=== PATIENT | female | born 1985 | race Caucasian/White ===

== ENCOUNTER 2023-08-02 04:34 | Emergency (ER) | payer BC, MEDICAID, SELFPAY ==
[2023-08-02] VITALS (15 sets, daily range): BP systolic 112–133; BP diastolic 63–81; PULSE 94–104; RESP 14–26; TEMP 36.6; O2SAT 93–98; BMI 41.6
--- NOTE | 2023-08-02 05:17 | CT_ITS ---
The [address] [address] Patient Name: SONIA CURTIS MRN: [id number] date: 1985 Sex: F Assigned Patient Location: ER Current Patient Location: ED.MAIN Accession/Order Number: [id number] Exam Date: 08/02/2023 05:44 Report Date: 08/02/2023 06:56 At the request of: KATY GARVIN Procedure: CT abdomen pelvis w con EXAM: CT abdomen pelvis w con HISTORY: Right flank pain; technologist notes state sharp and lower right back pain that radiates into the foramen of the abdomen and pain with urination yesterday. COMPARISON: None. TECHNIQUE: Routine CT abdomen/pelvis with intravenous contrast. FINDINGS: Lower chest: Unremarkable. Liver: The liver is enlarged and fatty infiltrated measuring 21 cm in longitudinal dimension. Gallbladder/biliary tree: Cholecystectomy. There is no biliary dilatation. Pancreas: Unremarkable. Spleen: Unremarkable. Adrenal glands: Unremarkable. Left kidney: Retained lobulation along the contour of the left kidney. The left kidney and left ureter are otherwise unremarkable. Right kidney/urinary bladder: Slight delayed right renal enhancement compared to the left. There is thickening of the wall of the right renal pelvis and right ureter with induration of the fat along the course of the right ureter. Findings are suspicious for a urinary tract infection. There is no renal or ureteral calculus. The urinary bladder is underdistended with mild circumferential wall thickening. There is no bladder calculus. There is mild induration of the perivesicular fat. Correlation should be made with a urinalysis. Bowel: Nonobstructive bowel gas pattern with a small amount of liquid stool within the colon. The appendix is unremarkable. The distal esophagus and stomach are unremarkable. Fluid within nondistended jejunal and ileal small bowel loops. Correlate with clinical findings of diarrhea. Inflammation: There is no free air or free fluid. Vasculature: The abdominal aorta and IVC are unremarkable. Lymphadenopathy: There are no pathologically enlarged lymph nodes within the abdomen/pelvis. Pelvis: As previously described. Hysterectomy. There is a calcification and a 1.8 cm involuting cyst within the left ovary. Osseous: Unremarkable. CT/CT abdomen pelvis w con IMPRESSION: Slight delayed right renal enhancement compared to the left. There is thickening of the wall of the right renal pelvis and right ureter with induration of the fat along the course of the right ureter. Findings are suspicious for a urinary tract infection. There is no renal or ureteral calculus. The urinary bladder is underdistended with mild circumferential wall thickening. There is no bladder calculus. There is mild induration of the perivesicular fat. Correlation should be made with a urinalysis. The liver is enlarged and fatty infiltrated measuring 21 cm in longitudinal dimension. Nonobstructive bowel gas pattern. There is a small amount of liquid stool within the colon and fluid within nondilated jejunal and ileal small bowel loops. Correlate with clinical findings of diarrhea. There is a calcification and a 1.8 cm involuting cyst within the left ovary. Electronically authenticated by: NAT DIEGO Date: 08/02/2023 06:56
[2023-08-02 05:25] LABS: Basophils Absolute Auto 0.1 10^3/uL (0.0-0.1); Basophils Percent Auto 0.4 % (0.2-2.0); Eosinophils Absolute Auto 0.1 10^3/uL (0.0-0.7); Eosinophils Percent Auto 0.3 % (0.9-7.0); Hematocrit 41.3 % (36.0-48.0); Hemoglobin 13.5 g/dL (12.0-16.0); Immature Granulocytes Abs Auto 0.14 10^3/uL (0.00-0.03); Immature Granulocytes Pct Auto 0.7 % (0.0-0.5); Lymphocytes Absolute Auto 2.9 10^3/uL (1.2-3.8); Lymphocytes Percent Auto 13.9 % (20.5-60.0); Mean Corpuscular HGB Conc 32.7 g/dL (29.9-35.2); Mean Corpuscular Hemoglobin 28.8 pg (26.7-34.0); Mean Corpuscular Volume 88.2 fL (81.0-99.0); Mean Platelet Volume 9.2 fL (9.5-13.5); Monocytes Absolute Auto 0.9 10^3/uL (0.3-0.8); Monocytes Percent Auto 4.5 % (1.7-12.0); Neutrophils Absolute Auto 16.6 10^3/uL (1.4-6.5); Neutrophils Percent Auto 80.2 % (43.0-75.0); Platelet Count 506 10^3/uL (150-450); Red Blood Count 4.68 10^6/uL (4.20-5.40); Red Cell Distribution Width 14.1 % (11.0-15.0); White Blood Count 20.7 10^3/uL (4.0-11.0)
[2023-08-02 05:26] LABS: Bilirubin Urine NEGATIVE (NEGATIVE); Blood Urine SMALL (NEGATIVE); Clarity Urine CLEAR (CLEAR); Color Urine LT. YELLOW (YELLOW); Glucose Urine UA NEGATIVE (NEGATIVE); Ketones Urine NEGATIVE (NEGATIVE); Leukocyte Esterase Urine SMALL (NEGATIVE); Nitrite Urine NEGATIVE (NEGATIVE); Protein Urine 30 mg/dL (NEG/TRACE); Specific Gravity Urine 1.025 (1.005-1.025); Urobilinogen Urine 0.2 EU/dL (0.2-1.0)
[2023-08-02 05:29] LABS: Urine Microscopic Indicated YES
[2023-08-02 05:37] LABS: Anion Gap 13.1; BUN Creatinine Ratio 4.2; Carbon Dioxide 28.8 mmol/L (21.0-32.0); Chloride 98 mmol/L (98-107); Estimated GFR (African America >60 (>=60); Estimated GFR (Non-African Ame >60 (>=60); Glucose 122 mg/dL (74-106); Sodium 137 mmol/L (136-145)
[2023-08-02 05:39] LABS: Potassium 2.9 mmol/L (3.5-5.1)
[2023-08-02 05:43] LABS: Bacteria Urine SMALL #/HPF (NONE SEEN); Cast Seen? NONE SEEN #/LPF (NONE SEEN); Crystals Seen? None Seen #/HPF (None Seen); Mucus Urine NONE SEEN (NONE SEEN); RBC Urine 0-2 #/HPF (0-2); Squamous Epithelial Cell Urine RARE #/LPF (NONE/RARE); Urine Culture Indicated YES
[2023-08-02] MEDS: KETOROLAC TROMETHAMINE 30 MG/ML VIAL 15 MG IVP (06:02)
[2023-08-02] MEDS: ONDANSETRON PF 4 MG/2 ML VIAL IV (06:02)
[2023-08-02] MEDS: POTASSIUM CHLORIDE IN WATER 10 MEQ/100 ML PIGGYBACK 100 MEQ IV ×2 (06:03→07:03)
--- NOTE | 2023-08-02 06:33 | ED_ITS ---
HPI - General Adult General Chief complaint: Back Pain/Injury Stated complaint: LOWER BACK PAIN Time Seen by Provider: 08/02/23 04:35 Source: patient Mode of arrival: walk-in Limitations: no limitations History of Present Illness HPI narrative: 37-year-old female to the emergency department with right-sided flank pain. Symptoms began yesterday. She reports some mild chills, nausea without vomiting.She's had a similar episode in the past worked up until there is nothing wrong. Patient reports that she had malaise throughout the day. She denies any hematuria, dysuria, urgency, frequency. She reports right flank pain has been worsening. She has a history of hysterectomy. She has a history of fibromyalgia. Related Data Home Medications Medication Instructions Recorded Confirmed albuterol sulfate 90 mcg/actuation inhalation 08/02/23 aerosol inhaler cetirizine 10 mg tablet mg 08/02/23 duloxetine 60 mg capsule,delayed mg PO 08/02/23 release leucovorin calcium 15 mg tablet mg 08/02/23 lurasidone 80 mg tablet mg 08/02/23 no.118-ferrous fumarate tab 08/02/23 29 mg-folic acid 1 mg chewable tablet (Se- 19 Chewable) upadacitinib 15 mg tablet,extended mg PO 08/02/23 release 24 hr (Rinvoq) Previous Rx's Medication Instructions Recorded cephalexin 500 mg capsule 500 mg PO Q6H 7 days #28 caps 08/02/23 ondansetron 4 mg disintegrating 4 mg PO Q8H PRN nausea and 08/02/23 tablet vomiting 4 days #16 tabs Allergies Allergy/AdvReac Type Severity Reaction Status Date / Time oxycodone Allergy Verified 08/02/23 04:42 Review of Systems ROS Status of ROS 10 or more systems reviewed and unremark able except as noted in history and below PFSH PFSH Social History Smoking status: Never smoker Exam Narrative Exam Narrative: VITALS: I have reviewed the triage vital signs. GENERAL: Well developed, well appearing adult in no acute distress. NEURO: Alert and oriented. Moves all extremities. Face is symmetric and expressive. EYES: PERRL. No scleral icterus or conjunctival injection. No discharge. HENT: Normocephalic, atraumatic. Hearing is grossly intact. Nares grossly patent and without discharge. Mucous membranes moist. NECK: No JVD. Patient moves neck without restriction. CARDIO: Rhythm regular. Normal rate. No murmur, rub, or gallop. Pulses equal bilaterally in the upper and lower extremity. No lower extremity edema. PULM: Lungs clear to auscultation in all penn. No wheezes, rales, or rhonchi. No conversational dyspnea. No splinting, stridor, or accessory muscle use. GI/: Abdomen is soft and non-tender. Normoactive bowel sounds. Right flank tenderness. EXTREMITIES: Symmetric muscle bulk. No joint swelling. No clubbing, cyanosis, or deformity. SKIN: Warm and dry. Normal turgor. No rash or lesions appreciated. PSYCH: Mood, affect, and interaction is appropriate to the setting. Constitutional Vital Signs, click to edit/add: Last Vital Signs Temp 97.9 F 08/02/23 04:38 Pulse 102 H 08/02/23 04:38 Resp 20 08/02/23 04:38 BP 133/81 08/02/23 04:38 Pulse Ox 98 08/02/23 04:38 O2 Del Method Room Air 08/02/23 04:38 Course Vital Signs Vital signs: Vital Signs Temperature 97.9 F 08/02/23 04:38 Pulse Rate 102 H 08/02/23 04:38 Respiratory Rate 20 08/02/23 04:38 Blood Pressure 133/81 08/02/23 04:38 Pulse Oximetry 98 08/02/23 04:38 Oxygen Delivery Method Room Air 08/02/23 04:38 Temperature 97.9 F 08/02/23 04:38 Pulse Rate 102 H 08/02/23 04:38 Respiratory Rate 20 08/02/23 04:38 Blood Pressure 133/81 08/02/23 04:38 Pulse Oximetry 98 08/02/23 04:38 Oxygen Delivery Method Room Air 08/02/23 04:38 Medical Decision Making [facility] Narrative Medical decision making narrative: 37-year-old female to the emergency department with chief complaint right-sided flank pain. Vital stable, the patient is afebrile. Abdominal examination is benign. Will order a CT scan to rule out kidney stone. Urinalysis, basic labs ordered as well. IV Toradol and Zofran for symptom control. Fluids are ordered. Patient agrees with this plan. Patient does have a leukocytosis. Her renal function is normal. She has a moderate hypokalemia, we'll begin repletion with 20 mEq of IV potassium. Oral potassium will be given there is no acute surgical pathology on her CT scan as well. Care was signed out to Dr. Aguilera awaiting CT results and disposition. Suspect UTI/ early pyelo and if symptoms controlled discharge home on Keflex and Zofran. Medical Records Medical records reviewed: Yes I reviewed the patient's medical records Lab Data Lab results reviewed: Yes I reviewed the patient's lab results Labs: Lab Results 08/02/23 08/02/23 Range/Units 04:50 05:10 WBC 20.7 H (4.0-11.0) 10^3/uL RBC 4.68 (4.20-5.40) 10^6/uL Hgb 13.5 (12.0-16.0) g/dL Hct 41.3 (36.0-48.0) % MCV 88.2 (81.0-99.0) fL MCH 28.8 (26.7-34.0) pg MCHC 32.7 (29.9-35.2) g/dL RDW 14.1 (11.0-15.0) % Plt Count 506 H (150-450) 10^3/uL MPV 9.2 L (9.5-13.5) fL Neut % (Auto) 80.2 H (43.0-75.0) % Lymph % (Auto) 13.9 L (20.5-60.0) % [place] % (Auto) 4.5 (1.7-12.0) % Eos % (Auto) 0.3 L (0.9-7.0) % Baso % (Auto) 0.4 (0.2-2.0) % Neut # (Auto) 16.6 H (1.4-6.5) 10^3/uL Lymph # (Auto) 2.9 (1.2-3.8) 10^3/uL Anderson # (Auto) 0.9 H (0.3-0.8) 10^3/uL Eos # (Auto) 0.1 (0.0-0.7) 10^3/uL Baso # (Auto) 0.1 (0.0-0.1) 10^3/uL Abs Immat Gran (auto) 0.14 H (0.00-0.03) 10^3/uL Imm/Tot Granulo (auto) 0.7 H (0.0-0.5) % Sodium 137 (136-145) mmol/L Potassium 2.9 L* (3.5-5.1) mmol/L Chloride 98 (98-107) mmol/L Carbon Dioxide 28.8 (21.0-32.0) mmol/L Anion Gap 13.1 BUN 4.0 L (7.0-18.0) mg/dL Creatinine 0.95 (0.55-1.02) mg/dL Est GFR ( Amer) >60 (>=60) Est GFR (Non-Af Amer) >60 (>=60) BUN/Creatinine Ratio 4.2 Glucose 122 H (74-106) mg/dL Calcium 9.0 (8.5-10.1) mg/dL Urine Color Lt. yellow (YELLOW) Urine Clarity Clear (CLEAR) Urine pH 6.0 (5.0-9.0) Ur Specific [place] 1.025 (1.005-1.025) Urine Protein 30 A (NEG/TRACE) mg/dL Urine Glucose (UA) Negative (NEGATIVE) mg/dL Urine Ketones Negative (NEGATIVE) mg/dL Urine Occult Blood Small A (NEGATIVE) Urine Nitrite Negative (NEGATIVE) Urine Bilirubin Negative (NEGATIVE) Urine Urobilinogen 0.2 (0.2-1.0) EU/dL Ur Leukocyte Esterase Small A (NEGATIVE) Urine RBC 0-2 (0-2) #/HPF Urine WBC 10-20 A (NONE SEEN) #/HPF Ur Squamous Epith Cells Rare (NONE/RARE) #/LPF Urine Crystals None seen (None Seen) #/HPF Urine Bacteria Small A (NONE SEEN) #/HPF Urine Casts None seen (NONE SEEN) #/LPF Urine Mucus None seen (NONE SEEN) Ur Culture Indicated? Yes Imaging Data CT scan - abdomen: Attestation: I have reviewed the pertinent imaging results. Discharge Plan Discharge Chief Complaint: Back Pain/Injury Clinical Impression: UTI (urinary tract infection), Flank pain Patient Disposition: Home, Self-Care Condition: Good Mode of Transportation: Private Vehicle Prescriptions / Home Meds: New cephalexin 500 mg capsule 500 mg PO Q6H 7 Days Qty: 28 0RF ondansetron 4 mg tablet,disintegrating 4 mg PO Q8H PRN (Reason: nausea and vomiting) 4 Days Qty: 16 0RF No Action cetirizine 10 mg tablet leucovorin calcium 15 mg tablet albuterol sulfate 90 mcg/actuation HFA aerosol inhaler INHALATION duloxetine 60 mg capsule,delayed release(DR/EC) PO lurasidone 80 mg tablet Se-Moustapha 19 Chewable 29 mg iron- 1 mg tablet,chewable Rinvoq 15 mg tablet extended release 24 hr PO Print Language: Argentine Instructions: Urinary Tract Infection in Women (ED) Stand Alone Forms: Portal Instructions Referrals: Hamzah Sterling MD [Physician] - 1 week (Return to the Emergency Room with Worsening pain, inability to tolerate oral intake, or other new or concerning symptoms. Follow up with her primary care physician above or ureters in the next week repeat evaluation and to make sure that Your condition has resolved. Take medications as prescribed.) Physician,Non-Staff, [Primary Care Provider] - 1 week
[2023-08-02] MEDS: 0.9 % SODIUM CHLORIDE 1,000 ML 100 ML IV (07:00)
[2023-08-02] MEDS: CEFTRIAXONE 1,000 MG in 0.9 % SODIUM CHLORIDE 50 ML 100 MG IV (08:07)
== END 2023-08-02 08:51 | disposition home or self-care (01) ==
PROVIDERS: Student in an Organized Health Care Education/Training Program; Emergency Provider Emergency Medicine
DX: N39.0 Urinary tract infection, site not specified (principal); R10.9 Unspecified abdominal pain; M79.7 Fibromyalgia; Z90.710 Acquired absence of both cervix and uterus; Z79.899 Other long term (current) drug therapy
CPT/HCPCS: 36415; 74177; 80048; 81001; 85025; 87086; 87150; 87186; 96365; 96366; 96367; 96375; 99285; J0696; J1885; J2405; J3480; Q9967

== ENCOUNTER 2023-11-04 19:54 | Emergency (ER) | payer BC, MEDICAID, SELFPAY ==
[2023-11-04 19:59] VITALS: BP 139/87; PULSE 91; TEMP 36.6; O2SAT 97; BMI 37.4
--- OUTSIDE RECORDS SUMMARY | 2023-11-04 20:10 | XMS_ITS | CCD ---
Author Organization [facility] Care Team Providers Care Gas Fitter Name Role Phone SELF, REFERRED Primary Care Unavailable BALWINDER OCAMPO Referring Unavailable LUIS ALFREDONITESH HERNANDZE Attending Unavailable LUIS ALFREDONITESH HERNANDEZ Admitting Unavailable FARHAD, CADE Primary Care Unavailable DIAB ., CATIE Attending Unavailable DIAB ., CATIE Admitting Unavailable GRECHNY ., BALDEMAR GOLDBERG Consulting Unavailabl e LAZOJOSÉ MANUEL Consulting Unavailable FARHAD, CADE Primary Care Unavailable KARASIK ., DR VIDAL Attending Unavailabl e KARASIK ., DR VIDAL Consulting Unavailabl e KARASIK ., DR VIDAL Admitting Unavailabl e ADRIAN CASSIDY Attending Unavailable PHAN, KARSTEN Primary Care Unavailable GAURI NEAL Attending Unavailable PARK, GAURI A Attending Unavailable PARK GAURI A Referring Unavailable PHAN, KARSTEN Primary Care Unavailable NOMI SPICER Referring Unavailable NOMI SPICER Attending Unavailable NOMI SPICER Attending Unavailable NOMI SPICER Attending Unavailable NOMI SPICER M Attending Unavailable SHAHNAZ HANNAH Attending Unavailable Allergies Allergy Classification Reported Allergen(s) Allergy Type Date of Onset Reaction(s) Facility (3 sources) Latex; 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: [LATEX] Propensity to adverse reactions (disorder) 8 [facility] Repository (1 source) adalimumab Drug Allergy [facility] Repository (1 source) natural latex rubber Drug allergy (disorder) [facility] Repository (2 sources) adalimumab; 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: [ADALIMUMAB] Drug Allergy 3 [facility] Repository (2 sources) oxyCODONE; 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: [OXYCODONE] Drug Allergy 3 [facility] Repository Problems Active Problems Problem Classification Problem Date Documented Date Episodic/Chronic Abdominal pain (1 source) Flank pain Onset: 07-19-2023 Episodic Anxiety disorders (1 source) Anxiety disorder, unspecified; 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: [ANXIETY DISORDER UNSPECIFIED] Onset: 08-24-2022 Chronic Cardiac dysrhythmias (1 source) Palpitations; 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: [PALPITATIONS] Onset: 08-24-2022 Episodic Disorders of lipid metabolism (2 sources) Hyperlipidemia, unspecified; 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: [Hyperlipidemia, unspecified] Onset: 05-23-2023 Chronic Fluid and electrolyte disorders (1 source) Hypokalemia; 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: [HYPOKALEMIA] Onset: 08-24-2022 Episodic Headache; including migraine (1 source) Headache Onset: 07-19-2023 Episodic Immunizations and screening for infectious disease (1 source) Encounter for screening for human papillomavirus (HPV); 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: [ENC SCREENING HUMAN PAPILLOMAVIRUS] Onset: 10-15-2022 Episodic Nonspecific chest pain (4 sources) Chest pain, unspecified; 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: [CHEST PAIN UNSPECIFIED] Onset: 08-22-2022 Episodic Other inflammatory condition of skin (2 sources) Arthropathic psoriasis, unspecified; 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: [Arthropathic psoriasis, unspecified] Onset: 05-23-2023 Chronic Other lower respiratory disease (1 source) Shortness of breath; 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: [SHORTNESS OF BREATH] Onset: 08-24-2022 Episodic Other nervous system disorders (2 sources) Polyneuropathy, unspecified; 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: [Polyneuropathy, unspecified] Onset: 02-26-2023 Chronic Other non-traumatic joint disorders (2 sources) Other specified arthritis, unspecified site; 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: [Other specified arthritis, unspecified site] Onset: 11-15-2022 Chronic Other screening for suspected conditions (not mental disorders or infectious disease) (4 sources) Encounter for screening for malignant neoplasm of cervix; 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: [ENC SCREENING MALIG NEOPLASM CERV] Onset: 10-10-2022 Episodic Rheumatoid arthritis and related disease (3 sources) Rheumatoid arthritis, unspecified; 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: [RHEUMATOID ARTHRITIS UNSPECIFIED] Onset: 08-24-2022 Chronic Screening and history of mental health and substance abuse codes (1 source) Personal history of nicotine dependence; 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: [PERSONAL HISTORY OF NICOTINE DEPEND] Onset: 08-24-2022 Episodic Unclassified (1 source) Low back pain, unspecified; 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: [Low back pain, unspecified] Onset: 07-19-2023 Unclassified (1 source) nausea, flank pain, headche Onset: 07-19-2023 Unclassified (1 source) FDC (current) use of antimetabolite agent; 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: [watermaster (current) use of antimetabolite agent] Onset: 02-26-2023 Past or Other Problems Problem Classification Problem Date Documented Date Episodic/Chronic E Codes: Adverse effects of medical drugs (2 sources) Adverse effect of antineoplastic and immunosuppressive drugs, initial encounter; 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: [Adverse effect of antineoplastic and immunosuppressive drugs, initial encounter] Onset: 11-15-2022 Episodic Other aftercare (2 sources) Other rat 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 (current) drug therapy; 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: [Other rat 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 (current) drug therapy] Onset: 03-22-2023 Episodic Other aftercare (2 sources) watermaster (current) use of systemic steroids; 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: [FDC (current) use of systemic steroids] Onset: 03-22-2023 Episodic Other connective tissue disease (2 sources) Fibromyalgia; 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: [Fibromyalgia] Onset: 02-26-2023 Episodic Other connective tissue disease (2 sources) Plantar fascial fibromatosis; 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: [Plantar fascial fibromatosis] Onset: 02-26-2023 Episodic Residual codes; unclassified (2 sources) Edema, unspecified; 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: [Edema, unspecified] Onset: 05-23-2023 Episodic Unclassified (1 source) FDC (current) use of antimetabolite agent; 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: [watermaster (current) use of antimetabolite agent] Onset: 02-26-2023 Results Test Name Value Interpretation Reference Range Facility 2911-01-2023 29 Addended by: NOMI SPICER on: 11/01/2023 04:53 PM Modules accepted: Orders Normal [facility] 36on 11-01-2023 36 TC from PT following up from a message she sent earlier: I am in a flare and was wondering if I could get something for it and if I could get a doctor's note for school And routed to Dr. Spicer to address. PT expresses she is in extreme pain with flare all over her body and is asking for something for pain/relief. PT is also asking for a note for her not being in school for 11/01/23. RN offered reassurance and support suggesting that if she does not hear back from [facility] today, and still has existing pain/discomfort to go to ER for evaluation of pain and treatment. PT verbalized understanding. PT is scheduled for follow up 11/07/23 Please advise. Shabana Jara RN [facility] Telephoneon 11-01-2023 Telephone [phone] Phyllis Waite Ilya 1985 F Date Provider Department Center 11/01/2023 [id number] JARA [facility] Chris Heal Family History Problem Relation Age of Onset Lupus Mother Cirrhosis Mother Family Status - Relation Status Age at Mother Reason for Visit and Comments: Generalized Body Aches [022694] - pain Normal [facility] Documentationon 10-25-2023 Documentation [id number] Elizabet Waiteinderjit Caraballo 1985 F Date Provider Department Center 10/25/[id number], KARA [facility] Chris Heal Family History Problem Relation Age of Onset Lupus Mother Cirrhosis Mother Family Status - Relation Status Age at Mother Reason for Visit and Comments: Specialty Pharmacy Note-Rinvoq Prescription [Other] [facility] 36on 10-07-2023 36 Last visit: 05/23/83 Next visit: cancelled by patient for 08/29/23 CBC/CMP: 07/19/23 [facility] 36 PT calling asking fo r provider to order different medication than Rinvoq because she cannot afford the $1000.00 copay. RN encouraged PT to contact her filling pharmacy inquiring of the PAP to assist with copay if financially eligible. RN also provided PT with [facility] Access pharmacy number to call for same information if applicable. PT verbalized appreciation and assistance. suresh Normal [facility] CBC AND AUTO DIFFon 07-19-19 ABSOLUTE BASOPHIL 0.1 X10E9/L Normal 0.0-0.2 [facility] Comment on above: Performed By: #### C MP, CBCA #### [facility] ([id number]) [address] [place] [address], [place] [address] ABSOLUTE NEUTROPHIL 4.6 X10E9/L Normal 1.5-6.6 [facility] Comment on above: Performed By: #### C MP, CBCA #### [facility] ([id number]) [address] [place] [address] 28215 Basophils/100 WBC (Bld) 0.9 % Normal [facility] Comment on above: Performed By: #### C MP, CBCA #### [facility] ([id number]) [address] [place] [address] 81287 Eosinophils (Bld) [#/Vol] 0.2 10*3/uL Normal 0.0-0.4 [facility] Comment on above: Performed By: #### C MP, CBCA #### [facility] ([id number]) [address] [place] [address] 11537 Eosinophils/100 WBC (Bld) 1.6 % Normal [facility] Comment on above: Performed By: #### C MP, CBCA #### [facility] ([id number]) [address] [place] [address] 21083 Erythrocyte distribution width (RBC) [Ratio] 13.9 % Normal 11.5-15.0 [facility] Comment on above: Performed By: #### C MP, CBCA #### [facility] ([id number]) [address] [place] [address] 19179 Hematocrit (Bld) [Volume fraction] 38.0 % Normal 35-47 [facility] Comment on above: Performed By: #### C MP, CBCA #### [facility] ([id number]) [address] [place] [address] 56947 Hemoglobin (Bld) [Mass/Vol] 13.0 g/dL Normal 11.7-15.5 [facility] Comment on above: Performed By: #### C MP, CBCA #### [facility] ([id number]) [address] [place] [address], [place] [address] Lymphocytes (Bld) [#/Vol] 5.0 10*3/uL High 1.0-3.5 [facility] Comment on above: Performed By: #### C MP, CBCA #### [facility] ([id number]) [address] [place] [address] 19277 Lymphocytes/100 WBC (Bld) 48.0 % Normal [facility] Comment on above: Performed By: #### C MP, CBCA #### [facility] ([id number]) [address] [place] [address] 28112 MCH (RBC) [Entitic mass] 29.4 pg Normal 27-34 [facility] Comment on above: Performed By: #### C MP, CBCA #### [facility] ([id number]) [address] [place] [address] 01304 MCHC (RBC) [Mass/Vol] 34.3 g/dL Normal 32-36 [facility] Comment on above: Performed By: #### C MP, CBCA #### [facility] ([id number]) [address] [place] [address] 25668 MCV (RBC) [Entitic vol] 86 fL Normal 80-100 [facility] Comment on above: Performed By: #### C MP, CBCA #### [facility] ([id number]) [address] [place] [address] 87191 Monocytes (Bld) [#/Vol] 0.6 10*3/uL Normal 0-0.9 [facility] Comment on above: Performed By: #### C MP, CBCA #### [facility] ([id number]) [address] [place] [address] 30809 Monocytes/100 WBC (Bld) 5.5 % Normal [facility] Comment on above: Performed By: #### C MP, CBCA #### [facility] ([id number]) [address] [place] [address] 44799 Neutrophils/100 WBC (Bld) 44.0 % Normal [facility] Comment on above: Performed By: #### C MP, CBCA #### [facility] ([id number]) [address] [place] [address] 85745 Platelet mean volume (Bld) [Entitic vol] 7.0 fL Normal 7-12 [facility] Comment on above: Performed By: #### C MP, CBCA #### [facility] ([id number]) [address] [place] [address] 16301 Platelets (Bld) [#/Vol] 559 10*3/uL High 150-450 [facility] Comment on above: Performed By: #### C MP, CBCA #### [facility] ([id number]) [address] [place] [address] 83723 RBC COUNT 4.43 X10E12/L Normal 3.80-5.20 [facility] Comment on above: Performed By: #### C MP, CBCA #### [facility] ([id number]) [address] [place] [address] 40713 WBC (Bld) [#/Vol] 10.4 10*3/uL Normal 4.0-11.0 [facility] Comment on above: Performed By: #### C MP, CBCA #### [facility] ([id number]) [address] [place] [address]506 COMPREHENSIVE METABOLIC PANE Varghese 07-19-2023 Albumin [Mass/Vol] 4.2 g/dL Normal 3.2-5.3 [facility] Comment on above: Performed By: #### C MP, CBCA #### [facility] ([id number]) [address] [place] [address] 40133 ALP [Catalytic activity/Vol] 92 U/L Normal 39-130 [facility] Comment on above: Performed By: #### C MP, CBCA #### [facility] ([id number]) [address] [place] [address] 31379 ALT [Catalytic activity/Vol] 57 U/L High 0-31 [facility] Comment on above: Performed By: #### C MP, CBCA #### [facility] ([id number]) [address] [place] [address] 35503 Anion gap [Moles/Vol] 9 mmol/L Normal 5-15 [facility] Comment on above: Performed By: #### C DEMI, CBCA #### [facility] ([id number]) [address] [place] [address] 30223 AST [Catalytic activity/Vol] 58 U/L High 0-41 [facility] Comment on above: Performed By: #### C DEMI, CBCA #### [facility] ([id number]) [address] [place] [address] 36625 Bilirubin [Mass/Vol] 0.1 mg/dL Low 0.3-1.2 [facility] Comment on above: Performed By: #### C DEMI, CBCA #### [facility] ([id number]) [address] [place] [address] 14509 Calcium [Mass/Vol] 9.4 mg/dL Normal 8.5-10.5 [facility] Comment on above: Performed By: #### C MP, CBCA #### [facility] ([id number]) [address] [place] [address] 40234 Chloride [Moles/Vol] 102 mmol/L Normal 98-109 [facility] Comment on above: Performed By: #### C MP, CBCA #### [facility] ([id number]) [address] [place] [address] 63869 CO2 [Moles/Vol] 27 mmol/L Normal 22-32 [facility] Comment on above: Performed By: #### C CHANDRAKANT SIMMS #### [facility] ([id number]) [address] [place] [address] 76967 Creatinine [Mass/Vol] 0.85 mg/dL Normal 0.40-1.00 [facility] Comment on above: Result Comment: METH OD TRACEABLE TO IDMS STANDARD Performed By: #### C CHANDRAKANT SIMMS #### [facility] ([id number]) [address] [place] [address] 09697 eGFR (CKD-EPI) NON-RACE DEPENDENT >90 Normal >59 [facility] Comment on above: Result Comment: Reported eGFR is based on the CKD-EPI 2020 equation that does not use a race coefficient. Performed By: #### C CHANDRAKANT SIMMS #### [facility] ([id number]) [address] [place] [address] 97151 Glucose [Mass/Vol] 92 mg/dL Normal 65-99 [facility] Comment on above: Performed By: #### C CHANDRAKANT SIMMS #### [facility] ([id number]) [address] [place] [address] 32274 Potassium [Moles/Vol] 3.3 mmol/L Low 3.5-5.0 [facility] Comment on above: Performed By: #### C CHANDRAKANT SIMMS #### [facility] ([id number]) [address] [place] [address] 70801 Protein [Mass/Vol] 8.0 g/dL Normal 6.0-8.0 [facility] Comment on above: Performed By: #### C LIYA SIMMSA #### [facility] ([id number]) [address] [place] [address] 87618 Sodium [Moles/Vol] 138 mmol/L Normal 134-146 [facility] Comment on above: Performed By: #### C MP, CBCA #### [facility] ([id number]) [address] [place] [address] 71308 Urea nitrogen [Mass/Vol] 5 mg/dL Normal 5-23 [facility] Comment on above: Performed By: #### C MP, CBCA #### [facility] ([id number]) [address] [place] [address] ABDOMEN AND PELVIS WO CON Ton 07-19-2023 CT ABDOMEN AND PELVIS WO CONT CT ABDOMEN AND PELVIS WO CONT CLINICAL INFORMATION: Abdominal/flank pain, stone suspected pain TECHNIQUE: CT Abdomen and Pelvis without intravenous contrast. All CT scans at this facility use dose modulation, iterative reconstruction, and/or weight based dosing when appropriate to reduce radiation dose to as low as reasonably achievable. COMPARISON: No relevant prior studies available. FINDINGS: There are no renal stones noted. No hydronephrosis. No urinary bladder stones. No hydroureter. Hepatic steatosis is appreciated. Prior cholecystectomy. The spleen, adrenal glands and pancreas are grossly unremarkable in the constraints of a noncontrast study. Normal appearance of the abdominal aorta. The appendix is normal. No evidence of bowel obstruction. Prior hysterectomy. No free fluid. No free air. No concerning adenopathy IMPRESSION: * No acute intraperitoneal process is seen Finalized by Mirtha Wiledr MD on 07/19/2023 5:05 PM Normal [facility] URN MACROSCOPIC NURon 2023 BILIRUBIN ZENOBIA Negative Normal NEG [facility] Comment on above: Performed By: #### N UM #### [facility] ([id number]) [address] [place] [address] 02453 BLOOD/HGB ZENOBIA Negative Normal NEG [facility] Comment on above: Performed By: #### N UM #### [facility] ([id number]) [address] [place] [address] 45878 GLUCOSE ZENOBIA Negative Normal NEG [facility] Comment on above: Performed By: #### N UM #### [facility] ([id number]) [address] [place] [address] [place] [address] KETONES ZENOBIA Negative Normal NEG [facility] Comment on above: Performed By: #### N UM #### [facility] ([id number]) [address] [place] [address] [place] [address] LEUKOCYTE ESTERASE ZENOBIA Negative Normal NEG [facility] Comment on above: Performed By: #### N UM #### [facility] ([id number]) [address] [place] [address] [place] [address] NITRITE ZENOBIA Negative Normal NEG [facility] Comment on above: Performed By: #### N UM #### [facility] ([id number]) [address] [place] [address] 44154 PH ZENOBIA 6.0 Normal 5.0-8.5 [facility] Comment on above: Performed By: #### N UM #### [facility] ([id number]) [address] [place] [address] [place] [address] PROTEIN ZENOBIA Negative Normal NEG [facility] Comment on above: Performed By: #### N UM #### [facility] ([id number]) [address] [place] [address] [place] [address] SPECIFIC GRAVITY ZENOBIA 1.010 Normal 1.003-1.035 [facility] Comment on above: Performed By: #### N UM #### [facility] ([id number]) [address] [place] [address] [place] [address] UROBILINOGEN ZENOBIA 0.2 eu/dL Normal <1.1 [facility] Comment on above: Performed By: #### N UM #### [facility] ([id number]) [address] [place] [address] [place] [address] CBC WITH AUTO DIFFERENTIALon 05-23-2023 Basophils (Bld) [#/Vol] 0.09 10*3/uL Normal 0.00-0.20 [facility] Comment on above: Performed By: #### L [id number] ####[facility] (BEAKER)[address] [place] [address] Basophils/100 WBC (Bld) 0.6 % Normal 0.0-1.0 [facility] Comment on above: Performed By: #### L [id number] ####[facility] (BEAKER)[address] [place] [address] Eosinophils (Bld) [#/Vol] 0.21 10*3/uL Normal 0.00-0.50 [facility] Comment on above: Performed By: #### L [id number] ####[facility] (BEAKER)[address] [place] [address] Eosinophils/100 WBC (Bld) 1.4 % Normal 0.0-6.0 [facility] Comment on above: Performed By: #### L [id number] ####[facility] [place] [address] Erythrocyte distribution width (RBC) [Ratio] 13.6 % Normal 11.5-15.0 [facility] Comment on above: Performed By: #### L [id number] ####[facility] (BEAKER)[address] [place] [address] ERYTHROCYTE MEAN CORPUSCULAR HEMOGLOBIN CONCENTRATION (G/DL) BY AUTOMATED 33.5 g/dL Normal 32.0-35.0 [facility] Comment on above: Performed By: #### L [id number] ####[facility] (BEAKER)[address] [place] [address] Hematocrit (Bld) [Volume fraction] 39.4 % Normal 36.0-48.0 [facility] Comment on above: Performed By: #### L [id number] ####[facility] (BEAKER)[address] [place] [address] Hemoglobin (Bld) [Mass/Vol] 13.2 g/dL Normal 12.0-15.0 [facility] Comment on above: Performed By: #### L [id number] ####[facility] ([facility]AKER)[address] [place] [address] Immature granulocytes (Bld) [#/Vol] 0.08 10*3/uL Normal 0.00-0.20 [facility] Comment on above: Performed By: #### L [id number] ####[facility] ([facility]ER)[address] [place] [address] Immature granulocytes/100 WBC (Bld) 0.5 % Normal 0.0-1.0 [facility] Comment on above: Performed By: #### L [id number] ####[facility] (BE[facility]ER)[address] [place] [address] Lymphocytes (Bld) [#/Vol] 3.60 10*3/uL Normal 1.20-4.00 [facility] Comment on above: Performed By: #### L [id number] ####[facility] (BEAKER)[address] [place] [address] Lymphocytes/100 WBC (Bld) 23.2 % Normal 20.0-45.0 [facility] Comment on above: Performed By: #### L [id number] ####[facility] [place] [address] MCH (RBC) [Entitic mass] 29.7 pg Normal 27.0-33.0 [facility] Comment on above: Performed By: #### L [id number] ####[facility] (BEAKER)[address] [place] [address] MCV (RBC) [Entitic vol] 88.5 fL Normal 82.0-98.0 [facility] Comment on above: Performed By: #### L [id number] ####[facility] (BEAKER)[address] [place] [address] Monocytes (Bld) [#/Vol] 0.98 10*3/uL Normal 0.10-1.00 [facility] Comment on above: Performed By: #### L [id number] ####[facility] (BEAKER)[address] [place] [address] Monocytes/100 WBC (Bld) 6.3 % Normal 5.0-12.0 [facility] Comment on above: Performed By: #### L [id number] ####[facility] (BEAKER)[address] [place] [address] Neutrophils (Bld) [#/Vol] 10.58 10*3/uL High 1.60-7.60 [facility] Comment on above: Performed By: #### L [id number] ####[facility] [place] [address] Neutrophils/100 WBC (Bld) 68.0 % Normal 40.0-72.0 [facility] Comment on above: Performed By: #### L [id number] ####[facility] [place] [address] NRBC (PER 100 WBCS) BY AUTOMATED COUNT 0.0 % Normal 0 [facility] Comment on above: Performed By: #### L [id number] ####[facility] [place] [address] PLATELETS (10*3/UL) IN BLOOD AUTOMATED COUNT 562 10*3/uL High 150-400 [facility] Comment on above: Performed By: #### L [id number] ####[facility] [place] [address] RBC (Bld) [#/Vol] 4.45 10*6/uL Normal 3.80-5.00 [facility] Comment on above: Performed By: #### L [id number] ####[facility] (BEAKER)[address] [place] [address] WBC (Bld) [#/Vol] 15.54 10*3/uL High 4.00-10.60 [facility] Comment on above: Performed By: #### L [id number] ####[facility] (BEAKER)[address] [place] [address] COMPREHENSIVE METABOLIC PANE Varghese 05-23-2023 Albumin [Mass/Vol] 4.7 g/dL Normal 3.5-5.7 [facility] Comment on above: Performed By: #### L [id number] #### [facility] (BEAKER) [address] [place] [address] ALP [Catalytic activity/Vol] 98 U/L Normal 34-104 [facility] Comment on above: Performed By: #### L [id number] #### [facility] [facility] [address] [place] [address] ALT [Catalytic activity/Vol] 42 U/L Normal 7-52 [facility] Comment on above: Performed By: #### L [id number] #### [facility] ([facility]) [address] [place] [address] Anion gap [Moles/Vol] 11 mmol/L Normal 7-20 [facility] Comment on above: Performed By: #### L [id number] #### [facility] ([facility]) [address] [place] [address] AST [Catalytic activity/Vol] 29 U/L Normal 13-39 [facility] Comment on above: Performed By: #### L [id number] #### [facility] ([facility]) [address] [place] [address] Bilirubin [Mass/Vol] 0.3 mg/dL Normal 0.3-1.0 [facility] Comment on above: Performed By: #### L [id number] #### [facility] [address] [place] [address] Calcium [Mass/Vol] 10.3 mg/dL Normal 8.6-10.3 [facility] Comment on above: Performed By: #### L [id number] #### [facility] ([facility]) [address] [place] [address] Chloride [Moles/Vol] 100 mmol/L Normal 98-107 [facility] Comment on above: Performed By: #### L [id number] #### [facility] [address] [place] [address] CO2 [Moles/Vol] 28 mmol/L Normal 21-31 [facility] Comment on above: Performed By: #### L [id number] #### [facility] ([facility]) [address] [place] [address] Creatinine [Mass/Vol] 0.73 mg/dL Normal 0.60-1.20 [facility] Comment on above: Performed By: #### L [id number] #### [facility] ([facility]) [address] [place] [address] GLOMERULAR FILTRATION RATE ML/MIN/1.73 SQ M.PREDICTED 109.2 mL/min/1.73m*2 Normal >60.0 [facility] Comment on above: Result Comment: The [facility]???s estimated glomerular filtration rate (eGFR) will no longer include consideration of race in its calculation. The National Kidney Foundation???s eGFR Task Force developed new recommendations for the estimation of the glomerular filtration rate in the [place] They recommend immediate implementation of the new equation refit without the race variable in all laboratories because the calculation does not include race. In addition to not including race in the calculation and reporting, it included diversity in its development, and has acceptable performance characteristics and potential consequences that do not disproportionately affect any one group of individuals. Performed By: #### L [id number] #### [facility] ([facility]) [address] [place] [address] Glucose [Mass/Vol] 83 mg/dL Normal 70-100 [facility] Comment on above: Performed By: #### L [id number] #### [facility] ([facility]) [address] [place] [address] Potassium [Moles/Vol] 3.4 mmol/L Low 3.5-5.1 [facility] Comment on above: Performed By: #### L [id number] #### [facility] ([facility]) [address] [place] [address] Protein [Mass/Vol] 7.9 g/dL Normal 6.0-8.3 [facility] Comment on above: Performed By: #### L [id number] #### [facility] ([facility]) [address] [place] [address] Sodium [Moles/Vol] 136 mmol/L Normal 136-145 [facility] Comment on above: Performed By: #### L [id number] #### [facility] ([facility]) [address] [place] [address] Urea nitrogen [Mass/Vol] 7 mg/dL Normal 7-25 [facility] Comment on above: Performed By: #### L [id number] #### [facility] ([facility]) [address] [place] [address] UREA NITROGEN/CREATININE (MASS RATIO) IN SER/PLAS 9.6 Normal [facility] Comment on above: Performed By: #### L [id number] #### [facility] ([facility]) [address] [place] [address] Follow-Upon 05-23-2023 Follow-Up [id number] Phyllis Waite 1985 F Date Provider Department Center 05/23/2023 NOMI LOUIE [facility]UM Chris Heal Family History Problem Relation Age of Onset Lupus Mother Cirrhosis Mother Family Status - Relation Status Age at Mother Level of Service:15630 [place] OFFICE/OUTPATIENT ESTABLISHED MOD MDM 30-39 MIN Reason for Visit and Comments: Follow-up [095131] Normal [facility] Orders Onlyon 05-23-2023 Orders Only [id number] Phyllis Waite 1985 F Date Provider Department Center 05/23/2023 RADHA ALONSO [facility] Chris Heal Family History Problem Relation Age of Onset Lupus Mother Cirrhosis Mother Family Status - Relation Status Age at Mother Normal [facility] URINALYSISon 05-23-2023 BILIRUBIN, TOTAL PRESENCE IN URINE Negative Normal Negative [facility] Comment on above: Order Comment: Micro scopics not performed on urines with negative chemical reactions unless requested on original order. Performed By: #### L [id number] ####[facility] ([facility])[address] [place] [address] Clarity (U) Clear Normal Clear [facility] Comment on above: Order Comment: Micro scopics not performed on urines with negative chemical reactions unless requested on original order. Performed By: #### L [id number] ####[facility] ([facility])[address] [place] [address] Color (U) Yellow Normal Yellow [facility] Comment on above: Order Comment: Micro scopics not performed on urines with negative chemical reactions unless requested on original order. Performed By: #### L [id number] ####[facility] ([facility])[address] [place] [address] Glucose (U) [Mass/Vol] Negative Normal Negative [facility] Comment on above: Order Comment: Micro scopics not performed on urines with negative chemical reactions unless requested on original order. Performed By: #### L [id number] ####[facility] ([facility])[address] [place] [address] HEMOGLOBIN PRESENCE IN URINE Negative Normal Negative [facility] Comment on above: Order Comment: Micro scopics not performed on urines with negative chemical reactions unless requested on original order. Performed By: #### L [id number] ####[facility] ([facility])[address] [place] [address] Ketones Ql (U) Negative Normal Negative [facility] Comment on above: Order Comment: Micro scopics not performed on urines with negative chemical reactions unless requested on original order. Performed By: #### L [id number] ####[facility] ([facility])[address] [place] [address] LEUKOCYTE ESTERASE PRESENCE IN URINE BY TEST STRIP Negative Normal Negative [facility] Comment on above: Order Comment: Micro scopics not performed on urines with negative chemical reactions unless requested on original order. Performed By: #### L [id number] ####[facility] ([facility] [place] [address] NITRITE PRESENCE IN URINE Negative Normal Negative [facility] Comment on above: Order Comment: Micro scopics not performed on urines with negative chemical reactions unless requested on original order. Performed By: #### L [id number] ####[facility] ([facility])[address] [place] [address] pH (U) 7.0 [pH] Normal 5.0-8.0 [facility] Comment on above: Order Comment: Micro scopics not performed on urines with negative chemical reactions unless requested on original order. Performed By: #### L [id number] ####[facility] ([facility])[address] [place] [address] Protein (U) [Mass/Vol] Negative Normal Negative [facility] Comment on above: Order Comment: Micro scopics not performed on urines with negative chemical reactions unless requested on original order. Performed By: #### L [id number] ####[facility] ([facility])[address] [place] [address] Specific gravity (U) [Rel density] 1.004 Low 1.015-1.020 [facility] Comment on above: Order Comment: Micro scopics not performed on urines with negative chemical reactions unless requested on original order. Performed By: #### L [id number] ####[facility] ([facility])[address] [place] [address] 36on 04-09-2023 36 Last visit 02/26/23 Upcoming visit 05/23/23 Last cbc/cmp 02/12/23 Normal [facility] 36on 03-18-2023 36 Last visit 02/26/23 Upcoming visit 05/23/23 Last cbc/cmp 02/12/23 [facility] Follow-Upon 02-26-2023 Follow-Up [id number] Phyllis Waite 1985 F Date Provider Department Center 02/26/2023 NOMI LOUIE [facility] Chris Heal Family History Problem Relation Age of Onset Lupus Mother Cirrhosis Mother Family Status - Relation Status Age at Mother Level of Service:82710 [place] OFFICE/OUTPATIENT ESTABLISHED MOD MDM 30-39 MIN () Reason for Visit and Comments: Follow-up [[id number]] Normal [facility] 36on 02-25-2023 36 Pt scheduled Normal [place] [facility] 36 Pt called to give update She states she is almost complete w/ medrol dose elian that was rx'd last week, and her pain is still the same no change Pain 7/10 per pt She would like to know what next steps will be. Please advise and I can call pt w/response [facility] 36on 02-22-2023 36 Pt notified [facility] 36 Pt is having flare-u p. She is currently unable to walk and describes pain as stabbing and pins and needles [facility] Telephoneon 02-22-2023 Telephone [phone] Phyllis Waite 1985 F Date Provider Department Center 02/22/2023 CLAIRE ISLAS [facility] Chris Heal Family History Problem Relation Age of Onset Lupus Mother Cirrhosis Mother Family Status - Relation Status Age at Mother Normal [facility] CBC WITH AUTO DIFFERENTIALon 02-12-2023 Basophils (Bld) [#/Vol] 0.06 10*3/uL Normal 0.00-0.20 [facility] Comment on above: Performed By: #### L [id number] #### [facility] ([facility]) [address] [place] [address] Basophils/100 WBC (Bld) 0.5 % Normal 0.0-1.0 [facility] Comment on above: Performed By: #### L [id number] #### [facility] ([facility]) [address] [place] [address] Eosinophils (Bld) [#/Vol] 0.10 10*3/uL Normal 0.00-0.50 [facility] Comment on above: Performed By: #### L [id number] #### [facility] ([facility]) [address] [place] [address] Eosinophils/100 WBC (Bld) 0.8 % Normal 0.0-6.0 [facility] Comment on above: Performed By: #### L [id number] #### [facility] [address] [place] [address] Erythrocyte distribution width (RBC) [Ratio] 15.6 % High 11.5-15.0 [facility] Comment on above: Performed By: #### L [id number] #### [facility] ([facility]) [address] [place] [address] ERYTHROCYTE MEAN CORPUSCULAR HEMOGLOBIN CONCENTRATION (G/DL) BY AUTOMATED 32.5 g/dL Normal 32.0-35.0 [facility] Comment on above: Performed By: #### L [id number] #### [facility] ([facility]) [address] [place] [address] Hematocrit (Bld) [Volume fraction] 38.2 % Normal 36.0-48.0 [facility] Comment on above: Performed By: #### L [id number] #### [facility] ([facility]) [address] [place] [address] Hemoglobin (Bld) [Mass/Vol] 12.4 g/dL Normal 12.0-15.0 [facility] Comment on above: Performed By: #### L [id number] #### [facility] ([facility]) [address] [place] [address] Immature granulocytes (Bld) [#/Vol] 0.07 10*3/uL Normal 0.00-0.20 [facility] Comment on above: Performed By: #### L [id number] #### [facility] ([facility]) [address] [place] [address] Immature granulocytes/100 WBC (Bld) 0.6 % Normal 0.0-1.0 [facility] Comment on above: Performed By: #### L [id number] #### [facility] ([facility]) [address] [place] [address] Lymphocytes (Bld) [#/Vol] 2.96 10*3/uL Normal 1.20-4.00 [facility] Comment on above: Performed By: #### L [id number] #### [facility] ([facility]) [address] [place] [address] Lymphocytes/100 WBC (Bld) 23.7 % Normal 20.0-45.0 [facility] Comment on above: Performed By: #### L [id number] #### [facility] [address] [place] [address] MCH (RBC) [Entitic mass] 29.5 pg Normal 27.0-33.0 [facility] Comment on above: Performed By: #### L [id number] #### [facility] [address] [place] [address] MCV (RBC) [Entitic vol] 91.0 fL Normal 82.0-98.0 [facility] Comment on above: Performed By: #### L [id number] #### [facility] ([facility]) [address] [place] [address] Monocytes (Bld) [#/Vol] 0.72 10*3/uL Normal 0.10-1.00 [facility] Comment on above: Performed By: #### L [id number] #### [facility] ([facility]) [address] [place] [address] Monocytes/100 WBC (Bld) 5.8 % Normal 5.0-12.0 [facility] Comment on above: Performed By: #### L [id number] #### [facility] [address] [place] [address] Neutrophils (Bld) [#/Vol] 8.60 10*3/uL High 1.60-7.60 [facility] Comment on above: Performed By: #### L [id number] #### [facility] ([facility]) [address] [place] [address] Neutrophils/100 WBC (Bld) 68.6 % Normal 40.0-72.0 [facility] Comment on above: Performed By: #### L [id number] #### [facility] [address] [place] [address] NRBC (PER 100 WBCS) BY AUTOMATED COUNT 0.0 % Normal 0 [facility] Comment on above: Performed By: #### L [id number] #### [facility]) [address] [place] [address] PLATELETS (10*3/UL) IN BLOOD AUTOMATED COUNT 515 10*3/uL High 150-400 [facility] Comment on above: Performed By: #### L [id number] #### [facility] ([facility]) [address] [place] [address] RBC (Bld) [#/Vol] 4.20 10*6/uL Normal 3.80-5.00 [facility] Comment on above: Performed By: #### L [id number] #### [facility] ([facility]) [address] [place] [address] WBC (Bld) [#/Vol] 12.51 10*3/uL High 4.00-10.60 [facility] Comment on above: Performed By: #### L [id number] #### [facility] ([facility]) [address] [place] [address] COMPREHENSIVE METABOLIC PANE Varghese 02-12-2023 Albumin [Mass/Vol] 4.3 g/dL Normal 3.5-5.7 [facility] Comment on above: Performed By: #### L [id number] #### [facility] [address] [place] [address] ALP [Catalytic activity/Vol] 69 U/L Normal 34-104 [facility] Comment on above: Performed By: #### L [id number] #### [facility] [address] [place] [address] ALT [Catalytic activity/Vol] 48 U/L Normal 7-52 [facility] Comment on above: Performed By: #### L [id number] #### [facility] ([facility]) [address] [place] [address] Anion gap [Moles/Vol] 13 mmol/L Normal 7-20 [facility] Comment on above: Performed By: #### L [id number] #### [facility] ([facility]) [address] [place] [address] AST [Catalytic activity/Vol] 39 U/L Normal 13-39 [facility] Comment on above: Performed By: #### L [id number] #### [facility] [address] [place] [address] Bilirubin [Mass/Vol] 0.3 mg/dL Normal 0.3-1.0 [facility] Comment on above: Performed By: #### L [id number] #### [facility] [address] [place] [address] Calcium [Mass/Vol] 9.9 mg/dL Normal 8.6-10.3 [facility] Comment on above: Performed By: #### L [id number] #### [facility] [address] [place] [address] Chloride [Moles/Vol] 103 mmol/L Normal 98-107 [facility] Comment on above: Performed By: #### L [id number] #### [facility] [address] [place] [address] CO2 [Moles/Vol] 24 mmol/L Normal 21-31 [facility] Comment on above: Performed By: #### L [id number] #### [facility] [address] [place] [address] Creatinine [Mass/Vol] 0.80 mg/dL Normal 0.60-1.20 [facility] Comment on above: Performed By: #### L [id number] #### [facility] [address] [place] [address] GLOMERULAR FILTRATION RATE ML/MIN/1.73 SQ M.PREDICTED 97.9 mL/min/1.73m*2 Normal >60.0 [facility] Comment on above: Result Comment: The [facility]???s estimated glomerular filtration rate (eGFR) will no longer include consideration of race in its calculation. The National Kidney Foundation???s eGFR Task Force developed new recommendations for the estimation of the glomerular filtration rate in the [place] They recommend immediate implementation of the new equation refit without the race variable in all laboratories because the calculation does not include race. In addition to not including race in the calculation and reporting, it included diversity in its development, and has acceptable performance characteristics and potential consequences that do not disproportionately affect any one group of individuals. Performed By: #### L [id number] #### [facility] ([facility]) [address] [place] [address] Glucose [Mass/Vol] 101 mg/dL High 70-100 [facility] Comment on above: Performed By: #### L [id number] #### [facility] ([facility]) [address] [place] [address] Potassium [Moles/Vol] 3.5 mmol/L Normal 3.5-5.1 [facility] Comment on above: Performed By: #### L [id number] #### [facility] ([facility]) [address] [place] [address] Protein [Mass/Vol] 7.2 g/dL Normal 6.0-8.3 [facility] Comment on above: Performed By: #### L [id number] #### [facility] ([facility]) [address] [place] [address] Sodium [Moles/Vol] 136 mmol/L Normal 136-145 [facility] Comment on above: Performed By: #### L [id number] #### [facility] ([facility]) [address] [place] [address] Urea nitrogen [Mass/Vol] 8 mg/dL Normal 7-25 [facility] Comment on above: Performed By: #### L [id number] #### [facility] ([facility]) [address] [place] [address] UREA NITROGEN/CREATININE (MASS RATIO) IN SER/PLAS 10.0 Normal [facility] Comment on above: Performed By: #### L [id number] #### [facility] ([facility]) [address] [place] [address] Follow-Upon 02-12-2023 Follow-Up [id number] Phyllis Waite 1985 Date Provider Department Center 02/12/2023 Minnie-NOMI SPICER [facility] Chris Heal Family History Problem Relation Age of Onset Lupus Mother Cirrhosis Mother Family Status - Relation Status Age at Mother Level of Service:26961 [place] OFFICE/OUTPATIENT ESTABLISHED MOD MDM 30-39 MIN (GC) Reason for Visit and Comments: Follow-up [[id number]] - 3 month follow up [facility] Follow-Upon 01-25-2023 Follow-Up [id number] Phyllis Waite 1985 Date Provider Department Center 01/25/2023 202-SHAHNAZ HANNAH [facility] SLEEP [facility] Family History Problem Relation Age of Onset Lupus Mother Cirrhosis Mother Family Status - Relation Status Age at Mother Level of Service:13224 [place] OFFICE/OUTPATIENT ESTABLISHED LOW MDM 20-29 MIN Reason for Visit and Comments: Follow-up [[id number]] - 6 month follow up- PAP Normal [facility] 36on 12-11-2022 36 Please approve rx yesterday had no directions please add directions and approve rx if appropriate [facility] Refillon 12-11-2022 Refill [id number] Phyllis Waite 1985 Date Provider Department Center 12/11/2022 KINJAL SIMON [facility] Chris Heal Family History Problem Relation Age of Onset Lupus Mother Cirrhosis Mother Family Status - Relation Status Age at Mother Reason for Visit and Comments: Med Refill [[id number]] [facility] 36on 12-10-2022 36 Last visit 11/15/22 Upcoming visit 02/12/23 Last cbc/cmp 11/15/22 Normal [facility] 12-10-2022 Refill [id number] Phyllis Waite 1985 F Date Provider Department Center 12/10/2022 KIJNAL SIMON [facility] Chris Heal Family History Problem Relation Age of Onset Lupus Mother Cirrhosis Mother Family Status - Relation Status Age at Mother Reason for Visit and Comments: Med Refill [[id number]] Normal [facility] CBC WITH AUTO DIFFERENTIALon 11-15-2022 Erythrocyte distribution width (RBC) [Ratio] 13.3 % Normal 11.5-15.0 [facility] Comment on above: Performed By: #### L [id number] #### [facility] ([facility]) [address] [place] [address] ERYTHROCYTE MEAN CORPUSCULAR HEMOGLOBIN CONCENTRATION (G/DL) BY AUTOMATED 32.6 g/dL Normal 32.0-35.0 [facility] Comment on above: Performed By: #### L [id number] #### [facility] ([facility]) [address] [place] [address] Hematocrit (Bld) [Volume fraction] 40.8 % Normal 36.0-48.0 [facility] Comment on above: Performed By: #### L [id number] #### [facility] ([facility]) [address] [place] [address] Hemoglobin (Bld) [Mass/Vol] 13.3 g/dL Normal 12.0-15.0 [facility] Comment on above: Performed By: #### L [id number] #### [facility] [address] [place] [address] MCH (RBC) [Entitic mass] 30.2 pg Normal 27.0-33.0 [facility] Comment on above: Performed By: #### L [id number] #### [facility] [address] [place] [address] MCV (RBC) [Entitic vol] 92.7 fL Normal 82.0-98.0 [facility] Comment on above: Performed By: #### L [id number] #### [facility] ([facility]) [address] [place] [address] NRBC (PER 100 WBCS) BY AUTOMATED COUNT 0.0 % Normal 0 [facility] Comment on above: Performed By: #### L [id number] #### [facility] ([facility]) [address] [place] [address] PLATELETS (10*3/UL) IN BLOOD AUTOMATED COUNT 526 10*3/uL High 150-400 [facility] Comment on above: Performed By: #### L [id number] #### [facility] ([facility]) [address] [place] [address] RBC (Bld) [#/Vol] 4.40 10*6/uL Normal 3.80-5.00 [facility] Comment on above: Performed By: #### L [id number] #### [facility] ([facility]) [address] [place] [address] WBC (Bld) [#/Vol] 14.19 10*3/uL High 4.00-10.60 [facility] Comment on above: Performed By: #### L [id number] #### [facility] ([facility]) [address] [place] [address] COMPREHENSIVE METABOLIC PANE Varghese 11-15-2022 Albumin [Mass/Vol] 4.6 g/dL Normal 3.5-5.7 [facility] Comment on above: Performed By: #### L [id number] #### [facility] ([facility]) [address] [place] [address] ALP [Catalytic activity/Vol] 82 U/L Normal 34-104 [facility] Comment on above: Performed By: #### L [id number] #### [facility] ([facility]) [address] [place] [address] ALT [Catalytic activity/Vol] 36 U/L Normal 7-52 [facility] Comment on above: Performed By: #### L [id number] #### [facility] ([facility]) [address] [place] [address] Anion gap [Moles/Vol] 13 mmol/L Normal 7-20 [facility] Comment on above: Performed By: #### L [id number] #### [facility] [address] [place] [address] AST [Catalytic activity/Vol] 31 U/L Normal 13-39 [facility] Comment on above: Performed By: #### L [id number] #### [facility] [address] [place] [address] Bilirubin [Mass/Vol] 0.3 mg/dL Normal 0.3-1.0 [facility] Comment on above: Performed By: #### L [id number] #### [facility] [address] [place] [address] Calcium [Mass/Vol] 10.1 mg/dL Normal 8.6-10.3 [facility] Comment on above: Performed By: #### L [id number] #### [facility] ([facility]) [address] [place] [address] Chloride [Moles/Vol] 99 mmol/L Normal 98-107 [facility] Comment on above: Performed By: #### L [id number] #### [facility] ([facility]) [address] [place] [address] CO2 [Moles/Vol] 28 mmol/L Normal 21-31 [facility] Comment on above: Performed By: #### L [id number] #### [facility] ([facility]) [address] [place] [address] Creatinine [Mass/Vol] 0.79 mg/dL Normal 0.60-1.20 [facility] Comment on above: Performed By: #### L [id number] #### [facility] ([facility]) [address] [place] [address] GLOMERULAR FILTRATION RATE ML/MIN/1.73 SQ M.PREDICTED 100.0 mL/min/1.73m*2 Normal >60.0 [facility] Comment on above: Result Comment: The [facility]???s estimated glomerular filtration rate (eGFR) will no longer include consideration of race in its calculation. The National Kidney Foundation???s eGFR Task Force developed new recommendations for the estimation of the glomerular filtration rate in the [place] They recommend immediate implementation of the new equation refit without the race variable in all laboratories because the calculation does not include race. In addition to not including race in the calculation and reporting, it included diversity in its development, and has acceptable performance characteristics and potential consequences that do not disproportionately affect any one group of individuals. Performed By: #### L [id number] #### [facility] ([facility]) [address] [place] [address] Glucose [Mass/Vol] 82 mg/dL Normal 70-100 [facility] Comment on above: Performed By: #### L [id number] #### [facility] ([facility]) [address] [place] [address] Potassium [Moles/Vol] 3.4 mmol/L Low 3.5-5.1 [facility] Comment on above: Performed By: #### L [id number] #### [facility] ([facility]) [address] [place] [address] Protein [Mass/Vol] 8.0 g/dL Normal 6.0-8.3 [facility] Comment on above: Performed By: #### L [id number] #### [facility] ([facility]) [address] [place] [address] Sodium [Moles/Vol] 137 mmol/L Normal 136-145 [facility] Comment on above: Performed By: #### L [id number] #### [facility] ([facility]) [address] [place] [address] Urea nitrogen [Mass/Vol] 8 mg/dL Normal 7-25 [facility] Comment on above: Performed By: #### L [id number] #### [facility] ([facility]) [address] [place] [address] UREA NITROGEN/CREATININE (MASS RATIO) IN SER/PLAS 10.1 Normal [facility] Comment on above: Performed By: #### L [id number] #### [facility] ([facility]) [address] [place] [address] Follow-Upon 11-15-2022 Follow-Up [id number] Phyllis Waite 1985 F Date Provider Department Center 11/15/2022 Minnie-NOMI SP[facility] Family History Problem Relation Age of Onset Lupus Mother Cirrhosis Mother Family Status - Relation Status Age at Mother Level of Service:36824 [place] OFFICE/OUTPATIENT ESTABLISHED MOD MDM 30-39 MIN () Reason for Visit and Comments: Follow-up [810344] Normal [facility] MANUAL DIFFERENTIALon 2022 BASOPHILS (10*3/UL) IN BLOOD BY CALCULATION 0.07 10*3/uL Normal 0.00-0.20 [facility] Comment on above: Performed By: #### L [id number] ####[facility] ([facility])[address] [facility] [address] BASOPHILS/100 LEUKOCYTES IN BLOOD BY AUTOMATED COUNT 0.5 % Normal 0.0-1.0 [facility] Comment on above: Performed By: #### L [id number] ####[facility] ([facility])[address] [place] [address] EOSINOPHILS (10*3/UL) IN BLOOD BY CALCULATION 0.16 10*3/uL Normal 0.00-0.50 [facility] Comment on above: Performed By: #### L [id number] ####[facility] ([facility])[address] [place] [address] EOSINOPHILS/100 LEUKOCYTES IN BLOOD BY AUTOMATED COUNT 1.1 % Normal 0.0-6.0 [facility] Comment on above: Performed By: #### L [id number] ####[facility] ([facility])[address] [facility] [address] IMMATURE GRANULOCYTES (10*3/UL) IN BLOOD BY CALCULATION 0.11 10*3/uL Normal 0.00-0.20 [facility] Comment on above: Performed By: #### L [id number] ####[facility] [place] [address] IMMATURE GRANULOCYTES/100 LEUKOCYTES IN BLOOD BY AUTOMATED COUNT 0.8 % Normal 0.0-1.0 [facility] Comment on above: Performed By: #### L [id number] ####[facility] ([facility] [place] [address] LYMPHOCYTES (10*3/UL) IN BLOOD BY CALCULATION 5.31 10*3/uL High 1.20-4.00 [facility] Comment on above: Performed By: #### L [id number] ####[facility] ([facility])[address] [place] [address] LYMPHOCYTES/100 LEUKOCYTES IN BLOOD BY AUTOMATED COUNT 37.4 % Normal 20.0-45.0 [facility] Comment on above: Performed By: #### L [id number] ####[facility] ([facility])[address] [place] [address] MONOCYTES (10*3/UL) IN BLOOD BY CALCUATION 0.99 10*3/uL Normal 0.10-1.00 [facility] Comment on above: Performed By: #### L [id number] ####[facility] ([facility])[address] [place] [address] MONOCYTES/100 LEUKOCYTES IN BLOOD BY AUTOMATED COUNT 7.0 % Normal 5.0-12.0 [facility] Comment on above: Performed By: #### L [id number] ####[facility] ([facility])[address] [place] [address] NEUTROPHILS (10*3/UL) IN BLOOD BY CALCULATION 7.5 10*3/uL Normal 1.6-7.6 [facility] Comment on above: Performed By: #### L [id number] ####[facility] [place] [address] NEUTROPHILS/100 LEUKOCYTES IN BLOOD BY AUTOMATED COUNT 53.2 % Normal 40.0-72.0 [facility] Comment on above: Performed By: #### L [id number] ####[facility] ([facility] [place] [address] PAP ACOG PANEL 2: 30 to 65on 10-17-2022 . . Normal [facility] Comment on above: Result Comment: Perf ormed at: WB Performed By: #### [id number] #### [facility] [address] [address] [address] Cedric Dillon Age Gdln ACOG Testing 30-65 Normal [facility] Comment on above: Performed By: #### [id number] #### [facility] [address] [address] [address] Cedric Dillon DIAGNOSIS: Comment Normal [facility] Comment on above: Result Comment: NEGA TIVE FOR INTRAEPITHELIAL LESION OR MALIGNANCY. PREDOMINANCE OF COCCOBACILLI CONSISTENT WITH SHIFT IN VAGINAL JIGNA IS PRESENT. Performed at: WB Performed By: #### [id number] #### [facility] [address] [place] [address] Dr. Cedric Dillon HPV Aptima Negative Normal Negative [facility] Comment on above: Result Comment: This nucleic acid amplification test detects fourteen high-risk HPV types (16,18,31,33,35,39,45,51,52,56,58,59,66,68) without differentiation. Performed at: =G Performed By: #### [id number] #### [facility] [address] [place] [address] Dr. Cedric Dillon HPV Genotype Reflex Comment Normal [facility] Comment on above: Result Comment: Crit eria not met, HPV Genotype not performed. Performed at: WB Performed By: #### [id number] #### [facility] [address] [place] [address] Dr. Cedric Dillon Methodology: Comment Normal [facility] Comment on above: Result Comment: This liquid based ThinPrep(R) pap test was screened with the use of an image guided system. Performed at: WB Performed By: #### [id number] #### [facility] [address] [place] [address] Dr. Cedric Dillon Note: Comment Normal [facility] Comment on above: Result Comment: The Pap smear is a screening test designed to aid in the detection of premalignant and malignant conditions of the uterine cervix. It is not a diagnostic procedure and should not be used as the sole means of detecting cervical cancer. Both false-positive and false-negative reports do occur. . Performed at: WB Performed By: #### [id number] #### [facility] [address] [place] [address] Dr. Cedric Dillon Performed by: Comment Normal [facility] Comment on above: Result Comment: Florecita Magdaleno, Electrogalvanizing Machine Operator (ASCP) Performed at: WB Performed By: #### [id number] #### [facility] [address] [place] [address] Dr. Cedric Dillon Specimen adequacy: Comment Normal [facility] Comment on above: Result Comment: Sati sfactory for evaluation. Performed at: WB Performed By: #### [id number] #### [facility] [address] [place] [address] Dr. Cedric Dillon BNPon 08-22-2022 Natriuretic peptide B (Bld) [Mass/Vol] 8.0 pg/mL Normal <=450.0 [facility] Comment on above: Performed By: #### H STROPN, TSH, BNP, CMP #### [facility] [address] [place] [address] Dr. Cedric Dillon CBC AUTO DIFFon 08-22-2022 BASO # 0.1 103/ul Normal 0.0-0.1 [facility] Comment on above: Performed By: #### H STROPN, TSH, BNP, CMP #### [facility] [address] [place] [address] Dr. Cedric Dillon Basophils/100 WBC (Bld) 0.5 % Normal 0.2-2.0 [facility] Comment on above: Performed By: #### H STROPN, TSH, BNP, CMP #### [facility] [address] [place] [address] Dr. Cedric Dillon EO # 0.1 103/ul Normal 0.0-0.7 [facility] Comment on above: Performed By: #### H STROPN, TSH, BNP, CMP #### [facility] [address] [place] [address] Dr. Cedric Dillon Eosinophils/100 WBC (Bld) 0.8 % Critically low 0.9-7.0 [facility] Comment on above: Performed By: #### H STROPN, TSH, BNP, CMP #### [facility] [address] [address] [address] Cedric Dillon Erythrocyte distribution width (RBC) [Ratio] 14.6 % Normal 11.0-15.0 [facility] Comment on above: Performed By: #### H STROPN, TSH, BNP, CMP #### [facility] [address] [address] [address] Cedric Dillon Hematocrit (Bld) [Volume fraction] 37.7 % Normal 36.0-48.0 [facility] Comment on above: Performed By: #### H STROPN, TSH, BNP, CMP #### [facility] [address] [place] [address] Dr. Cedric Dillon Hemoglobin (Bld) [Mass/Vol] 12.9 g/dL Normal 12.0-16.0 [facility] Comment on above: Performed By: #### H STROPN, TSH, BNP, CMP #### [facility] [address] [place] [address] Dr. Cedric Dillon IG # 0.08 10e3/ul Critically high 0.00-0.03 [facility] Comment on above: Performed By: #### H STROPN, TSH, BNP, CMP #### [facility] [address] [place] [address] Dr. Cedric Dillon IG % 0.7 % Critically high 0.0-0.5 [facility] Comment on above: Performed By: #### H STROPN, TSH, BNP, CMP #### [facility] [address] [place] [address] Dr. Cedric Dillon LYMPH # 5.0 103/ul Critically high 1.2-3.8 [facility] Comment on above: Performed By: #### H STROPN, TSH, BNP, CMP #### [facility] [address] [place] [address] Dr. Cedric Dillon Lymphocytes/100 WBC (Bld) 44.7 % Normal 20.5-60.0 [facility] Comment on above: Performed By: #### H STROPN, TSH, BNP, CMP #### [facility] [address] [place] [address] Dr. Cedric Dillon MANUAL DIFF REQ NO Normal [facility] Comment on above: Performed By: #### H STROPN, TSH, BNP, CMP #### [facility] [address] [place] [address] Dr. Cedric Dillon MCH (RBC) [Entitic mass] 31.1 pg Normal 26.7-34.0 [facility] Comment on above: Performed By: #### H STROPN, TSH, BNP, CMP #### [facility] [address] [place] [address] Dr. Cedric Dillon MCHC (RBC) [Mass/Vol] 34.2 g/dL Normal 29.9-35.2 [facility] Comment on above: Performed By: #### H STROPN, TSH, BNP, CMP #### [facility] [address] [place] [address] Dr. Cedric Dillon MCV (RBC) [Entitic vol] 90.8 fL Normal 81.0-99.0 [facility] Comment on above: Performed By: #### H STROPN, TSH, BNP, CMP #### [facility] [address] [place] [address] Dr. Cedric Dillon MONO # 0.7 103/ul Normal 0.3-0.8 [facility] Comment on above: Performed By: #### H STROPN, TSH, BNP, CMP #### [facility] [address] [place] [address] Dr. Cedric Dillon Monocytes/100 WBC (Bld) 6.6 % Normal 1.7-12.0 [facility] Comment on above: Performed By: #### H STROPN, TSH, BNP, CMP #### [facility] [address] [place] [address] Dr. Cedric Dillon NEUT # 5.2 103/ul Normal 1.4-6.5 [facility] Comment on above: Performed By: #### H STROPN, TSH, BNP, CMP #### [facility] [address] [place] [address] Dr. Cedric Dillon Neutrophils/100 WBC (Bld) 46.7 % Normal 43.0-75.0 [facility] Comment on above: Performed By: #### H STROPN, TSH, BNP, CMP #### [facility] [address] [address] [address] Cedric Dillon Platelet mean volume (Bld) [Entitic vol] 8.7 fL Critically low 9.5-13.5 [facility] Comment on above: Performed By: #### H STROPN, TSH, BNP, CMP #### [facility] [address] [address] [address] Cedric Dillon PLT 542 103/ul Critically high 150-450 [facility] Comment on above: Performed By: #### H STROPN, TSH, BNP, CMP #### [facility] [address] [address] [address] Cedric Dillon RBC 4.15 106/ul Critically low 4.20-5.40 [facility] Comment on above: Performed By: #### H STROPN, TSH, BNP, CMP #### [facility] [address] [address] [address] Cedric Dillon WBC 11.2 103/ul Critically high 4.0-11.0 [facility] Comment on above: Performed By: #### H STROPN, TSH, BNP, CMP #### [facility] [address] [address] [address] Cedric Dillon D-DIMERon 08-22-2022 D-DIMER <0.19 Normal <=0.59 [facility] Comment on above: Performed By: #### P TT, DDIM, PT #### [facility] [address] [address] [address] Cedric Dillon D-DIMER COMMENTS SEE BELOW Normal [facility] Comment on above: Result Comment: Incr eases in D-Dimer concentration observed with thromboembolic events can be variable due to localization, size, and age of the thrombus. Therefore, a thromboembolic event cannot be diagnosed with certainty on the basis of the reference range. D-Dimers may also be elevated for a variety of disorders including: advanced age, , coronary disease, cancer, liver disease, infection, inflammation, hematoma, DIC, trauma, post-surgery, diabetes, thrombolytic or anticoagulant therapy, stress, and generalized hospitalization. Performed By: #### P TT, DDIM, PT #### [facility] [address] [address] [address] Cedric Dillon PREG HCG QUALon 08-22-2022 , QUAL Negative Normal NEGATIVE [facility] Comment on above: Performed By: #### P REG #### [facility] [address] [address] [address] Cedric Dillon PROF 14(COMP METB)on 023 Albumin [Mass/Vol] 4.0 g/dL Normal 3.4-5.0 [facility] Comment on above: Performed By: #### H STROPN, TSH, BNP, CMP #### [facility] [address] [address] [address] Cedric Dillon Albumin/Globulin [Mass ratio] 1.1 {ratio} Normal [facility] Comment on above: Performed By: #### H STROPN, TSH, BNP, CMP #### [facility] [address] [address] [address] Cedric Dillon ALP [Catalytic activity/Vol] 86 U/L Normal 46-116 [facility] Comment on above: Performed By: #### H STROPN, TSH, BNP, CMP #### [facility] [address] [address] [address] Cedric Dillon ALT [Catalytic activity/Vol] 48 U/L Normal 14-59 [facility] Comment on above: Performed By: #### H STROPN, TSH, BNP, CMP #### [facility] [address] [address] [address] Cedric Dillon Anion gap [Moles/Vol] 13.7 mmol/L Normal [facility] Comment on above: Performed By: #### H STROPN, TSH, BNP, CMP #### [facility] [address] [address] [address] Cedric Dillon AST [Catalytic activity/Vol] 31 U/L Normal 15-37 [facility] Comment on above: Performed By: #### H STROPN, TSH, BNP, CMP #### [facility] [address] [address] [address] Cedric Dillon Bilirubin [Mass/Vol] 0.3 mg/dL Normal 0.2-1.0 [facility] Comment on above: Performed By: #### H STROPN, TSH, BNP, CMP #### [facility] [address] [address] [address] Cedric Dillon Calcium [Mass/Vol] 9.0 mg/dL Normal 8.5-10.1 [facility] Comment on above: Performed By: #### H STROPN, TSH, BNP, CMP #### [facility] [address] [place] [address] Dr. Cedric Dillon Chloride [Moles/Vol] 102 mmol/L Normal 98-107 [facility] Comment on above: Performed By: #### H STROPN, TSH, BNP, CMP #### [facility] [address] [address] [address] Cedric Dillon CO2 [Moles/Vol] 26.5 mmol/L Normal 21.0-32.0 [facility] Comment on above: Performed By: #### H STROPN, TSH, BNP, CMP #### [facility] [address] [place] [address] Dr. Cedric Dillon Creatinine [Mass/Vol] 0.72 mg/dL Normal 0.55-1.02 [facility] Comment on above: Performed By: #### H STROPN, TSH, BNP, CMP #### [facility] [address] [place] [address] Dr. Cedric Dillon EGFR-AF CITIZEN [place] >60 Normal >=60 [facility] Comment on above: Performed By: #### H STROPN, TSH, BNP, CMP #### [facility] [address] [place] [address] Dr. Cedric Dillon EGFR-NON AF CITIZEN OF [place] >60 Normal >=60 [facility] Comment on above: Performed By: #### H STROPN, TSH, BNP, CMP #### [facility] [address] [address] [address] Cedric Dillon Globulin (S) [Mass/Vol] 3.5 g/dL Normal [facility] Comment on above: Performed By: #### H STROPN, TSH, BNP, CMP #### [facility] [address] [address] [address] Cedric Dillon Glucose [Mass/Vol] 87 mg/dL Normal 74-106 [facility] Comment on above: Performed By: #### H STROPN, TSH, BNP, CMP #### [facility] [address] [address] [address] Cedric Dillon Potassium [Moles/Vol] 3.2 mmol/L Critically low 3.5-5.1 [facility] Comment on above: Performed By: #### H STROPN, TSH, BNP, CMP #### [facility] [address] [place] [address] Dr. Cedric Dlilon Protein [Mass/Vol] 7.5 g/dL Normal 6.4-8.2 [facility] Comment on above: Performed By: #### H STROPN, TSH, BNP, CMP #### [facility] [address] [address] [address] Cedric Dillon Sodium [Moles/Vol] 139 mmol/L Normal 136-145 [facility] Comment on above: Performed By: #### H STROPN, TSH, BNP, CMP #### [facility] [address] [address] [address] Cedric Dillon Urea nitrogen [Mass/Vol] 5.0 mg/dL Critically low 7.0-18.0 [facility] Comment on above: Performed By: #### H STROPN, TSH, BNP, CMP #### [facility] [address] [address] [address] Cedric Dillon Urea nitrogen/Creatinine [Mass ratio] 6.9 mg/mg Normal [facility] Comment on above: Performed By: #### H STROPN, TSH, BNP, CMP #### [facility] [address] [address] [address] Cedric Dillon PROTIMEon 08-22-2022 INR Coag (PPP) [Relative time] 0.94 {INR} Normal [facility] Comment on above: Performed By: #### P TT, DDIM, PT #### [facility] [address] [place] [address] Dr. Cedric Dillon INR GUIDELINES SEE BELOW Normal [facility] Comment on above: Result Comment: VINCE RED INR: 2.0 - 3.0 CONDITIONS NOT LISTED BELOW 2.5 - 3.5 FOR PROSTHETIC HEART VALVE REPLACEMENT 2.5 - 3.5 RECURRENT THROMBOSIS Performed By: #### P TT, DDIM, PT #### [facility] [address] [address] [address] Cedric Dillon PT Coag (PPP) [Time] 10.0 s Normal 9.0-11.6 [facility] Comment on above: Performed By: #### P TT, DDIM, PT #### [facility] [address] [place] [address] Dr. Cedric Dillon PTTon 08-22-2022 aPTT Coag (Bld) [Time] 29.1 s Normal 22.3-36.2 [facility] Comment on above: Performed By: #### P TT, DDIM, PT #### [facility] [address] [place] [address] Dr. Cedric Dillon TROPONIN, HIGH SENSITIVITYon 08-22-2022 HSTROP 8.3 pg/mL Normal 4.0-51.3 The [facility] Comment on above: Result Comment: CUT- OFF POINTS HAVE BEEN ESTABLISHED BASED ON THE FOURTH UNIVERSAL DEFINITIONS OF MYOCARDIAL INFARCTION. THE UPPER REFERENCE LIMIT (URL) OF TROPONIN, DEFINED THE 99TH PERCENTILE OF cTnI DISTRIBUTION IN A REFERENCE POPULATION, HAS BEEN CONFIRMED THE DECISION THRESHOLD FOR NC DIAGNOSIS. Performed By: #### H STROPN, TSH, BNP, CMP #### [facility] [address] [place] [address] Dr. Cedric Dillon TSHon 08-22-2022 TSH 0.777 uIU/mL Normal 0.358-3.740 The [facility] Comment on above: Performed By: #### H STROPN, TSH, BNP, CMP #### [facility] [id number] Cedric Dillon XR CHEST 1 Von 08-22-2022 XR CHEST 1 V EXAM: XR CHEST 1 V, 08/22/2022 HISTORY: CHEST PAIN, UNSPECIFIED COMPARISON: None. TECHNIQUE: Portable AP upright x-ray of the chest. FINDINGS: Low lung volumes. Cardiomediastinal silhouette within normal limits. No focal consolidation or pulmonary edema. Costophrenic angles appear clear. No acute osseous findings. IMPRESSION: No acute cardiopulmonary findings. Electronically authenticated by: JOSÉ MANUEL LAZO Date: 2022-08-22 21:31 Normal [facility] CBC W/DIFFon 12-11-2021 ABS IMM GRANS 0.2 10*3/uL Normal 0.0-0.2 The [facility] Comment on above: Performed By: #### 5 0103 ####[facility] ABS NEUTROPHILS 10.7 10*3/uL High 1.6-7.6 The [facility] Comment on above: Performed By: #### 5 0103 ####[facility] [place] [address], [facility] Basophils (Bld) [#/Vol] 0.1 10*3/uL Normal 0.0-0.2 [facility] Comment on above: Performed By: #### 5 0103 ####[facility] [place] [address], [facility] Basophils/100 WBC (Bld) 0.8 % Normal 0.0-1.0 [facility] Comment on above: Performed By: #### 5 0103 ####[facility] [place] [address], [facility] Eosinophils (Bld) [#/Vol] 0.3 10*3/uL Normal 0.0-0.5 [facility] Comment on above: Performed By: #### 5 0103 ####[facility] [facility] [place] [address], [facility] Eosinophils/100 WBC (Bld) 1.7 % Normal 0.0-6.0 [facility] Comment on above: Performed By: #### 5 0103 ####[address] Erythrocyte distribution width (RBC) [Ratio] 15.5 % High 11.5-15.0 [facility] Comment on above: Performed By: #### 3 ####[place] [id number] [address] Hematocrit (Bld) [Volume fraction] 40.1 % Normal 36.0-45.0 [facility] Comment on above: Performed By: #### 102 ####[address] Hemoglobin (Bld) [Mass/Vol] 13.3 g/dL Normal 12.0-15.0 [facility] Comment on above: Performed By: #### 5 3 ####[address] IMMATURE GRANS 1.3 % High 0.0-1.0 The [facility] Comment on above: Performed By: #### 5 3 ####[address] Lymphocytes (Bld) [#/Vol] 3.4 10*3/uL Normal 1.2-4.0 [facility] Comment on above: Performed By: #### 5 3 ####[address] Lymphocytes/100 WBC (Bld) 22.0 % Normal 20.0-45.0 [facility] Comment on above: Performed By: #### 5 3 ####[address] [place] [address], [place] MCH (RBC) [Entitic mass] 29.0 pg Normal 27.0-33.0 [facility] Comment on above: Performed By: #### 5 0103 ####[facility] [place] [address] MCHC (RBC) [Mass/Vol] 33.2 g/dL Normal 32.0-35.0 [facility] Comment on above: Performed By: #### 5 0103 ####[address] MCV (RBC) [Entitic vol] 87.6 fL Normal 82.0-98.0 [facility] Comment on above: Performed By: #### 3 ####[address] Monocytes (Bld) [#/Vol] 0.8 10*3/uL Normal 0.1-1.0 [facility] Comment on above: Performed By: #### 3 ####[address] MONOS 5.3 % Normal 5.0-12.0 [facility] Comment on above: Performed By: #### 5 3 ####[address] Neutrophils/100 WBC (Bld) 68.9 % Normal 40.0-72.0 [facility] Comment on above: Performed By: #### 5 3 ####[address] Nucleated RBC/100 WBC (Bld) [Ratio] 0 % Normal 0-0 [facility] Comment on above: Performed By: #### 3 ####[address] [address], [facility] PLAT CNT 492 10*3/uL High 150-400 The [facility] Comment on above: Performed By: #### 5 102 ####[facility] [facility].[place] [id number], [facility] RBC (Bld) [#/Vol] 4.58 10*6/uL Normal 3.80-5.00 [facility] Comment on above: Performed By: #### 5 0103 ####[facility] [facility] [place] [address], [facility] WBC (Bld) [#/Vol] 15.58 10*3/uL High 4.00-10.60 [facility] Comment on above: Performed By: #### 5 102 ####[facility] [facility] [place] [address], [facility] COMP METABOLIC PANELon 12-11 Albumin [Mass/Vol] 4.2 g/dL Normal 3.5-5.7 [facility] Comment on above: Performed By: #### 0 0121 #### [facility] [address] [facility] [place] [address], [facility] ALKALINE PHOSPH 86 IU/L Normal 34-104 [facility] Comment on above: Performed By: #### 0 0121 #### [facility] [address] [facility] [place] [address], [facility] ALT [Catalytic activity/Vol] 33 U/L Normal 7-52 [facility] Comment on above: Performed By: #### 0 0121 #### [facility] [address] [facility] [place] [address], [facility] AST [Catalytic activity/Vol] 22 U/L Normal 13-39 [facility] Comment on above: Performed By: #### 0 0121 #### [facility] [address] [place] [address], [place] Bilirubin [Mass/Vol] 0.3 mg/dL Normal 0.3-1.0 [facility] Comment on above: Performed By: #### 0 0121 #### [facility] [address] [place] [address], [place] Calcium [Mass/Vol] 9.7 mg/dL Normal 8.6-10.3 [facility] Comment on above: Performed By: #### 0 0121 #### [facility] [address] [place] [address], [place] Chloride [Moles/Vol] 103 mmol/L Normal 98-107 [facility] Comment on above: Performed By: #### 0 0121 #### [facility] [address] [place] [address], [place] CO2 [Moles/Vol] 28 mmol/L Normal 21-31 [facility] Comment on above: Performed By: #### 0 0121 #### [facility] [address] [place] [address], [place] Creatinine [Mass/Vol] 0.67 mg/dL Normal 0.60-1.20 [facility] Comment on above: Performed By: #### 0 0121 #### [facility] [address] [place] [address], [place] GFR/1.73 sq M.predicted among blacks MDRD (S/P/Bld) [Vol rate/Area] mL/min/{1.73_m2} Normal >60 [facility] Comment on above: Performed By: #### 0 0121 #### [facility] [address] [place] [address], [place] GFR/1.73 sq M.predicted among non-blacks MDRD (S/P/Bld) [Vol rate/Area] mL/min/{1.73_m2} Normal >60 [facility] Comment on above: Performed By: #### 0 0121 #### [facility] [address] [place] [address], [place] Glucose [Mass/Vol] 114 mg/dL High 70-100 The [facility] Comment on above: Performed By: #### 0 0121 #### [facility] [address] [place] [address], [place] Potassium [Moles/Vol] 4.0 mmol/L Normal 3.5-5.1 [facility] Comment on above: Performed By: #### 0 0121 #### [facility] [address] [place] [address], [place] Protein [Mass/Vol] 7.4 g/dL Normal 6.0-8.3 The [facility] Comment on above: Performed By: #### 0 0121 #### [facility] [address] [place] [address], [facility] Sodium [Moles/Vol] 138 mmol/L Normal 136-145 The [facility] Comment on above: Performed By: #### 0 0121 #### [facility] [address] [facility] [address], [facility] Urea nitrogen [Mass/Vol] 7 mg/dL Normal 7-25 [facility] Comment on above: Performed By: #### 0 0121 #### [facility] [address] [facility] [place] [address], [facility] HIP RIGHT 1 OR 2 VWS WITH PE LVISon 11-29-2021 HIP RIGHT 1 OR 2 VWS WITH PELVIS [facility] Department of Radiology [address] [place] [id number] ======== Patient Name: PHYLLIS WAITE : 1985 Sex: F Age: Race: White Pt. Location: OUTP Patient Status: O Ordered Date: 11/29/2021 11:30:00 AM Completed Date: 11/29/2021 01:08 PM Requesting Provider: NITESH ROWE Attending Provider: NITESH ROWE Report Copy To: Signs & Symptoms: RIGHT HIP ARTHROSCOPY, ACETABULAR LABRAL REPAIR, OSTEOPLASTY OF CAM LESION History: Comments: RIGHT HIP ARTHROSCOPY, ACETABULAR LABRAL REPAIR, OSTEOPLASTY OF CAM LESION Exam: HIP RIGHT 1 OR 2 VWS WITH PELVIS ======== HIP RIGHT 1 OR 2 VWS WITH PELVIS 11/29/2021 1:08 PM CLINICAL INDICATIONS: RIGHT HIP ARTHROSCOPY, ACETABULAR LABRAL REPAIR, OSTEOPLASTY OF CAM LESION TECHNOLOGIST COMMENTS: right hip arthroscopy with Dr. Rowe. fluoro time 39 seconds. 4 images sent. 4.08 mgy used. QUESTION FOR THE RADIOLOGIST: RIGHT HIP ARTHROSCOPY, ACETABULAR LABRAL REPAIR, OSTEOPLASTY OF CAM LESION PROTOCOL: AP(PA) and Lateral views were obtained. COMPARISON: None FINDINGS: Localization of the superior right femoral head and neck for arthroscopy IMPRESSION: As above Electronically signed: Sandy Falcon. Transcribed by: [email or web address], User Resident: Electronically Signed by: SANDY FALCON @ 11/30/2021 10:42 AM Normal [facility] Comment on above: Order Comment: RIGHT HIP ARTHROSCOPY, ACETABULAR LABRAL REPAIR, OSTEOPLASTY OF CAM LESION Operative Reporton Operative Report MR#: [id number] S [facility] Pt. Name: Phyllis Waite Room #: 0C Discharge Date: Birthdate: 1985 OPERATIVE REPORT DATE OF SURGERY: 11/29/2021 SURGEON: Nitesh Rowe M.D. PREOPERATIVE DIAGNOSES: 1. Right hip acetabular labral tear. 2. Right hip femoroacetabular impingement. POSTOPERATIVE DIAGNOSES: 1. Right hip acetabular labral tear. 2. Right hip femoroacetabular impingement. DRY HEAT ROOM ATTENDANT: Andrei Coe M.D. ANESTHESIA: General. PROCEDURES PERFORMED: 1. Right hip arthroscopy with labral debridement. 2. Right hip arthroscopy with osteoplasty of Cam lesion. INDICATIONS: The patient is a 35-year-old woman who has been having over 6 months of worsening right hip pain into the groin. She has tried physical therapy. She has tried anti-inflammatories. X-rays demonstrated femoroacetabular impingement, Cam type with no significant arthritis. MRI revealed an acetabular labral tear. Options were discussed. She wished to proceed with right hip arthroscopy with labral debridement versus repair and osteoplasty of her Cam lesion. PROCEDURE IN DETAIL: After confirmation and marking of the correct surgical extremity in the preoperative holding area, the patient was brought back to the operating suite and placed in the supine position. All pressure points were adequately padded. General endotracheal anesthesia was smoothly induced. Preoperative antibiotics were administered. The right hip was prepped and draped in a sterile fashion. After observation of a surgical time-out procedure using 2 separate patient identifiers, we began with the case. We first started with application of traction. Total traction time of approximately 45 minutes. We then used fluoroscopy to create our standard portals. A probe was inserted and we began with a diagnostic arthroscopy. We first inspected the anterior labrum. No tears. The anterosuperior labrum also demonstrated no tears. There was no cartilage lesions. The superior labrum, however, did demonstrate some tearing, but of the labrum itself, not detachment from the acetabulum. This therefore was treated simply with a debridement of the torn portions of the labrum. We now released traction and moved to the peripheral compartment. Using fluoroscopy, we found the outlines of the Cam lesion. We then used the arthroscopic abbey to resect the Cam lesion. We then performed a dynamic evaluation to ensure that the resection was complete. At this point, all instruments were removed and the hip was drained of fluid. The portal incisions were closed using simple nylon sutures. A sterile dry dressing was applied. The patient was then awakened, extubated, and brought back to the PACU in stable condition. I was present, scrubbed, and actively participating through all cid portions of the surgery. ESTIMATED BLOOD LOSS: Minimal. COMPLICATIONS: None. DISPOSITION: To the PACU in stable condition. POSTOPERATIVE PLAN: I will see the patient back in 10 to 14 days' time for suture removal and initiation of physical therapy. We will use indomethacin for both heterotopic ossification prophylaxis and deep venous thrombosis prophylaxis. Electronically Signed by: Nitesh Rowe M.D. 12/05/2021 09:10 A Nitesh Rowe M.D. Date Dict: 11/29/2021/01:21 P/Nitesh Rowe M.D. Date Trans: 11/29/2021 01:52 P/yusuf [id number] cc: Balwinder Ocampo M.D. [address] [facility]. Dept. Of Orthopaedic Surgery [place] [address] Normal [facility] POC GLUCOSE LABon 11-29-2021 Glucose [Mass/Vol] 100 mg/dL Normal 70-100 [facility] Comment on above: Performed By: #### 8 5499 ####[facility] [facility].[address] ANAon 09-14-2021 KP SCREEN <1:40 Normal <1:40,1:40 [facility] Comment on above: Result Comment: Test performed using ELVIRA IFA KP Hep-2 Test, a pre-standardized assay designed for the qualitative and semi-quantitative detection of antinuclear antibodies. Performed By: #### 9 7120, 46603, 59023 #### [facility] [address] [facility] [place] [address], [facility] ANTI DNAon 09-14-2021 ANTI DNA <1:10 Normal <1:10 [facility] Comment on above: Performed By: #### 9 2009, 39025, 96740 #### [facility] [address] [place] [address], [facility] ANTI-ENAon 09-14-2021 ANTI SM Negative Normal NEG,NEGATIVE, Neg [facility] Comment on above: Performed By: #### 9 9884, 51488, 32772 #### [facility] [address] [place] [address], [facility] ANTI SM/ANTIRNP Negative Normal NEG,NEGATIVE , Neg [facility] Comment on above: Performed By: #### 9 9884, 52714, 91727 #### [facility] [address] [place] [address], [facility] C REACTIVE PROTEINon 022 CRP [Mass/Vol] 36.8 mg/L High 0.0-7.0 [facility] Comment on above: Performed By: #### 6 1405, 09426, 95962, 16388 ####[facility] [facility] [place] [address], [facility] COMPLEMENT 3on 09-14-2021 COMPLEMENT 3 134 mg/dL Normal 79-152 The [facility] Comment on above: Performed By: #### 6 1405, 46521, 04448, 70222 ####[facility] [facility] [place] [place] [address], [facility] COMPLEMENT 4on 09-14-2021 COMPLEMENT 4 27 mg/dL Normal 16-38 [facility] Comment on above: Performed By: #### 6 1405, 19075, 85736, 64847 ####[facility] [facility] [place] [place] [address], [facility] CPKon 09-14-2021 CK [Catalytic activity/Vol] 69 U/L Normal 30-223 [facility] Comment on above: Performed By: #### 3 0728, 28540, 88585 #### [facility] [address] [place] [address], [facility] CYCLIC CITRULLINATED PEPTIDE [place] [id number] 09-14-2021 CYCLIC CIT PEP 7 Units Normal 0-19 [facility] Comment on above: Result Comment: INTE RPRETIVE INFORMATION: Cyclic Citrullinated Peptide Antibody, IgG 19 Units or less ................... Negative 20-39 Units ........................ Weak Positive 40-59 Units ........................ Moderate Positive 60 Units or greater ................ Strong Positive Anti-cyclic citrullinated peptide (anti-CCP), IgG antibodies are present in about 69-83 percent of patients with rheumatoid arthritis (RA) and have specificities of 93-95 percent. These autoantibodies may be present in the preclinical phase of disease, are associated with future RA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
--- NOTE | 2023-11-04 20:41 | CT_ITS ---
The [address] [address] Patient Name: SONIA CURTIS MRN: [id number] date: 1985 Sex: F Assigned Patient Location: ER Current Patient Location: ER Accession/Order Number: [id number] Exam Date: 11/04/2023 21:05 Report Date: 11/04/2023 22:10 At the request of: KATY GARVIN Procedure: CT abdomen pelvis w con EXAM: CT abdomen pelvis w con CLINICAL INDICATION: lower abd pain COMPARISON: CT abdomen/pelvis 08/02/2023 . TECHNIQUE: After the injection of intravenous nonionic iodinated contrast, axial CT of the abdomen, and pelvis was performed from the top of the hemidiaphragms to the inferior osseous pelvis. 2D reformats were obtained. Automatic exposure control radiation dose reduction technology was utilized. FINDINGS: Visualized portion of the lung bases are unremarkable. Diffuse hepatic steatosis. Hepatomegaly measuring up to 21.4 cm, similar to prior. Signed informed The spleen, kidneys, adrenal glands and pancreas are within normal limits. Gallbladder absent. No abdominal aortic aneurysm. No enlarged lymph nodes, free fluid, or free air. The bowel is without evidence of obstruction or adjacent inflammatory changes. Normal appendix. Bladder unremarkable. Grossly no suspicious osseous lesions are identified. CT/CT abdomen pelvis w con IMPRESSION: 1. No significant acute abnormality identified in the abdomen or pelvis, as described above. Electronically authenticated by: NATALYA HIGH Date: 11/04/2023 22:10
[2023-11-04 20:46] LABS: Adenovirus F 40/41 NOT DETECTED (NOT DETECTE); Astrovirus NOT DETECTED (NOT DETECTE); Campylobacter NOT DETECTED (NOT DETECTE); Cryptosporidium NOT DETECTED (NOT DETECTE); Cyclospora cayetanensis NOT DETECTED (NOT DETECTE); Entamoeba histolytica NOT DETECTED (NOT DETECTE); Enteroaggregative E.coli NOT DETECTED (NOT DETECTE); Enteropathogenic E.coli NOT DETECTED (NOT DETECTE); Enterotoxigenic E. coli NOT DETECTED (NOT DETECTE); Giardia lamblia NOT DETECTED (NOT DETECTE); Norovirus GI/GII NOT DETECTED (NOT DETECTE); Plesiomonas shigelloides NOT DETECTED (NOT DETECTE); Rotavirus A NOT DETECTED (NOT DETECTE); Salmonella NOT DETECTED (NOT DETECTE); Sapovirus NOT DETECTED (NOT DETECTE); Shiga-like toxin-producing E.C NOT DETECTED (NOT DETECTE); Shigella/Enteroinvasive E.coli NOT DETECTED (NOT DETECTE); Vibrio NOT DETECTED (NOT DETECTE); Vibrio cholerae NOT DETECTED (NOT DETECTE); Yersinia enterocolitica NOT DETECTED (NOT DETECTE)
[2023-11-04 20:47] LABS: Basophils Absolute Auto 0.1 10^3/uL (0.0-0.1); Basophils Percent Auto 0.8 % (0.2-2.0); Eosinophils Absolute Auto 0.3 10^3/uL (0.0-0.7); Eosinophils Percent Auto 2.7 % (0.9-7.0); Hematocrit 38.5 % (36.0-48.0); Hemoglobin 12.8 g/dL (12.0-16.0); Immature Granulocytes Abs Auto 0.05 10^3/uL (0.00-0.03); Immature Granulocytes Pct Auto 0.5 % (0.0-0.5); Lymphocytes Absolute Auto 3.8 10^3/uL (1.2-3.8); Lymphocytes Percent Auto 41.2 % (20.5-60.0); Mean Corpuscular HGB Conc 33.2 g/dL (29.9-35.2); Mean Corpuscular Hemoglobin 29.3 pg (26.7-34.0); Mean Corpuscular Volume 88.1 fL (81.0-99.0); Mean Platelet Volume 8.9 fL (9.5-13.5); Monocytes Absolute Auto 0.4 10^3/uL (0.3-0.8); Monocytes Percent Auto 4.4 % (1.7-12.0); Neutrophils Absolute Auto 4.6 10^3/uL (1.4-6.5); Neutrophils Percent Auto 50.4 % (43.0-75.0); Platelet Count 552 10^3/uL (150-450); Red Blood Count 4.37 10^6/uL (4.20-5.40); Red Cell Distribution Width 14.2 % (11.0-15.0); White Blood Count 9.2 10^3/uL (4.0-11.0)
[2023-11-04 20:48] LABS: Bilirubin Urine NEGATIVE (NEGATIVE); Blood Urine NEGATIVE (NEGATIVE); Clarity Urine CLEAR (CLEAR); Color Urine YELLOW (YELLOW); Glucose Urine UA NEGATIVE (NEGATIVE); Ketones Urine NEGATIVE (NEGATIVE); Leukocyte Esterase Urine NEGATIVE (NEGATIVE); Nitrite Urine NEGATIVE (NEGATIVE); Protein Urine NEGATIVE (NEG/TRACE); Specific Gravity Urine <=1.005 (1.005-1.025); Urobilinogen Urine 0.2 EU/dL (0.2-1.0); pH Urine 6.5 (5.0-9.0)
[2023-11-04 20:51] LABS: Urine Microscopic Indicated NO
[2023-11-04] MEDS: ONDANSETRON PF 4 MG/2 ML VIAL IV (20:52)
[2023-11-04] MEDS: 0.9 % SODIUM CHLORIDE 1,000 ML 999 ML IV (20:52)
[2023-11-04] MEDS: DICYCLOMINE HCL 20 MG/2 ML VIAL IM (20:52)
[2023-11-04 20:57] LABS: Alanine Aminotransferase 70 U/L (14-59); Albumin Globulin Ratio 0.9; Albumin Level 3.7 g/dL (3.4-5.0); Alkaline Phosphatase 118 U/L (46-116); Anion Gap 16.7; Aspartate Amino Transferase 44 U/L (15-37); BUN Creatinine Ratio 4.6; Bilirubin Total 0.3 mg/dL (0.2-1.0); Calcium 9.5 mg/dL (8.5-10.1); Carbon Dioxide 25.6 mmol/L (21.0-32.0); Chloride 101 mmol/L (98-107); Estimated GFR (African America >60 (>=60); Estimated GFR (Non-African Ame >60 (>=60); Globulin 4.3 g/dL; Glucose 129 mg/dL (74-106); Potassium 3.3 mmol/L (3.5-5.1); Sodium 140 mmol/L (136-145)
--- NOTE | 2023-11-04 21:01 | ED_ITS ---
HPI - Abdominal Pain General Chief Complaint: Abdominal Pain Stated Complaint: SEVERE ABDOMINAL PAIN Time Seen by Provider: 11/04/23 19:58 History of Present Illness HPI narrative: 37-year-old female to the emergency department with abdominal pain, diarrhea, nausea. Symptoms ongoing for Three days. She has sharp lower Abdominal pain. Nausea without vomiting. She denies any fever, sweats, chills. She reports diarrhea every thirty minutes. Related Data Home Medications ?Medication ?Instructions ?Recorded ?Confirmed cetirizine 10 mg tablet 10 mg 08/02/23 lurasidone 80 mg tablet 80 mg 08/02/23 upadacitinib 15 mg tablet,extended 15 mg PO 08/02/23 release 24 hr (Rinvoq) benztropine 0.5 mg tablet mg 11/04/23 vitamin tab 11/04/23 no.76-iron,carbonyl 29 mg iron-folic acid 1 mg tablet (Thrivite Rx) Previous Rx's ?Medication ?Instructions ?Recorded ondansetron 4 mg disintegrating 4 mg PO Q8H PRN nausea and 08/02/23 tablet vomiting 4 days #16 tabs dicyclomine 10 mg capsule 10 mg PO QID PRN abdominal pain 11/04/23 #12 caps ondansetron 4 mg disintegrating 4 mg PO Q8H PRN nausea and 11/04/23 tablet vomiting 4 days #16 tabs Allergies Allergy/AdvReac Type Severity Reaction Status Date / Time oxycodone Allergy Verified 11/04/23 20:03 Review of Systems ROS Status of ROS 10 or more systems reviewed and unremark able except as noted in history and below [facility] PFS Social History Smoking status: Never smoker Exam Narrative Exam Narrative: VITALS: I have reviewed the triage vital signs. GENERAL: Well developed, well appearing adult in no acute distress. NEURO: Alert and oriented. Moves all extremities. Face is symmetric and expressive. EYES: PERRL. No scleral icterus or conjunctival injection. No discharge. HENT: Normocephalic, atraumatic. Hearing is grossly intact. Nares grossly patent and without discharge. Mucous membranes moist. NECK: No JVD. Patient moves neck without restriction. CARDIO: Rhythm regular. Normal rate. No murmur, rub, or gallop. Pulses equal bilaterally in the upper and lower extremity. No lower extremity edema. PULM: Lungs clear to auscultation in all penn. No wheezes, rales, or rhonchi. No conversational dyspnea. No splinting, stridor, or accessory muscle use. GI/: Abdomen is soft . Lower abdominal tenderness. Normoactive bowel sounds. EXTREMITIES: Symmetric muscle bulk. No joint swelling. No clubbing, cyanosis, or deformity. SKIN: Warm and dry. Normal turgor. No rash or lesions appreciated. PSYCH: Mood, affect, and interaction is appropriate to the setting. Constitutional Vital Signs, click to edit/add: Last Vital Signs Temp 98 F 11/04/23 19:59 Pulse 91 H 11/04/23 19:59 Resp 18 11/04/23 19:59 BP 139/87 11/04/23 19:59 Pulse Ox 97 11/04/23 19:59 Course Vital Signs Vital signs: Vital Signs Temperature 98 F 11/04/23 19:59 Pulse Rate 91 H 11/04/23 19:59 Respiratory Rate 18 11/04/23 19:59 Blood Pressure 139/87 11/04/23 19:59 Pulse Oximetry 97 11/04/23 19:59 Temperature 98 F 11/04/23 19:59 Pulse Rate 91 H 11/04/23 19:59 Respiratory Rate 18 11/04/23 19:59 Blood Pressure 139/87 11/04/23 19:59 Pulse Oximetry 97 11/04/23 19:59 MDM - Abdominal Pain MDM Narrative Medical decision making narrative: 37-year-old female to the emergency department with chief complaint abdominal pain and vomiting. Vitals stable, the patient is afebrile. Lower abdominal pain, rule out appendicitis. Blood work ordered. Bentyl, Zofran, fluids are ordered. Patient agrees with this plan. Labs were reviewed and noted. No major abnormalities. Her CT scan is without acute findings. Symptoms were well controlled. She feels much improved. Likely gastroenteritis given symptom constellation. Patient agrees with this plan. Symptomatic Meds sent to pharmacy. Return precautions were discussed. All questions were answered. The patient was discharged home. Medical Records Attestation: I reviewed the patient's medical records. Lab Data Attestation: I reviewed the patient's lab results. Labs: Lab Results 11/04/23 11/04/23 Range/Units 20:08 20:30 WBC 9.2 (4.0-11.0) 10^3/uL RBC 4.37 (4.20-5.40) 10^6/uL Hgb 12.8 (12.0-16.0) g/dL Hct 38.5 (36.0-48.0) % MCV 88.1 (81.0-99.0) fL MCH 29.3 (26.7-34.0) pg MCHC 33.2 (29.9-35.2) g/dL RDW 14.2 (11.0-15.0) % Plt Count 552 H (150-450) 10^3/uL MPV 8.9 L (9.5-13.5) fL Neut % (Auto) 50.4 (43.0-75.0) % Lymph % (Auto) 41.2 (20.5-60.0) % [place] % (Auto) 4.4 (1.7-12.0) % Eos % (Auto) 2.7 (0.9-7.0) % Baso % (Auto) 0.8 (0.2-2.0) % Neut # (Auto) 4.6 (1.4-6.5) 10^3/uL Lymph # (Auto) 3.8 (1.2-3.8) 10^3/uL [place] # (Auto) 0.4 (0.3-0.8) 10^3/uL Eos # (Auto) 0.3 (0.0-0.7) 10^3/uL Baso # (Auto) 0.1 (0.0-0.1) 10^3/uL Abs Immat Gran (auto) 0.05 H (0.00-0.03) 10^3/uL Imm/Tot Granulo (auto) 0.5 (0.0-0.5) % Sodium 140 (136-145) mmol/L Potassium 3.3 L (3.5-5.1) mmol/L Chloride 101 (98-107) mmol/L Carbon Dioxide 25.6 (21.0-32.0) mmol/L Anion Gap 16.7 BUN 4.0 L (7.0-18.0) mg/dL Creatinine 0.87 (0.55-1.02) mg/dL Est GFR ( Amer) >60 (>=60) Est GFR (Non-Af Amer) >60 (>=60) BUN/Creatinine Ratio 4.6 Glucose 129 H (74-106) mg/dL Calcium 9.5 (8.5-10.1) mg/dL Total Bilirubin 0.3 (0.2-1.0) mg/dL AST 44 H (15-37) U/L ALT 70 H (14-59) U/L Alkaline Phosphatase 118 H (46-116) U/L Total Protein 8.0 (6.4-8.2) g/dL Albumin 3.7 (3.4-5.0) g/dL Globulin 4.3 g/dL Albumin/Globulin Ratio 0.9 Lipase 36.0 (16.0-77.0) U/L Urine Color Yellow (YELLOW) Urine Clarity Clear (CLEAR) Urine pH 6.5 (5.0-9.0) Ur Specific [place] <=1.005 A (1.005-1.025) Urine Protein Negative (NEG/TRACE) mg/dL Urine Glucose (UA) Negative (NEGATIVE) mg/dL Urine Ketones Negative (NEGATIVE) mg/dL Urine Occult Blood Negative (NEGATIVE) Urine Nitrite Negative (NEGATIVE) Urine Bilirubin Negative (NEGATIVE) Urine Urobilinogen 0.2 (0.2-1.0) EU/dL Ur Leukocyte Esterase Negative (NEGATIVE) Stl C. cayetanensis PCR Not detected (NOT DETECTE) Stool Rotavirus (PCR) Not detected (NOT DETECTE) Stool Adenovirus (PCR) Not detected (NOT DETECTE) Stool Astrovirus (PCR) Not detected (NOT DETECTE) Stool Campylobacter PCR Not detected (NOT DETECTE) Stool Cryptosporidium PCR Not detected (NOT DETECTE) St Sh/Enteroin Ecoli PCR Not detected (NOT DETECTE) Stl Enterotoxigenic E PCR Not detected (NOT DETECTE) Stool EPEC (PCR) Not detected (NOT DETECTE) Stl E. histolytica PCR Not detected (NOT DETECTE) Stool Giardia Lamblia PCR Not detected (NOT DETECTE) Stl P. shigelloides PCR Not detected (NOT DETECTE) Stool Salmonella PCR Not detected (NOT DETECTE) Stool Sapovirus (PCR) Not detected (NOT DETECTE) Stl Shiga-like Tx 1 PCR Not detected (NOT DETECTE) St Y.enterocolitica PCR Not detected (NOT DETECTE) Stl Vibrio cholerae PCR Not detected (NOT DETECTE) Stl Enteroaggr Ecoli PCR Not detected (NOT DETECTE) Stl Norovirus GI/GII PCR Not detected (NOT DETECTE) Specimen Source Stool C. difficile Toxin A&B Not detected (NOT DETECTE) Vibrio Culture Not detected (NOT DETECTE) Imaging Data CT scan - abdomen: Radiologist's impression: ITS Impressions Abdomen/Pelvis CT 11/04/23 20:41 IMPRESSION: 1. No significant acute abnormality identified in the abdomen or pelvis, as described above. Electronically authenticated by: NATALYA HIGH Date: 11/04/2023 22:10 Discharge Plan Discharge Stand Alone Forms: Portal Instructions Chief Complaint: Abdominal Pain Clinical Impression: Gastroenteritis Patient Disposition: Home, Self-Care Time of Disposition Decision: 22:32 Condition: Good Mode of Transportation: Private Vehicle Prescriptions / Home Meds: New ondansetron 4 mg tablet,disintegrating 4 mg PO Q8H PRN (Reason: nausea and vomiting) 4 Days Qty: 16 0RF dicyclomine 10 mg capsule 10 mg PO QID PRN (Reason: abdominal pain) Qty: 12 0RF No Action cetirizine 10 mg tablet 10 mg lurasidone 80 mg tablet 80 mg Rinvoq 15 mg tablet extended release 24 hr 15 mg PO ondansetron 4 mg tablet,disintegrating 4 mg PO Q8H PRN (Reason: nausea and vomiting) 4 Days Qty: 16 0RF benztropine 0.5 mg tablet Thrivite Rx 29 mg iron- 1 mg tablet Print Language: Tamazight Referrals: Rula Castellanos NP [Primary Care Provider] - 1 week
[2023-11-04 22:49] VITALS: BP 131/79; PULSE 78; O2SAT 98
== END 2023-11-04 22:50 | disposition home or self-care (01) ==
PROVIDERS: Emergency Provider Student in an Organized Health Care Education/Training Program; PCP Nurse Practitioner Family
DX: R10.9 Unspecified abdominal pain (principal); R11.10 Vomiting, unspecified; R19.7 Diarrhea, unspecified; Z79.899 Other long term (current) drug therapy; E66.9 Obesity, unspecified; Z68.37 Body mass index [BMI] 37.0-37.9, adult
CPT/HCPCS: 36415; 74177; 80053; 81003; 83690; 85025; 87507; 96361; 96372; 96374; 99285; J0500; Q9967

== ENCOUNTER 2023-11-06 15:53 | Emergency (ER) | payer BC, SELFPAY ==
[2023-11-06 16:01] VITALS: BP 124/81; PULSE 98; TEMP 36.9; O2SAT 96; BMI 37.4
--- NOTE | 2023-11-06 16:09 | XR_ITS ---
The [address] [address] Patient Name: SONIA CURTIS MRN: [id number] date: 1985 Sex: F Assigned Patient Location: ER Current Patient Location: ED.MAIN Accession/Order Number: [id number] Exam Date: 11/06/2023 16:32 Report Date: 11/06/2023 18:07 At the request of: YUSUF DAVENPORT Procedure: XR acute abdomen series EXAMINATION: XR acute abdomen series, , 11/06/2023 4:32 PM ED TECHNIQUE: Abdominal x-ray: One view. HISTORY:Vomiting and diarrhea COMPARISON:CT abdomen pelvis dated 11/04/2023. TECHNIQUE:Frontal images of the chest and abdomen are submitted. FINDINGS: No abnormally dilated loops of bowel are identified. No obvious free air or pneumatosis are present. Surgical clips overlie the right upper quadrant. There is a mild to moderate stool burden. The cardiomediastinal silhouette is not enlarged. The pulmonary vascularity is within normal limits. The lungs are clear based on chest radiography. There is no costophrenic angle blunting. XR/XR acute abdomen series IMPRESSION: Unremarkable plain film examination of the chest and abdomen. Electronically authenticated by: SADAF THOMPSON Date: 11/06/2023 18:07
--- NOTE | 2023-11-06 16:11 | ED.GENADUL1 ---
HPI HPI - General Adult General Chief complaint: Nausea/Vomiting/Diarrhea Stated complaint: Nausea/Vomiting/Diarrhea Time Seen by Provider: 11/06/23 15:54 Source: patient Source information: pt Mode of arrival: walk-in Limitations: no limitations History of Present Illness HPI narrative: Patient is a 37-year-old female who returns to the emergency department for the evaluation of epigastric discomfort as well and has vomiting and diarrhea. She was seen in this emergency department 2 days ago for the same symptoms. She states she was diagnosed with gastroenteritis and GERD. She states she filled the prescriptions for Zofran and Bentyl with last doses this morning. She states she vomited after taking these medications. She continues to have diarrhea without Blood. No sick contacts. She had a CT scan that was unremarkable as well as a stool specimen that was -2 days ago. She has no new or different symptoms, she states she is just not better and feels bloated. No fevers or upper respiratory symptoms. She is not concerned for . No urinary symptoms. Related Data Home Medications ?Medication ?Instructions ?Recorded ?Confirmed cetirizine 10 mg tablet 10 mg PO DAILY 08/02/23 11/06/23 lurasidone 80 mg tablet 80 mg PO DAILY 08/02/23 11/06/23 upadacitinib 15 mg tablet,extended 15 mg PO DAILY 08/02/23 11/06/23 release 24 hr (Rinvoq) vitamin 1 tab PO DAILY 11/04/23 11/06/23 no.76-iron,carbonyl 29 mg iron-folic acid 1 mg tablet (Thrivite Rx) Previous Rx's ?Medication ?Instructions ?Recorded ondansetron 4 mg disintegrating 4 mg PO Q8H PRN nausea and 08/02/23 tablet vomiting 4 days #16 tabs dicyclomine 10 mg capsule 10 mg PO QID PRN abdominal pain 11/04/23 #12 caps hyoscyamine sulfate 0.125 mg 0.125 mg PO Q6H PRN abdominal pain 11/06/23 tablet (Levsin) #12 tabs promethazine 25 mg tablet 25 mg PO Q6H PRN nausea and 11/06/23 vomiting #12 tabs sucralfate 1 gram tablet (Carafate) 1 g PO Q6H PRN abdominal pain #12 11/06/23 tabs Allergies Allergy/AdvReac Type Severity Reaction Status Date / Time oxycodone Allergy Verified 11/06/23 16:06 latex Allergy Intermediate Hives Uncoded 11/06/23 16:06 humeraa Allergy Rash Uncoded 11/06/23 16:06 Opioid HPI Opioid Management Most Recent Opioid Data: Last Pain Scale 7 11/06/23 16:07 Review of Systems ROS Constitutional Denies: fever or chills Ears, nose, mouth, and throat Denies: throat pain or nasal congestion Cardiovascular Denies: chest pain Respiratory Denies: shortness of breath Gastrointestinal Reports: abdominal pain, nausea, vomiting and diarrhea Musculoskeletal Denies: back pain Integumentary/Breast Denies: rash Endocrine Denies: excessive urination Hematologic/Lymphatic Denies: easy bruising or easy bleeding PFSH PFSH Social History Smoking status: Never smoker Exam Narrative Exam Narrative: Gen.: Awake, alert, in no distress Head: Normocephalic, atraumatic ENT: Moist mucous membranes Respiratory: No respiratory distress, lungs clear bilaterally Cardio: Regular rate and rhythm Gastrointestinal: Abdomen is soft, Obese and tender to palpation in the epigastrium with no guarding or rebound Extremities: Moves extremities equally Psych: Normal mood and affect Neuro: No focal neuro deficit Skin: Warm, dry, intact Constitutional Vital Signs, click to edit/add: Last Vital Signs Temp 98.4 F 11/06/23 16:01 Pulse 83 11/06/23 17:29 Resp 16 11/06/23 17:29 BP 112/67 11/06/23 17:29 Pulse Ox 99 11/06/23 17:29 O2 Del Method Room Air 11/06/23 16:31 Course Vital Signs Vital signs: Vital Signs Temperature 98.4 F 11/06/23 16:01 Pulse Rate 98 H 11/06/23 16:01 Respiratory Rate 16 11/06/23 16:01 Blood Pressure 124/81 11/06/23 16:01 Pulse Oximetry 96 11/06/23 16:01 Oxygen Delivery Method Room Air 11/06/23 16:01 Temperature 98.4 F 11/06/23 16:01 Pulse Rate 83 11/06/23 17:29 Respiratory Rate 16 11/06/23 17:29 Blood Pressure 112/67 11/06/23 17:29 Pulse Oximetry 99 11/06/23 17:29 Oxygen Delivery Method Room Air 11/06/23 16:31 Medical Decision Making MDM Narrative Medical decision making narrative: Patient is treated with IV fluids, Zofran, Levsin, Protonix. She had no episodes of emesis in the ER, no episodes of diarrhea in the ER. She has stable vital signs, abdomen soft and benign. Abdominal x-rays with no evidence of perforation, lab studies are stable and potassium has improved from 2 days ago. Patient will be discharged home with Phenergan and Levsin with Carafate as needed for epigastric pain. Follow-up with PCP and return to the ER if symptoms change or worsen Medical Records Medical records reviewed: Yes I reviewed the patient's medical records Lab Data Lab results reviewed: Yes I reviewed the patient's lab results Labs: Lab Results 11/06/23 11/06/23 11/06/23 Range/Units 16:00 16:15 16:20 WBC 10.5 (4.0-11.0) 10^3/uL RBC 4.61 (4.20-5.40) 10^6/uL Hgb 13.3 (12.0-16.0) g/dL Hct 40.0 (36.0-48.0) % MCV 86.8 (81.0-99.0) fL MCH 28.9 (26.7-34.0) pg MCHC 33.3 (29.9-35.2) g/dL RDW 14.0 (11.0-15.0) % Plt Count 515 H (150-450) 10^3/uL MPV 8.8 L (9.5-13.5) fL Neut % (Auto) 43.5 (43.0-75.0) % Lymph % (Auto) 48.4 (20.5-60.0) % [place] % (Auto) 5.4 (1.7-12.0) % Eos % (Auto) 1.4 (0.9-7.0) % Baso % (Auto) 0.7 (0.2-2.0) % Neut # (Auto) 4.6 (1.4-6.5) 10^3/uL Lymph # (Auto) 5.1 H (1.2-3.8) 10^3/uL [place] # (Auto) 0.6 (0.3-0.8) 10^3/uL Eos # (Auto) 0.2 (0.0-0.7) 10^3/uL Baso # (Auto) 0.1 (0.0-0.1) 10^3/uL Abs Immat Gran (auto) 0.06 H (0.00-0.03) 10^3/uL Imm/Tot Granulo (auto) 0.6 H (0.0-0.5) % Sodium 137 (136-145) mmol/L Potassium 3.7 (3.5-5.1) mmol/L Chloride 100 (98-107) mmol/L Carbon Dioxide 25.9 (21.0-32.0) mmol/L Anion Gap 14.8 BUN 6.0 L (7.0-18.0) mg/dL Creatinine 0.97 (0.55-1.02) mg/dL Est GFR ( Amer) >60 (>=60) Est GFR (Non-Af Amer) >60 (>=60) BUN/Creatinine Ratio 6.2 Glucose 100 (74-106) mg/dL Lactate 1.2 (0.4-2.0) mmol/L Calcium 9.5 (8.5-10.1) mg/dL Total Bilirubin 0.3 (0.2-1.0) mg/dL AST 46 H (15-37) U/L ALT 74 H (14-59) U/L Alkaline Phosphatase 118 H (46-116) U/L Total Protein 7.9 (6.4-8.2) g/dL Albumin 3.6 (3.4-5.0) g/dL Globulin 4.3 g/dL Albumin/Globulin Ratio 0.8 Lipase 33.0 (16.0-77.0) U/L Urine Color Yellow (YELLOW) Urine Clarity Clear (CLEAR) Urine pH 6.0 (5.0-9.0) Ur Specific [place] 1.020 (1.005-1.025) Urine Protein Negative (NEG/TRACE) mg/dL Urine Glucose (UA) Negative (NEGATIVE) mg/dL Urine Ketones Negative (NEGATIVE) mg/dL Urine Occult Blood Negative (NEGATIVE) Urine Nitrite Negative (NEGATIVE) Urine Bilirubin Negative (NEGATIVE) Urine Urobilinogen 0.2 (0.2-1.0) EU/dL Ur Leukocyte Esterase Negative (NEGATIVE) Imaging Data Abdominal x-ray: Attestation: I have reviewed the pertinent imaging results. Discharge Plan Discharge Stand Alone Forms: Portal Instructions Chief Complaint: Nausea/Vomiting/Diarrhea Clinical Impression: Vomiting and diarrhea, Abdominal pain Patient Disposition: Home, Self-Care Time of Disposition Decision: 17:59 Condition: Good Prescriptions / Home Meds: New sucralfate [Carafate] 1 gram tablet 1 g PO Q6H PRN (Reason: abdominal pain) Qty: 12 0RF hyoscyamine sulfate [Levsin] 0.125 mg tablet 0.125 mg PO Q6H PRN (Reason: abdominal pain) Qty: 12 0RF promethazine 25 mg tablet 25 mg PO Q6H PRN (Reason: nausea and vomiting) Qty: 12 0RF No Action cetirizine 10 mg tablet 10 mg PO DAILY lurasidone 80 mg tablet 80 mg PO DAILY Rinvoq 15 mg tablet extended release 24 hr 15 mg PO DAILY ondansetron 4 mg tablet,disintegrating 4 mg PO Q8H PRN (Reason: nausea and vomiting) 4 Days Qty: 16 0RF Thrivite Rx 29 mg iron- 1 mg tablet 1 tab PO DAILY dicyclomine 10 mg capsule 10 mg PO QID PRN (Reason: abdominal pain) Qty: 12 0RF Print Language: Israeli Instructions: Acute Nausea and Vomiting (ED), Acute Diarrhea (ED), Abdominal Pain (ED) Referrals: Rula Castellanos NP [Primary Care Provider] - 1 week
[2023-11-06] MEDS: 0.9 % SODIUM CHLORIDE 1,000 ML 999 ML IV (16:23)
[2023-11-06] MEDS: HYOSCYAMINE SULFATE 0.125 MG TAB.SUBL SL (16:23)
[2023-11-06] MEDS: ONDANSETRON PF 4 MG/2 ML VIAL IV (16:23)
[2023-11-06] MEDS: PANTOPRAZOLE SODIUM 40 MG VIAL IV (16:23)
[2023-11-06 16:31] VITALS: O2SAT 98
[2023-11-06 16:32] LABS: Basophils Absolute Auto 0.1 10^3/uL (0.0-0.1); Basophils Percent Auto 0.7 % (0.2-2.0); Eosinophils Absolute Auto 0.2 10^3/uL (0.0-0.7); Eosinophils Percent Auto 1.4 % (0.9-7.0); Hemoglobin 13.3 g/dL (12.0-16.0); Immature Granulocytes Abs Auto 0.06 10^3/uL (0.00-0.03); Immature Granulocytes Pct Auto 0.6 % (0.0-0.5); Lymphocytes Absolute Auto 5.1 10^3/uL (1.2-3.8); Lymphocytes Percent Auto 48.4 % (20.5-60.0); Mean Corpuscular HGB Conc 33.3 g/dL (29.9-35.2); Mean Corpuscular Hemoglobin 28.9 pg (26.7-34.0); Mean Corpuscular Volume 86.8 fL (81.0-99.0); Mean Platelet Volume 8.8 fL (9.5-13.5); Monocytes Absolute Auto 0.6 10^3/uL (0.3-0.8); Monocytes Percent Auto 5.4 % (1.7-12.0); Neutrophils Absolute Auto 4.6 10^3/uL (1.4-6.5); Neutrophils Percent Auto 43.5 % (43.0-75.0); Platelet Count 515 10^3/uL (150-450); Red Blood Count 4.61 10^6/uL (4.20-5.40); White Blood Count 10.5 10^3/uL (4.0-11.0)
[2023-11-06 16:39] LABS: Bilirubin Urine NEGATIVE (NEGATIVE); Blood Urine NEGATIVE (NEGATIVE); Clarity Urine CLEAR (CLEAR); Color Urine YELLOW (YELLOW); Glucose Urine UA NEGATIVE (NEGATIVE); Ketones Urine NEGATIVE (NEGATIVE); Leukocyte Esterase Urine NEGATIVE (NEGATIVE); Nitrite Urine NEGATIVE (NEGATIVE); Protein Urine NEGATIVE (NEG/TRACE); Urobilinogen Urine 0.2 EU/dL (0.2-1.0)
[2023-11-06 16:44] LABS: Alanine Aminotransferase 74 U/L (14-59); Albumin Globulin Ratio 0.8; Albumin Level 3.6 g/dL (3.4-5.0); Alkaline Phosphatase 118 U/L (46-116); Anion Gap 14.8; Aspartate Amino Transferase 46 U/L (15-37); BUN Creatinine Ratio 6.2; Bilirubin Total 0.3 mg/dL (0.2-1.0); Calcium 9.5 mg/dL (8.5-10.1); Carbon Dioxide 25.9 mmol/L (21.0-32.0); Chloride 100 mmol/L (98-107); Estimated GFR (African America >60 (>=60); Estimated GFR (Non-African Ame >60 (>=60); Globulin 4.3 g/dL; Glucose 100 mg/dL (74-106); Potassium 3.7 mmol/L (3.5-5.1); Sodium 137 mmol/L (136-145); Total Protein 7.9 g/dL (6.4-8.2)
[2023-11-06 16:47] LABS: Lactate/Lactic Acid 1.2 mmol/L (0.4-2.0)
[2023-11-06 16:49] LABS: Urine Microscopic Indicated NO
[2023-11-06 17:29] VITALS: BP 112/67; PULSE 83; O2SAT 99
== END 2023-11-06 18:12 | disposition home or self-care (01) ==
PROVIDERS: Physician Assistant; Emergency Provider Emergency Medicine; PCP Nurse Practitioner Family
DX: R11.10 Vomiting, unspecified (principal); R19.7 Diarrhea, unspecified; R10.9 Unspecified abdominal pain; Z68.37 Body mass index [BMI] 37.0-37.9, adult; Z79.899 Other long term (current) drug therapy; E66.9 Obesity, unspecified
CPT/HCPCS: 36415; 74022; 80053; 81003; 83605; 83690; 84703; 85025; 96361; 96374; 96375; 99285

== ENCOUNTER 2023-11-13 17:08 | Emergency (ER) | payer BC, SELFPAY ==
[2023-11-13 17:13] VITALS: BP 127/98; PULSE 100; TEMP 36.5; O2SAT 96; BMI 35.8
--- OUTSIDE RECORDS SUMMARY | 2023-11-13 17:28 | XMS_ITS | CCD ---
Author Organization [facility] Care Team Providers Care Medical Coding Technician Name Role Phone SELF, REFERRED Primary Care Unavailable CARLINE OCAMPO Referring Unavailable LUIS ALFREDONITESH Attending Unavailable LUIS ALFREDONITESH H Admitting Unavailable FARHAD, CADE Primary Care Unavailable DIAB ., CATIE Attending Unavailable DIAB ., CATIE Admitting Unavailable GRECHNY ., BALDEMAR GOLDBERG Consulting Unavailabl e LAZOJOSÉ MANUEL Consulting Unavailable FARHAD, CADE Primary Care Unavailable KARASIK ., DR VIDAL Attending Unavailabl e KARASIK ., DR VIDAL Consulting Unavailabl e KARASIK ., DR VIDAL Admitting Unavailabl e ADRIAN CASSIDY Attending Unavailable PHAN, KARSTEN Primary Care Unavailable PARK, GAURI A Attending Unavailable PARK, GAURI A Attending Unavailable PARK, GAURI A Referring Unavailable PHAN, KARSTEN Primary Care Unavailable PHAN, KARSTEN Attending Unavailable PHAN, KARSTEN Referring Unavailable PHAN, KARSTEN Primary Care Unavailable LUNA SPICER Attending Unavailable SHAHNAZ HANNAH Attending Unavailable LUNA SPICER Referring Unavailable LUNA SPICER Attending Unavailable LUNA SPICER Attending Unavailable LUNA SPICER M Attending Unavailable LUNA SPICER M Attending Unavailable Allergies Allergy Classification Reported Allergen(s) Allergy Type Date of Onset Reaction(s) Facility (4 sources) Latex; 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: [LATEX] Propensity to adverse reactions (disorder) [address] [facility] Repository (1 source) adalimumab Drug Allergy [facility] Repository (1 source) natural latex rubber Drug allergy (disorder) [facility] Repository (3 sources) adalimumab; 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: [ADALIMUMAB] Drug Allergy 3 [facility] Repository (3 sources) oxyCODONE; 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: [OXYCODONE] Drug Allergy [facility] Repository Problems Active Problems Problem Classification [...] [CHEST PAIN UNSPECIFIED] Onset: 08-22-2022 Episodic Other connective tissue disease (2 sources) Fibromyalgia; 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: [Fibromyalgia] Onset: 11-07-2023 Episodic Other inflammatory condition of skin (2 [...] 10-10-2022 Episodic Rheumatoid arthritis and related disease (5 sources) Rheumatoid arthritis, unspecified; 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: [Rheumatoid arthritis without rheumatoid factor, unspecified site] Onset: 08-24-2022 Chronic Screening and history of mental health and substance abuse codes (1 source) Personal history of nicotine dependence; 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: [PERSONAL HISTORY OF NICOTINE DEPEND] Onset: 08-24-2022 Episodic Unclassified (1 source) Low back pain, unspecified; 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: [Low back pain, unspecified] Onset: 07-19-2023 Unclassified (1 source) nausea, flank pain, headche Onset: 07-19-2023 Unclassified (1 source) detention (current) use of antimetabolite agent; 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: [detention (current) use of antimetabolite agent] Onset: 02-26-2023 Past or Other Problems Problem Classification Problem Date Documented Date Episodic/Chronic E Codes: Adverse effects of medical drugs (2 sources) Adverse effect of antineoplastic and immunosuppressive drugs, initial encounter; 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: [Adverse effect of antineoplastic and immunosuppressive drugs, initial encounter] Onset: 02-12-2023 Episodic Other aftercare (2 sources) Other longterm (current) drug therapy; 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: [Other longterm (current) drug therapy] Onset: 02-12-2023 Episodic Other aftercare (2 sources) detention (current) use of systemic steroids; 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: [detention (current) use of systemic steroids] Onset: 02-12-2023 Episodic Other connective tissue disease (2 sources) Plantar fascial fibromatosis; 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: [Plantar fascial fibromatosis] Onset: 02-26-2023 Episodic Residual codes; unclassified (2 sources) Edema, unspecified; 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: [Edema, unspecified] Onset: 05-23-2023 Episodic Unclassified (1 source) detention (current) use of antimetabolite agent; 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: [detention (current) use of antimetabolite agent] Onset: 02-26-2023 Results Test Name Value Interpretation Reference Range Facility Orders Onlyon 11-08-2023 Orders Only [id number] Sonia Waite 1985 F Date Provider Department Center 11/08/2023 GO[facility] JUSTICE [facility]UM Chris Heal Family History Problem Relation Age of Onset Lupus Mother Cirrhosis Mother Family Status - Relation Status Age at Mother Normal [facility] 36on 11-07-2023 36 Received via fax request for PA for Rinvoq. Re-prepped order to be sent to [facility] to initiate PA. Thank you. suresh Normal [facility] CBC WITH AUTO DIFFERENTIALon 11-07-2023 Basophils (Bld) [#/Vol] 0.07 10*3/uL Normal 0.00-0.20 [facility] Comment on above: Performed By: #### L [id number] #### [facility] ([facility]) [address] [place] [address] Basophils/100 WBC (Bld) 0.7 % Normal 0.0-1.0 [facility] Comment on above: Performed By: #### L [id number] #### [facility] ([facility]) [address] [place] [address] Eosinophils (Bld) [#/Vol] 0.15 10*3/uL Normal 0.00-0.50 [facility] Comment on above: Performed By: #### L [id number] #### [facility] ([facility]) [address] [place] [address] Eosinophils/100 WBC (Bld) 1.5 % Normal 0.0-6.0 [facility] Comment on above: Performed By: #### L [id number] #### [facility] ([facility]) [address] [place] [address] Erythrocyte distribution width (RBC) [Ratio] 14.5 % Normal 11.5-15.0 [facility] Comment on above: Performed By: #### L [id number] #### [facility] ([facility]) [address] [place] [address] ERYTHROCYTE MEAN CORPUSCULAR HEMOGLOBIN CONCENTRATION (G/DL) BY AUTOMATED 33.6 g/dL Normal 32.0-35.0 [facility] Comment on above: Performed By: #### L [id number] #### [facility] ([facility]) [address] [place] [address] Hematocrit (Bld) [Volume fraction] 40.5 % Normal 36.0-48.0 [facility] Comment on above: Performed By: #### L [id number] #### [facility] ([facility]) [address] [place] [address] Hemoglobin (Bld) [Mass/Vol] 13.6 g/dL Normal 12.0-15.0 [facility] Comment on above: Performed By: #### L [id number] #### [facility] ([facility]) [address] [place] [address] Immature granulocytes (Bld) [#/Vol] 0.07 10*3/uL Normal 0.00-0.20 [facility] Comment on above: Performed By: #### L [id number] #### [facility] ([facility]) [address] [place] [address] Immature granulocytes/100 WBC (Bld) 0.7 % Normal 0.0-1.0 [facility] Comment on above: Performed By: #### L [id number] #### [facility] ([facility]) [address] [place] [address] Lymphocytes (Bld) [#/Vol] 3.29 10*3/uL Normal 1.20-4.00 [facility] Comment on above: Performed By: #### L [id number] #### [facility] ([facility]) [address] [place] [address] Lymphocytes/100 WBC (Bld) 32.4 % Normal 20.0-45.0 [facility] Comment on above: Performed By: #### L [id number] #### [facility] ([facility]) [address] [place] [address] MCH (RBC) [Entitic mass] 29.4 pg Normal 27.0-33.0 [facility] Comment on above: Performed By: #### L [id number] #### [facility] ([facility]) [address] [address] MCV (RBC) [Entitic vol] 87.5 fL Normal 82.0-98.0 [facility] Comment on above: Performed By: #### L [id number] #### [facility] ([facility]) [address] [place] [address] Monocytes (Bld) [#/Vol] 0.59 10*3/uL Normal 0.10-1.00 [facility] Comment on above: Performed By: #### L [id number] #### [facility] ([facility]) [address] [place] [address] Monocytes/100 WBC (Bld) 5.8 % Normal 5.0-12.0 [facility] Comment on above: Performed By: #### L [id number] #### [facility] ([facility]) [address] [place] [address] Neutrophils (Bld) [#/Vol] 5.98 10*3/uL Normal 1.60-7.60 [facility] Comment on above: Performed By: #### L [id number] #### [facility] ([facility]) [address] [place] [address] Neutrophils/100 WBC (Bld) 58.9 % Normal 40.0-72.0 [facility] Comment on above: Performed By: #### L [id number] #### [facility] ([facility]) [address] [place] [address] NRBC (PER 100 WBCS) BY AUTOMATED COUNT 0.0 % Normal 0 [facility] Comment on above: Performed By: #### L [id number] #### [facility] ([facility]) [address] [place] [address] PLATELETS (10*3/UL) IN BLOOD AUTOMATED COUNT 533 10*3/uL High 150-400 [facility] Comment on above: Performed By: #### L [id number] #### [facility] ([facility]) [address] [place] [address] RBC (Bld) [#/Vol] 4.63 10*6/uL Normal 3.80-5.00 [facility] Comment on above: Performed By: #### L [id number] #### [facility] ([facility]) [address] [place] [address] WBC (Bld) [#/Vol] 10.15 10*3/uL Normal 4.00-10.60 [facility] Comment on above: Performed By: #### L [id number] #### [facility] ([facility]) [address] [place] [address] COMPREHENSIVE METABOLIC PANE Varghese 11-07-2023 Albumin [Mass/Vol] 4.5 g/dL Normal 3.5-5.7 [facility] Comment on above: Performed By: #### L [id number] #### [facility] ([facility]) [address] [place] [address] ALP [Catalytic activity/Vol] 99 U/L Normal 34-104 [facility] Comment on above: Performed By: #### L [id number] #### [facility] ([facility]) [address] [place] [address] ALT [Catalytic activity/Vol] 58 U/L High 7-52 [facility] Comment on above: Performed By: #### L [id number] #### [facility] ([facility]) [address] [place] [address] Anion gap [Moles/Vol] 12 mmol/L Normal 7-20 [facility] Comment on above: Performed By: #### L [id number] #### [facility] ([facility]) [address] [place] [address] AST [Catalytic activity/Vol] 49 U/L High 13-39 [facility] Comment on above: Performed By: #### L [id number] #### [facility] ([facility]) [address] [place] [address] Bilirubin [Mass/Vol] 0.3 mg/dL Normal 0.3-1.0 [facility] Comment on above: Performed By: #### L [id number] #### [facility] ([facility]) [address] [place] [address] Calcium [Mass/Vol] 9.6 mg/dL Normal 8.6-10.3 [facility] Comment on above: Performed By: #### L [id number] #### [facility] ([facility]) [address] [place] [address] Chloride [Moles/Vol] 103 mmol/L Normal 98-107 [facility] Comment on above: Performed By: #### L [id number] #### [facility] ([facility]) [address] [place] [address] CO2 [Moles/Vol] 26 mmol/L Normal 21-31 [facility] Comment on above: Performed By: #### L [id number] #### [facility] ([facility]) [address] [address] Creatinine [Mass/Vol] 0.83 mg/dL Normal 0.60-1.20 [facility] Comment on above: Performed By: #### L [id number] #### [facility] ([facility]) [address] [place] [address] GLOMERULAR FILTRATION RATE ML/MIN/1.73 SQ M.PREDICTED 93.6 mL/min/1.73m*2 Normal >60.0 [facility] Comment on above: Result Comment: [facility]???s estimated glomerular filtration rate (eGFR) [...] individuals. Performed By: #### L [id number] #### [facility] ([facility]) [address] [place] [address] Glucose [Mass/Vol] 79 mg/dL Normal 70-100 [facility] Comment on above: Performed By: #### L [id number] #### [facility] ([facility]) [address] [place] [address] Potassium [Moles/Vol] 4.1 mmol/L Normal 3.5-5.1 [facility] Comment on above: Performed By: #### L [id number] #### [facility] ([facility]) [address] [place] [address] Protein [Mass/Vol] 7.9 g/dL Normal 6.0-8.3 [facility] Comment on above: Performed By: #### L [id number] #### [facility] ([facility]) [address] [place] [address] Sodium [Moles/Vol] 137 mmol/L Normal 136-145 [facility] Comment on above: Performed By: #### L [id number] #### [facility] ([facility]) [address] [place] [address] Urea nitrogen [Mass/Vol] 6 mg/dL Low 7-25 [facility] Comment on above: Performed By: #### L [id number] #### [facility] ([facility]) [address] [place] [address] UREA NITROGEN/CREATININE (MASS RATIO) IN SER/PLAS 7.2 [facility] Comment on above: Performed By: #### L [id number] #### [facility] ([facility]) [address] [place] [address] Follow-Upon 11-07-2023 Follow-Up [id number] Sonia Waite 1985 F Date Provider Department Center 11/07/2023 317-LUNA SPICER [facility] Chris Heal Family History Problem Relation Age of Onset Lupus Mother Cirrhosis Mother Family Status - Relation Status Age at Mother Level of Service:[address]402 [place] OFFICE/OUTPATIENT ESTABLISHED MOD MDM 30 MIN Reason for Visit and Comments: Follow-up [679747] - late for 3 month follow up [facility] 29on 11-01-2023 29 Addended by: LUNA SPICER on: 11/01/2023 04:53 PM Modules accepted: Orders [facility] 36on 11-01-2023 36 TC from PT following [...] up 11/07/23 Please advise. Shabana Jara RN Normal [facility] Patient Messageon 11-01-2023 Patient Message [id number] Sonia Waite 1985 F Date Provider Department Center 11/01/2023 317-LUNA SPICER [facility] Chris Heal Family History Problem Relation Age of Onset Lupus Mother Cirrhosis Mother Family Status - Relation Status Age at Mother Normal [facility] Telephoneon 11-01-2023 Telephone [id number] Sonia Waite 1985 Date Provider Department Center 11/01/2023 SHABANA MCCLURE [facility] Chris Heal Family History Problem Relation Age of Onset Lupus Mother Cirrhosis Mother Family Status - Relation Status Age at Mother Reason for Visit and Comments: Generalized Body Aches [679569] - pain Normal [facility] Documentationon 10-25-2023 Documentation [id number] Sonia Waite 1985 Date Provider Department Center 10/25/2023 [id number], KARA [facility] Chris Heal Family History Problem Relation Age of Onset Lupus Mother Cirrhosis Mother Family Status - Relation Status Age at Mother Reason for Visit and Comments: Specialty Pharmacy Note-Rinvoq Prescription [Other] [facility] 36on 10-07-2023 36 Last visit: 05/23/83 Next visit: cancelled by patient for 08/29/23 CBC/CMP: 07/19/23 [facility] 36 PT calling asking [facility] provider to order different medication than Rinvoq because she cannot afford the $1000.00 copay. RN encouraged PT to contact her filling pharmacy inquiring of the PAP to assist with copay if financially eligible. RN also provided PT with [facility] pharmacy number to call for same information if applicable. PT verbalized appreciation and assistance. suresh Normal [facility] CBC AND AUTO DIFFon 07-19-19 24 ABSOLUTE BASOPHIL 0.1 X10E9/L Normal 0.0-0.2 [facility] Comment on above: Performed By: #### C MP, CBCA #### [facility] ([id number]) [address] [place] [address] ABSOLUTE NEUTROPHIL 4.6 X10E9/L Normal 1.5-6.6 [facility] Comment on above: Performed By: #### C MP, CBCA #### [facility] ([id number]) [address] [place] [address] Basophils/100 WBC (Bld) 0.9 % Normal [facility] Comment on above: Performed By: #### C MP, CBCA #### [facility] ([id number]) [address] [place] [address] Eosinophils (Bld) [#/Vol] 0.2 10*3/uL Normal 0.0-0.4 [facility] Comment on above: Performed By: #### C MP, CBCA #### [facility] ([id number]) [address] [place] [address] Eosinophils/100 WBC (Bld) 1.6 % Normal [facility] Comment on above: Performed By: #### C MP, CBCA #### [facility] ([id number]) [address] [place] [address] Erythrocyte distribution width (RBC) [Ratio] 13.9 % Normal 11.5-15.0 [facility] Comment on above: Performed By: #### C MP, CBCA #### [facility] ([id number]) [address] [place] [address] Hematocrit (Bld) [Volume fraction] 38.0 % Normal 35-47 [facility] Comment on above: Performed By: #### C MP, CBCA #### [facility] ([id number]) [address] [place] [address] Hemoglobin (Bld) [Mass/Vol] 13.0 g/dL Normal 11.7-15.5 [facility] Comment on above: Performed By: #### C MP, CBCA #### [facility] ([id number]) [address] [place] [address] Lymphocytes (Bld) [#/Vol] 5.0 10*3/uL High 1.0-3.5 [facility] Comment on above: Performed By: #### C MP, CBCA #### [facility] ([id number]) [address] [place] [address] Lymphocytes/100 WBC (Bld) 48.0 % Normal [facility] Comment on above: Performed By: #### C MP, CBCA #### [facility] ([id number]) [address] [place] [address] MCH (RBC) [Entitic mass] 29.4 pg Normal 27-34 [facility] Comment on above: Performed By: #### C MP, CBCA #### [facility] ([id number]) [address] [place] [address] MCHC (RBC) [Mass/Vol] 34.3 g/dL Normal 32-36 [facility] Comment on above: Performed By: #### C MP, CBCA #### [facility] ([id number]) [address] [place] [address] MCV (RBC) [Entitic vol] 86 fL Normal 80-100 [facility] Comment on above: Performed By: #### C MP, CBCA #### [facility] ([id number]) [address] [place] [address] Monocytes (Bld) [#/Vol] 0.6 10*3/uL Normal 0-0.9 [facility] Comment on above: Performed By: #### C MP, CBCA #### [facility] ([id number]) [address] [place] [address] Monocytes/100 WBC (Bld) 5.5 % Normal [facility] Comment on above: Performed By: #### C MP, CBCA #### [facility] ([id number]) [address] [place] [address] Neutrophils/100 WBC (Bld) 44.0 % Normal [facility] Comment on above: Performed By: #### C MP, CBCA #### [facility] ([id number]) [address] [place] [address] 16146 Platelet mean volume (Bld) [Entitic vol] 7.0 fL Normal 7-12 [facility] Comment on above: Performed By: #### C MP, CBCA #### [facility] ([id number]) [address] [place] [address] 04662 Platelets (Bld) [#/Vol] 559 10*3/uL High 150-450 [facility] Comment on above: Performed By: #### C MP, CBCA #### [facility] ([id number]) [address] [place] [address] RBC COUNT 4.43 X10E12/L Normal 3.80-5.20 [facility] Comment on above: Performed By: #### C MP, CBCA #### [facility] ([id number]) [address] [place] [address] WBC (Bld) [#/Vol] 10.4 10*3/uL Normal 4.0-11.0 [facility] Comment on above: Performed By: #### C DEMI, CBCA #### [facility] ([id number]) [address] [place] [address] COMPREHENSIVE METABOLIC PANE Varghese 07-19-2023 Albumin [Mass/Vol] 4.2 g/dL Normal 3.2-5.3 [facility] Comment on above: Performed By: #### C DEMI, CBCA #### [facility] ([id number]) [address] [place] [address] ALP [Catalytic activity/Vol] 92 U/L Normal 39-130 [facility] Comment on above: Performed By: #### C DEMI, CBCA #### [facility] ([id number]) [address] [place] [address]99[address] ALT [Catalytic activity/Vol] 57 U/L High 0-31 [facility] Comment on above: Performed By: #### C DEMI CBCA #### [facility] ([id number]) [address] [place] [address] Anion gap [Moles/Vol] 9 mmol/L Normal 5-15 [facility] Comment on above: Performed By: #### C DEMI CBCA #### [facility] ([id number]) [address] [place] [address] [place] [address] AST [Catalytic activity/Vol] 58 U/L High 0-41 [facility] Comment on above: Performed By: #### C DEMI CBCA #### [facility] ([id number]) [address] [place] [address]2481 Bilirubin [Mass/Vol] 0.1 mg/dL Low 0.3-1.2 [facility] Comment on above: Performed By: #### C DEMI CBCA #### [facility] ([id number]) [address] [place] [address] 178[address] Calcium [Mass/Vol] 9.4 mg/dL Normal 8.5-10.5 [facility] Comment on above: Performed By: #### C DEMI, CBCA #### [facility] ([id number]) [address] [place] [address] 35501 Chloride [Moles/Vol] 102 mmol/L Normal 98-109 [facility] Comment on above: Performed By: #### C DEMI CBCA #### [facility] ([id number]) [address] [place] [address] 13311 CO2 [Moles/Vol] 27 mmol/L Normal 22-32 [facility] Comment on above: Performed By: #### C DEMI CBCA #### [facility] ([id number]) [address] [place] [address] Creatinine [Mass/Vol] 0.85 mg/dL Normal 0.40-1.00 [facility] Comment on above: Result Comment: METH OD TRACEABLE TO IDMS STANDARD Performed By: #### C CHANDRAKANT SIMMS #### [facility] ([id number]) [address] [place] [address]24 eGFR (CKD-EPI) NON-RACE DEPENDENT >90 Normal >59 [facility] Comment on above: Result Comment: Reported eGFR is based on the CKD-EPI 2021 equation that does not use a race coefficient. Performed By: #### C DEMI, CBCA #### [facility] ([id number]) [address] [place] [address] Glucose [Mass/Vol] 92 mg/dL Normal 65-99 [facility] Comment on above: Performed By: #### C DEMI, CBCA #### [facility] ([id number]) [address] [place] [address] Potassium [Moles/Vol] 3.3 mmol/L Low 3.5-5.0 [facility] Comment on above: Performed By: #### C MP, CBCA #### [facility] ([id number]) [address] [place] [address] 77[address] Protein [Mass/Vol] 8.0 g/dL Normal 6.0-8.0 [facility] Comment on above: Performed By: #### C MP, CBCA #### [facility] ([id number]) [address] [place] [address] 60617 Sodium [Moles/Vol] 138 mmol/L Normal 134-146 [facility] Comment on above: Performed By: #### C MP, CBCA #### [facility] ([id number]) [address] [place] [address] 04880 Urea nitrogen [Mass/Vol] 5 mg/dL Normal 5-23 [facility] Comment on above: Performed By: #### C MP, CBCA #### [facility] [facility] ([id number][facility] [address] [place] [address] ABDOMEN AND PELVIS WO CON Ton [...] intraperitoneal process is seen Finalized by Mirtha Wilder MD on 07/19/2023 5:05 PM Normal [facility] URN MACROSCOPIC NURon 2023 BILIRUBIN ZENOBIA Negative Normal NEG [facility] Comment on above: Performed By: #### N UM #### [facility] ([id number]) [address] [place] [address] BLOOD/HGB ZENOBIA Negative Normal NEG [facility] Comment on above: Performed By: #### N UM #### [facility] ([id number]) [address] [place] [address] [place] [address] GLUCOSE ZENOBIA Negative Normal NEG [facility] Comment on above: Performed By: #### N UM #### [facility] ([id number]) [address] [place] [address] [place] [address] KETONES ZENOBIA Negative Normal NEG [facility] Comment on above: Performed By: #### N UM #### [facility] ([id number]) [address] [place] [address] [place] [address] LEUKOCYTE ESTERASE ZENOBIA Negative Normal NEG [facility] Comment on above: Performed By: #### N UM #### [facility] ([id number]) [address] [place] [address] [place] [address] NITRITE ZENOBIA Negative Normal NEG [facility] Comment on above: Performed By: #### N UM #### [facility] ([id number]) [address] [place] [address] [place] [address] PH ZENOBIA 6.0 Normal 5.0-8.5 [facility] Comment on above: Performed By: #### N UM #### [facility] ([id number]) [address] [place] [address] [place] [address] PROTEIN ZENOBIA Negative Normal NEG [facility] Comment on above: Performed By: #### N UM #### [facility] ([id number]) [address] [place] [address] [place] [address] SPECIFIC GRAVITY ZENOBIA 1.010 Normal 1.003-1.035 [facility] Comment on above: Performed By: #### N UM #### [facility] ([id number]) [address] [place] [address], [place] [address] UROBILINOGEN ZENOBIA 0.2 eu/dL Normal <1.1 [facility] Comment on above: Performed By: #### N UM #### [facility] ([id number]) [address] [place] [address], [place] [address] CBC WITH AUTO DIFFERENTIALon 05-23-2023 Basophils (Bld) [#/Vol] 0.09 10*3/uL Normal 0.00-0.20 [facility] Comment on above: Performed By: #### L [id number] ####[facility] ([facility])[address] [place] [address] Basophils/100 WBC (Bld) 0.6 % Normal 0.0-1.0 [facility] Comment on above: Performed By: #### L [id number] ####[facility] ([facility])[address] [place] [address] Eosinophils (Bld) [#/Vol] 0.21 10*3/uL Normal 0.00-0.50 [facility] Comment on above: Performed By: #### L [id number] ####[facility] ([facility])[address] [place] [address] Eosinophils/100 WBC (Bld) 1.4 % Normal 0.0-6.0 [facility] Comment on above: Performed By: #### L [id number] ####[facility] ([facility])[address] [place] [address] Erythrocyte distribution width (RBC) [Ratio] 13.6 % Normal 11.5-15.0 [facility] Comment on above: Performed By: #### L [id number] ####[facility] ([facility])[address] [place] [address] ERYTHROCYTE MEAN CORPUSCULAR HEMOGLOBIN CONCENTRATION (G/DL) BY AUTOMATED 33.5 g/dL Normal 32.0-35.0 [facility] Comment on above: Performed By: #### L [id number] ####[facility] ([facility])[address] [place] [address] Hematocrit (Bld) [Volume fraction] 39.4 % Normal 36.0-48.0 [facility] Comment on above: Performed By: #### L [id number] ####[facility] ([facility])[address] [place] [address] Hemoglobin (Bld) [Mass/Vol] 13.2 g/dL Normal 12.0-15.0 [facility] Comment on above: Performed By: #### L [id number] ####[facility] ([facility])[address] [place] [address] Immature granulocytes (Bld) [#/Vol] 0.08 10*3/uL Normal 0.00-0.20 [facility] Comment on above: Performed By: #### L [id number] ####[facility] ([facility])[address] [place] [address] Immature granulocytes/100 WBC (Bld) 0.5 % Normal 0.0-1.0 [facility] Comment on above: Performed By: #### L [id number] ####[facility] ([facility])[address] [place] [address] Lymphocytes (Bld) [#/Vol] 3.60 10*3/uL Normal 1.20-4.00 [facility] Comment on above: Performed By: #### L [id number] ####[facility] ([facility])[address] [place] [address] Lymphocytes/100 WBC (Bld) 23.2 % Normal 20.0-45.0 [facility] Comment on above: Performed By: #### L [id number] ####[facility] ([facility])[address] [place] [address] MCH (RBC) [Entitic mass] 29.7 pg Normal 27.0-33.0 [facility] Comment on above: Performed By: #### L [id number] ####[facility] ([facility])[address] [place] [address] MCV (RBC) [Entitic vol] 88.5 fL Normal 82.0-98.0 [facility] Comment on above: Performed By: #### L [id number] ####[facility] ([facility])[address] [place] [address] Monocytes (Bld) [#/Vol] 0.98 10*3/uL Normal 0.10-1.00 [facility] Comment on above: Performed By: #### L [id number] ####[facility] ([facility])[address] [place] [address] Monocytes/100 WBC (Bld) 6.3 % Normal 5.0-12.0 [facility] Comment on above: Performed By: #### L [id number] ####[facility] ([facility])[address] [place] [address] Neutrophils (Bld) [#/Vol] 10.58 10*3/uL High 1.60-7.60 [facility] Comment on above: Performed By: #### L [id number] ####[facility] ([facility])[address] [place], [place] [address] Neutrophils/100 WBC (Bld) 68.0 % Normal 40.0-72.0 [facility] Comment on above: Performed By: #### L [id number] ####[facility] ([facility])[address] [place] [address] NRBC (PER 100 WBCS) BY AUTOMATED COUNT 0.0 % Normal 0 [facility] Comment on above: Performed By: #### L [id number] ####[facility] ([facility])[address] [place] [address] PLATELETS (10*3/UL) IN BLOOD AUTOMATED COUNT 562 10*3/uL High 150-400 [facility] Comment on above: Performed By: #### L [id number] ####[facility] ([facility])[address] [place] [address] RBC (Bld) [#/Vol] 4.45 10*6/uL Normal 3.80-5.00 [facility] Comment on above: Performed By: #### L [id number] ####[facility] ([facility])[address] [place] [address] WBC (Bld) [#/Vol] 15.54 10*3/uL High 4.00-10.60 [facility] Comment on above: Performed By: #### L [id number] ####[facility] ([facility])[address] [place] [address] COMPREHENSIVE METABOLIC PANE Varghese 05-23-2023 Albumin [Mass/Vol] 4.7 g/dL Normal 3.5-5.7 [facility] Comment on above: Performed By: #### L [id number] #### [facility] ([facility]) [address] [place] [address] ALP [Catalytic activity/Vol] 98 U/L Normal 34-104 [facility] Comment on above: Performed By: #### L [id number] #### [facility] ([facility]) [address] [place] [address] ALT [Catalytic activity/Vol] 42 U/L Normal 7-52 [facility] Comment on above: Performed By: #### L [id number] #### [facility] ([facility]) [address] [place] [address] Anion gap [Moles/Vol] 11 mmol/L Normal 7-20 [facility] Comment on above: Performed By: #### L [id number] #### [facility] ([facility]) [address] [place] [address] AST [Catalytic activity/Vol] 29 U/L Normal 13-39 [facility] Comment on above: Performed By: #### L [id number] #### [facility] ([facility]) [address] [place] [address] Bilirubin [Mass/Vol] 0.3 mg/dL Normal 0.3-1.0 [facility] Comment on above: Performed By: #### L [id number] #### [facility] ([facility]) [address] [place] [address] Calcium [Mass/Vol] 10.3 mg/dL Normal 8.6-10.3 [facility] Comment on above: Performed By: #### L [id number] #### [facility] ([facility]) [address] [place] [address] Chloride [Moles/Vol] 100 mmol/L Normal 98-107 [facility] Comment on above: Performed By: #### L [id number] #### [facility] ([facility]) [address] [place] [address] CO2 [Moles/Vol] 28 mmol/L Normal 21-31 [facility] Comment on above: Performed By: #### L [id number] #### [facility] ([facility]) [address] [place] [address] Creatinine [Mass/Vol] 0.73 mg/dL Normal 0.60-1.20 [facility] Comment on above: Performed By: #### L [id number] #### [facility] ([facility]) [address] [address] GLOMERULAR FILTRATION RATE ML/MIN/1.73 SQ M.PREDICTED 109.2 mL/min/1.73m*2 Normal >60.0 [facility] Comment on above: Result Comment: [facility]???s estimated glomerular filtration rate (eGFR) [...] individuals. Performed By: #### L [id number] #### [facility] ([facility]) [address] [place] [address] Glucose [Mass/Vol] 83 mg/dL Normal 70-100 [facility] Comment on above: Performed By: #### L [id number] #### [facility] ([facility]) [address] [place] [address] Potassium [Moles/Vol] 3.4 mmol/L Low 3.5-5.1 [facility] Comment on above: Performed By: #### L [id number] #### [facility] ([facility]) [address] [place] [address] Protein [Mass/Vol] 7.9 g/dL Normal 6.0-8.3 [facility] Comment on above: Performed By: #### L [id number] #### [facility] ([facility]) [address] [place] [address] Sodium [Moles/Vol] 136 mmol/L Normal 136-145 [facility] Comment on above: Performed By: #### L [id number] #### [facility] ([facility]) [address] [place] [address] Urea nitrogen [Mass/Vol] 7 mg/dL Normal 7-25 [facility] Comment on above: Performed By: #### L [id number] #### [facility] ([facility]) [address] [place] [address] UREA NITROGEN/CREATININE (MASS RATIO) IN SER/PLAS 9.[address] [facility] Comment on above: Performed By: #### L [id number] #### [facility] ([facility]) [address] [place] [address] Follow-Upon 05-23-2023 Follow-Up [id number] Sonia Waite 1985 F Date Provider Department Center 05/23/2023 LUNA LOUIE C RHEUM [facility] Family History Problem Relation Age of Onset Lupus Mother Cirrhosis Mother Family Status - Relation Status Age at Mother Level of Service:42002 [place] OFFICE/OUTPATIENT ESTABLISHED MOD MDM 30-39 MIN Reason for Visit and Comments: Follow-up [974807] Normal [facility] Orders Onlyon 05-23-2023 Orders Only [id number] MaryanSonia bynum Ilya 1985 F Date Provider Department [place] 05/23/2023 RADHA ALONSO [facility] RHEUM Chris Heal Family History Problem Relation Age of Onset Lupus Mother Cirrhosis Mother Family Status - Relation Status Age at Mother Normal [facility] URINALYSISon 05-23-2023 BILIRUBIN, TOTAL PRESENCE IN URINE Negative Normal Negative [facility] Comment on above: Order Comment: Micro scopics not performed on urines with negative chemical reactions unless requested on original order. Performed By: #### L [id number] #### [facility] ([facility]) [address] [place] [address] Clarity (U) Clear Normal Clear [facility] Comment on above: Order Comment: Micro scopics not performed on urines with negative chemical reactions unless requested on original order. Performed By: #### L [id number] #### [facility] ([facility]) [address] [place] [address] Color (U) Yellow Normal Yellow [facility] Comment on above: Order Comment: Micro scopics not performed on urines with negative chemical reactions unless requested on original order. Performed By: #### L [id number] #### [facility] ([facility]) [address] [place] [address] Glucose (U) [Mass/Vol] Negative Normal Negative [facility] Comment on above: Order Comment: Micro scopics not performed on urines with negative chemical reactions unless requested on original order. Performed By: #### L [id number] #### [facility] ([facility]) [address] [place] [address] HEMOGLOBIN PRESENCE IN URINE Negative Normal Negative [facility] Comment on above: Order Comment: Micro scopics not performed on urines with negative chemical reactions unless requested on original order. Performed By: #### L [id number] #### [facility] ([facility]) [address] [place] [address] Ketones Ql (U) Negative Normal Negative [facility] Comment on above: Order Comment: Micro scopics not performed on urines with negative chemical reactions unless requested on original order. Performed By: #### L [id number] #### [facility] ([facility]) [address] [place] [address] LEUKOCYTE ESTERASE PRESENCE IN URINE BY TEST STRIP Negative Normal Negative [facility] Comment on above: Order Comment: Micro scopics not performed on urines with negative chemical reactions unless requested on original order. Performed By: #### L [id number] #### [facility] ([facility]) [address] [place] [address] NITRITE PRESENCE IN URINE Negative Normal Negative [facility] Comment on above: Order Comment: Micro scopics not performed on urines with negative chemical reactions unless requested on original order. Performed By: #### L [id number] #### [facility] ([facility]) [address] [place] [address] pH (U) 7.0 [pH] Normal 5.0-8.0 [facility] Comment on above: Order Comment: Micro scopics not performed on urines with negative chemical reactions unless requested on original order. Performed By: #### L [id number] #### [facility] ([facility]) [address] [place] [address] Protein (U) [Mass/Vol] Negative Normal Negative [facility] Comment on above: Order Comment: Micro scopics not performed on urines with negative chemical reactions unless requested on original order. Performed By: #### L [id number] #### [facility] ([facility]) [address] [place] [address] Specific gravity (U) [Rel density] 1.004 Low 1.015-1.020 [facility] Comment on above: Order Comment: Micro scopics not performed on urines with negative chemical reactions unless requested on original order. Performed By: #### L [id number] #### [facility] ([facility]) [address] [place] [address] 36on 04-09-2023 36 Last visit 02/26/23 Upcoming visit 05/23/23 Last cbc/cmp 02/12/23 [facility] 36on 03-18-2023 36 Last visit 02/26/23 Upcoming visit 05/23/23 Last cbc/cmp 02/12/23 [facility] Follow-Upon 02-26-2023 Follow-Up [id number] Jarret Waitesudeep Caraballo 1985 F Date Provider Department Center 02/26/2023 LUNA LOUIE [facility] RHEUM Chris Heal Family History Problem Relation Age of Onset Lupus Mother Cirrhosis Mother Family Status - Relation Status Age at Mother Level of Service:78333 [place] OFFICE/OUTPATIENT ESTABLISHED MOD MDM 30-39 MIN () Reason for Visit and Comments: Follow-up [[id number]] [facility] 36on 02-25-2023 36 Pt scheduled [facility] 36 Pt called to give update She states she is almost complete w/ medrol dose elian that was rx'd last week, and her pain is still the same no change Pain 7/10 per pt She would like to know what next steps will be. Please advise and I can call pt w/response [facility] 36on 02-22-2023 36 Pt notified [facility] 36 Pt is having flare-u p. She is currently unable to walk and describes pain as stabbing and pins and needles [facility] Telephoneon 02-22-2023 Telephone [phone] Sonia Waite 1985 Provider Department Center 02/22/2023 CLAIRE ISLAS [facility] INF Chris Heal Family History Problem Relation Age of Onset Lupus Mother Cirrhosis Mother Family Status - Relation Status Age at Mother [facility] CBC WITH AUTO DIFFERENTIALon 02-12-2023 Basophils (Bld) [#/Vol] 0.06 10*3/uL Normal 0.00-0.20 [facility] Comment on above: Performed By: #### L [id number] #### [facility] ([facility]) [address] [place] [address] Basophils/100 WBC (Bld) 0.5 % Normal 0.0-1.0 [facility] Comment on above: Performed By: #### L [id number] #### [facility] ([facility]) [address] [place] [address] Eosinophils (Bld) [#/Vol] 0.10 10*3/uL Normal 0.00-0.50 [facility] Comment on above: Performed By: #### L [id number] #### [facility] ([facility]) [address] [place] [address] Eosinophils/100 WBC (Bld) 0.8 % Normal 0.0-6.0 [facility] Comment on above: Performed By: #### L [id number] #### [facility] ([facility]) [address] [place] [address] Erythrocyte distribution width (RBC) [Ratio] 15.6 % High 11.5-15.0 [facility] Comment on above: Performed By: #### L [id number] #### [facility] ([facility]) [address] [place] [address] ERYTHROCYTE MEAN CORPUSCULAR HEMOGLOBIN CONCENTRATION (G/DL) BY AUTOMATED 32.5 g/dL Normal 32.0-35.0 [facility] Comment on above: Performed By: #### L [id number] #### [facility] ([facility]) [address] [place] [address] Hematocrit (Bld) [Volume fraction] 38.2 % Normal 36.0-48.0 [facility] Comment on above: Performed By: #### L [id number] #### [facility] ([facility]) [address] [place] [address] Hemoglobin (Bld) [Mass/Vol] 12.4 g/dL Normal 12.0-15.0 [facility] Comment on above: Performed By: #### L [id number] #### [facility] ([facility]) [address] [place] [address] Immature granulocytes (Bld) [#/Vol] 0.07 10*3/uL Normal 0.00-0.20 [facility] Comment on above: Performed By: #### L [id number] #### [facility] ([facility]) [address] [place] [address] Immature granulocytes/100 WBC (Bld) 0.6 % Normal 0.0-1.0 [facility] Comment on above: Performed By: #### L [id number] #### [facility] ([facility]) [address] [place] [address] Lymphocytes (Bld) [#/Vol] 2.96 10*3/uL Normal 1.20-4.00 [facility] Comment on above: Performed By: #### L [id number] #### [facility] ([facility]) [address] [place] [address] Lymphocytes/100 WBC (Bld) 23.7 % Normal 20.0-45.0 [facility] Comment on above: Performed By: #### L [id number] #### [facility] ([facility]) [address] [place] [address] MCH (RBC) [Entitic mass] 29.5 pg Normal 27.0-33.0 [facility] Comment on above: Performed By: #### L [id number] #### [facility] ([facility]) [address] [place] [address] MCV (RBC) [Entitic vol] 91.0 fL Normal 82.0-98.0 [facility] Comment on above: Performed By: #### L [id number] #### [facility] ([facility]) [address] [place] [address] Monocytes (Bld) [#/Vol] 0.72 10*3/uL Normal 0.10-1.00 [facility] Comment on above: Performed By: #### L [id number] #### [facility] ([facility]) [address] [place] [address] Monocytes/100 WBC (Bld) 5.8 % Normal 5.0-12.0 [facility] Comment on above: Performed By: #### L [id number] #### [facility] ([facility]) [address] [place] [address] Neutrophils (Bld) [#/Vol] 8.60 10*3/uL High 1.60-7.60 [facility] Comment on above: Performed By: #### L [id number] #### [facility] ([facility]) [address] [place] [address] Neutrophils/100 WBC (Bld) 68.6 % Normal 40.0-72.0 [facility] Comment on above: Performed By: #### L [id number] #### [facility] ([facility]) [address] [place] [address] NRBC (PER 100 WBCS) BY AUTOMATED COUNT 0.0 % Normal 0 [facility] Comment on above: Performed By: #### L [id number] #### [facility] ([facility]) [address] [place] [address] PLATELETS (10*3/UL) IN BLOOD AUTOMATED COUNT 515 10*3/uL High 150-400 [facility] Comment on above: Performed By: #### L [id number] #### [facility] ([facility]) [address] [place] [address] RBC (Bld) [#/Vol] 4.20 10*6/uL Normal 3.80-5.00 [facility] Comment on above: Performed By: #### L [id number] #### [facility] ([facility]) [address] [place] [address] WBC (Bld) [#/Vol] 12.51 10*3/uL High 4.00-10.60 [facility] Comment on above: Performed By: #### L [id number] #### [facility] ([facility]) [address] [place] [address] COMPREHENSIVE METABOLIC PANE Varghese 02-12-2023 Albumin [Mass/Vol] 4.3 g/dL Normal 3.5-5.7 [facility] Comment on above: Performed By: #### L [id number] ####[facility] ([facility])[address] [place] [address] ALP [Catalytic activity/Vol] 69 U/L Normal 34-104 [facility] Comment on above: Performed By: #### L [id number] ####[facility] ([facility])[address] [place] [address] ALT [Catalytic activity/Vol] 48 U/L Normal 7-52 [facility] Comment on above: Performed By: #### L [id number] ####[facility] ([facility])[address] [place] [address] Anion gap [Moles/Vol] 13 mmol/L Normal 7-20 [facility] Comment on above: Performed By: #### L [id number] ####[facility] ([facility])[address] [place] [address] AST [Catalytic activity/Vol] 39 U/L Normal 13-39 [facility] Comment on above: Performed By: #### L [id number] ####[facility] ([facility])[address] [place] [address] Bilirubin [Mass/Vol] 0.3 mg/dL Normal 0.3-1.0 [facility] Comment on above: Performed By: #### L [id number] ####[facility] (BEAKER)[address] [place] [address] Calcium [Mass/Vol] 9.9 mg/dL Normal 8.6-10.3 [facility] Comment on above: Performed By: #### L [id number] ####[facility] (BEAKER)[address] [place] [address] Chloride [Moles/Vol] 103 mmol/L Normal 98-107 [facility] Comment on above: Performed By: #### L [id number] ####[facility] (BEAKER)[address] [place] [address] CO2 [Moles/Vol] 24 mmol/L Normal 21-31 [facility] Comment on above: Performed By: #### L [id number] ####[facility] ([facility])[address] [place] [address] Creatinine [Mass/Vol] 0.80 mg/dL Normal 0.60-1.20 [facility] Comment on above: Performed By: #### L [id number] ####[facility] ([facility])[address] [place] [address] GLOMERULAR FILTRATION RATE ML/MIN/1.73 SQ M.PREDICTED 97.9 mL/min/1.73m*2 Normal >60.0 [facility] Comment on above: Result Comment: [facility]???s estimated glomerular filtration rate (eGFR) [...] of individuals. Performed By: #### L [id number] ####[facility] ([facility])[address] [place] [address] Glucose [Mass/Vol] 101 mg/dL High 70-100 [facility] Comment on above: Performed By: #### L [id number] ####[facility] ([facility])[address] [place] [address] Potassium [Moles/Vol] 3.5 mmol/L Normal 3.5-5.1 [facility] Comment on above: Performed By: #### L [id number] ####[facility] ([facility])[address] [place] [address] Protein [Mass/Vol] 7.2 g/dL Normal 6.0-8.3 [facility] Comment on above: Performed By: #### L [id number] ####[facility] ([facility])[address] [place] [address] Sodium [Moles/Vol] 136 mmol/L Normal 136-145 [facility] Comment on above: Performed By: #### L [id number] ####[facility] ([place])[address] [facility] [place] [address] Urea nitrogen [Mass/Vol] 8 mg/dL Normal 7-25 [facility] Comment on above: Performed By: #### L [id number] ####[facility] ([place])[address] [place] [address] UREA NITROGEN/CREATININE (MASS RATIO) IN SER/PLAS 10.0 [facility] Comment on above: Performed By: #### L [id number] ####[facility] ([place])[address] [place] [address] Follow-Upon 02-12-2023 Follow-Up [id number] Sonia Waite 1985 Date Provider Department Center 02/12/2023 Minnie-LUNA SPICER [facility] RHEUM Chris Heal Family History Problem Relation Age of Onset Lupus Mother Cirrhosis Mother Family Status - Relation Status Age at Mother Level of Service:[address]475 [place] OFFICE/OUTPATIENT ESTABLISHED MOD MDM 30-39 MIN () Reason for Visit and Comments: Follow-up [818885] - 3 month follow up [facility] Follow-Upon 01-25-2023 Follow-Up [id number] Sonia Waite 1985 Provider Department Center 01/25/2023 SHAHNAZ BECKMAN [facility] SLEEP [facility] Family History Problem Relation Age of Onset Lupus Mother Cirrhosis Mother Family Status - Relation Status Age at Mother Level of Service:[address]01 [place] OFFICE/OUTPATIENT ESTABLISHED LOW MDM 20-29 MIN Reason for Visit and Comments: Follow-up [[id number]] - 6 month follow up- PAP [facility] 36on 12-11-2022 36 Please approve rx yesterday had no directions please add directions and approve rx if appropriate [facility] Refillon 12-11-2022 Refill [id number] Sonia Waite 1985 F Date Provider Department Center 12/11/2022 PATTRICIA KINJAL [facility] RHEUM Chris Heal Family History Problem Relation Age of Onset Lupus Mother Cirrhosis Mother Family Status - Relation Status Age at Mother Reason for Visit and Comments: Med Refill [[id number]] [facility] 36on 12-10-2022 36 Last visit 11/15/22 Upcoming visit 02/12/23 Last cbc/cmp 11/15/22 [facility] Refillon 12-10-2022 Refill [id number] Sonia Waite Ilya 1985 F Date Provider Department Center 12/10/2022 DENISHATRICIAKINJAL SLATER [facility] RHEUM Chris Heal Family History Problem Relation Age of Onset Lupus Mother Cirrhosis Mother Family Status - Relation Status Age at Mother Reason for Visit and Comments: Med Refill [[id number]] [facility] CBC WITH AUTO DIFFERENTIALon 11-15-2022 Erythrocyte distribution width (RBC) [Ratio] 13.3 % Normal 11.5-15.0 [facility] Comment on above: Performed By: #### L [id number] #### [facility] ([facility]) [address] [place] [address] ERYTHROCYTE MEAN CORPUSCULAR HEMOGLOBIN CONCENTRATION (G/DL) BY AUTOMATED 32.6 g/dL Normal 32.0-35.0 [facility] Comment on above: Performed By: #### L [id number] #### [facility] ([facility]) [address] [place] [address] Hematocrit (Bld) [Volume fraction] 40.8 % Normal 36.0-48.0 [facility] Comment on above: Performed By: #### L [id number] #### [facility] ([facility]) [address] [place] [address] Hemoglobin (Bld) [Mass/Vol] 13.3 g/dL Normal 12.0-15.0 [facility] Comment on above: Performed By: #### L [id number] #### [facility] ([facility]) [address] [place] [address] MCH (RBC) [Entitic mass] 30.2 pg Normal 27.0-33.0 [facility] Comment on above: Performed By: #### L [id number] #### [facility] ([facility]) [address] [place] [address] MCV (RBC) [Entitic vol] 92.7 fL Normal 82.0-98.0 [facility] Comment on above: Performed By: #### L [id number] #### [facility] ([facility]) [address] [place] [address] NRBC (PER 100 WBCS) BY AUTOMATED COUNT 0.0 % Normal 0 [facility] Comment on above: Performed By: #### L [id number] #### [facility] ([facility]) [address] [place] [address] PLATELETS (10*3/UL) IN BLOOD AUTOMATED COUNT 526 10*3/uL High 150-400 [facility] Comment on above: Performed By: #### L [id number] #### [facility] ([facility]) [address] [place] [address] RBC (Bld) [#/Vol] 4.40 10*6/uL Normal 3.80-5.00 [facility] Comment on above: Performed By: #### L [id number] #### [facility] ([facility]) [address] [place] [address] WBC (Bld) [#/Vol] 14.19 10*3/uL High 4.00-10.60 [facility] Comment on above: Performed By: #### L [id number] #### [facility] ([facility]) [address] [place] [address] COMPREHENSIVE METABOLIC PANE Varghese 11-15-2022 Albumin [Mass/Vol] 4.6 g/dL Normal 3.5-5.7 [facility] Comment on above: Performed By: #### L [id number] #### [facility] ([facility]) [address] [place] [address] ALP [Catalytic activity/Vol] 82 U/L Normal 34-104 [facility] Comment on above: Performed By: #### L [id number] #### [facility] ([facility]) [address] [place] [address] ALT [Catalytic activity/Vol] 36 U/L Normal 7-52 [facility] Comment on above: Performed By: #### L [id number] #### [facility] ([facility]) [address] [place] [address] Anion gap [Moles/Vol] 13 mmol/L Normal 7-20 [facility] Comment on above: Performed By: #### L [id number] #### [facility] ([facility]) [address] [place] [address] AST [Catalytic activity/Vol] 31 U/L Normal 13-39 [facility] Comment on above: Performed By: #### L [id number] #### [facility] ([facility]) [address] [place] [address] Bilirubin [Mass/Vol] 0.3 mg/dL Normal 0.3-1.0 [facility] Comment on above: Performed By: #### L [id number] #### [facility] ([facility]) [address] [place] [address] Calcium [Mass/Vol] 10.1 mg/dL Normal 8.6-10.3 [facility] Comment on above: Performed By: #### L [id number] #### [facility] ([facility]) [address] [place] [address] Chloride [Moles/Vol] 99 mmol/L Normal 98-107 [facility] Comment on above: Performed By: #### L [id number] #### [facility] ([facility]) [address] [place] [address] CO2 [Moles/Vol] 28 mmol/L Normal 21-31 [facility] Comment on above: Performed By: #### L [id number] #### [facility] ([facility]) [address] [place] [address] Creatinine [Mass/Vol] 0.79 mg/dL Normal 0.60-1.20 [facility] Comment on above: Performed By: #### L [id number] #### [facility] ([facility]) [address] [place] [address] GLOMERULAR FILTRATION RATE ML/MIN/1.73 SQ M.PREDICTED 100.0 mL/min/1.73m*2 Normal >60.0 [facility] Comment on above: Result Comment: [facility]???s estimated glomerular filtration rate (eGFR) [...] individuals. Performed By: #### L [id number] #### [facility] ([facility]) [address] [place] [address] Glucose [Mass/Vol] 82 mg/dL Normal 70-100 [facility] Comment on above: Performed By: #### L [id number] #### [facility] ([facility]) [address] [place] [address] Potassium [Moles/Vol] 3.4 mmol/L Low 3.5-5.1 [facility] Comment on above: Performed By: #### L [id number] #### [facility] ([facility]) [address] [place] [address] Protein [Mass/Vol] 8.0 g/dL Normal 6.0-8.3 [facility] Comment on above: Performed By: #### L [id number] #### [facility] ([facility]) [address] [place] [address] Sodium [Moles/Vol] 137 mmol/L Normal 136-145 [facility] Comment on above: Performed By: #### L [id number] #### [facility] ([facility]) [address] [place] [address] Urea nitrogen [Mass/Vol] 8 mg/dL Normal 7-25 [facility] Comment on above: Performed By: #### L [id number] #### [facility] ([facility]) [address] [place] [address] UREA NITROGEN/CREATININE (MASS RATIO) IN SER/PLAS 10.[address] [facility] Comment on above: Performed By: #### L [id number] #### [facility] ([facility]) [address] [place] [address] Follow-Upon 11-15-2022 Follow-Up [id number] Sonia Waite 1985 F Date Provider Department Center 11/15/2022 LUNA LOUIE C RHEUM Chris Heal Family History Problem Relation Age of Onset Lupus Mother Cirrhosis Mother Family Status - Relation Status Age at Mother Level of Service:78171 [place] OFFICE/OUTPATIENT ESTABLISHED MOD MDM 30-39 MIN () Reason for Visit and Comments: Follow-up [[id number]] Normal [facility] MANUAL DIFFERENTIALon 2022 BASOPHILS (10*3/UL) IN BLOOD BY CALCULATION 0.07 10*3/uL Normal 0.00-0.20 [facility] Comment on above: Performed By: #### L [id number] ####[facility] ([facility])[address] [place] [address] BASOPHILS/100 LEUKOCYTES IN BLOOD BY AUTOMATED COUNT 0.5 % Normal 0.0-1.0 [facility] Comment on above: Performed By: #### L [id number] ####[facility] ([facility])[address] [place] [address] EOSINOPHILS (10*3/UL) IN BLOOD BY CALCULATION 0.16 10*3/uL Normal 0.00-0.50 [facility] Comment on above: Performed By: #### L [id number] ####[facility] ([facility])[address] [place] [address] EOSINOPHILS/100 LEUKOCYTES IN BLOOD BY AUTOMATED COUNT 1.1 % Normal 0.0-6.0 [facility] Comment on above: Performed By: #### L [id number] ####[facility] ([facility])[address] [place] [address] IMMATURE GRANULOCYTES (10*3/UL) IN BLOOD BY CALCULATION 0.11 10*3/uL Normal 0.00-0.20 [facility] Comment on above: Performed By: #### L [id number] ####[facility] ([facility])[address] [place], [place] [address] IMMATURE GRANULOCYTES/100 LEUKOCYTES IN BLOOD BY AUTOMATED COUNT 0.8 % Normal 0.0-1.0 [facility] Comment on above: Performed By: #### L [id number] ####[facility] ([facility])[address] [place] [address] LYMPHOCYTES (10*3/UL) IN BLOOD BY CALCULATION 5.31 10*3/uL High 1.20-4.00 [facility] Comment on above: Performed By: #### L [id number] ####[facility] ([facility])[address] [place], [place] [address] LYMPHOCYTES/100 LEUKOCYTES IN BLOOD BY AUTOMATED COUNT 37.4 % Normal 20.0-45.0 [facility] Comment on above: Performed By: #### L [id number] ####[facility] ([facility])[address] [place], [place] [address] MONOCYTES (10*3/UL) IN BLOOD BY CALCUATION 0.99 10*3/uL Normal 0.10-1.00 [facility] Comment on above: Performed By: #### L [id number] ####[facility] ([facility])[address] [place], [place] [address] MONOCYTES/100 LEUKOCYTES IN BLOOD BY AUTOMATED COUNT 7.0 % Normal 5.0-12.0 [facility] Comment on above: Performed By: #### L [id number] ####[facility] ([facility])[address] [place] [address] NEUTROPHILS (10*3/UL) IN BLOOD BY CALCULATION 7.5 10*3/uL Normal 1.6-7.6 [facility] Comment on above: Performed By: #### L [id number] ####[facility] ([facility])[address] [place] [address] NEUTROPHILS/100 LEUKOCYTES IN BLOOD BY AUTOMATED COUNT 53.2 % Normal 40.0-72.0 [facility] Comment on above: Performed By: #### L [id number] ####[facility] ([facility])[address] [place] [address] PAP ACOG PANEL 2: 30 to 65on 10-17-2022 . . Normal [facility] Comment on above: Result Comment: Perf ormed at: WB Performed By: #### [id number] #### [facility] [address] [place] [address] Dr. Cedric Dillon Age Gdln ACOG Testing 30-65 Normal [facility] Comment on above: Performed By: #### 4 [id number] #### [facility] [address] [place] [address] Dr. Cedric Dillon DIAGNOSIS: Comment Normal [facility] Comment on above: Result Comment: NEGA TIVE FOR INTRAEPITHELIAL LESION OR MALIGNANCY. PREDOMINANCE OF COCCOBACILLI CONSISTENT WITH SHIFT IN VAGINAL JIGNA IS PRESENT. Performed at: WB Performed By: #### 4 [id number] #### [facility] [address] [place] [address] Dr. Cedric Dillon HPV Aptima Negative Normal Negative [facility] Comment on above: Result Comment: This nucleic acid amplification test detects fourteen high-risk HPV types (16,18,31,33,35,39,45,51,52,56,58,59,66,68) without differentiation. Performed at: =G Performed By: #### 4 [id number] #### [facility] [address] [place] [address] Dr. Cedric Dillon HPV Genotype Reflex Comment Normal [facility] Comment on above: Result Comment: Crit eria not met, HPV Genotype not performed. Performed at: WB Performed By: #### 4 [id number] #### [facility] [address] [place] [address] Dr. Cedric Dillon Methodology: Comment Normal [facility] Comment on above: Result Comment: This liquid based ThinPrep(R) pap test was screened with the use of an image guided system. Performed at: WB Performed By: #### [id number] #### [facility] [address] [place] [address] Dr. Cedric Dillon Note: Comment Normal [facility] Comment on above: Result Comment: The Pap smear is a screening test designed to aid in the detection of premalignant and malignant conditions of the uterine cervix. It is not a diagnostic procedure and should not be used as the sole means of detecting cervical cancer. Both false-positive and false-negative reports do occur. . Performed at: WB Performed By: #### 4 [id number] #### [facility] [address] [place] [address] Dr. Cedric Dillon Performed by: Comment Normal [facility] Comment on above: Result Comment: Florecita Magdaleno, Taping Machine Operator (ASCP) Performed at: WB Performed By: #### [id number] #### [facility] [address] [place] [address] Dr. Cedric Dillon Specimen adequacy: Comment Normal [facility] Comment on above: Result Comment: Sati sfactory for evaluation. Performed at: WB Performed By: #### 4 [id number] #### [facility] [address] [place] [address] Dr. Cedric Dillon BNPon 08-22-2022 Natriuretic peptide B (Bld) [Mass/Vol] 8.0 pg/mL Normal <=450.0 [facility] Comment on above: Performed By: #### H STROPN, TSH, BNP, CMP #### [facility] [address] [place] [address] Dr. Cedric Dillon CBC AUTO DIFFon 08-22-2022 BASO # 0.1 103/ul Normal 0.0-0.1 [facility] Comment on above: Performed By: #### H STROPN, TSH, BNP, CMP #### [facility] [address] [place] [address] Dr. Cedric Dillon Basophils/100 WBC (Bld) 0.5 % Normal 0.2-2.0 [facility] Comment on above: Performed By: #### H STROPN, TSH, BNP, CMP #### [facility] [address] [place] [address] Dr. Cedric Dillon EO # 0.1 103/ul Normal 0.0-0.7 [facility] Comment on above: Performed By: #### H STROPN, TSH, BNP, CMP #### [facility] [address] [place] [address] Dr. Cedric Dillon Eosinophils/100 WBC (Bld) 0.8 % Critically low 0.9-7.0 [facility] Comment on above: Performed By: #### H STROPN, TSH, BNP, CMP #### [facility] [address] [place] [address] Dr. Cedric Dillon Erythrocyte distribution width (RBC) [Ratio] 14.6 % Normal 11.0-15.0 [facility] Comment on above: Performed By: #### H STROPN, TSH, BNP, CMP #### [facility] [address] [place] [address] Dr. Cedric Dillon Hematocrit (Bld) [Volume fraction] 37.7 % Normal 36.0-48.0 [facility] Comment on above: Performed By: #### H STROPN, TSH, BNP, CMP #### [facility] [address] [place] [address] Dr. Cedric Dillon Hemoglobin (Bld) [Mass/Vol] 12.9 g/dL Normal 12.0-16.0 [facility] Comment on above: Performed By: #### H STROPN, TSH, BNP, CMP #### [facility] [address] [place] [address] Dr. Cedric Dillon IG # 0.08 10e3/ul Critically high 0.00-0.03 [facility] Comment on above: Performed By: #### H STROPN, TSH, BNP, CMP #### [facility] [address] [place] [address] Dr. Cedric Dillon IG % 0.7 % Critically high 0.0-0.5 [facility] Comment on above: Performed By: #### H STROPN, TSH, BNP, CMP #### [facility] [address] [place] [address] Dr. Cedric Dillon LYMPH # 5.0 103/ul Critically high 1.2-3.8 [facility] Comment on above: Performed By: #### H STROPN, TSH, BNP, CMP #### [facility] [address] [place] [address] Dr. Cedric Dillon Lymphocytes/100 WBC (Bld) 44.7 % Normal 20.5-60.0 [facility] Comment on above: Performed By: #### H STROPN, TSH, BNP, CMP #### [facility] [address] [place] [address] Dr. Cedric Dillon MANUAL DIFF REQ NO Normal [facility] Comment on above: Performed By: #### H STROPN, TSH, BNP, CMP #### [facility] [address] [place] [address] Dr. Cedric Dillon MCH (RBC) [Entitic mass] 31.1 pg Normal 26.7-34.0 [facility] Comment on above: Performed By: #### H STROPN, TSH, BNP, CMP #### [facility] [address] [place] [address] Dr. Cedric Dillon MCHC (RBC) [Mass/Vol] 34.2 g/dL Normal 29.9-35.[address] [facility] Comment on above: Performed By: #### H STROPN, TSH, BNP, CMP #### [facility] [address] [place] [address] Dr. Cedric Dillon MCV (RBC) [Entitic vol] 90.8 fL Normal 81.0-99.[address] [facility] Comment on above: Performed By: #### H STROPN, TSH, BNP, CMP #### [facility] [address] [place] [address] Dr. Cedric Dillon MONO # 0.7 103/ul Normal 0.3-0.[address] [facility] Comment on above: Performed By: #### H STROPN, TSH, BNP, CMP #### [facility] [address] [address] [address] Cerdic Dillon Monocytes/100 WBC (Bld) 6.6 % Normal 1.7-12.0 [facility] Comment on above: Performed By: #### H STROPN, TSH, BNP, CMP #### [facility] [address] [address] [address] Cedric Dillon NEUT # 5.2 103/ul Normal 1.4-6.5 [facility] Comment on above: Performed By: #### H STROPN, TSH, BNP, CMP #### [facility] [address] [address] [address] Cedric Dillon Neutrophils/100 WBC (Bld) 46.7 % Normal 43.0-75.0 [facility] Comment on above: Performed By: #### H STROPN, TSH, BNP, CMP #### [facility] [address] [place] [address] Dr. Cedric Dillon Platelet mean volume (Bld) [Entitic vol] 8.7 fL Critically low 9.5-13.5 [facility] Comment on above: Performed By: #### H STROPN, TSH, BNP, CMP #### [facility] [address] [place] [address] Dr. Cedric Dillon PLT 542 103/ul Critically high 150-450 [facility] Comment on above: Performed By: #### H STROPN, TSH, BNP, CMP #### [facility] [address] [place] [address] Dr. Cedric Dillon RBC 4.15 106/ul Critically low 4.20-5.40 [facility] Comment on above: Performed By: #### H STROPN, TSH, BNP, CMP #### [facility] [address] [place] [address] Dr. Cedric Dillon WBC 11.2 103/ul Critically high 4.0-11.0 [facility] Comment on above: Performed By: #### H STROPN, TSH, BNP, CMP #### [facility] [address] [place] [address] Dr. Cedric Dillon D-DIMERon 08-22-2022 D-DIMER <0.19 Normal <=0.59 [facility] Comment on above: Performed By: #### P TT, DDIM, PT #### [facility] [address] [place] [address] Dr. Cedric Dillon D-DIMER COMMENTS SEE BELOW Normal [facility] Comment on above: Result Comment: Incr eases [...] By: #### P TT, DDIM, PT #### [facility] [address] [place] [address] Dr. Cedric Dillon PREG HCG QUALon 08-22-2022 , QUAL Negative Normal NEGATIVE [facility] Comment on above: Performed By: #### P REG #### [facility] [address] [place] [address] Dr. Cedric Dillon PROF 14(COMP METB)on 023 Albumin [Mass/Vol] 4.0 g/dL Normal 3.4-5.0 [facility] Comment on above: Performed By: #### H STROPN, TSH, BNP, CMP #### [facility] [address] [place] [address] Dr. Cedric Dillon Albumin/Globulin [Mass ratio] 1.1 {ratio} Normal [facility] Comment on above: Performed By: #### H STROPN, TSH, BNP, CMP #### [facility] [address] [place] [address] Dr. Cedric Dillon ALP [Catalytic activity/Vol] 86 U/L Normal 46-116 [facility] Comment on above: Performed By: #### H STROPN, TSH, BNP, CMP #### [facility] [address] [address] [address] Cedric Dillon ALT [Catalytic activity/Vol] 48 U/L Normal 14-59 [facility] Comment on above: Performed By: #### H STROPN, TSH, BNP, CMP #### [facility] [address] [address] [address] Cedric Dillon Anion gap [Moles/Vol] 13.7 mmol/L Normal [facility] Comment on above: Performed By: #### H STROPN, TSH, BNP, CMP #### [facility] [address] [address] [address] Cedric Dillon AST [Catalytic activity/Vol] 31 U/L Normal 15-37 [facility] Comment on above: Performed By: #### H STROPN, TSH, BNP, CMP #### [facility] [address] [address] [address] Cedric Dillon Bilirubin [Mass/Vol] 0.3 mg/dL Normal 0.2-1.0 [facility] Comment on above: Performed By: #### H STROPN, TSH, BNP, CMP #### [facility] [address] [address] [address] Cedric Dillon Calcium [Mass/Vol] 9.0 mg/dL Normal 8.5-10.1 [facility] Comment on above: Performed By: #### H STROPN, TSH, BNP, CMP #### [facility] [address] [address] [address] Cedric Dillon Chloride [Moles/Vol] 102 mmol/L Normal 98-107 [facility] Comment on above: Performed By: #### H STROPN, TSH, BNP, CMP #### [facility] [address] [address] [address] Cedric Dillon CO2 [Moles/Vol] 26.5 mmol/L Normal 21.0-32.0 [facility] Comment on above: Performed By: #### H STROPN, TSH, BNP, CMP #### [facility] [address] [address] [address] Cedric Dillon Creatinine [Mass/Vol] 0.72 mg/dL Normal 0.55-1.02 [facility] Comment on above: Performed By: #### H STROPN, TSH, BNP, CMP #### [facility] [address] [place] [address] Dr. Cedric Dillon EGFR-AF NORWEGIAN >60 Normal >=60 [facility] Comment on above: Performed By: #### H STROPN, TSH, BNP, CMP #### [facility] [address] [address] [address] Cedric Dillon EGFR-NON AF NORWEGIAN >60 Normal >=60 [facility] Comment on above: Performed By: #### H STROPN, TSH, BNP, CMP #### [facility] [address] [place] [address] Dr. Cedric Dillon Globulin (S) [Mass/Vol] 3.5 g/dL Normal [facility] Comment on above: Performed By: #### H STROPN, TSH, BNP, CMP #### [facility] [address] [place] [address] Dr. Cedric Dillon Glucose [Mass/Vol] 87 mg/dL Normal 74-106 [facility] Comment on above: Performed By: #### H STROPN, TSH, BNP, CMP #### [facility] [address] [place] [address] Dr. Cedric Dillon Potassium [Moles/Vol] 3.2 mmol/L Critically low 3.5-5.1 [facility] Comment on above: Performed By: #### H STROPN, TSH, BNP, CMP #### [facility] [address] [place] [address] Dr. Cedric Dillon Protein [Mass/Vol] 7.5 g/dL Normal 6.4-8.2 [facility] Comment on above: Performed By: #### H STROPN, TSH, BNP, CMP #### [facility] [address] [place] [address] Dr. Cedric Dillon Sodium [Moles/Vol] 139 mmol/L Normal 136-145 [facility] Comment on above: Performed By: #### H STROPN, TSH, BNP, CMP #### [facility] [address] [place] [address] Dr. Cedric Dillon Urea nitrogen [Mass/Vol] 5.0 mg/dL Critically low 7.0-18.[address] [facility] Comment on above: Performed By: #### H STROPN, TSH, BNP, CMP #### [facility] [address] [place] [address] Dr. Cedric Dillon Urea nitrogen/Creatinine [Mass ratio] 6.9 mg/mg Normal [facility] Comment on above: Performed By: #### H STROPN, TSH, BNP, CMP #### [facility] [address] [place] [address] Dr. Cedric Dillon PROTIMEon 08-22-2022 INR Coag (PPP) [Relative time] 0.94 {INR} Normal [facility] Comment on above: Performed By: #### P TT, DDIM, PT #### [facility] [address] [place] [address] Dr. Cedric Dillon INR GUIDELINES SEE BELOW Normal The [facility] Comment on above: Result Comment: VINCE RED INR: 2.0 - 3.0 CONDITIONS NOT LISTED BELOW 2.5 - 3.5 FOR PROSTHETIC HEART VALVE REPLACEMENT 2.5 - 3.5 RECURRENT THROMBOSIS Performed By: #### P TT, DDIM, PT #### [facility] [address] [place] [address] Dr. Cedric Dillon PT Coag (PPP) [Time] 10.0 s Normal 9.0-11.[address] [facility] Comment on above: Performed By: #### P TT, DDIM, PT #### [facility] [address] [place] [address] Dr. Cedric Dillon PTTon 08-22-2022 aPTT Coag (Bld) [Time] 29.1 s Normal 22.3-36.[address] [facility] Comment on above: Performed By: #### P TT, DDIM, PT #### [facility] [address] [place] [address] Dr. Cedric Dillon TROPONIN, HIGH SENSITIVITYon 08-22-2022 HSTROP 8.3 pg/mL Normal 4.0-51.[address] [facility] Comment on above: Result Comment: CUT- OFF POINTS HAVE BEEN ESTABLISHED BASED ON THE FOURTH UNIVERSAL DEFINITIONS OF MYOCARDIAL INFARCTION. THE UPPER REFERENCE LIMIT (URL) OF TROPONIN, DEFINED THE 99TH PERCENTILE OF cTnI DISTRIBUTION IN A REFERENCE POPULATION, HAS BEEN CONFIRMED THE DECISION THRESHOLD FOR [place] DIAGNOSIS. Performed By: #### H STROPN, TSH, BNP, CMP #### [facility] [address] [place], [place] [address] Dr. Cedric Dillon TSHon 08-22-2022 TSH 0.777 uIU/mL Normal 0.358-3.740 [facility] Comment on above: Performed By: #### H STROPN, TSH, BNP, CMP #### [facility] [address] [place], [place] [address] Dr. Cedric Dillon XR CHEST 1 Von [...] MANUEL LAZO Date: 2022-08-22 21:[address] [facility] CBC W/DIFFon 12-11-2021 ABS IMM GRANS 0.2 10*3/uL Normal 0.0-0.2 The [facility] Comment on above: Performed By: #### 5 0103 ####[facility] ABS NEUTROPHILS 10.7 10*3/uL High 1.6-7.6 [facility] Comment on above: Performed By: #### 5 0103 ####[facility] [facility] [place] [address], [facility] Basophils (Bld) [#/Vol] 0.1 10*3/uL Normal 0.0-0.[address] [facility] Comment on above: Performed By: #### 5 0103 ####[facility] [facility] [place] [place] [address], [facility] Basophils/100 WBC (Bld) 0.8 % Normal 0.0-1.[address] [facility] Comment on above: Performed By: #### 5 0103 ####[facility] [place] [address], [facility] Eosinophils (Bld) [#/Vol] 0.3 10*3/uL Normal 0.0-0.[address] [facility] Comment on above: Performed By: #### 5 3 ####[facility] [place] [address], [facility] Eosinophils/100 WBC (Bld) 1.7 % Normal 0.0-6.[address] [facility] Comment on above: Performed By: #### 5 3 ####[facility] Erythrocyte distribution width (RBC) [Ratio] 15.5 % High 11.5-15.[address] [facility] Comment on above: Performed By: #### 5 3 ####[facility] Hematocrit (Bld) [Volume fraction] 40.1 % Normal 36.0-45.[address] [facility] Comment on above: Performed By: #### 5 3 ####[facility] Hemoglobin (Bld) [Mass/Vol] 13.3 g/dL Normal 12.0-15.[address] [facility] Comment on above: Performed By: #### 5 3 ####[facility] IMMATURE GRANS 1.3 % High 0.0-1.0 The [facility] Comment on above: Performed By: #### 5 3 ####[facility] [facility].[address] Lymphocytes (Bld) [#/Vol] 3.4 10*3/uL Normal 1.2-4.[address] [facility] Comment on above: Performed By: #### 3 ####[facility] Lymphocytes/100 WBC (Bld) 22.0 % Normal 20.0-45.[address] [facility] Comment on above: Performed By: #### 102 ####[address] MCH (RBC) [Entitic mass] 29.0 pg Normal 27.0-33.[address] [facility] Comment on above: Performed By: #### 102 ####[facility] [place] [address] MCHC (RBC) [Mass/Vol] 33.2 g/dL Normal 32.0-35.[address] [facility] Comment on above: Performed By: #### 102 ####[facility] [place] [address] MCV (RBC) [Entitic vol] 87.6 fL Normal 82.0-98.[address] [facility] Comment on above: Performed By: #### 3 ####[facility] Monocytes (Bld) [#/Vol] 0.8 10*3/uL Normal 0.1-1.[address] [facility] Comment on above: Performed By: #### 102 ####[address] MONOS 5.3 % Normal 5.0-12.[address] [facility] Comment on above: Performed By: #### 5 3 ####[facility] [facility] [place] [place] [address], [facility] Neutrophils/100 WBC (Bld) 68.9 % Normal 40.0-72.0 [facility] Comment on above: Performed By: #### 102 ####[facility] [facility] [place] [place] [address], [facility] Nucleated RBC/100 WBC (Bld) [Ratio] 0 % Normal 0-[address] [facility] Comment on above: Performed By: #### 5 3 ####[facility] [facility] [place] [place] [address], [facility] PLAT CNT 492 10*3/uL High 150-400 [facility] Comment on above: Performed By: #### 3 ####[facility] [facility] [place] [place] [address], [facility] RBC (Bld) [#/Vol] 4.58 10*6/uL Normal 3.80-5.00 [facility] Comment on above: Performed By: #### 5 3 ####[facility] [facility] [place] [address], [facility] WBC (Bld) [#/Vol] 15.58 10*3/uL High 4.00-10.60 [facility] Comment on above: Performed By: #### 5 3 ####[facility] [facility] [place] [address], [facility] COMP METABOLIC PANELon 12-11 Albumin [Mass/Vol] 4.2 g/dL Normal 3.5-5.7 [facility] Comment on above: Performed By: #### 0 0121 #### [facility] [address] [place] [id number], [facility] ALKALINE PHOSPH 86 IU/L Normal 34-104 [facility] Comment on above: Performed By: #### 0 0121 #### [facility] [address] [place] [address], [place] ALT [Catalytic activity/Vol] 33 U/L Normal 7-52 [facility] Comment on above: Performed By: #### 0 0121 #### [facility] [address] [place] [address], [place] AST [Catalytic activity/Vol] 22 U/L Normal 13-[address] [facility] Comment on above: Performed By: #### 0 0121 #### [facility] [address] [place] [address], [place] Bilirubin [Mass/Vol] 0.3 mg/dL Normal 0.3-1.0 [facility] Comment on above: Performed By: #### 0 0121 #### [facility] [address] [place] [address], [place] Calcium [Mass/Vol] 9.7 mg/dL Normal 8.6-10.3 [facility] Comment on above: Performed By: #### 0 0121 #### [facility] [address] [place] [address], [place] Chloride [Moles/Vol] 103 mmol/L Normal 98-107 [facility] Comment on above: Performed By: #### 0 0121 #### [facility] [address] [place] [address], [place] CO2 [Moles/Vol] 28 mmol/L Normal 21-31 [facility] Comment on above: Performed By: #### 0 0121 #### [facility] [address] [place] [address], [place] Creatinine [Mass/Vol] 0.67 mg/dL Normal 0.60-1.[address] [facility] Comment on above: Performed By: #### 0 0121 #### [facility] [address] [place] [address], [place] GFR/1.73 sq M.predicted among blacks MDRD (S/P/Bld) [Vol rate/Area] mL/min/{1.73_m2} Normal >[address] [facility] Comment on above: Performed By: #### 0 0121 #### [facility] [address] [place] [address], [place] GFR/1.73 sq M.predicted among non-blacks MDRD (S/P/Bld) [Vol rate/Area] mL/min/{1.73_m2} Normal >[address] [facility] Comment on above: Performed By: #### 0 0121 #### [facility] [address] [place] [address], [place] Glucose [Mass/Vol] 114 mg/dL High 70-100 The [facility] Comment on above: Performed By: #### 0 0121 #### [facility] [address] [place] [address], [place] Potassium [Moles/Vol] 4.0 mmol/L Normal 3.5-5.[address] [facility] Comment on above: Performed By: #### 0 0121 #### [facility] [address] [place] [address], [place] Protein [Mass/Vol] 7.4 g/dL Normal 6.0-8.3 The [facility] Comment on above: Performed By: #### 0 0121 #### [facility] [address] [place] [address], [place] Sodium [Moles/Vol] 138 mmol/L Normal 136-145 The [facility] Comment on above: Performed By: #### 0 0121 #### [facility] [address] [place] [address], [place] Urea nitrogen [Mass/Vol] 7 mg/dL Normal 7-[address] [facility] Comment on above: Performed By: #### 0 0121 #### [address] [address], [facility] HIP RIGHT 1 OR 2 VWS WITH PE LVISon 11-29-2021 HIP RIGHT 1 OR [address] [facility] Department of Radiology [address] [place] [id number] ======== Patient Name: SONIA WAITE : 1985 Sex: F Age: Race: [...] above Electronically signed: Sandy Falcon. Transcribed by: [email or web address], User Resident: Electronically Signed by: SANDY FALCON @ 11/30/2021 10:[address] [facility] Comment on above: Order Comment: RIGHT HIP ARTHROSCOPY, ACETABULAR LABRAL REPAIR, OSTEOPLASTY OF CAM LESION Operative Reporton Operative Report MR#: [id number] [facility] Pt. Name: Sonia Waite Room #: 0C Discharge Date: Birthdate: 1985 OPERATIVE REPORT DATE OF SURGERY: 11/29/2021 SURGEON: Nitesh Rowe M.D. PREOPERATIVE DIAGNOSES: 1. Right hip acetabular labral tear. 2. Right hip femoroacetabular impingement. POSTOPERATIVE DIAGNOSES: 1. Right hip acetabular labral tear. 2. Right hip femoroacetabular impingement. RETAIL SALES DIRECTOR: Andrei Coe M.D. ANESTHESIA: General. PROCEDURES PERFORMED: [...] Rowe M.D. Date Trans: 11/29/2021 01:52 P/yusuf [id number] cc: Carline Ocampo M.D. [address] Dept. Of Orthopaedic Surgery [facility] [address] [facility] POC GLUCOSE LABon 11-29-2021 Glucose [Mass/Vol] 100 mg/dL Normal 70-100 [facility] Comment on above: Performed By: #### 8 5499 ####[facility] [place] [address], [facility] ANAon 09-14-2021 KP SCREEN <1:40 Normal <1:40,1:[address] [facility] Comment on above: Result Comment: Test performed using ELVIRA IFA KP Hep-2 Test, a pre-standardized assay designed for the qualitative and semi-quantitative detection of antinuclear antibodies. Performed By: #### 9 9884, 02745, 32261 #### [facility] [address] [place] [address], [facility] ANTI DNAon 09-14-2021 ANTI DNA <1:10 Normal <1:[address] [facility] Comment on above: Performed By: #### 9 9884, 11080, 67009 #### [facility] [address] [place] [address], [facility] ANTI-ENAon 09-14-2021 ANTI SM Negative Normal NEG,NEGATIVE, Neg [facility] Comment on above: Performed By: #### 9 9884, 38214, 70715 #### [facility] [address] [place] [address], [facility] ANTI SM/ANTIRNP Negative Normal NEG,NEGATIVE , Neg [facility] Comment on above: Performed By: #### 9 9884, 33201, 74280 #### [facility] [address] [place] [address], [facility] C REACTIVE PROTEINon 022 CRP [Mass/Vol] 36.8 mg/L High 0.0-7.0 [facility] Comment on above: Performed By: #### 6 1405, 17542, 41589, 47110 ####[facility] [place] [address], [place] COMPLEMENT 3on 09-14-2021 COMPLEMENT 3 134 mg/dL Normal 79-152 The [facility] Comment on above: Performed By: #### 6 1405, 20868, 23727, 44378 ####[facility] [place] [address], [place] COMPLEMENT 4on 03-10-2022 COMPLEMENT 4 27 mg/dL Normal 16-38 The [facility] Comment on above: Performed By: #### 6 1405, 89587, 54560, 20463 ####[facility] CPKon 09-14-2021 CK [Catalytic activity/Vol] 69 U/L Normal 30-223 [facility] Comment on above: Performed By: #### 3 0728, 85071, 31517 #### [facility] [address] [place] [id number] 09-14-2021 CYCLIC CIT PEP 7 Units Normal 0-19 The [facility] Comment on above: Result Comment: INTE [...] be monitored and testing repeated. Performed By: [employer] [address] [place] [address] Spool Cleaner: Kim Nunez MD HAND LEFT 3 [facility] 09-14-2021 HAND LEFT 3 [facility] Department of Radiology [address] [place] [address] ======== Patient Name: SONIA WAITE : 1985 Sex: F Age: Race: White Pt. Location: 264 Patient Status: D Ordered Date: 09/14/2021 10:10:00 AM Completed Date: 09/14/2021 11:20 AM Requesting Provider: JOSE ALVARADO Attending Provider: CARLINE OCAMPO Report Copy To: SELF, REFERRED Signs & Symptoms: M25.50 Pain in unspecified joint I10 History: [place] Comments: Exam: HAND LEFT 3 [facility] ======== HAND LEFT 3 S 09/14/2021 11:20 AM CLINICAL INDICATIONS: M25.50 Pain in unspecified joint I10 TECHNOLOGIST COMMENTS: bilateral hand pain QUESTION FOR THE RADIOLOGIST: PROTOCOL: AP,Lateral and Oblique views were obtained. COMPARISON: None FINDINGS: 3 views of the hand were obtained. Bone density is normal. Articular surfaces are intact with anatomic alignment. There is no focal osseous abnormality. IMPRESSION: No acute osseous abnormality. Electronically signed: Omega Hayward. Transcribed by: [email or web address], User Resident: Electronically Signed by: OMEGA HAYWARD @ 09/15/2021 09:[address] [facility] HAND RIGHT 3 [facility] 2 HAND RIGHT 3 [facility] Department of Radiology [address] [place] [id number] ======== Patient Name: SONIA WAITE : 1985 Sex: F Age: Race: White Pt. Location: 264 Patient Status: D Ordered Date: 09/14/2021 10:10:00 AM Completed Date: 09/14/2021 11:20 AM Requesting Provider: JOSE ALVARADO Attending Provider: CARLINE OCAMPO Report Copy To: SELF, REFERRED Signs & Symptoms: M25.50 Pain in unspecified joint I10 History: [place] Comments: Exam: HAND RIGHT 3 V[facility] ======== HAND RIGHT 3 V[facility] 09/14/2021 11:20 [...] anatomic. IMPRESSION: No osseous abnormality Electronically signed: Omega Hayward. Transcribed by: [email or web address], User Resident: Electronically Signed by: OMEGA HAYWARD @ 09/15/2021 09:[address] [facility] RHEUMATOID FACTOR SERUMon RA <20 Normal 0-[address] [facility] Comment on above: Performed By: #### 6 1405, 70906, 38292, 86250 ####[facility] [facility] [place] [address], [facility] SEDIMENTATION RATEon 022 SED RATE 40 mm/hr High 0-[address] [facility] Comment on above: Performed By: #### 5 6506 ####[facility] [facility] [place] [address], [facility] TSH3 WITH REFLEX FT4on 09-14 TSH 3RD GENERATION 0.51 uIU/mL Normal 0.34-5.60 The [facility] Comment on above: Performed By: #### 3 0728, 68735, 52781 #### [facility] [address] [place] [address], [facility] VITAMIN D 25-HYDROXYon 09-14 VITAMIN D 25-OH 40.8 ng/mL Normal 30.0-80.0 The [facility] Comment on above: Result Comment: >80. 0 Toxicity possible Performed By: #### 3 0728, 66904, 81342 #### [facility] [address] [facility]. [address] Encounters Encounter Date Encounter Type Care Provider Facility Start: 11-07-2023 End: 11-07-2023 ambulatory [facility] Start: 11-05-2023 End: 11-05-2023 ambulatory [facility] Start: 07-19-2023 End: 07-20-2023 Emergency department patient visit [facility] Start: 06-11-2023 End: 06-11-2023 ambulatory ADRIAN CASSIDY Not Available Start: 05-23-2023 End: 05-23-2023 ambulatory [facility] Start: 03-22-2023 End: 03-23-2023 ambulatory [facility] Start: 02-26-2023 End: 02-26-2023 ambulatory [facility] Start: 02-12-2023 End: 02-12-2023 ambulatory [facility] Start: 01-25-2023 End: 01-[facility]: 11-15-2022 End: 11-15-2022 ambulatory [facility] Start: 10-10-2022 End: 10-10-2022 ambulatory CADE LLAMAS Facility:[facility] Start: 08-22-2022 End: 08-23-2022 ambulatory CADE FARHAD Facility:[facility] Start: 11-29-2021 End: 11-30-2021 ambulatory REFERRED SELF Facility:[facility] Procedures Date Procedure Procedure Detail Performing Clinician Start: 01-25-2023 Follow-up visit Follow-up SHAHNAZ Flaquita FINK Payers Date Payer Category Payer Medicaid [id number] 1985 Unknown [id number] 2.16.8 [id number] 1985 Unknown [id number] 2.16.84 [id number] 1985 Unknown [id number] 2.16.84 [id number] 1985 Unknown [id number] [id number] 1985 Unknown [id number] 2.16.84 [id number] 1985 Unknown [id number] 2.16.84 [id number] 1985 Unknown [id number] 2.16.8 [id number] 1958 Unknown [id number] Unknown [id number] Clinical Notes 11-15-2022 to 11-08-2023 Note Date & Type Note Facility 11-08-2023 Note Consult agreement. Patient fills at [facility]. [facility] 11-07-2023 Note Subjective Patient ID: Sonia Waite is a 37 y.o. female who presents for No chief complaint on file.. HPI Ms. Waite is a 37 year old female with a past medical history significant for ROBERT, seronegative RA and fibromyalgia here today for follow up visit. she is nt reports that the medication changes helped and she is in less pain. Still endorses chronic pain, widespread, 6/10 intensity. She has stopped taking her prednisone due to weight gain and methotrexate due to hair loss. She is currently only on Rinvoq for her seronegative RA. She had describing few symptoms of overall however last week she had had gastroenteritis she is recovering from and noted some skin rashes resembling of psoriasis Patient says that overall she is pleased [...] feet). Negative for dizziness and headaches. Objective There were no vitals taken for this visit. Physical Exam Constitutional: General: She is not [...] and fibromyalgia presenting as a follow up her symptoms are relatively well-controlled she had had a bout with gastroenteritis and skin rashes resembling psoriasis. Will continue current therapy at this stage #Seronegative RA -Patient discontinued methotrexate and prednisone [...] tried and failed gabapentin in the past. No diagnosis found. No orders of the defined types were placed in this encounter. No results found for this or any previous visit (from the past 36 hour(s)). No follow-ups on file. [facility] 10-25-2023 Note Patient had previous ly called stated they could not afford their medication and wanted to apply for PAP. Filled out forms however upon clarification patient has commercial insurance which mostly likely would not qualify them for PAP. Advise patient to sign up for copay card and then call [facility] specialty pharmacy and provide information to bring down copay. Provided detailed instructions over the phone on how to do this. Will follow up next week to check status with patient. Francia Zhang, DeannaD PGY1 [facility] 10/25/23 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 She did not have any further questions at this time, and I advised her to call us back if she ever needs anything from our end. Kelly Marquez, Yao, BCACP, CSP 10/31/23 2:47 PM [facility] [phone] [facility] 05-23-2023 Note ------ Attestation signed by Luna Spicer MD at 05/24/2023 11:45 AM As the teaching physician, I have personally performed or re-performed the history of present illness, physical exam and medical decision making activities of the encounter and verified the medical student's documentation. I made pertinent changes as necessary to ensure accurate documentation. ------ Subjective Patient ID: Sonia Waite is a 37 y.o. female who presents for Follow-up. HPI Ms. Waite is a 37 year old female with a past medical history significant for ROBERT, seronegative RA and fibromyalgia here today for [...] gabapentin in the past. #Edema -Urinalysis ordered Marko Angelo, MS4 No diagnosis found. No orders of the defined types were placed in this encounter. No results found for this or any previous visit (from the past 36 hour(s)). No follow-ups on file. [facility] 02-26-2023 Note Per pt Feeling unste leslie Has migraine Not sleeping due to pain Having pain all over [facility] 02-26-2023 Note ------ Attestation signed by Luna Spicer MD at 03/01/2023 12:51 PM I personally saw and examined the patient on the same date of service as resident/fellow . I discussed the findings and therapeutic plan with the resident/fellow . I agree with the documentation, except for any edits/updates below. Teaching Physician's Revisions: ------ Subjective Patient ID: Sonia Waite is a 37 y.o. female with [...] present. No sw (more content not included)... [facility] 02-12-2023 Note No concerning result s on basic labs, including CBC which is largely unchanged from prior. Elevated platelets may be in part due to chronic inflammation. [facility] 02-12-2023 Note ------ Attestation signed by Luna Spicer MD at 02/13/2023 1:11 PM I personally saw and examined the patient on the same date of service as resident/fellow . I discussed the findings and therapeutic plan with the resident/fellow . I agree with the documentation, except for any edits/updates below. Teaching Physician's Revisions: ------ Subjective Patient ID: Sonia Waite is a 37 y.o. 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 Pt does endorse to have been losing [...] The Rinvoq does (more content not included)... 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 She tried nasal steroids and nasal irrigation, [...] She drinks 2 energy drinks and an [id number] supplement ([employer] energy) which contains vitamin B12. She does not take naps. She does not fall asleep at work, while driving, during conversations, or at inappropriate places. [place] Sleepiness Scale: Current total score: N/A/24, Previous [...] % of Night in Periodic Breathing or Aditya-Strokes Respiration: 0 Auto-PAP data (if applicable): Median [...] normal. Assessment/Plan Impression (more content not included)... [facility] 11-15-2022 Note ------ Attestation signed by Luna Spicer MD at 11/16/2022 9:47 AM I personally saw and examined the patient on the same date of service as resident/fellow . I discussed the findings and therapeutic plan with the resident/fellow . I agree with the documentation, except for any edits/updates below. Teaching Physician's Revisions: ------ Subjective Patient ID: Sonia Waite is a 36 y.o. 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 Pt does endorse to have been losing [...] chest pain. Gastroi (more content not included)... [facility] Summary Purpose Family History No [...] and content) DATE CREATED AUTHOR 12/14/2021 [facility] DATE CREATED AUTHOR AUTHOR'S ORGANIZ ATION 11/05/2022 [facility] DATE CREATED AUTHOR AUTHOR'S ORGANIZ ATION 06/13/2023 [facility] EP[facility] DATE CREATED AUTHOR AUTHOR'S ORGANIZ ATION 07/21/2023 [facility] DATE CREATED AUTHOR AUTHOR'S ORGANIZ ATION 11/06/2023 [facility] DATE CREATED AUTHOR AUTHOR'S ORGANIZ ATION 11/11/2023 [facility] FOR RECORDS PERTAINING TO PATIENTS WHO ARE [...] BE BASED ON THE PRIMARY CLINICAL RECORDS. [facility] [employer] [facility]. provides no warranty or guarantee of the accuracy or completeness of information in this document.
[2023-11-13 17:38] LABS: Basophils Absolute Auto 0.1 10^3/uL (0.0-0.1); Basophils Percent Auto 0.6 % (0.2-2.0); Eosinophils Absolute Auto 0.3 10^3/uL (0.0-0.7); Eosinophils Percent Auto 2.1 % (0.9-7.0); Hematocrit 37.7 % (36.0-48.0); Hemoglobin 12.4 g/dL (12.0-16.0); Immature Granulocytes Abs Auto 0.08 10^3/uL (0.00-0.03); Immature Granulocytes Pct Auto 0.6 % (0.0-0.5); Lymphocytes Absolute Auto 3.7 10^3/uL (1.2-3.8); Lymphocytes Percent Auto 28.9 % (20.5-60.0); Mean Corpuscular HGB Conc 32.9 g/dL (29.9-35.2); Mean Corpuscular Hemoglobin 28.8 pg (26.7-34.0); Mean Corpuscular Volume 87.7 fL (81.0-99.0); Monocytes Absolute Auto 0.9 10^3/uL (0.3-0.8); Monocytes Percent Auto 7.1 % (1.7-12.0); Neutrophils Absolute Auto 7.7 10^3/uL (1.4-6.5); Neutrophils Percent Auto 60.7 % (43.0-75.0); Platelet Count 533 10^3/uL (150-450); Red Cell Distribution Width 14.4 % (11.0-15.0); White Blood Count 12.6 10^3/uL (4.0-11.0)
[2023-11-13 17:38] LABS: Bilirubin Urine NEGATIVE (NEGATIVE); Blood Urine NEGATIVE (NEGATIVE); Clarity Urine CLEAR (CLEAR); Color Urine LT. YELLOW (YELLOW); Glucose Urine UA NEGATIVE (NEGATIVE); Ketones Urine NEGATIVE (NEGATIVE); Leukocyte Esterase Urine NEGATIVE (NEGATIVE); Nitrite Urine NEGATIVE (NEGATIVE); Protein Urine NEGATIVE (NEG/TRACE); Specific Gravity Urine <=1.005 (1.005-1.025); Urobilinogen Urine 0.2 EU/dL (0.2-1.0); pH Urine 6.5 (5.0-9.0)
--- NOTE | 2023-11-13 17:39 | ED_ITS ---
HPI - Abdominal Pain General Chief Complaint: Abdominal Pain Stated Complaint: Abdominal Pain Time Seen by Provider: 11/13/23 17:10 Source: patient Mode of arrival: walk-in Limitations: no limitations History of Present Illness HPI narrative: Patient presents to ED complaining of abdominal pain. She said she has had abdominal pain and diarrhea for the past week and a half. She has had worsening diarrhea the past couple of days with abdominal distention and pain. She has been very nauseated but no vomiting. She reports yesterday the diarrhea started to become a little bit bloody and red. She has a history of a hysterectomy and she had her gallbladder out. She has never had a bowel obstruction in the past. No fevers. Denies UTI symptoms Related Data Home Medications ?Medication ?Instructions ?Recorded ?Confirmed cetirizine 10 mg tablet 10 mg PO DAILY 08/02/23 11/06/23 lurasidone 80 mg tablet 80 mg PO DAILY 08/02/23 11/06/23 upadacitinib 15 mg tablet,extended 15 mg PO DAILY 08/02/23 11/06/23 release 24 hr (Rinvoq) vitamin 1 tab PO DAILY 11/04/23 11/06/23 no.76-iron,carbonyl 29 mg iron-folic acid 1 mg tablet (Thrivite Rx) Previous Rx's ?Medication ?Instructions ?Recorded ondansetron 4 mg disintegrating 4 mg PO Q8H PRN nausea and 08/02/23 tablet vomiting 4 days #16 tabs dicyclomine 10 mg capsule 10 mg PO QID PRN abdominal pain 11/04/23 #12 caps hyoscyamine sulfate 0.125 mg 0.125 mg PO Q6H PRN abdominal pain 11/06/23 tablet (Levsin) #12 tabs promethazine 25 mg tablet 25 mg PO Q6H PRN nausea and 11/06/23 vomiting #12 tabs sucralfate 1 gram tablet (Carafate) 1 g PO Q6H PRN abdominal pain #12 11/06/23 tabs ondansetron 4 mg disintegrating 4 mg PO DAILY PRN nausea and 11/13/23 tablet vomiting #15 tabs Allergies Allergy/AdvReac Type Severity Reaction Status Date / Time oxycodone Allergy Verified 11/06/23 16:06 latex Allergy Intermediate Hives Uncoded 11/06/23 16:06 humeraa Allergy Rash Uncoded 11/06/23 16:06 Review of Systems ROS Status of ROS 10 or more systems reviewed and unremark able except as noted in history and below [facility] Social History Smoking status: Never smoker Exam Narrative Exam Narrative: Time Seen: [] Vital Signs: [Per nurse's notes.] General: [Alert] Skin: [Warm, dry, no rash.] Head: [Normocephalic, atraumatic.] Neck: [Supple, trachea midline.] Eye: [Pupils are equal, round and reactive to light, extraocular movements are intact, normal conjunctiva.] Ears, nose, mouth and throat: oral mucosa moist. Cardiovascular: [Regular rate and rhythm, no murmur.] Respiratory: [Lungs are clear to auscultation, respirations are non-labored, breath sounds are equal.] Chest wall: [No tenderness, no deformity.] Gastrointestinal: [Soft, Diffuse mild tenderness, diffuse distention, normal bowel sounds.] MSK: 5 out of 5 muscle strength x 4 extremities no calf pain or edema Lymphatics: [No lymphadenopathy.] Psychiatric: [Cooperative, appropriate mood & affect.] Neurological: [Alert and oriented to person, place, time, and situation, no focal neurological deficit observed.] Constitutional Vital Signs, click to edit/add: Last Vital Signs Temp 97.7 F 11/13/23 17:13 Pulse 100 H 11/13/23 17:13 Resp 20 11/13/23 17:13 BP 127/98 H 11/13/23 17:13 Pulse Ox 96 11/13/23 17:13 Course Vital Signs Vital signs: Vital Signs Temperature 97.7 F 11/13/23 17:13 Pulse Rate 100 H 11/13/23 17:13 Respiratory Rate 20 11/13/23 17:13 Blood Pressure 127/98 H 11/13/23 17:13 Pulse Oximetry 96 11/13/23 17:13 Temperature 97.7 F 11/13/23 17:13 Pulse Rate 100 H 11/13/23 17:13 Respiratory Rate 20 11/13/23 17:13 Blood Pressure 127/98 H 11/13/23 17:13 Pulse Oximetry 96 11/13/23 17:13 MDM - Abdominal Pain MDM Narrative Medical decision making narrative: Patient's labs and imaging are nonacute. Shows hepatic steatosis but no other acute findings. Will send home with pain meds and Zofran. Return to the emergency room if worsening symptoms. Follow-up with PCP and GI. Differential Diagnosis Differential diagnosis: Likely abdominal pain, acute appendicitis, constipation, pancreatitis and small bowel obstruction Medical Records Attestation: I reviewed the patient's medical records. Lab Data Attestation: I reviewed the patient's lab results. Labs: Lab Results 11/13/23 11/13/23 Range/Units 17:15 17:25 WBC 12.6 H (4.0-11.0) 10^3/uL RBC 4.30 (4.20-5.40) 10^6/uL Hgb 12.4 (12.0-16.0) g/dL Hct 37.7 (36.0-48.0) % MCV 87.7 (81.0-99.0) fL MCH 28.8 (26.7-34.0) pg MCHC 32.9 (29.9-35.2) g/dL RDW 14.4 (11.0-15.0) % Plt Count 533 H (150-450) 10^3/uL MPV 9.0 L (9.5-13.5) fL Neut % (Auto) 60.7 (43.0-75.0) % Lymph % (Auto) 28.9 (20.5-60.0) % [place] % (Auto) 7.1 (1.7-12.0) % Eos % (Auto) 2.1 (0.9-7.0) % Baso % (Auto) 0.6 (0.2-2.0) % Neut # (Auto) 7.7 H (1.4-6.5) 10^3/uL Lymph # (Auto) 3.7 (1.2-3.8) 10^3/uL [place] # (Auto) 0.9 H (0.3-0.8) 10^3/uL Eos # (Auto) 0.3 (0.0-0.7) 10^3/uL Baso # (Auto) 0.1 (0.0-0.1) 10^3/uL Abs Immat Gran (auto) 0.08 H (0.00-0.03) 10^3/uL Imm/Tot Granulo (auto) 0.6 H (0.0-0.5) % Sodium 139 (136-145) mmol/L Potassium 3.4 L (3.5-5.1) mmol/L Chloride 103 (98-107) mmol/L Carbon Dioxide 25.4 (21.0-32.0) mmol/L Anion Gap 14.0 BUN <1.0 L (7.0-18.0) mg/dL Creatinine 0.67 (0.55-1.02) mg/dL Est GFR ( Amer) >60 (>=60) Est GFR (Non-Af Amer) >60 (>=60) BUN/Creatinine Ratio 1.5 Glucose 76 (74-106) mg/dL Calcium 9.3 (8.5-10.1) mg/dL Total Bilirubin 0.2 (0.2-1.0) mg/dL AST 52 H (15-37) U/L ALT 80 H (14-59) U/L Alkaline Phosphatase 105 (46-116) U/L Total Protein 7.8 (6.4-8.2) g/dL Albumin 3.5 (3.4-5.0) g/dL Globulin 4.3 g/dL Albumin/Globulin Ratio 0.8 Urine Color Lt. yellow (YELLOW) Urine Clarity Clear (CLEAR) Urine pH 6.5 (5.0-9.0) Ur Specific [place] <=1.005 A (1.005-1.025) Urine Protein Negative (NEG/TRACE) mg/dL Urine Glucose (UA) Negative (NEGATIVE) mg/dL Urine Ketones Negative (NEGATIVE) mg/dL Urine Occult Blood Negative (NEGATIVE) Urine Nitrite Negative (NEGATIVE) Urine Bilirubin Negative (NEGATIVE) Urine Urobilinogen 0.2 (0.2-1.0) EU/dL Ur Leukocyte Esterase Negative (NEGATIVE) Imaging Data CT scan - abdomen: Radiologist's impression: ITS Impressions Abdomen/Pelvis CT 11/13/23 18:18 IMPRESSION: No acute findings. Hepatomegaly with severe steatosis. Electronically authenticated by: MUSTAPHA CASTAÑEDA Date: 11/13/2023 18:40 Discharge Plan Discharge Stand Alone Forms: Portal Instructions Chief Complaint: Abdominal Pain Clinical Impression: Vomiting and diarrhea, Abdominal pain Patient Disposition: Home, Self-Care Time of Disposition Decision: 18:46 Mode of Transportation: Private Vehicle Prescriptions / Home Meds: New ondansetron 4 mg tablet,disintegrating 4 mg PO DAILY PRN (Reason: nausea and vomiting) Qty: 15 0RF No Action cetirizine 10 mg tablet 10 mg PO DAILY lurasidone 80 mg tablet 80 mg PO DAILY Rinvoq 15 mg tablet extended release 24 hr 15 mg PO DAILY ondansetron 4 mg tablet,disintegrating 4 mg PO Q8H PRN (Reason: nausea and vomiting) 4 Days Qty: 16 0RF sucralfate [Carafate] 1 gram tablet 1 g PO Q6H PRN (Reason: abdominal pain) Qty: 12 0RF hyoscyamine sulfate [Levsin] 0.125 mg tablet 0.125 mg PO Q6H PRN (Reason: abdominal pain) Qty: 12 0RF promethazine 25 mg tablet 25 mg PO Q6H PRN (Reason: nausea and vomiting) Qty: 12 0RF Thrivite Rx 29 mg iron- 1 mg tablet 1 tab PO DAILY dicyclomine 10 mg capsule 10 mg PO QID PRN (Reason: abdominal pain) Qty: 12 0RF Print Language: American Instructions: Abdominal Pain (ED) Referrals: Rula Castellanos NP [Primary Care Provider] - 1 week JIMY WINSLOW [Physician] - 1 week [place] JEAN [Physician] - 1 week
[2023-11-13 17:42] LABS: Urine Microscopic Indicated NO
[2023-11-13] MEDS: 0.9 % SODIUM CHLORIDE 1,000 ML 1000 ML IV (17:52)
[2023-11-13] MEDS: ONDANSETRON PF 4 MG/2 ML VIAL IV (17:53)
[2023-11-13] MEDS: KETOROLAC TROMETHAMINE 30 MG/ML VIAL 15 MG IVP (17:53)
[2023-11-13 17:55] LABS: Alanine Aminotransferase 80 U/L (14-59); Albumin Globulin Ratio 0.8; Albumin Level 3.5 g/dL (3.4-5.0); Alkaline Phosphatase 105 U/L (46-116); Aspartate Amino Transferase 52 U/L (15-37); Bilirubin Total 0.2 mg/dL (0.2-1.0); Blood Urea Nitrogen <1.0 mg/dL (7.0-18.0); Calcium 9.3 mg/dL (8.5-10.1); Carbon Dioxide 25.4 mmol/L (21.0-32.0); Chloride 103 mmol/L (98-107); Estimated GFR (African America >60 (>=60); Estimated GFR (Non-African Ame >60 (>=60); Globulin 4.3 g/dL; Glucose 76 mg/dL (74-106); Potassium 3.4 mmol/L (3.5-5.1); Sodium 139 mmol/L (136-145); Total Protein 7.8 g/dL (6.4-8.2)
[2023-11-13 17:56] LABS: BUN Creatinine Ratio 1.5
--- NOTE | 2023-11-13 18:18 | CT_ITS ---
[address] [place], [place] [address] Patient Name: SONIA CURTIS MRN: [id number] date: 1985 Sex: F Assigned Patient Location: ER Current Patient Location: .[facility] Accession/Order Number: [id number] Exam Date: 11/13/2023 18:12 Report Date: 11/13/2023 18:40 At the request of: DAVID CASTILLO Procedure: CT abdomen pelvis w con EXAM: CT abdomen pelvis w con HISTORY: abd pain COMPARISON: 11/04/2023 TECHNIQUE: Axial CT imaging was performed through the abdomen and pelvis with intravenous contrast. Multiplanar reformats were performed. Dose reduction techniques were achieved by using automated exposure control and/or adjustment of mA and/or kV according to patient size and/or use of iterative reconstruction technique. FINDINGS: Lung bases: Lung bases are clear. No pleural effusion. GI upper: Unremarkable. Liver: Hepatomegaly with severe steatosis. Normal contour. Gallbladder: Cholecystectomy. Biliary system: No intra or extrahepatic biliary ductal dilatation. Spleen: Normal size. Pancreas: Unremarkable. Adrenal glands: Normal adrenal glands. Kidneys/ureters: Normal contours. No hydronephrosis. No nephrolithiasis or ureterolithiasis. Vessels: No aneurysm. Lymph Nodes: No lymphadenopathy. Small bowel: No wall thickening or dilatation. Colon: No wall thickening or dilatation. Appendix: Appendix is identified with normal appearance. Peritoneal cavity: No free fluid or pneumoperitoneum. Lower : Hysterectomy. Otherwise unremarkable. Bones: No acute bony abnormality. Soft tissues: No acute finding. Additional findings: None. CT/CT abdomen pelvis w con IMPRESSION: No acute findings. Hepatomegaly with severe steatosis. Electronically authenticated by: MUSTAPHA CASTAÑEDA Date: 11/13/2023 18:40
[2023-11-13 19:31] VITALS: BP 135/94; PULSE 85; O2SAT 100
== END 2023-11-13 19:33 | disposition home or self-care (01) ==
PROVIDERS: Emergency Provider Emergency Medicine; PCP Nurse Practitioner Family
DX: R10.9 Unspecified abdominal pain (principal); R11.10 Vomiting, unspecified; R19.7 Diarrhea, unspecified; Z90.710 Acquired absence of both cervix and uterus; Z90.49 Acquired absence of other specified parts of digestive tract; Z79.899 Other long term (current) drug therapy
CPT/HCPCS: 36415; 74177; 80053; 81003; 85025; 96361; 96374; 96375; 99285; Q9967

== ENCOUNTER 2024-03-30 10:02 | Outpatient (OUT) | payer OTHER, SELFPAY ==
[2024-03-30 11:03] LABS: Alanine Aminotransferase 40 U/L (14-59); Albumin Globulin Ratio 0.8; Albumin Level 3.6 g/dL (3.4-5.0); Alkaline Phosphatase 120 U/L (46-116); Anion Gap 11.2; Aspartate Amino Transferase 29 U/L (15-37); BUN Creatinine Ratio 5.1; Bilirubin Total 0.4 mg/dL (0.2-1.0); Calcium 9.4 mg/dL (8.5-10.1); Carbon Dioxide 28.2 mmol/L (21.0-32.0); Chloride 100 mmol/L (98-107); Chol HDL Ratio 5.1; Cholesterol 173 mg/dL (<=200); Estimated GFR (African America >60 (>=60); Estimated GFR (Non-African Ame >60 (>=60); Globulin 4.4 g/dL; Glucose 103 mg/dL (74-106); HDL Cholesterol 34 mg/dL (40-60); Potassium 3.4 mmol/L (3.5-5.1); Sodium 136 mmol/L (136-145); Triglycerides 269 mg/dL (<=150); VLDL CHOLESTEROL 53.8 mg/dL
[2024-03-31 08:15] LABS: Measles Antibodies, IgG >300.0 AU/mL (Immune >16.4); Rubella Antibodies, IgG 8.55 index (Immune >0.99); Varicella-Zoster V Ab, IgG Reactive (Non Reactive)
== END 2024-03-30 10:03 | disposition home or self-care (01) ==
LOC: LAB 10:02
PROVIDERS: PCP Nurse Practitioner Family
DX: Z13.1 Encounter for screening for diabetes mellitus (principal); Z11.59 Encounter for screening for other viral diseases; Z13.6 Encounter for screening for cardiovascular disorders
CPT/HCPCS: 36415; 80053; 80061; 86735; 86762; 86765; 86787

== ENCOUNTER 2024-04-23 03:08 | Emergency (ER) | payer OTHER, SELFPAY ==
[2024-04-23] VITALS (7 sets, daily range): BP systolic 99–138; BP diastolic 63–99; PULSE 98–123; TEMP 37.2–37.9; O2SAT 91–97; BMI 34.4
--- NOTE | 2024-04-23 03:36 | XR_ITS ---
[facility] [place] [id number] Patient Name: SONIA CURTIS MRN: [id number] date: 1985 Sex: F Assigned Patient Location: ER Current Patient Location: ED.MAIN Accession/Order Number: [id number] Exam Date: 04/23/2024 03:53 Report Date: 04/23/2024 06:53 At the request of: SYLVIA CARRASCO Procedure: XR chest 1V EXAM: XR chest 1V HISTORY: short of breath COMPARISON: Chest x-ray, 08/22/2022. TECHNIQUE: AP upright portable chest x-ray. FINDINGS: The heart, mediastinum, lungs, pleural spaces and bony thorax appear within normal limits. XR/XR chest 1V IMPRESSION: Nonacute chest. Electronically authenticated by: FELIPE KINCAID Date: 04/23/2024 06:53
--- NOTE | 2024-04-23 03:38 | ED.SOB1 ---
HPI - SOB/Dyspnea General Chief Complaint: Shortness of Breath/Dyspnea Stated Complaint: SOB Time Seen by Provider: 04/23/24 03:31 Source: patient Mode of arrival: Wheelchair Limitations: no limitations History of Present Illness HPI Narrative: short of breath since yesterday. fever and chills tonight. dry cough. Denies history of asthma. Vapes. No nausea or vomiting denies Related Data Home Medications ?Medication ?Instructions ?Recorded ?Confirmed cetirizine 10 mg tablet 10 mg PO DAILY 08/02/23 11/06/23 lurasidone 80 mg tablet 80 mg PO DAILY 08/02/23 11/06/23 upadacitinib 15 mg tablet,extended 15 mg PO DAILY 08/02/23 11/06/23 release 24 hr (Rinvoq) vitamin 1 tab PO DAILY 11/04/23 11/06/23 no.76-iron,carbonyl 29 mg iron-folic acid 1 mg tablet (Thrivite Rx) Previous Rx's ?Medication ?Instructions ?Recorded ondansetron 4 mg disintegrating 4 mg PO Q8H PRN nausea and 08/02/23 tablet vomiting 4 days #16 tabs dicyclomine 10 mg capsule 10 mg PO QID PRN abdominal pain 11/04/23 #12 caps hyoscyamine sulfate 0.125 mg 0.125 mg PO Q6H PRN abdominal pain 11/06/23 tablet (Levsin) #12 tabs promethazine 25 mg tablet 25 mg PO Q6H PRN nausea and 11/06/23 vomiting #12 tabs sucralfate 1 gram tablet (Carafate) 1 g PO Q6H PRN abdominal pain #12 11/06/23 tabs ondansetron 4 mg disintegrating 4 mg PO DAILY PRN nausea and 11/13/23 tablet vomiting #15 tabs Allergies Allergy/AdvReac Type Severity Reaction Status Date / Time oxycodone Allergy Unknown Verified 04/23/24 03:20 latex Allergy Intermediate Hives Uncoded 11/06/23 16:06 humeraa Allergy Rash Uncoded 11/06/23 16:06 Review of Systems ROS Status of ROS 10 or more systems reviewed and unremarkable except as noted in history and below PFSH PFSH Social History Smoking status: Never smoker Exam Constitutional Vital Signs, click to edit/add: Last Vital Signs Temp 100.3 F 04/23/24 05:00 Pulse 102 H 04/23/24 06:07 Resp 18 04/23/24 06:07 BP 102/63 04/23/24 06:07 Pulse Ox 93 L 04/23/24 06:07 O2 Del Method Room Air 04/23/24 04:00 Common normals: average body habitus, oriented x3, no limitations, healthy appearing, alert and well nourished General appearance: in distress (mild distress) HENMT Common normals: normocephalic and head/scalp atraumatic Eye Common normals: EOMs intact bilaterally and conjunctivae normal Respiratory Common normals: no use of accessory muscles and clear to auscultation bilaterally Other: mild respiratory distress Cardio Rate: tachycardic GI Common normals: Normal to inspection, nondistended, normoactive bowel sounds present, soft to palpation and non-tender Extremity Common normals: normal to inspection Neuro Common normals: oriented x3, CN's II-XII intact bilaterally, moves all extremities and no focal motor deficits Psych Appearance: grossly normal Course Vital Signs Vital signs: Vital Signs Temperature 98.9 F 04/23/24 03:13 Pulse Rate 123 H 04/23/24 03:13 Respiratory Rate 22 H 04/23/24 03:13 Blood Pressure 138/99 H 04/23/24 03:13 Pulse Oximetry 96 04/23/24 03:13 Oxygen Delivery Method Room Air 04/23/24 03:13 Temperature 100.3 F 04/23/24 05:00 Pulse Rate 102 H 04/23/24 06:07 Respiratory Rate 18 04/23/24 06:07 Blood Pressure 102/63 04/23/24 06:07 Pulse Oximetry 93 L 04/23/24 06:07 Oxygen Delivery Method Room Air 04/23/24 04:00 MDM - SOB/Dyspnea MDM Narrative Medical decision making narrative: patient presents ill for a couple of days. recurrent cough and chest pain anitha with cough. left work tonight because she was short of breath. hyperventilating on arrival to the ER. States she was wheezing at home. No obvious wheezing here. Treated with solumedrol and albuterol NMT. COVID 19 and influenza neg. Tachycardia improved after hydration. Patient feeling better and resting comfortably. Fever treated with ibuprofen. patient re evaluated and looks better. Ambulatory in the department to go to the bathroom without evidence of dyspnea. D-dimer neg. Troponin neg. Discharged home with working diagnosis of URI. Prescribed zpak and albuterol inhaler. has used an inhaler in the past Lab Data Labs: Lab Results 04/23/24 04/23/24 04/23/24 Range/Units 03:20 03:47 04:33 WBC 13.3 H (4.0-11.0) 10^3/uL RBC 4.74 (4.20-5.40) 10^6/uL Hgb 13.2 (12.0-16.0) g/dL Hct 39.9 (36.0-48.0) % MCV 84.2 (81.0-99.0) fL MCH 27.8 (26.7-34.0) pg MCHC 33.1 (29.9-35.2) g/dL RDW 13.8 (11.0-15.0) % Plt Count 501 H (150-450) 10^3/uL MPV 9.5 (9.5-13.5) fL Neut % (Auto) 70.7 (43.0-75.0) % Lymph % (Auto) 18.6 L (20.5-60.0) % [place] % (Auto) 7.1 (1.7-12.0) % Eos % (Auto) 1.3 (0.9-7.0) % Baso % (Auto) 0.9 (0.2-2.0) % Neut # (Auto) 9.4 H (1.4-6.5) 10^3/uL Lymph # (Auto) 2.5 (1.2-3.8) 10^3/uL [place] # (Auto) 1.0 H (0.3-0.8) 10^3/uL Eos # (Auto) 0.2 (0.0-0.7) 10^3/uL Baso # (Auto) 0.1 (0.0-0.1) 10^3/uL Abs Immat Gran (auto) 0.18 H (0.00-0.03) 10^3/uL Imm/Tot Granulo (auto) 1.4 H (0.0-0.5) % D-Dimer 0.31 (<=0.59) mg/L FEU Sodium 133 L (136-145) mmol/L Potassium 3.9 (3.5-5.1) mmol/L Chloride 100 (98-107) mmol/L Carbon Dioxide 23.7 (21.0-32.0) mmol/L Anion Gap 13.2 BUN 4.0 L (7.0-18.0) mg/dL Creatinine 1.00 (0.55-1.02) mg/dL Est GFR ( Amer) >60 (>=60 mL/min/1.73m^2) Est GFR (Non-Af Amer) >60 (>=60 mL/min/1.73m^2) BUN/Creatinine Ratio 4.0 Glucose 119 H (74-106) mg/dL Calcium 10.0 (8.5-10.1) mg/dL Troponin I High Sens 10.4 (4.0-51.3) pg/mL Urine Color Yellow (YELLOW) Urine Clarity Clear (CLEAR) Urine pH 7.5 (5.0-9.0) Ur Specific [place] 1.020 (1.005-1.025) Urine Protein Negative (NEG/TRACE) mg/dL Urine Glucose (UA) Negative (NEGATIVE) mg/dL Urine Ketones Negative (NEGATIVE) mg/dL Urine Occult Blood Negative (NEGATIVE) Urine Nitrite Negative (NEGATIVE) Urine Bilirubin Negative (NEGATIVE) Urine Urobilinogen 1.0 (0.2-1.0) EU/dL Ur Leukocyte Esterase Negative (NEGATIVE) Influenza Type A Ag Negative Influenza Type B Ag Negative SARS-CoV-2 Ag (CV2AG) Negative (NEGATIVE) Discharge Plan Discharge Chief Complaint: Shortness of Breath/Dyspnea Clinical Impression: URI (upper respiratory infection), Acute chest wall pain Patient Disposition: Home, Self-Care Prescriptions / Home Meds: No Action cetirizine 10 mg tablet 10 mg PO DAILY lurasidone 80 mg tablet 80 mg PO DAILY Rinvoq 15 mg tablet extended release 24 hr 15 mg PO DAILY ondansetron 4 mg tablet,disintegrating 4 mg PO Q8H PRN (Reason: nausea and vomiting) 4 Days Qty: 16 0RF sucralfate [Carafate] 1 gram tablet 1 g PO Q6H PRN (Reason: abdominal pain) Qty: 12 0RF hyoscyamine sulfate [Levsin] 0.125 mg tablet 0.125 mg PO Q6H PRN (Reason: abdominal pain) Qty: 12 0RF promethazine 25 mg tablet 25 mg PO Q6H PRN (Reason: nausea and vomiting) Qty: 12 0RF Thrivite Rx 29 mg iron- 1 mg tablet 1 tab PO DAILY dicyclomine 10 mg capsule 10 mg PO QID PRN (Reason: abdominal pain) Qty: 12 0RF ondansetron 4 mg tablet,disintegrating 4 mg PO DAILY PRN (Reason: nausea and vomiting) Qty: 15 0RF Print Language: Sudanese Instructions: Upper Respiratory Infection (ED), Chest Wall Pain (ED) Referrals: Rula Castellanos NP [Primary Care Provider] - 1 week
[2024-04-23] MEDS: METHYLPREDNISOLONE SOD SUCC PF 125 MG/2 ML VIAL IVP (03:53)
[2024-04-23 03:55] LABS: Basophils Absolute Auto 0.1 10^3/uL (0.0-0.1); Basophils Percent Auto 0.9 % (0.2-2.0); Eosinophils Absolute Auto 0.2 10^3/uL (0.0-0.7); Eosinophils Percent Auto 1.3 % (0.9-7.0); Hematocrit 39.9 % (36.0-48.0); Hemoglobin 13.2 g/dL (12.0-16.0); Immature Granulocytes Abs Auto 0.18 10^3/uL (0.00-0.03); Immature Granulocytes Pct Auto 1.4 % (0.0-0.5); Lymphocytes Absolute Auto 2.5 10^3/uL (1.2-3.8); Lymphocytes Percent Auto 18.6 % (20.5-60.0); Mean Corpuscular HGB Conc 33.1 g/dL (29.9-35.2); Mean Corpuscular Hemoglobin 27.8 pg (26.7-34.0); Mean Corpuscular Volume 84.2 fL (81.0-99.0); Mean Platelet Volume 9.5 fL (9.5-13.5); Monocytes Percent Auto 7.1 % (1.7-12.0); Neutrophils Absolute Auto 9.4 10^3/uL (1.4-6.5); Neutrophils Percent Auto 70.7 % (43.0-75.0); Platelet Count 501 10^3/uL (150-450); Red Blood Count 4.74 10^6/uL (4.20-5.40); Red Cell Distribution Width 13.8 % (11.0-15.0); White Blood Count 13.3 10^3/uL (4.0-11.0)
--- NOTE | 2024-04-23 03:58 | ECG_ITS ---
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
[2024-04-23] MEDS: ALBUTEROL SULFATE 2.5 MG/3 ML VIAL NEB IH (03:59)
[2024-04-23 04:03] LABS: D Dimer 0.31 mg/L FEU (<=0.59)
[2024-04-23 04:07] LABS: Anion Gap 13.2; Carbon Dioxide 23.7 mmol/L (21.0-32.0); Chloride 100 mmol/L (98-107); Estimated GFR (African America >60 (>=60 mL/min/1.73m^2); Estimated GFR (Non-African Ame >60 (>=60 mL/min/1.73m^2); Glucose 119 mg/dL (74-106); Potassium 3.9 mmol/L (3.5-5.1); Sodium 133 mmol/L (136-145); Troponin I High Sensitivity 10.4 pg/mL (4.0-51.3)
[2024-04-23 04:21] LABS: Influenza Virus A Antigen Negative; Influenza Virus B Antigen Negative; Internal Control Within Normal Limits; SARS-CoV-2 Ag NEGATIVE (NEGATIVE)
--- OUTSIDE RECORDS SUMMARY | 2024-04-23 04:27 | XMS_ITS | CCD ---
Author Organization [facility] Care Team Providers Care Plasterer Apprentice Name Role Phone SELF, REFERRED Primary Care Unavailable CARLINE OCAMPO Referring Unavailable NITESH ROWE Attending Unavailable NITESH ORWE Admitting Unavailable FARHAD, CADE Primary Care Unavailable DIAB ., CATIE Attending Unavailable DIAB ., CATIE Admitting Unavailable GRECHNY ., BALDEMAR GOLDBERG Consulting Unavailabl e JOSÉ MANUEL LAZO Consulting Unavailable FARHAD, CADE Primary Care Unavailable KARASIK ., DR VIDAL Attending Unavailabl e KARASIK ., DR VIDAL Consulting Unavailabl e KARASIK ., DR VIDAL Admitting Unavailabl ADRIAN May Attending Unavailable LUNA SPICER Attending Unavailable SHAHNAZ HANNAH Attending Unavailable LUNA SPICER Referring Unavailable LUNA SPICER Attending Unavailable LUNA SPICER Attending Unavailable LUNA SPICER Attending Unavailable LUNA SPICER Attending Unavailable PHAN, KARSTEN Attending Unavailable PHAN, KARSTEN Referring Unavailable PHAN, KARSTEN Primary Care Unavailable KINJAL MURDOCK Attending Unavailable PHAN, KARSTEN Referring Unavailable PHAN, KARSTEN Primary Care Unavailable PHAN, KARSTEN Referring Unavailable PHAN, KARSTEN Primary Care Unavailable LIBBY PEREZ Admitting Unavailable LIBBY PEREZ Attending Unavailable LIBBY PEREZ Referring Unavailable PHAN, KARSTEN Primary Care Unavailable KSENIA BRANTLEY Attending Unavailable PHAN, KARSTEN Primary Care Unavailable LIBBY PEREZ Attending Unavailable LIBBY PEREZ Referring Unavailable PHAN, KARSTEN Primary Care Unavailable PHAN, KARSTEN Primary Care Unavailable GAURI NEAL Attending Unavailable GAURI NEAL Attending Unavailable GAURI NEAL Referring Unavailable PHAN, KARSTEN Primary Care Unavailable Allergies Allergy Classification Reported Allergen(s) Allergy Type Date of Onset Reaction(s) Facility (4 sources) Latex; 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: [LATEX] Propensity to adverse reactions (disorder) 8 [facility] Repository (1 source) adalimumab Drug Allergy [facility] Repository (1 source) natural latex rubber Drug allergy (disorder) [facility] Repository (3 sources) adalimumab; 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: [ADALIMUMAB] Drug Allergy 3 [facility] Repository (3 sources) oxyCODONE; 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: [OXYCODONE] Drug Allergy 3 [facility] Repository Problems Active Problems Problem Classification Problem Date Documented Da te Episodic/Chronic Anxiety disorders (1 source) Anxiety disorder, unspecified; 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: [ANXIETY DISORDER UNSPECIFIED] Onset: 08-24-2022 Chronic Cardiac dysrhythmias (1 source) Palpitations; 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: [PALPITATIONS] Onset: 08-24-2022 Episodic Disorders of lipid metabolism (2 sources) Hyperlipidemia, unspecified; 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: [Hyperlipidemia, unspecified] Onset: 05-23-2023 Chronic Fluid and electrolyte disorders (1 source) Hypokalemia; 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: [HYPOKALEMIA] Onset: 08-24-2022 Episodic Gastritis and duodenitis (1 source) Chronic superficial gastritis without bleeding; 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: [Chronic superficial gastritis without bleeding] Onset: 11-28-2023 Chronic Gastroduodenal ulcer (except hemorrhage) (1 source) Acute gastric ulcer without hemorrhage or perforation; 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: [Acute gastric ulcer without hemorrhage or perforation] Onset: 11-28-2023 Episodic Immunizations and screening for infectious disease (1 source) Encounter for screening for human papillomavirus (HPV); 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: [ENC SCREENING HUMAN PAPILLOMAVIRUS] Onset: 10-15-2022 Episodic Nausea and vomiting (1 source) Nausea; 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: [Nausea] Onset: 11-21-2023 Episodic Nonspecific chest pain (4 sources) Chest pain, unspecified; 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: [CHEST PAIN UNSPECIFIED] Onset: 08-22-2022 Episodic Other and unspecified benign neoplasm (1 source) Polyp of colon; 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: [Polyp of colon] Onset: 11-28-2023 Episodic Other connective tissue disease (2 sources) Fibromyalgia; 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: [Fibromyalgia] Onset: 11-07-2023 Episodic Other gastrointestinal disorders (1 source) Abdominal distension (gaseous); 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: [Abdominal distension (gaseous)] Onset: 11-21-2023 Episodic Other gastrointestinal disorders (1 source) Diarrhea, unspecified; 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: [Diarrhea, unspecified] Onset: 11-21-2023 Episodic Other inflammatory condition of skin (2 [...] DEPEND] Onset: 08-24-2022 Episodic Unclassified (1 source) USP (current) use of antimetabolite agent; 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: [USP (current) use of antimetabolite agent] Onset: 02-26-2023 Unclassified (1 source) Bloated Onset: 11-21-2023 Unclassified (1 source) Esophagitis, unspecified without bleeding; 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: [Esophagitis, unspecified without bleeding] Onset: 11-28-2023 Unclassified (1 source) epigastric pain, lower abdominal pain, diarrhea, nausea Onset: 11-28-2023 Unclassified (1 source) Low back pain, unspecified; 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: [Low back pain, unspecified] Onset: 07-19-2023 Past or Other Problems Problem Classification Problem Date Documented Date Episodic/Chronic Abdominal pain (4 sources) Epigastric pain; 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: [Right lower quadrant pain] Onset: 07-19-2023 Episodic E Codes: Adverse effects of medical drugs (2 sources) Adverse effect of antineoplastic and immunosuppressive drugs, initial encounter; 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: [Adverse effect of antineoplastic and immunosuppressive drugs, initial encounter] Onset: 02-12-2023 Episodic Headache; including migraine (1 source) Headache Onset: 07-19-2023 Episodic Other aftercare (2 sources) Other prison (current) drug therapy; 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: [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] Onset: 02-12-2023 Episodic Other aftercare (2 sources) long term (current) use of systemic steroids; 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: [USP (current) use of systemic steroids] Onset: 02-12-2023 Episodic Other connective tissue disease (2 sources) Plantar fascial fibromatosis; 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: [Plantar fascial fibromatosis] Onset: 02-26-2023 Episodic Residual codes; unclassified (2 sources) Edema, unspecified; 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: [Edema, unspecified] Onset: 05-23-2023 Episodic Unclassified (1 source) USP (current) use of antimetabolite agent; 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: [long term (current) use of antimetabolite agent] Onset: 02-26-2023 Results Test Name Value Interpretation Reference Range Facility H PYLORI SCREENon 11-28-2023 H. pylori Org specific cx Ql (Kaylee fld) Negative Normal NEG [facility] Comment on above: Performed By: #### 4 [id number] #### [facility] ([id number]) [address] [place] [address], [address] [place] [address] Surgical Pathologyon 024 Surgical Pathology Normal [facility] Comment on above: Result Comment: [facility] [address] [place] [address] Surgical Pathology Consultation Patient Name:SONIA WAITE:1985 (Age: 37)Gender:FTaken:4Reported:12/04/2023hysician(s):Libby Perez D.O. ([phone])Copy To: Rec. #:[id number]: #[id number] Final Pathologic Diagnosis 1. Gastric antrum, biopsies: Erosive gastritis. Regeneration of gastric pits. No intestinal metaplasia, dysplasia or H. pylori organisms identified. 2. Distal esophageal biopsies: Unremarkable squamous and gastric cardiac mucosa. No active or eosinophilic esophagitis identified. No intestinal metaplasia or dysplasia identified. 3. Sigmoid colon polyps, biopsy: Hyperplastic polyps. Report Electronically Signed Out [facility]/12/04/2023Sujessenia Valentino M.D. Interpretation [place] [address], License number: [id number]. Clinical History Epigastric pain, lower abdominal pain, diarrhea, nausea. Gross Description 1. Received in formalin labeled [facility], antrum BX are two reinoso-dejesus, focally erythematous, friable, 0.5 cm each soft tissue strips. The specimen is entirely submitted in a single cassette. (1, ns, [id number], m8) JG 2. Received in formalin labeled [facility], distal esophagus BX are three pale dejesus, focally erythematous, feathery, 0.3, 0.3 and 0.4 cm soft tissue bits. The specimen is entirely submitted in a single cassette. (1, ns, [id number], m8) JG 3. Received in formalin labeled [facility], sigmoid colon polyp are two reinoso-dejesus, focally erythematous, friable, 0.2 and 0.7 cm polypoid fragments. The specimen is entirely submitted in a single cassette. (1, ns, [id number], m8) [facility]I Specimen(s) Received 1: Antrum biopsy 2: Distal esophageal biopsy 3: Sigmoid colon polyp x2 Fee Codes(s): 1; 25621 2; 39135 3; 70370 Orders Onlyon 11-08-2023 Orders Only [id number] Sonia Waite 1985 F Date Provider Department Center 11/08/2023 [facility] Chris Heal Family History Problem Relation Age of Onset Lupus Mother Cirrhosis Mother Family Status - Relation Status Age at Mother Normal [facility] 36on 11-07-2023 37 Received via fax request for BALDEMAR for [employer]. Re-prepped order to be sent to [facility] Access to initiate PA. Thank you. suresh Normal [facility] CBC WITH AUTO DIFFERENTIALon 11-07-2023 Basophils (Bld) [#/Vol] 0.07 10*3/uL Normal 0.00-0.20 [facility] Comment on above: Performed By: #### L [id number] #### [facility] (BEAKER) [address] [place] [address] Basophils/100 WBC (Bld) 0.7 % Normal 0.0-1.0 [facility] Comment on above: Performed By: #### L [id number] #### [facility] (BEAKER) [address] [place] [address] Eosinophils (Bld) [#/Vol] 0.15 10*3/uL Normal 0.00-0.50 [facility] Comment on above: Performed By: #### L [id number] #### [facility] (BEAKER) [address] [place] [address] Eosinophils/100 WBC (Bld) 1.5 % Normal 0.0-6.0 [facility] Comment on above: Performed By: #### L [id number] #### [facility] (BEAKER) [address] [place] [address] Erythrocyte distribution width (RBC) [Ratio] 14.5 % Normal 11.5-15.0 [facility] Comment on above: Performed By: #### L [id number] #### [facility] ([facility]AKER) [address] [place] [address] ERYTHROCYTE MEAN CORPUSCULAR HEMOGLOBIN CONCENTRATION (G/DL) BY AUTOMATED 33.6 g/dL Normal 32.0-35.0 [facility] Comment on above: Performed By: #### L [id number] #### [facility] (BEAKER) [address] [place] [address] Hematocrit (Bld) [Volume fraction] 40.5 % Normal 36.0-48.0 [facility] Comment on above: Performed By: #### L [id number] #### [facility] ([facility]) [address] [place] [address] Hemoglobin (Bld) [Mass/Vol] 13.6 g/dL Normal 12.0-15.0 [facility] Comment on above: Performed By: #### L [id number] #### [facility] ([facility]) [address] [place] [address] Immature granulocytes (Bld) [#/Vol] 0.07 10*3/uL Normal 0.00-0.20 [facility] Comment on above: Performed By: #### L [id number] #### [facility] ([facility]) [address] [address] Immature granulocytes/100 WBC (Bld) 0.7 % Normal 0.0-1.0 [facility] Comment on above: Performed By: #### L [id number] #### [facility] ([facility]) [address] [place] [address] Lymphocytes (Bld) [#/Vol] 3.29 10*3/uL Normal 1.20-4.00 [facility] Comment on above: Performed By: #### L [id number] #### [facility] ([facility]) [address] [place] [address] Lymphocytes/100 WBC (Bld) 32.4 % Normal 20.0-45.0 [facility] Comment on above: Performed By: #### L [id number] #### [facility] ([facility]) [address] [place] [address] MCH (RBC) [Entitic mass] 29.4 pg Normal 27.0-33.0 [facility] Comment on above: Performed By: #### L [id number] #### [facility] ([facility]) [address] [place] [address] MCV (RBC) [Entitic vol] 87.5 fL Normal 82.0-98.0 [facility] Comment on above: Performed By: #### L [id number] #### [facility] ([facility]) [address] [place] [address] Monocytes (Bld) [#/Vol] 0.59 10*3/uL Normal 0.10-1.00 [facility] Comment on above: Performed By: #### L [id number] #### [facility] ([facility]) [address] [place] [address] Monocytes/100 WBC (Bld) 5.8 % Normal 5.0-12.0 [facility] Comment on above: Performed By: #### L [id number] #### [facility] ([facility]) [address] [place] [address] Neutrophils (Bld) [#/Vol] 5.98 10*3/uL Normal 1.60-7.60 [facility] Comment on above: Performed By: #### L [id number] #### [facility] ([facility]) [address] [place] [address] Neutrophils/100 WBC (Bld) 58.9 % Normal 40.0-72.0 [facility] Comment on above: Performed By: #### L [id number] #### [facility] ([facility]) [address] [place] [address] NRBC (PER 100 WBCS) BY AUTOMATED COUNT 0.0 % Normal 0 [facility] Comment on above: Performed By: #### L [id number] #### [facility] ([facility]) [address] [place] [address] PLATELETS (10*3/UL) IN BLOOD AUTOMATED COUNT 533 10*3/uL High 150-400 [facility] Comment on above: Performed By: #### L [id number] #### [facility] (BEAKER) [address] [place] [address] RBC (Bld) [#/Vol] 4.63 10*6/uL Normal 3.80-5.00 [facility] Comment on above: Performed By: #### L [id number] #### [facility] ([facility]) [address] [place] [address] WBC (Bld) [#/Vol] 10.15 10*3/uL Normal 4.00-10.60 [facility] Comment on above: Performed By: #### L [id number] #### [facility] ([facility]) [address] [place] [address] COMPREHENSIVE METABOLIC PANE Varghese 11-07-2023 Albumin [Mass/Vol] 4.5 g/dL Normal 3.5-5.7 [facility] Comment on above: Performed By: #### L [id number] #### [facility] ([facility]) [address] [place] [address] ALP [Catalytic activity/Vol] 99 U/L Normal 34-104 [facility] Comment on above: Performed By: #### L [id number] #### [facility] ([facility]) [address] [place] [address] ALT [Catalytic activity/Vol] 58 U/L High 7-52 [facility] Comment on above: Performed By: #### L [id number] #### [facility] ([facility]) [address] [place] [address] Anion gap [Moles/Vol] 12 mmol/L Normal 7-20 [facility] Comment on above: Performed By: #### L [id number] #### [facility] ([facility]) [address] [place] [address] AST [Catalytic activity/Vol] 49 U/L High 13-39 [facility] Comment on above: Performed By: #### L [id number] #### [facility] ([facility]) [address] [place] [address] Bilirubin [Mass/Vol] 0.3 mg/dL Normal 0.3-1.0 [facility] Comment on above: Performed By: #### L [id number] #### [facility] ([facility]) [address] [place] [address] Calcium [Mass/Vol] 9.6 mg/dL Normal 8.6-10.3 [facility] Comment on above: Performed By: #### L [id number] #### [facility] ([facility]) [address] [address] Chloride [Moles/Vol] 103 mmol/L Normal 98-107 [facility] Comment on above: Performed By: #### L [id number] #### [facility] ([facility]) [address] [place] [address] CO2 [Moles/Vol] 26 mmol/L Normal 21-31 [facility] Comment on above: Performed By: #### L [id number] #### [facility] ([facility]) [address] [address] Creatinine [Mass/Vol] 0.83 mg/dL Normal 0.60-1.20 [facility] Comment on above: Performed By: #### L [id number] #### [facility] ([facility]) [address] [place] [address] GLOMERULAR FILTRATION RATE ML/MIN/1.73 SQ M.PREDICTED 93.6 mL/min/1.73m*2 Normal >60.0 [facility] Comment on above: Result Comment: [facility]???s estimated glomerular filtration rate (eGFR) will no [...] individuals. Performed By: #### L [id number] #### [facility] ([facility]) [address] [place] [address] Glucose [Mass/Vol] 79 mg/dL Normal 70-100 [facility] Comment on above: Performed By: #### L [id number] #### [facility] ([facility]) [address] [address] Potassium [Moles/Vol] 4.1 mmol/L Normal 3.5-5.1 [facility] Comment on above: Performed By: #### L [id number] #### [facility] ([facility]) [address] [place] [address] Protein [Mass/Vol] 7.9 g/dL Normal 6.0-8.3 [facility] Comment on above: Performed By: #### L [id number] #### [facility] ([facility]) [address] [facility] [place] [address] Sodium [Moles/Vol] 137 mmol/L Normal 136-145 [facility] Comment on above: Performed By: #### L [id number] #### [facility] ([facility]) [address] [place] [address] Urea nitrogen [Mass/Vol] 6 mg/dL Low 7-25 [facility] Comment on above: Performed By: #### L [id number] #### [facility] ([facility]) [address] [place] [address] UREA NITROGEN/CREATININE (MASS RATIO) IN SER/PLAS 7.2 Normal [facility] Comment on above: Performed By: #### L [id number] #### [facility] ([facility]) [address] [place] [address] Follow-Upon 11-07-2023 Follow-Up [id number] Sonia Waite 1985 F Date Provider Department Center 11/07/2023 Minnie-LUNA SPICER [facility] Chris Heal Family History Problem Relation Age of Onset Lupus Mother Cirrhosis Mother Family Status - Relation Status Age at Mother Level of Service:31429 ND OFFICE/OUTPATIENT ESTABLISHED MOD MDM 30 MIN Reason for Visit and Comments: Follow-up [234653] - late for 3 month follow up Normal [facility] 29on 11-01-2023 29 Addended by: LUNA SPICER on: 11/01/2023 04:53 PM Modules accepted: Orders [facility] 36on 11-01-2023 36 TC from [...] for follow up 11/07/23 Please advise. Shabana Jara, RN [facility] Patient Messageon 11-01-2023 Patient Message [id number] Sonia Waite 1985 F Date Provider Department Center 11/01/2023 317-LUNA SPICER [facility] Chris Heal Family History Problem Relation Age of Onset Lupus Mother Cirrhosis Mother Family Status - Relation Status Age at Mother [facility] Telephoneon 11-01-2023 Telephone [id number] Sonia Waite 1985 Date Provider Department Center 11/01/2023 [id number] JARA [facility] Chris Heal Family History Problem Relation Age of Onset Lupus Mother Cirrhosis Mother Family Status - Relation Status Age at Mother Reason for Visit and Comments: Generalized Body Aches [071836] - pain [facility] Documentationon 10-25-2023 Documentation [id number] Sonia Waite 1985 Date Provider Department Center 10/25/2023 [id number], KARA [facility] Chris Heal Family History Problem Relation Age of Onset Lupus Mother Cirrhosis Mother Family Status - Relation Status Age at Mother Reason for Visit and Comments: Specialty Pharmacy Note-Rinvoq Prescription [Other] [facility] 36on 10-07-2023 36 Last visit: 05/23/83 Next visit: cancelled by patient for 08/29/23 CBC/CMP: 07/19/23 [facility] 36 PT calling asking fo r provider to order different medication than Rinvoq because she cannot afford the $1000.00 copay. RN encouraged PT to contact her filling pharmacy inquiring of the PAP to assist with copay if financially eligible. RN also provided PT with [facility] Access pharmacy number to call for same information if applicable. PT verbalized appreciation and assistance. suresh Normal [facility] CBC AND AUTO DIFFon 07-19-19 24 ABSOLUTE BASOPHIL 0.1 X10E9/L Normal 0.0-0.2 [facility] Comment on above: Performed By: #### C MIREYA, CMP #### [facility] ([id number]) [address] [place] [address] ABSOLUTE NEUTROPHIL 4.6 X10E9/L Normal 1.5-6.6 [facility] Comment on above: Performed By: #### Tay GOMES, CMP #### [facility] ([id number]) [address] [place] [address] Basophils/100 WBC (Bld) 0.9 % Normal [facility] Comment on above: Performed By: #### Tay GOMES, CMP #### [facility] ([id number]) [address] [place] [address] Eosinophils (Bld) [#/Vol] 0.2 10*3/uL Normal 0.0-0.4 [facility] Comment on above: Performed By: #### C MIREYA, CMP #### [facility] ([id number]) [address] [place] [address] Eosinophils/100 WBC (Bld) 1.6 % Normal [facility] Comment on above: Performed By: #### Tay GOMES, CMP #### [facility] ([id number]) [address] [place] [address] Erythrocyte distribution width (RBC) [Ratio] 13.9 % Normal 11.5-15.0 [facility] Comment on above: Performed By: #### C MIREYA, CMP #### [facility] ([id number]) [address] [place] [address] Hematocrit (Bld) [Volume fraction] 38.0 % Normal 35-47 [facility] Comment on above: Performed By: #### C BCA, CMP #### [facility] ([id number]) [address] [place] [address] Hemoglobin (Bld) [Mass/Vol] 13.0 g/dL Normal 11.7-15.5 [facility] Comment on above: Performed By: #### C MIREYA, CMP #### [facility] ([id number]) [address] [place] [address] Lymphocytes (Bld) [#/Vol] 5.0 10*3/uL High 1.0-3.5 [facility] Comment on above: Performed By: #### C MIREYA, CMP #### [facility] ([id number]) [address] [place] [address] Lymphocytes/100 WBC (Bld) 48.0 % Normal [facility] Comment on above: Performed By: #### C BCA, CMP #### [facility] ([id number]) [address] [place] [address] MCH (RBC) [Entitic mass] 29.4 pg Normal 27-34 [facility] Comment on above: Performed By: #### C BCA, CMP #### [facility] ([id number]) [address] [place] [address] MCHC (RBC) [Mass/Vol] 34.3 g/dL Normal 32-36 [facility] Comment on above: Performed By: #### C BCA, CMP #### [facility] ([id number]) [address] [place] [address] 16815 MCV (RBC) [Entitic vol] 86 fL Normal 80-100 [facility] Comment on above: Performed By: #### C MIREYA, CMP #### [facility] ([id number]) [address] [place] [address] 74185 Monocytes (Bld) [#/Vol] 0.6 10*3/uL Normal 0-0.9 [facility] Comment on above: Performed By: #### C MIREYA, CMP #### [facility] ([id number]) [address] [place] [address] 74393 Monocytes/100 WBC (Bld) 5.5 % Normal [facility] Comment on above: Performed By: #### C MIREYA, CMP #### [facility] ([id number]) [address] [place] [address] 77915 Neutrophils/100 WBC (Bld) 44.0 % Normal [facility] Comment on above: Performed By: #### C MIREYA, CMP #### [facility] ([id number]) [address] [place] [address] 45579 Platelet mean volume (Bld) [Entitic vol] 7.0 fL Normal 7-12 [facility] Comment on above: Performed By: #### C MIREYA, CMP #### [facility] ([id number]) [address] [place] [address] 77216 Platelets (Bld) [#/Vol] 559 10*3/uL High 150-450 [facility] Comment on above: Performed By: #### C MIREYA, CMP #### [facility] ([id number]) [address] [place] [address] 82950 RBC COUNT 4.43 X10E12/L Normal 3.80-5.20 [facility] Comment on above: Performed By: #### C MIREYA, CMP #### [facility] ([id number]) [address] [place] [address] 64376 WBC (Bld) [#/Vol] 10.4 10*3/uL Normal 4.0-11.0 [facility] Comment on above: Performed By: #### C BCA, CMP #### [facility] ([id number]) [address] [place] [address] 25337 COMPREHENSIVE METABOLIC PANE Varghese 07-19-2023 Albumin [Mass/Vol] 4.2 g/dL Normal 3.2-5.3 [facility] Comment on above: Performed By: #### C BCA, CMP #### [facility] ([id number]) [address] [place] [address] 72620 ALP [Catalytic activity/Vol] 92 U/L Normal 39-130 [facility] Comment on above: Performed By: #### C BCA, CMP #### [facility] ([id number]) [address] [place] [address] 69432 ALT [Catalytic activity/Vol] 57 U/L High 0-31 [facility] Comment on above: Performed By: #### C BCA, CMP #### [facility] ([id number]) [address] [place] [address] 03185 Anion gap [Moles/Vol] 9 mmol/L Normal 5-15 [facility] Comment on above: Performed By: #### C BCA, CMP #### [facility] ([id number]) [address] [place] [address] 16422 AST [Catalytic activity/Vol] 58 U/L High 0-41 [facility] Comment on above: Performed By: #### C BCA, CMP #### [facility] ([id number]) [address] [place] [address] 40400 Bilirubin [Mass/Vol] 0.1 mg/dL Low 0.3-1.2 [facility] Comment on above: Performed By: #### C BCA, CMP #### [facility] ([id number]) [address] [place] [address] 26823 Calcium [Mass/Vol] 9.4 mg/dL Normal 8.5-10.5 [facility] Comment on above: Performed By: #### C BCA, CMP #### [facility] ([id number]) [address] [place] [address] 98633 Chloride [Moles/Vol] 102 mmol/L Normal 98-109 [facility] Comment on above: Performed By: #### C BCA, CMP #### [facility] ([id number]) [address] [place] [address] 55250 CO2 [Moles/Vol] 27 mmol/L Normal 22-32 [facility] Comment on above: Performed By: #### C BCA, CMP #### [facility] ([id number]) [address] [place] [address] 44099 Creatinine [Mass/Vol] 0.85 mg/dL Normal 0.40-1.00 [facility] Comment on above: Result Comment: METH OD TRACEABLE TO IDMS STANDARD Performed By: #### C BCA, CMP #### [facility] ([id number]) [address] [place] [address] 41569 eGFR (CKD-EPI) NON-RACE DEPENDENT >90 Normal >59 [facility] Comment on above: Result Comment: Reported eGFR is based on the CKD-EPI 2021 equation that does not use a race coefficient. Performed By: #### C BCA, CMP #### [facility] ([id number]) [address] [place] [address] 46025 Glucose [Mass/Vol] 92 mg/dL Normal 65-99 [facility] Comment on above: Performed By: #### C BCA, CMP #### [facility] ([id number]) [address] [place] [address] 16759 Potassium [Moles/Vol] 3.3 mmol/L Low 3.5-5.0 [facility] Comment on above: Performed By: #### C BCA, CMP #### [facility] ([id number]) [address] [place] [address] 61634 Protein [Mass/Vol] 8.0 g/dL Normal 6.0-8.0 [facility] Comment on above: Performed By: #### C BCA, CMP #### [facility] ([id number]) [address] [place] [address] 70732 Sodium [Moles/Vol] 138 mmol/L Normal 134-146 [facility] Comment on above: Performed By: #### C BCA, CMP #### [facility] ([id number]) [address] [place] [address] 74233 Urea nitrogen [Mass/Vol] 5 mg/dL Normal 5-23 [facility] Comment on above: Performed By: #### C BCA, CMP #### [facility] ([id number]) [address] [place] [address] ABDOMEN AND PELVIS WO CON Ton [...] Wilder MD on 07/19/2023 5:05 PM Normal [facility] URN MACROSCOPIC NURon 2023 BILIRUBIN ZENOBIA Negative Normal NEG [facility] Comment on above: Performed By: #### N UM #### [facility] ([id number]) [address] [place] [address] [place] [address] BLOOD/HGB ZENOBIA Negative Normal NEG [facility] Comment on above: Performed By: #### N UM #### [facility] ([id number]) [address] [place] [address] [place] [address] GLUCOSE ZENOBIA Negative Normal NEG [facility] Comment on above: Performed By: #### N UM #### [facility] ([id number]) [address] [place] [address] [place] [address] KETONES ZENOBIA Negative Normal NEG [facility] Comment on above: Performed By: #### N UM #### [facility] ([id number]) [address] [place] [address] [place] [address] LEUKOCYTE ESTERASE ZENOBIA Negative Normal NEG [facility] Comment on above: Performed By: #### N UM #### [facility] ([id number]) [address] [place] [address] [place] [address] NITRITE ZENOBIA Negative Normal NEG [facility] Comment on above: Performed By: #### N UM #### [facility] ([id number]) [address] [place] [address] [place] [address] PH ZENOBIA 6.0 Normal 5.0-8.5 [facility] Comment on above: Performed By: #### N UM #### [facility] ([id number]) [address] [place] [address] [place] [address] PROTEIN ZENOBIA Negative Normal NEG [facility] Comment on above: Performed By: #### N UM #### [facility] ([id number]) [address] [place] [address] [place] [address] SPECIFIC GRAVITY ZENOBIA 1.010 Normal 1.003-1.035 [facility] Comment on above: Performed By: #### N UM #### [facility] ([id number]) [address] [place] [address] 81950 UROBILINOGEN ZENOBIA 0.2 eu/dL Normal <1.1 [facility] Comment on above: Performed By: #### N UM #### [facility] ([id number]) [address] [place] [address] 59930 CBC WITH AUTO DIFFERENTIALon 05-23-2023 Basophils (Bld) [#/Vol] 0.09 10*3/uL Normal 0.00-0.20 [facility] Comment on above: Performed By: #### L [id number] ####[facility] (BEAKER)[address] [place] [address] Basophils/100 WBC (Bld) 0.6 % Normal 0.0-1.0 [facility] Comment on above: Performed By: #### L [id number] ####[facility] (BEAKER)[address] [place] [address] Eosinophils (Bld) [#/Vol] 0.21 10*3/uL Normal 0.00-0.50 [facility] Comment on above: Performed By: #### L [id number] ####[facility] (BEAKER)[address] [place] [address] Eosinophils/100 WBC (Bld) 1.4 % Normal 0.0-6.0 [facility] Comment on above: Performed By: #### L [id number] ####[facility] (BEAKER)[address] [place] [address] Erythrocyte distribution width (RBC) [Ratio] 13.6 % Normal 11.5-15.0 [facility] Comment on above: Performed By: #### L [id number] ####[facility] (BEAKER)[address] [place] [address] ERYTHROCYTE MEAN CORPUSCULAR HEMOGLOBIN CONCENTRATION (G/DL) BY AUTOMATED 33.5 g/dL Normal 32.0-35.0 [facility] Comment on above: Performed By: #### L [id number] ####[facility] ([facility])[address] [place] [address] Hematocrit (Bld) [Volume fraction] 39.4 % Normal 36.0-48.0 [facility] Comment on above: Performed By: #### L [id number] ####[facility] ([facility])[address] [place] [address] Hemoglobin (Bld) [Mass/Vol] 13.2 g/dL Normal 12.0-15.0 [facility] Comment on above: Performed By: #### L [id number] ####[facility] ([facility])[address] [place] [address] Immature granulocytes (Bld) [#/Vol] 0.08 10*3/uL Normal 0.00-0.20 [facility] Comment on above: Performed By: #### L [id number] ####[facility] (BEAKER)[address] [place] [address] Immature granulocytes/100 WBC (Bld) 0.5 % Normal 0.0-1.0 [facility] Comment on above: Performed By: #### L [id number] ####[facility] (BEAKER)[address] [place] [address] Lymphocytes (Bld) [#/Vol] 3.60 10*3/uL Normal 1.20-4.00 [facility] Comment on above: Performed By: #### L [id number] ####[facility] (BEAKER)[address] [place] [address] Lymphocytes/100 WBC (Bld) 23.2 % Normal 20.0-45.0 [facility] Comment on above: Performed By: #### L [id number] ####[facility] (BEAKER)[address] [place] [address] MCH (RBC) [Entitic mass] 29.7 pg Normal 27.0-33.0 [facility] Comment on above: Performed By: #### L [id number] ####[facility] ([facility])[address] [place] [address] MCV (RBC) [Entitic vol] 88.5 fL Normal 82.0-98.0 [facility] Comment on above: Performed By: #### L [id number] ####[facility] ([facility])[address] [place] [address] Monocytes (Bld) [#/Vol] 0.98 10*3/uL Normal 0.10-1.00 [facility] Comment on above: Performed By: #### L [id number] ####[facility] ([facility])[address] [place] [address] Monocytes/100 WBC (Bld) 6.3 % Normal 5.0-12.0 [facility] Comment on above: Performed By: #### L [id number] ####[facility] ([facility])[address] [place] [address] Neutrophils (Bld) [#/Vol] 10.58 10*3/uL High 1.60-7.60 [facility] Comment on above: Performed By: #### L [id number] ####[facility] ([facility])[address] [place] [address] Neutrophils/100 WBC (Bld) 68.0 % Normal 40.0-72.0 [facility] Comment on above: Performed By: #### L [id number] ####[facility] ([facility])[address] [place] [address] NRBC (PER 100 WBCS) BY AUTOMATED COUNT 0.0 % Normal 0 [facility] Comment on above: Performed By: #### L [id number] ####[facility] (BEAKER)[address] [place] [address] PLATELETS (10*3/UL) IN BLOOD AUTOMATED COUNT 562 10*3/uL High 150-400 [facility] Comment on above: Performed By: #### L [id number] ####[facility] ([facility])[address] [place] [address] RBC (Bld) [#/Vol] 4.45 10*6/uL Normal 3.80-5.00 [facility] Comment on above: Performed By: #### L [id number] ####[facility] ([facility])[address] [place] [address] WBC (Bld) [#/Vol] 15.54 10*3/uL High 4.00-10.60 [facility] Comment on above: Performed By: #### L [id number] ####[facility] ([facility])[address] [place] [address] COMPREHENSIVE METABOLIC PANE [facility] 05-23-2023 Albumin [Mass/Vol] 4.7 g/dL Normal 3.5-5.7 [facility] Comment on above: Performed By: #### L [id number] #### [facility] ([facility]) [address] [place] [address] ALP [Catalytic activity/Vol] 98 U/L Normal 34-104 [facility] Comment on above: Performed By: #### L [id number] #### [facility] ([facility]) [address] [place] [address] ALT [Catalytic activity/Vol] 42 U/L Normal 7-52 [facility] Comment on above: Performed By: #### L [id number] #### [facility] ([facility]) [address] [place] [address] Anion gap [Moles/Vol] 11 mmol/L Normal 7-20 [facility] Comment on above: Performed By: #### L [id number] #### [facility] ([facility]) [address] [place] [address] AST [Catalytic activity/Vol] 29 U/L Normal 13-39 [facility] Comment on above: Performed By: #### L [id number] #### [facility] ([facility]) [address] [place] [address] Bilirubin [Mass/Vol] 0.3 mg/dL Normal 0.3-1.0 [facility] Comment on above: Performed By: #### L [id number] #### [facility] ([facility]) [address] [place] [address] Calcium [Mass/Vol] 10.3 mg/dL Normal 8.6-10.3 [facility] Comment on above: Performed By: #### L [id number] #### [facility] ([facility]) [address] [place] [address] Chloride [Moles/Vol] 100 mmol/L Normal 98-107 [facility] Comment on above: Performed By: #### L [id number] #### [facility] ([facility]) [address] [place] [address] CO2 [Moles/Vol] 28 mmol/L Normal 21-31 [facility] Comment on above: Performed By: #### L [id number] #### [facility] ([facility]) [address] [place] [address] Creatinine [Mass/Vol] 0.73 mg/dL Normal 0.60-1.20 [facility] Comment on above: Performed By: #### L [id number] #### [facility] ([facility]) [address] [place] [address] GLOMERULAR FILTRATION RATE ML/MIN/1.73 SQ M.PREDICTED 109.2 mL/min/1.73m*2 Normal >60.0 [facility] Comment on above: Result Comment: The [facility]???s estimated glomerular filtration rate (eGFR) will no [...] individuals. Performed By: #### L [id number] #### [facility] ([facility]) [address] [place] [address] Glucose [Mass/Vol] 83 mg/dL Normal 70-100 [facility] Comment on above: Performed By: #### L [id number] #### [facility] ([facility]) [address] [place] [address] Potassium [Moles/Vol] 3.4 mmol/L Low 3.5-5.1 [facility] Comment on above: Performed By: #### L [id number] #### [facility] ([facility]) [address] [place] [address] Protein [Mass/Vol] 7.9 g/dL Normal 6.0-8.3 [facility] Comment on above: Performed By: #### L [id number] #### [facility] ([facility]) [address] [place] [address] Sodium [Moles/Vol] 136 mmol/L Normal 136-145 [facility] Comment on above: Performed By: #### L [id number] #### [facility] ([facility]) [address] [place] [address] Urea nitrogen [Mass/Vol] 7 mg/dL Normal 7-25 [facility] Comment on above: Performed By: #### L [id number] #### [facility] ([facility]) [address] [place] [address] UREA NITROGEN/CREATININE (MASS RATIO) IN SER/PLAS 9.6 Normal [facility] Comment on above: Performed By: #### L [id number] #### [facility] ([facility]) [address] [place] [address] Follow-Upon 05-23-2023 Follow-Up [id number] Sonia Waite 1985 F Date Provider Department Center 05/23/2023 LUNA LOUIE C [facility] Chris Heal Family History Problem Relation Age of Onset Lupus Mother Cirrhosis Mother Family Status - Relation Status Age at Mother Level of Service:96147 ND OFFICE/OUTPATIENT ESTABLISHED MOD MDM 30-39 MIN Reason for Visit and Comments: Follow-up [526078] Normal [facility] Orders Onlyon 05-23-2023 Orders Only [id number] Sonia Waite Ilya 1985 F Date Provider Department Center 05/23/2023 RADHA ALONSO [facility] Chris Heal Family History Problem Relation Age of Onset Lupus Mother Cirrhosis Mother Family Status - Relation Status Age at Mother Normal [facility] URINALYSISon 05-23-2023 BILIRUBIN, TOTAL PRESENCE IN URINE Negative Normal Negative [facility] Comment on above: Order Comment: Micro scopics not performed on urines with negative chemical reactions unless requested on original order. Performed By: #### L [id number] #### [facility] (AKER) [address] [place] [address] Clarity (U) Clear Normal Clear [facility] Comment on above: Order Comment: Micro scopics not performed on urines with negative chemical reactions unless requested on original order. Performed By: #### L [id number] #### [facility] (BEAKER) [address] [place] [address] Color (U) Yellow Normal Yellow [facility] Comment on above: Order Comment: Micro scopics not performed on urines with negative chemical reactions unless requested on original order. Performed By: #### L [id number] #### [facility] (BEAKER) [address] [place] [address] Glucose (U) [Mass/Vol] Negative Normal Negative [facility] Comment on above: Order Comment: Micro scopics not performed on urines with negative chemical reactions unless requested on original order. Performed By: #### L [id number] #### [facility] (BEAKER) [address] [place] [address] HEMOGLOBIN PRESENCE IN URINE Negative Normal Negative [facility] Comment on above: Order Comment: Micro scopics not performed on urines with negative chemical reactions unless requested on original order. Performed By: #### L [id number] #### [facility] (BEAKER) [address] [place] [address] Ketones Ql (U) Negative Normal Negative [facility] Comment on above: Order Comment: Micro scopics not performed on urines with negative chemical reactions unless requested on original order. Performed By: #### L [id number] #### [facility] ([facility]) [address] [place] [address] LEUKOCYTE ESTERASE PRESENCE IN URINE BY TEST STRIP Negative Normal Negative [facility] Comment on above: Order Comment: Micro scopics not performed on urines with negative chemical reactions unless requested on original order. Performed By: #### L [id number] #### [facility] ([facility]) [address] [place] [address] NITRITE PRESENCE IN URINE Negative Normal Negative [facility] Comment on above: Order Comment: Micro scopics not performed on urines with negative chemical reactions unless requested on original order. Performed By: #### L [id number] #### [facility] ([facility]) [address] [place] [address] pH (U) 7.0 [pH] Normal 5.0-8.0 [facility] Comment on above: Order Comment: Micro scopics not performed on urines with negative chemical reactions unless requested on original order. Performed By: #### L [id number] #### [facility] ([facility]) [address] [place] [address] Protein (U) [Mass/Vol] Negative Normal Negative [facility] Comment on above: Order Comment: Micro scopics not performed on urines with negative chemical reactions unless requested on original order. Performed By: #### L [id number] #### [facility] ([facility]) [address] [place] [address] Specific gravity (U) [Rel density] 1.004 Low 1.015-1.020 [facility] Comment on above: Order Comment: Micro scopics not performed on urines with negative chemical reactions unless requested on original order. Performed By: #### L [id number] #### [facility] ([facility]) [address] [place] [address] 36on 04-09-2023 36 Last visit 02/26/23 Upcoming visit 05/23/23 Last cbc/cmp 02/12/23 [facility] 36on 03-18-2023 36 Last visit 02/26/23 Upcoming visit 05/23/23 Last cbc/cmp 02/12/23 [facility] Follow-Upon 02-26-2023 Follow-Up [id number] Sonia Waite 1985 F Date Provider Department [place] 02/26/2023 Minnie-LUNA SPICER [facility] Chris Heal Family History Problem Relation Age of Onset Lupus Mother Cirrhosis Mother Family Status - Relation Status Age at Mother Level of Service:88660 ND OFFICE/OUTPATIENT ESTABLISHED MOD MDM 30-39 MIN () Reason for Visit and Comments: Follow-up [[id number]] [facility] 36on 02-25-2023 36 Pt scheduled [facility] 36 Pt called to give update She states she is almost complete w/ medrol dose elian that was rx'd last week, and her pain is still the same no change Pain 7/10 per pt She would like to know what next steps will be. Please advise and I can call pt w/response [facility] 36on 02-22-2023 36 Pt notified [facility] 36 Pt is having flare-u p. She is currently unable to walk and describes pain as stabbing and pins and needles [facility] Telephoneon 02-22-2023 Telephone [id number] Sonia Waite 1985 F Date Provider Department [place] 02/22/2023 [facility] Chris Heal Family History Problem Relation Age of Onset Lupus Mother Cirrhosis Mother Family Status - Relation Status Age at Mother [facility] CBC WITH AUTO DIFFERENTIALon 02-12-2023 Basophils (Bld) [#/Vol] 0.06 10*3/uL Normal 0.00-0.20 [facility] Comment on above: Performed By: #### L [id number] #### [facility] (BEAKER) [address] [place] [address] Basophils/100 WBC (Bld) 0.5 % Normal 0.0-1.0 [facility] Comment on above: Performed By: #### L [id number] #### [facility] (BEAKER) [address] [place] [address] Eosinophils (Bld) [#/Vol] 0.10 10*3/uL Normal 0.00-0.50 [facility] Comment on above: Performed By: #### L [id number] #### [facility] (BEAKER) [address] [place] [address] Eosinophils/100 WBC (Bld) 0.8 % Normal 0.0-6.0 [facility] Comment on above: Performed By: #### L [id number] #### [facility] ([facility]) [address] [place] [address] Erythrocyte distribution width (RBC) [Ratio] 15.6 % High 11.5-15.0 [facility] Comment on above: Performed By: #### L [id number] #### [facility] ([facility]) [address] [place] [address] ERYTHROCYTE MEAN CORPUSCULAR HEMOGLOBIN CONCENTRATION (G/DL) BY AUTOMATED 32.5 g/dL Normal 32.0-35.0 [facility] Comment on above: Performed By: #### L [id number] #### [facility] (BEAKER) [address] [place] [address] Hematocrit (Bld) [Volume fraction] 38.2 % Normal 36.0-48.0 [facility] Comment on above: Performed By: #### L [id number] #### [facility] (BEAKER) [address] [place] [address] Hemoglobin (Bld) [Mass/Vol] 12.4 g/dL Normal 12.0-15.0 [facility] Comment on above: Performed By: #### L [id number] #### [facility] (BEAKER) [address] [place] [address] Immature granulocytes (Bld) [#/Vol] 0.07 10*3/uL Normal 0.00-0.20 [facility] Comment on above: Performed By: #### L [id number] #### [facility] ([facility]) [address] [place] [address] Immature granulocytes/100 WBC (Bld) 0.6 % Normal 0.0-1.0 [facility] Comment on above: Performed By: #### L [id number] #### [facility] ([facility]) [address] [address] Lymphocytes (Bld) [#/Vol] 2.96 10*3/uL Normal 1.20-4.00 [facility] Comment on above: Performed By: #### L [id number] #### [facility] ([facility]) [address] [address] Lymphocytes/100 WBC (Bld) 23.7 % Normal 20.0-45.0 [facility] Comment on above: Performed By: #### L [id number] #### [facility] ([facility]) [address] [place] [address] MCH (RBC) [Entitic mass] 29.5 pg Normal 27.0-33.0 [facility] Comment on above: Performed By: #### L [id number] #### [facility] ([facility]) [address] [place] [address] MCV (RBC) [Entitic vol] 91.0 fL Normal 82.0-98.0 [facility] Comment on above: Performed By: #### L [id number] #### [facility] ([facility]) [address] [place] [address] Monocytes (Bld) [#/Vol] 0.72 10*3/uL Normal 0.10-1.00 [facility] Comment on above: Performed By: #### L [id number] #### [facility] (BEAKER) [address] [place] [address] Monocytes/100 WBC (Bld) 5.8 % Normal 5.0-12.0 [facility] Comment on above: Performed By: #### L [id number] #### [facility] ([facility]) [address] [place] [address] Neutrophils (Bld) [#/Vol] 8.60 10*3/uL High 1.60-7.60 [facility] Comment on above: Performed By: #### L [id number] #### [facility] ([facility]) [address] [place] [address] Neutrophils/100 WBC (Bld) 68.6 % Normal 40.0-72.0 [facility] Comment on above: Performed By: #### L [id number] #### [facility] ([facility]) [address] [place] [address] NRBC (PER 100 WBCS) BY AUTOMATED COUNT 0.0 % Normal 0 [facility] Comment on above: Performed By: #### L [id number] #### [facility] ([facility]) [address] [place] [address] PLATELETS (10*3/UL) IN BLOOD AUTOMATED COUNT 515 10*3/uL High 150-400 [facility] Comment on above: Performed By: #### L [id number] #### [facility] ([facility]) [address] [place] [address] RBC (Bld) [#/Vol] 4.20 10*6/uL Normal 3.80-5.00 [facility] Comment on above: Performed By: #### L [id number] #### [facility] ([facility]) [address] [place] [address] WBC (Bld) [#/Vol] 12.51 10*3/uL High 4.00-10.60 [facility] Comment on above: Performed By: #### L [id number] #### [facility] ([facility]) [address] [place] [address] COMPREHENSIVE METABOLIC PANE Varghese 02-12-2023 Albumin [Mass/Vol] 4.3 g/dL Normal 3.5-5.7 [facility] Comment on above: Performed By: #### L [id number] ####[facility] ([facility])[address] [place] [address] ALP [Catalytic activity/Vol] 69 U/L Normal 34-104 [facility] Comment on above: Performed By: #### L [id number] ####[facility] ([facility])[address] [place] [address] ALT [Catalytic activity/Vol] 48 U/L Normal 7-52 [facility] Comment on above: Performed By: #### L [id number] ####[facility] ([facility])[address] [place] [address] Anion gap [Moles/Vol] 13 mmol/L Normal 7-20 [facility] Comment on above: Performed By: #### L [id number] ####[facility] ([facility])[address] [place] [address] AST [Catalytic activity/Vol] 39 U/L Normal 13-39 [facility] Comment on above: Performed By: #### L [id number] ####[facility] ([facility])[address] [place] [address] Bilirubin [Mass/Vol] 0.3 mg/dL Normal 0.3-1.0 [facility] Comment on above: Performed By: #### L [id number] ####[facility] ([facility])[address] [place] [address] Calcium [Mass/Vol] 9.9 mg/dL Normal 8.6-10.3 [facility] Comment on above: Performed By: #### L [id number] ####[facility] ([facility])[address] [place] [address] Chloride [Moles/Vol] 103 mmol/L Normal 98-107 [facility] Comment on above: Performed By: #### L [id number] ####[facility] (BEAKER)[address] [place] [address] CO2 [Moles/Vol] 24 mmol/L Normal 21-31 [facility] Comment on above: Performed By: #### L [id number] ####[facility] ([facility])[address] [place] [address] Creatinine [Mass/Vol] 0.80 mg/dL Normal 0.60-1.20 [facility] Comment on above: Performed By: #### L [id number] ####[facility] ([facility])[address] [place] [address] GLOMERULAR FILTRATION RATE ML/MIN/1.73 SQ M.PREDICTED 97.9 mL/min/1.73m*2 Normal >60.0 [facility] Comment on above: Result Comment: The [facility]???s estimated glomerular filtration rate (eGFR) will no [...] of individuals. Performed By: #### L [id number] ####[facility] ([facility])[address] [place] [address] Glucose [Mass/Vol] 101 mg/dL High 70-100 [facility] Comment on above: Performed By: #### L [id number] ####[facility] ([facility])[address] [place] [address] Potassium [Moles/Vol] 3.5 mmol/L Normal 3.5-5.1 [facility] Comment on above: Performed By: #### L [id number] ####[facility] ([facility])[address] [place] [address] Protein [Mass/Vol] 7.2 g/dL Normal 6.0-8.3 [facility] Comment on above: Performed By: #### L [id number] ####[facility] ([facility])[address] [place] [address] Sodium [Moles/Vol] 136 mmol/L Normal 136-145 [facility] Comment on above: Performed By: #### L [id number] ####[facility] ([facility])[address] [place] [address] Urea nitrogen [Mass/Vol] 8 mg/dL Normal 7-25 [facility] Comment on above: Performed By: #### L [id number] ####[facility] ([facility])[address] [place] [address] UREA NITROGEN/CREATININE (MASS RATIO) IN SER/PLAS 10.0 [facility] Comment on above: Performed By: #### L [id number] ####[facility] ([facility])[address] [place] [address] Follow-Upon 02-12-2023 Follow-Up [id number] Sonia Waite 1985 Provider Department Center 02/12/2023 [facility] Chris Heal Family History Problem Relation Age of Onset Lupus Mother Cirrhosis Mother Family Status - Relation Status Age at Mother Level of Service:49761 ND OFFICE/OUTPATIENT ESTABLISHED MOD MDM 30-39 MIN () Reason for Visit and Comments: Follow-up [[id number]] - 3 month follow up [facility] Follow-Upon 01-25-2023 Follow-Up [id number] Sonia Waite 1985 Provider Department Center 01/25/2023 Iman-SHAHNAZ HANNAH [facility] SLEEP [facility] Family History Problem Relation Age of Onset Lupus Mother Cirrhosis Mother Family Status - Relation Status Age at Mother Level of Service:56781 ND OFFICE/OUTPATIENT ESTABLISHED LOW MDM 20-29 MIN Reason for Visit and Comments: Follow-up [[id number]] - 6 month follow up- PAP [facility] 36on 12-11-2022 36 Please approve rx yesterday had no directions please add directions and approve rx if appropriate [facility] Refillon 12-11-2022 Refill [id number] Sonia Waite 1985 F Date Provider Department Center 12/11/2022 DENISHATRICIAKINJAL SLATER [facility] RHEUM Chris Heal Family History Problem Relation Age of Onset Lupus Mother Cirrhosis Mother Family Status - Relation Status Age at Mother Reason for Visit and Comments: Med Refill [[id number]] [facility] 36on 12-10-2022 36 Last visit 11/15/22 Upcoming visit 02/12/23 Last cbc/cmp 11/15/22 [facility] Refillon 12-10-2022 Refill [id number] Sonia Waite 1985 F Date Provider Department Center 12/10/2022 KINJAL SIMON [facility] Chris Heal Family History Problem Relation Age of Onset Lupus Mother Cirrhosis Mother Family Status - Relation Status Age at Mother Reason for Visit and Comments: Med Refill [[id number]] [facility] CBC WITH AUTO DIFFERENTIALon 11-15-2022 Erythrocyte distribution width (RBC) [Ratio] 13.3 % Normal 11.5-15.0 [facility] Comment on above: Performed By: #### L [id number] #### [facility] ([facility]) [address] [place] [address] ERYTHROCYTE MEAN CORPUSCULAR HEMOGLOBIN CONCENTRATION (G/DL) BY AUTOMATED 32.6 g/dL Normal 32.0-35.0 [facility] Comment on above: Performed By: #### L [id number] #### [facility] ([facility]) [address] [place] [address] Hematocrit (Bld) [Volume fraction] 40.8 % Normal 36.0-48.0 [facility] Comment on above: Performed By: #### L [id number] #### [facility] ([facility]) [address] [place] [address] Hemoglobin (Bld) [Mass/Vol] 13.3 g/dL Normal 12.0-15.0 [facility] Comment on above: Performed By: #### L [id number] #### [facility] ([facility]) [address] [place] [address] MCH (RBC) [Entitic mass] 30.2 pg Normal 27.0-33.0 [facility] Comment on above: Performed By: #### L [id number] #### [facility] ([facility]) [address] [place] [address] MCV (RBC) [Entitic vol] 92.7 fL Normal 82.0-98.0 [facility] Comment on above: Performed By: #### L [id number] #### [facility] ([facility]) [address] [place] [address] NRBC (PER 100 WBCS) BY AUTOMATED COUNT 0.0 % Normal 0 [facility] Comment on above: Performed By: #### L [id number] #### [facility] ([facility]) [address] [place] [address] PLATELETS (10*3/UL) IN BLOOD AUTOMATED COUNT 526 10*3/uL High 150-400 [facility] Comment on above: Performed By: #### L [id number] #### [facility] ([facility]) [address] [place] [address] RBC (Bld) [#/Vol] 4.40 10*6/uL Normal 3.80-5.00 [facility] Comment on above: Performed By: #### L [id number] #### [facility] ([facility]) [address] [place] [address] WBC (Bld) [#/Vol] 14.19 10*3/uL High 4.00-10.60 [facility] Comment on above: Performed By: #### L [id number] #### [facility] ([facility]) [address] [place] [address] COMPREHENSIVE METABOLIC PANE Varghese 11-15-2022 Albumin [Mass/Vol] 4.6 g/dL Normal 3.5-5.7 [facility] Comment on above: Performed By: #### L [id number] #### [facility] ([facility]) [address] [place] [address] ALP [Catalytic activity/Vol] 82 U/L Normal 34-104 [facility] Comment on above: Performed By: #### L [id number] #### [facility] ([facility]) [address] [place] [address] ALT [Catalytic activity/Vol] 36 U/L Normal 7-52 [facility] Comment on above: Performed By: #### L [id number] #### [facility] ([facility]) [address] [place] [address] Anion gap [Moles/Vol] 13 mmol/L Normal 7-20 [facility] Comment on above: Performed By: #### L [id number] #### [facility] ([facility]) [address] [place] [address] AST [Catalytic activity/Vol] 31 U/L Normal 13-39 [facility] Comment on above: Performed By: #### L [id number] #### [facility] ([facility]) [address] [place] [address] Bilirubin [Mass/Vol] 0.3 mg/dL Normal 0.3-1.0 [facility] Comment on above: Performed By: #### L [id number] #### [facility] ([facility]) [address] [place] [address] Calcium [Mass/Vol] 10.1 mg/dL Normal 8.6-10.3 [facility] Comment on above: Performed By: #### L [id number] #### [facility] ([facility]) [address] [place] [address] Chloride [Moles/Vol] 99 mmol/L Normal 98-107 [facility] Comment on above: Performed By: #### L [id number] #### [facility] ([facility]) [address] [place] [address] CO2 [Moles/Vol] 28 mmol/L Normal 21-31 [facility] Comment on above: Performed By: #### L [id number] #### [facility] ([facility]) [address] [place] [address] Creatinine [Mass/Vol] 0.79 mg/dL Normal 0.60-1.20 [facility] Comment on above: Performed By: #### L [id number] #### [facility] ([facility]) [address] [place] [address] GLOMERULAR FILTRATION RATE ML/MIN/1.73 SQ M.PREDICTED 100.0 mL/min/1.73m*2 Normal >60.0 [facility] Comment on above: Result Comment: The [facility]???s estimated glomerular filtration rate (eGFR) will no [...] individuals. Performed By: #### L [id number] #### [facility] ([facility]) [address] [place] [address] Glucose [Mass/Vol] 82 mg/dL Normal 70-100 [facility] Comment on above: Performed By: #### L [id number] #### [facility] ([facility]) [address] [place] [address] Potassium [Moles/Vol] 3.4 mmol/L Low 3.5-5.1 [facility] Comment on above: Performed By: #### L [id number] #### [facility] ([facility]) [address] [place] [address] Protein [Mass/Vol] 8.0 g/dL Normal 6.0-8.3 [facility] Comment on above: Performed By: #### L [id number] #### [facility] ([facility]) [address] [place] [address] Sodium [Moles/Vol] 137 mmol/L Normal 136-145 [facility] Comment on above: Performed By: #### L [id number] #### [facility] ([facility]) [address] [place] [address] Urea nitrogen [Mass/Vol] 8 mg/dL Normal 7-25 [facility] Comment on above: Performed By: #### L [id number] #### [facility] ([facility]) [address] [place] [address] UREA NITROGEN/CREATININE (MASS RATIO) IN SER/PLAS 10.1 Normal [facility] Comment on above: Performed By: #### L [id number] #### [facility] ([facility]) [address] [place] [address] Follow-Upon 11-15-2022 Follow-Up [id number] Sonia Waite 1985 F Date Provider Department Center 11/15/2022 Minnie-LUNA SPICER C RHEUM Chris Heal Family History Problem Relation Age of Onset Lupus Mother Cirrhosis Mother Family Status - Relation Status Age at Mother Level of Service:05738 ND OFFICE/OUTPATIENT ESTABLISHED MOD MDM 30-39 MIN () Reason for Visit and Comments: Follow-up [[id number]] Normal [facility] MANUAL DIFFERENTIALon 2022 BASOPHILS (10*3/UL) IN BLOOD BY CALCULATION 0.07 10*3/uL Normal 0.00-0.20 [facility] Comment on above: Performed By: #### L [id number] ####[facility] ([facility])[address] [place] [address] BASOPHILS/100 LEUKOCYTES IN BLOOD BY AUTOMATED COUNT 0.5 % Normal 0.0-1.0 [facility] Comment on above: Performed By: #### L [id number] ####[facility] ([facility])[address] [place] [address] EOSINOPHILS (10*3/UL) IN BLOOD BY CALCULATION 0.16 10*3/uL Normal 0.00-0.50 [facility] Comment on above: Performed By: #### L [id number] ####[facility] ([facility])[address] [facility] [place] [address] EOSINOPHILS/100 LEUKOCYTES IN BLOOD BY AUTOMATED COUNT 1.1 % Normal 0.0-6.0 [facility] Comment on above: Performed By: #### L [id number] ####[facility] ([facility])[address] [place] [address] IMMATURE GRANULOCYTES (10*3/UL) IN BLOOD BY CALCULATION 0.11 10*3/uL Normal 0.00-0.20 [facility] Comment on above: Performed By: #### L [id number] ####[facility] ([facility])[address] [place] [address] IMMATURE GRANULOCYTES/100 LEUKOCYTES IN BLOOD BY AUTOMATED COUNT 0.8 % Normal 0.0-1.0 [facility] Comment on above: Performed By: #### L [id number] ####[facility] ([facility])[address] [place] [address] LYMPHOCYTES (10*3/UL) IN BLOOD BY CALCULATION 5.31 10*3/uL High 1.20-4.00 [facility] Comment on above: Performed By: #### L [id number] ####[facility] ([facility])[address] [place] [address] LYMPHOCYTES/100 LEUKOCYTES IN BLOOD BY AUTOMATED COUNT 37.4 % Normal 20.0-45.0 [facility] Comment on above: Performed By: #### L [id number] ####[facility] ([facility])[address] [place] [address] MONOCYTES (10*3/UL) IN BLOOD BY CALCUATION 0.99 10*3/uL Normal 0.10-1.00 [facility] Comment on above: Performed By: #### L [id number] ####[facility] ([facility])[address] [place] [address] MONOCYTES/100 LEUKOCYTES IN BLOOD BY AUTOMATED COUNT 7.0 % Normal 5.0-12.0 [facility] Comment on above: Performed By: #### L [id number] ####[facility] ([facility])[address] [place] [address] NEUTROPHILS (10*3/UL) IN BLOOD BY CALCULATION 7.5 10*3/uL Normal 1.6-7.6 [facility] Comment on above: Performed By: #### L [id number] ####[facility] (BEAKER)[address] [place] [address] NEUTROPHILS/100 LEUKOCYTES IN BLOOD BY AUTOMATED COUNT 53.2 % Normal 40.0-72.0 [facility] Comment on above: Performed By: #### L [id number] ####[facility] (BEAKER)[address] [place] [address] PAP ACOG PANEL 2: 30 to 65on 10-17-2022 . . Normal [facility] Comment on above: Result Comment: Perf ormed at: WB Performed By: #### [id number] #### [facility] [address] [place] [address] Dr. Cedric Dillon Age Gdln ACOG Testing 30-65 Normal [facility] Comment on above: Performed By: #### [id number] #### [facility] [address] [place] [address] Dr. Cedric Dillon DIAGNOSIS: Comment Normal [facility] Comment on above: Result Comment: NEGA TIVE FOR INTRAEPITHELIAL LESION OR MALIGNANCY. PREDOMINANCE OF COCCOBACILLI CONSISTENT WITH SHIFT IN VAGINAL JIGNA IS PRESENT. Performed at: WB Performed By: #### [id number] #### [facility] [address] [place] [address] Dr. Cedric Dillon HPV Aptima Negative Normal Negative [facility] Comment on above: Result Comment: This nucleic acid amplification test detects fourteen high-risk HPV types (16,18,31,33,35,39,45,51,52,56,58,59,66,68) without differentiation. Performed at: =G Performed By: #### [id number] #### [facility] [address] [place] [address] Dr. Cedric Dillon HPV Genotype Reflex Comment Normal [facility] Comment on above: Result Comment: Crit eria not met, HPV Genotype not performed. Performed at: WB Performed By: #### [id number] #### [facility] [address] [place] [address] Dr. Cedric Dillon Methodology: Comment Normal [facility] Comment on above: Result Comment: This liquid based ThinPrep(R) pap test was screened with the use of an image guided system. Performed at: WB Performed By: #### [id number] #### [facility] [address] [place] [address] Dr. Cedric Dillon Note: Comment Normal [facility] Comment on above: Result Comment: The Pap smear is a screening test designed to aid in the detection of premalignant and malignant conditions of the uterine cervix. It is not a diagnostic procedure and should not be used as the sole means of detecting cervical cancer. Both false-positive and false-negative reports do occur. . Performed at: WB Performed By: #### [id number] #### [facility] [address] [place] [address] Dr. Cedric Dillon Performed by: Comment Normal [facility] Comment on above: Result Comment: Florecita Magdaleno, Plastic Design Applier (ASCP) Performed at: WB Performed By: #### [id number] #### [facility] [address] [place] [address] Dr. Cedric Dillon Specimen adequacy: Comment Normal [facility] Comment on above: Result Comment: Sati sfactory for evaluation. Performed at: WB Performed By: #### [id number] #### [facility] [address] [place] [address] Dr. Cedric Dillon BNPon 08-22-2022 Natriuretic peptide B (Bld) [Mass/Vol] 8.0 pg/mL Normal <=450.0 [facility] Comment on above: Performed By: #### H STROPN, TSH, BNP, CMP #### [facility] [address] [place] [address] Dr. Cedric Dillon CBC AUTO DIFFon 08-22-2022 BASO # 0.1 103/ul Normal 0.0-0.1 [facility] Comment on above: Performed By: #### H STROPN, TSH, BNP, CMP #### [facility] [address] [place] [address] Dr. Cedric Dillon Basophils/100 WBC (Bld) 0.5 % Normal 0.2-2.0 [facility] Comment on above: Performed By: #### H STROPN, TSH, BNP, CMP #### [facility] [address] [place] [address] Dr. Cedric Dillon EO # 0.1 103/ul Normal 0.0-0.7 [facility] Comment on above: Performed By: #### H STROPN, TSH, BNP, CMP #### [facility] [address] [place] [address] Dr. Cedric Dillon Eosinophils/100 WBC (Bld) 0.8 % Critically low 0.9-7.0 [facility] Comment on above: Performed By: #### H STROPN, TSH, BNP, CMP #### [facility] [address] [place] [address] Dr. Cedric Dillon Erythrocyte distribution width (RBC) [Ratio] 14.6 % Normal 11.0-15.0 [facility] Comment on above: Performed By: #### H STROPN, TSH, BNP, CMP #### [facility] [address] [place] [address] Dr. Cedric Dillon Hematocrit (Bld) [Volume fraction] 37.7 % Normal 36.0-48.0 [facility] Comment on above: Performed By: #### H STROPN, TSH, BNP, CMP #### [facility] [address] [place] [address] Dr. Cedric Dillon Hemoglobin (Bld) [Mass/Vol] 12.9 g/dL Normal 12.0-16.0 [facility] Comment on above: Performed By: #### H STROPN, TSH, BNP, CMP #### [facility] [address] [place] [address] Dr. Cedric Dillon IG # 0.08 10e3/ul Critically high 0.00-0.03 [facility] Comment on above: Performed By: #### H STROPN, TSH, BNP, CMP #### [facility] [address] [place] [address] Dr. Cedric Dillon IG % 0.7 % Critically high 0.0-0.5 [facility] Comment on above: Performed By: #### H STROPN, TSH, BNP, CMP #### [facility] [address] [place] [address] Dr. Cedric Dillon LYMPH # 5.0 103/ul Critically high 1.2-3.8 [facility] Comment on above: Performed By: #### H STROPN, TSH, BNP, CMP #### [facility] [address] [place] [address] Dr. Cedric Dillon Lymphocytes/100 WBC (Bld) 44.7 % Normal 20.5-60.[address] [facility] Comment on above: Performed By: #### H STROPN, TSH, BNP, CMP #### [facility] [address] [place] [address] Dr. Cedric Dillon MANUAL DIFF REQ NO Normal [facility] Comment on above: Performed By: #### H STROPN, TSH, BNP, CMP #### [facility] [address] [place] [address] Dr. Cedric Dillon MCH (RBC) [Entitic mass] 31.1 pg Normal 26.7-34.[address] [facility] Comment on above: Performed By: #### H STROPN, TSH, BNP, CMP #### [facility] [address] [place] [address] Dr. Cedric Dillon MCHC (RBC) [Mass/Vol] 34.2 g/dL Normal 29.9-35.[address] [facility] Comment on above: Performed By: #### H STROPN, TSH, BNP, CMP #### [facility] [address] [place] [address] Dr. Cedric Dillon MCV (RBC) [Entitic vol] 90.8 fL Normal 81.0-99.[address] [facility] Comment on above: Performed By: #### H STROPN, TSH, BNP, CMP #### [facility] [address] [place] [address] Dr. Cedric Dillon MONO # 0.7 103/ul Normal 0.3-0.[address] [facility] Comment on above: Performed By: #### H STROPN, TSH, BNP, CMP #### [facility] [address] [address] [address] Cedric Dillon Monocytes/100 WBC (Bld) 6.6 % Normal 1.7-12.[address] [facility] Comment on above: Performed By: #### H STROPN, TSH, BNP, CMP #### [facility] [address] [place] [address] Dr. Cedric Dillon NEUT # 5.2 103/ul Normal 1.4-6.[address] [facility] Comment on above: Performed By: #### H STROPN, TSH, BNP, CMP #### [facility] [address] [place] [address] Dr. Cedric Dillon Neutrophils/100 WBC (Bld) 46.7 % Normal 43.0-75.[address] [facility] Comment on above: Performed By: #### H STROPN, TSH, BNP, CMP #### [facility] [address] [address] [address] Cedric Dillon Platelet mean volume (Bld) [Entitic vol] 8.7 fL Critically low 9.5-13.[address] [facility] Comment on above: Performed By: #### H STROPN, TSH, BNP, CMP #### [facility] [address] [place] [address] Dr. Cedric Dillon PLT 542 103/ul Critically high 150-450 [facility] Comment on above: Performed By: #### H STROPN, TSH, BNP, CMP #### [facility] [address] [place] [address] Dr. Cedric Dillon RBC 4.15 106/ul Critically low 4.20-5.40 [facility] Comment on above: Performed By: #### H STROPN, TSH, BNP, CMP #### [facility] [address] [place] [address] Dr. Cedric Dillon WBC 11.2 103/ul Critically high 4.0-11.0 [facility] Comment on above: Performed By: #### H STROPN, TSH, BNP, CMP #### [facility] [address] [place] [address] Dr. Cedric Dillon D-DIMERon 08-22-2022 D-DIMER <0.19 Normal <=0.59 [facility] Comment on above: Performed By: #### P TT, DDIM, PT #### [facility] [address] [place] [address] Dr. Cedric Dillon D-DIMER COMMENTS SEE BELOW Normal [facility] Comment on above: Result Comment: Incr eases [...] DDIM, PT #### [facility] [address] [place] [address] Dr. Cedric Dillon PREG HCG QUALon 08-22-2022 , QUAL Negative Normal NEGATIVE [facility] Comment on above: Performed By: #### P REG #### [facility] [address] [place] [address] Dr. Cedric Dillon PROF 14(COMP METB)on 023 Albumin [Mass/Vol] 4.0 g/dL Normal 3.4-5.0 [facility] Comment on above: Performed By: #### H STROPN, TSH, BNP, CMP #### [facility] [address] [place] [address] Dr. Cedric Dillon Albumin/Globulin [Mass ratio] 1.1 {ratio} Normal [facility] Comment on above: Performed By: #### H STROPN, TSH, BNP, CMP #### [facility] [address] [place] [address] Dr. Cedric Dillon ALP [Catalytic activity/Vol] 86 U/L Normal 46-116 [facility] Comment on above: Performed By: #### H STROPN, TSH, BNP, CMP #### [facility] [address] [address] [address] Cedric Dillon ALT [Catalytic activity/Vol] 48 U/L Normal 14-59 [facility] Comment on above: Performed By: #### H STROPN, TSH, BNP, CMP #### [facility] [address] [address] [address] Cedric Dillon Anion gap [Moles/Vol] 13.7 mmol/L Normal [facility] Comment on above: Performed By: #### H STROPN, TSH, BNP, CMP #### [facility] [address] [address] [address] Cedric Dillon AST [Catalytic activity/Vol] 31 U/L Normal 15-37 [facility] Comment on above: Performed By: #### H STROPN, TSH, BNP, CMP #### [facility] [address] [place] [address] Dr. Cedric Dillon Bilirubin [Mass/Vol] 0.3 mg/dL Normal 0.2-1.0 [facility] Comment on above: Performed By: #### H STROPN, TSH, BNP, CMP #### [facility] [address] [address] [address] Cedric Dillon Calcium [Mass/Vol] 9.0 mg/dL Normal 8.5-10.1 [facility] Comment on above: Performed By: #### H STROPN, TSH, BNP, CMP #### [facility] [address] [address] [address] Cedric Dillon Chloride [Moles/Vol] 102 mmol/L Normal 98-107 [facility] Comment on above: Performed By: #### H STROPN, TSH, BNP, CMP #### [facility] [address] [place] [address] Dr. Cedric Dillon CO2 [Moles/Vol] 26.5 mmol/L Normal 21.0-32.0 [facility] Comment on above: Performed By: #### H STROPN, TSH, BNP, CMP #### [facility] [address] [place] [address] Dr. Cedric Dillon Creatinine [Mass/Vol] 0.72 mg/dL Normal 0.55-1.[address] [facility] Comment on above: Performed By: #### H STROPN, TSH, BNP, CMP #### [facility] [address] [address] [address] Cedric Dillon EGFR-AF COMORAN >60 Normal >=60 [facility] Comment on above: Performed By: #### H STROPN, TSH, BNP, CMP #### [facility] [address] [address] [address] Cedric Dillon EGFR-NON AF COMORAN >60 Normal >=60 [facility] Comment on above: Performed By: #### H STROPN, TSH, BNP, CMP #### [facility] [address] [address] [address] Cedric Dillon Globulin (S) [Mass/Vol] 3.5 g/dL Normal [facility] Comment on above: Performed By: #### H STROPN, TSH, BNP, CMP #### [facility] [address] [place] [address] Dr. Cedric Dillon Glucose [Mass/Vol] 87 mg/dL Normal 74-106 [facility] Comment on above: Performed By: #### H STROPN, TSH, BNP, CMP #### [facility] [address] [place] [address] Dr. Cedric Dillon Potassium [Moles/Vol] 3.2 mmol/L Critically low 3.5-5.[address] [facility] Comment on above: Performed By: #### H STROPN, TSH, BNP, CMP #### [facility] [address] [place] [address] Dr. Cedric Dillon Protein [Mass/Vol] 7.5 g/dL Normal 6.4-8.2 [facility] Comment on above: Performed By: #### H STROPN, TSH, BNP, CMP #### [facility] [address] [place] [address] Dr. Cedric Dillon Sodium [Moles/Vol] 139 mmol/L Normal 136-145 [facility] Comment on above: Performed By: #### H STROPN, TSH, BNP, CMP #### [facility] [address] [place] [address] Dr. Cedric Dillon Urea nitrogen [Mass/Vol] 5.0 mg/dL Critically low 7.0-18.[address] [facility] Comment on above: Performed By: #### H STROPN, TSH, BNP, CMP #### [facility] [address] [place] [address] Dr. Cedric Dillon Urea nitrogen/Creatinine [Mass ratio] 6.9 mg/mg Normal [facility] Comment on above: Performed By: #### H STROPN, TSH, BNP, CMP #### [facility] [address] [place] [address] Dr. Cedric Dillon PROTIMEon 08-22-2022 INR Coag (PPP) [Relative time] 0.94 {INR} Normal [facility] Comment on above: Performed By: #### P TT, DDIM, PT #### [facility] [address] [place] [address] Dr. Cedric Dillon INR GUIDELINES SEE BELOW Normal [facility] Comment on above: Result Comment: VINCE RED INR: 2.0 - 3.0 CONDITIONS NOT LISTED BELOW 2.5 - 3.5 FOR PROSTHETIC HEART VALVE REPLACEMENT 2.5 - 3.5 RECURRENT THROMBOSIS Performed By: #### P TT, DDIM, PT #### [facility] [address] [place] [address] Dr. Cedric Dillon PT Coag (PPP) [Time] 10.0 s Normal 9.0-11.[address] [facility] Comment on above: Performed By: #### P TT, DDIM, PT #### [facility] [address] [place] [address] Dr. Cedric Dillon PTTon 08-22-2022 aPTT Coag (Bld) [Time] 29.1 s Normal 22.3-36.2 [facility] Comment on above: Performed By: #### P TT, DDIM, PT #### [facility] [address] [place] [address] Dr. Cedric Dillon TROPONIN, HIGH SENSITIVITYon 08-22-2022 HSTROP 8.3 pg/mL Normal 4.0-51.[address] [facility] Comment on above: Result Comment: CUT- OFF POINTS HAVE BEEN ESTABLISHED BASED ON THE FOURTH UNIVERSAL DEFINITIONS OF MYOCARDIAL INFARCTION. THE UPPER REFERENCE LIMIT (URL) OF TROPONIN, DEFINED THE 99TH PERCENTILE OF cTnI DISTRIBUTION IN A REFERENCE POPULATION, HAS BEEN CONFIRMED THE DECISION THRESHOLD FOR MS DIAGNOSIS. Performed By: #### H STROPN, TSH, BNP, CMP #### [facility] [address] [place], [place] [address] Dr. Cedric Dillon TSHon 08-22-2022 TSH 0.777 uIU/mL Normal 0.358-3.740 [facility] Comment on above: Performed By: #### H STROPN, TSH, BNP, CMP #### [facility] [address] [address] [address] Cedric Dillon XR CHEST 1 Von [...] IMM GRANS 0.2 10*3/uL Normal 0.0-0.2 [facility] Comment on above: Performed By: #### 5 0103 ####[facility] [place] [address], [facility] ABS NEUTROPHILS 10.7 10*3/uL High 1.6-7.6 The [facility] Comment on above: Performed By: #### 5 0103 ####[facility] [place] [address], [facility] Basophils (Bld) [#/Vol] 0.1 10*3/uL Normal 0.0-0.2 [facility] Comment on above: Performed By: #### 5 0103 ####[facility] [facility] [place] [address], [facility] Basophils/100 WBC (Bld) 0.8 % Normal 0.0-1.0 [facility] Comment on above: Performed By: #### 5 0103 ####[facility] [facility] [place] [address], [facility] Eosinophils (Bld) [#/Vol] 0.3 10*3/uL Normal 0.0-0.5 [facility] Comment on above: Performed By: #### 5 0103 ####[facility] [facility] [place] [address], [facility] Eosinophils/100 WBC (Bld) 1.7 % Normal 0.0-6.0 [facility] Comment on above: Performed By: #### 5 0103 ####[facility] [facility].[address] Erythrocyte distribution width (RBC) [Ratio] 15.5 % High 11.5-15.0 [facility] Comment on above: Performed By: #### 5 0103 ####[facility] [facility].[address] Hematocrit (Bld) [Volume fraction] 40.1 % Normal 36.0-45.0 [facility] Comment on above: Performed By: #### 5 0103 ####[facility] [facility] [place] [address], [facility] Hemoglobin (Bld) [Mass/Vol] 13.3 g/dL Normal 12.0-15.0 [facility] Comment on above: Performed By: #### 5 0103 ####[facility] [place] [address], [facility] IMMATURE GRANS 1.3 % High 0.0-1.0 The [facility] Comment on above: Performed By: #### 5 0103 ####[facility] [facility].[address] Lymphocytes (Bld) [#/Vol] 3.4 10*3/uL Normal 1.2-4.0 [facility] Comment on above: Performed By: #### 5 0103 ####[facility] [facility].[address] Lymphocytes/100 WBC (Bld) 22.0 % Normal 20.0-45.0 [facility] Comment on above: Performed By: #### 5 3 ####[facility] [facility].[address] MCH (RBC) [Entitic mass] 29.0 pg Normal 27.0-33.0 [facility] Comment on above: Performed By: #### 5 3 ####[facility] [facility].[address] MCHC (RBC) [Mass/Vol] 33.2 g/dL Normal 32.0-35.0 [facility] Comment on above: Performed By: #### 5 0103 ####[facility] [facility].[address] MCV (RBC) [Entitic vol] 87.6 fL Normal 82.0-98.0 [facility] Comment on above: Performed By: #### 5 3 ####[facility] [facility].[address] Monocytes (Bld) [#/Vol] 0.8 10*3/uL Normal 0.1-1.0 [facility] Comment on above: Performed By: #### 3 ####[facility] [place] [address] MONOS 5.3 % Normal 5.0-12.0 [facility] Comment on above: Performed By: #### 5 0103 ####[facility] [facility] [place] [address], [facility] Neutrophils/100 WBC (Bld) 68.9 % Normal 40.0-72.0 [facility] Comment on above: Performed By: #### 5 0103 ####[facility] [facility] [place] [address], [facility] Nucleated RBC/100 WBC (Bld) [Ratio] 0 % Normal 0-0 [facility] Comment on above: Performed By: #### 5 0103 ####[facility] [facility] [place] [address], [facility] PLAT CNT 492 10*3/uL High 150-400 The [facility] Comment on above: Performed By: #### 5 0103 ####[facility] [facility] [place] [address], [facility] RBC (Bld) [#/Vol] 4.58 10*6/uL Normal 3.80-5.00 [facility] Comment on above: Performed By: #### 5 0103 ####[facility] [facility] [place] [address], [facility] WBC (Bld) [#/Vol] 15.58 10*3/uL High 4.00-10.60 [facility] Comment on above: Performed By: #### 5 3 ####[facility] [facility] [place] [address], [facility] COMP METABOLIC PANELon 12-11 Albumin [Mass/Vol] 4.2 g/dL Normal 3.5-5.7 The [facility] Comment on above: Performed By: #### 0 0121 #### [facility] [address] [place] [address], [facility] ALKALINE PHOSPH 86 IU/L Normal 34-104 The [facility] Comment on above: Performed By: #### 0 0121 #### [facility] [address] [place] [address], [place] ALT [Catalytic activity/Vol] 33 U/L Normal 7-52 [facility] Comment on above: Performed By: #### 0 0121 #### [facility] [address] [place] [address], [place] AST [Catalytic activity/Vol] 22 U/L Normal 13-39 [facility] Comment on above: Performed By: #### 0 0121 #### [facility] [address] [place] [address], [place] Bilirubin [Mass/Vol] 0.3 mg/dL Normal 0.3-1.0 [facility] Comment on above: Performed By: #### 0 0121 #### [facility] [address] [place] [address], [place] Calcium [Mass/Vol] 9.7 mg/dL Normal 8.6-10.3 The [facility] Comment on above: Performed By: #### 0 0121 #### [facility] [address] [place] [address], [place] Chloride [Moles/Vol] 103 mmol/L Normal 98-107 [facility] Comment on above: Performed By: #### 0 0121 #### [facility] [address] [place] [address], [place] CO2 [Moles/Vol] 28 mmol/L Normal 21-31 [facility] Comment on above: Performed By: #### 0 0121 #### [facility] [address] [place] [address], [place] Creatinine [Mass/Vol] 0.67 mg/dL Normal 0.60-1.20 [facility] Comment on above: Performed By: #### 0 0121 #### [facility] [address] [place] [address], [place] GFR/1.73 sq M.predicted among blacks MDRD (S/P/Bld) [Vol rate/Area] mL/min/{1.73_m2} Normal >60 [facility] Comment on above: Performed By: #### 0 0121 #### [facility] [address] [place] [address], [place] GFR/1.73 sq M.predicted among non-blacks MDRD (S/P/Bld) [Vol rate/Area] mL/min/{1.73_m2} Normal >60 [facility] Comment on above: Performed By: #### 0 0121 #### [facility] [address] [place] [address], [place] Glucose [Mass/Vol] 114 mg/dL High 70-100 The [facility] Comment on above: Performed By: #### 0 0121 #### [facility] [address] [place] [address], [place] Potassium [Moles/Vol] 4.0 mmol/L Normal 3.5-5.1 [facility] Comment on above: Performed By: #### 0 0121 #### [facility] [address] [place] [address], [place] Protein [Mass/Vol] 7.4 g/dL Normal 6.0-8.3 The [facility] Comment on above: Performed By: #### 0 0121 #### [facility] [address] [place] [address], [place] Sodium [Moles/Vol] 138 mmol/L Normal 136-145 The [facility] Comment on above: Performed By: #### 0 0121 #### [facility] [address] [place] [address], [place] Urea nitrogen [Mass/Vol] 7 mg/dL Normal 7-25 [facility] Comment on above: Performed By: #### 0 0121 #### [place] [address], [facility] HIP RIGHT 1 OR 2 VWS WITH PE LVISon 11-29-2021 HIP RIGHT 1 OR 2 VWS WITH PELVIS [facility] Department of Radiology [address] [place] [address] [id number] ======== Patient Name: SONIA WAITE : 1985 [...] above Electronically signed: Sandy Falcon. Transcribed by: [email or web address], User Resident: Electronically Signed by: SANDY FALCON @ 11/30/2021 10:42 AM Normal [facility] Comment on above: Order Comment: RIGHT HIP ARTHROSCOPY, ACETABULAR LABRAL REPAIR, OSTEOPLASTY OF CAM LESION Operative Reporton Operative Report MR#: [id number] S [facility] Pt. Name: Sonia Waite Room #: 0C Discharge Date: Birthdate: 1985 OPERATIVE REPORT DATE OF SURGERY: 11/29/2021 SURGEON: Nitesh Rowe M.D. PREOPERATIVE DIAGNOSES: 1. Right hip acetabular labral tear. 2. Right hip femoroacetabular impingement. POSTOPERATIVE DIAGNOSES: 1. Right hip acetabular labral tear. 2. Right hip femoroacetabular impingement. BUSINESS CONTINUITY CONSULTANT: Andrei Coe M.D. ANESTHESIA: General. PROCEDURES PERFORMED: [...] Rowe M.D. Date Trans: 11/29/2021 01:52 P/yusuf [id number] cc: Carline Ocampo M.D. [address] Dept. Of Orthopaedic Surgery [facility] [address] Normal The [facility] POC GLUCOSE LABon 11-29-2021 Glucose [Mass/Vol] 100 mg/dL Normal 70-100 The [facility] Comment on above: Performed By: #### 8 [id number] ####[facility] [place] [address], [facility] ANAon 09-14-2021 KP SCREEN <1:40 Normal <1:40,1:40 [facility] Comment on above: Result Comment: Test performed using ELVIRA IFA KP Hep-2 Test, a pre-standardized assay designed for the qualitative and semi-quantitative detection of antinuclear antibodies. Performed By: #### 9 [id number], [id number], [id number] #### [facility] [address] [place] [address], [facility] ANTI DNAon 09-14-2021 ANTI DNA <1:10 Normal <1:10 [facility] Comment on above: Performed By: #### 9 [id number], [id number], [id number] #### [facility] [address] [place] [address], [facility] ANTI-ENAon 09-14-2021 ANTI SM Negative Normal NEG,NEGATIVE, Neg [facility] Comment on above: Performed By: #### 9 [id number], [id number], [id number] #### [facility] [address] [place] [id number], [facility] ANTI SM/ANTIRNP Negative Normal NEG,NEGATIVE , Neg [facility] Comment on above: Performed By: #### 9 [id number], 05792, [id number] #### [facility] [address] [place] [address], [facility] C REACTIVE PROTEINon 022 CRP [Mass/Vol] 36.8 mg/L High 0.0-7.0 [facility] Comment on above: Performed By: #### 6 1405, 69039, 36516, 16930 ####[facility] [place] [address], [facility] COMPLEMENT 3on 09-14-2021 COMPLEMENT 3 134 mg/dL Normal 79-152 [facility] Comment on above: Performed By: #### 6 1405, 55231, 07564, 17379 ####[facility] [place] [address], [place] COMPLEMENT 4on 09-14-2021 COMPLEMENT 4 27 mg/dL Normal 16-38 [facility] Comment on above: Performed By: #### 6 1405, 13272, 03031, 57016 ####[facility] CPKon 09-14-2021 CK [Catalytic activity/Vol] 69 U/L Normal 30-223 [facility] Comment on above: Performed By: #### 3 0728, 95990, 10645 #### [facility] [address] CYCLIC [place]IN[place] PEPTIDE [place] [id number] 09-14-2021 CYCLIC CIT PEP 7 Units Normal 0-19 [facility] Comment on above: Result Comment: INTE RPRETIVE [...] be monitored and testing repeated. Performed By: Edyn [address] [place] [address] Gun Stock Maker: Kim Nunez MD HAND LEFT 3 [facility] 09-14-2021 HAND LEFT 3 [facility] Department of Radiology [address] [place] [address] ======== Patient Name: SONIA WAITE : 1985 Sex: F Age: Race: White Pt. Location: [facility] Patient Status: D Ordered Date: 09/14/2021 10:10:00 AM Completed Date: 09/14/2021 11:20 AM Requesting Provider: JOSE ALVARADO Attending Provider: CARLINE OCAMPO Report Copy To: SELF, REFERRED Signs & Symptoms: M25.50 Pain in unspecified joint I10 History: Maren Comments: Exam: HAND LEFT 3 [facility] ======== HAND LEFT 3 S 09/14/2021 11:20 [...] abnormality. Electronically signed: Omega Hayward. Transcribed by: [email or web address], User Resident: Electronically Signed by: OMEGA HAYWARD @ 09/15/2021 09:35 AM Normal [facility] HAND RIGHT 3 [facility] 2 HAND RIGHT 3 [facility] Department of Radiology [address] [place] [id number] ======== Patient Name: SONIA WAITE : 1985 Sex: F Age: Race: White Pt. Location: [facility] Patient Status: D Ordered Date: 09/14/2021 [...] abnormality Electronically signed: Omega Hayward. Transcribed by: [email or web address], User Resident: Electronically Signed by: OMEGA HAYWARD @ 09/15/2021 09:36 AM Normal [facility] RHEUMATOID FACTOR SERUMon RA <20 Normal 0-20 [facility] Comment on above: Performed By: #### 6 1405, 99967, 80726, 63018 ####[facility] SEDIMENTATION RATEon 022 SED RATE 40 mm/hr High 0-20 [facility] Comment on above: Performed By: #### 5 6506 ####[facility] [place] [address], [facility] TSH3 WITH REFLEX FT4on 09-14 TSH 3RD GENERATION 0.51 uIU/mL Normal 0.34-5.60 [facility] Comment on above: Performed By: #### 3 0728, 55224, 54100 #### [facility] [address] [place] [address], [facility] VITAMIN D 25-HYDROXYon 09-14 VITAMIN D 25-OH 40.8 ng/mL Normal 30.0-80.0 [facility] Comment on above: Result Comment: >80. 0 Toxicity possible Performed By: #### 3 0728, 95657, 10979 #### [facility] [address] [facility] [address] Encounters Encounter Date Encounter Type Care Provider Facility Start: 11-29-2023 End: 11-29-2023 Evaluation and management of inpatient KSENIAElvis BRANTLEY [facility] Start: 11-28-2023 End: 11-29-2023 [facility]: 11-22-[facility]23 End: 11-22-2023 ambulatory [facility] Start: 11-21-2023 End: 11-21-2023 ambulatory [facility] Flaquita MURDOCK [facility] Start: 11-07-2023 End: [facility] Start: 11-05-2023 End: 11-05-2023 ambulatory [facility] Start: 07-19-2023 End: 07-20-2023 Emergency department patient visit GAURIRico NEAL [facility] Start: 06-11-2023 End: 06-11-2023 ambulatory ADRIAN CASSIDY Not Available Start: 05-23-2023 End: 05-23-2023 ambulatory LUNA [facility] Start: 03-22-2023 End: 03-23-2023 ambulatory LUNA [facility] Start: 02-26-2023 End: 02-26-2023 ambulatory LUNA Cifuentes [facility] Start: 02-12-2023 End: 02-12-2023 ambulatory LUNA Cifuentes [facility] Start: 01-25-2023 End: 01-25-2023 ambulatory SHAHNAZ BRIELLE [facility] Start: 11-15-2022 End: 11-15-2022 ambulatory LUNA Cifuentes [facility] Start: 10-10-2022 End: 10-10-2022 ambulatory CADE FARHAD Facility:[facility] Start: 08-22-2022 End: 08-23-2022 ambulatory CADE FARHAD Facility:[facility] Start: 11-29-2021 End: 11-30-2021 ambulatory REFERRED SELF Facility:[facility] Procedures Date Procedure Procedure Detail Performing Clinician Start: 11-05-2023 Follow-up visit Follow-up JEWEL PHAN Start: 01-25-2023 Follow-up visit Follow-up SHAHNAZ FINK Payers Date Payer Category Payer Medicaid [id number] 1985 Unknown [id number] 2.16.8 40.1.721899.3.579.2.647 1985 Unknown [id number] 2.16.84 0.1.028063.3.579.2.593 1985 Unknown [id number] 2.16.84 0.1.487660.3.579.2.593 1985 Unknown [id number] 2.16.840 .1.838090.3.579.2.1259 1985 Unknown [id number] 2.16.8 40.1.543857.3.579.2.1286 1985 Unknown [id number] 2.16.8 40.1.818701.3.579.2.1286 1985 Unknown [id number] 2.16.8 40.1.177562.3.579.2.1286 1985 Unknown [id number] 2.16.8 40.1.737859.3.579.2.1286 1985 Unknown [id number] 2.16.8 40.1.211846.3.579.2.1286 1985 Unknown [id number] 2.16.8 40.1.180347.3.579.2.1286 1985 Unknown [id number] 2.16.8 40.1.233596.3.579.2.1286 1985 Unknown [id number] 2.16.8 40.1.182308.3.579.2.1286 1985 Unknown [id number] 2.16.84 0.1.792078.3.579.2.1286 1985 Unknown [id number] 2.16.84 0.1.177300.3.579.2.1286 1959 Unknown [id number] Unknown [id number] Clinical Notes 11-15-2022 to 11-08-2023 Note Date & Type Note Facility 11-08-2023 Note Consult agreement. Patient fills at [facility]. [facility] 11-07-2023 Note Subjective Patient ID: Sonia Waite [...] past 36 hour(s)). No follow-ups on file. [facility] 10-25-2023 Note Patient had previous ly called stated they could not afford their medication and wanted to apply for PAP. Filled out forms however upon clarification patient has commercial insurance which mostly likely would not qualify them for PAP. Advise patient to sign up for copay card and then call [facility] specialty pharmacy and provide information to bring down copay. Provided detailed instructions over the phone on how to do this. Will follow up next week to check status with patient. Francia Zhang, DeannaD PGY1 Behavioral Health Aide MD [facility] 10/25/23 [facility] 10-25-2023 Note I spoke to the patie nt and she was able to roller picker the drug at zero copay. She did not have any further questions at this time, and I advised her to call us back if she ever needs anything from our end. Kelly Marquez, Yao, BCACP, CSP 10/31/23 2:47 PM MD [facility] [phone] [facility] 05-23-2023 Note ------ Attestation signed by Luna [...] the past. #Edema -Urinalysis ordered Marko Angelo, SHY No diagnosis found. No orders of the defined types were placed in this encounter. No results found for this or any previous visit (from the past 36 hour(s)). No follow-ups on file. [facility] 02-26-2023 Note Per pt Feeling unste leslie Has migraine Not sleeping due to pain Having pain all over [facility] 02-26-2023 Note ------ Attestation signed by Luna [...] present. No sw (more content not included)... [facility] 02-12-2023 Note No concerning result s on basic labs, including CBC which is largely unchanged from prior. Elevated platelets may be in part due to chronic inflammation. [facility] 02-12-2023 Note ------ Attestation signed by Luna [...] mother has RA and currenlty seeing a Plastic Welder. Pt does endorse to have been losing [...] The [employer] does (more content not included)... 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 She tried nasal steroids and nasal irrigation, [...] She drinks 2 energy drinks and an bxhr-xom-kfsozjh supplement (Olvin energy) which contains vitamin B12. She does not take naps. She does not fall asleep at work, while driving, during conversations, or at inappropriate places. Wing Sleepiness Scale: Current total score: N/A/24, Previous [...] normal. Assessment/Plan Impression (more content not included)... [facility] 11-15-2022 Note ------ Attestation signed by Luna [...] mother has RA and currenlty seeing a Plastic Welder. Pt does endorse to have been losing [...] chest pain. Gastroi (more content not included)... [facility] Summary Purpose Family History No Family History [...] and content) DATE CREATED AUTHOR 12/14/2021 [facility] DATE CREATED AUTHOR AUTHOR'S ORGANIZ ATION 11/05/2022 [facility] DATE CREATED AUTHOR AUTHOR'S ORGANIZ ATION 06/13/2023 [facility] EP[facility] DATE CREATED AUTHOR AUTHOR'S ORGANIZ ATION 11/11/2023 [facility] DATE CREATED AUTHOR AUTHOR'S ORGANIZ ATION 11/23/2023 [facility] DATE CREATED AUTHOR AUTHOR'S ORGANIZ ATION 12/06/2023 [facility] FOR RECORDS PERTAINING TO PATIENTS WHO [...] BE BASED ON THE PRIMARY CLINICAL RECORDS. [facility]. provides no warranty or guarantee of the accuracy or completeness of information in this document.
[2024-04-23 05:05] LABS: Bilirubin Urine NEGATIVE (NEGATIVE); Blood Urine NEGATIVE (NEGATIVE); Clarity Urine CLEAR (CLEAR); Color Urine YELLOW (YELLOW); Glucose Urine UA NEGATIVE (NEGATIVE); Ketones Urine NEGATIVE (NEGATIVE); Leukocyte Esterase Urine NEGATIVE (NEGATIVE); Nitrite Urine NEGATIVE (NEGATIVE); Protein Urine NEGATIVE (NEG/TRACE); pH Urine 7.5 (5.0-9.0)
[2024-04-23 05:07] LABS: Urine Microscopic Indicated NO
[2024-04-23] MEDS: 0.9 % SODIUM CHLORIDE 1,000 ML 999 ML IV (05:46)
[2024-04-23] MEDS: IBUPROFEN 400 MG TABLET 800 MG PO (06:34)
== END 2024-04-23 07:00 | disposition home or self-care (01) ==
PROVIDERS: Emergency Provider Internal Medicine; PCP Nurse Practitioner Family
DX: J06.9 Acute upper respiratory infection, unspecified (principal); R07.89 Other chest pain; Z20.822 Contact with and (suspected) exposure to COVID-19
CPT/HCPCS: 36415; 71045; 80048; 81003; 84484; 85025; 85378; 87804; 87811; 93005; 94640; 96374; 99285; J2919

== ENCOUNTER 2024-10-07 18:05 | Outpatient (REF) | payer OTHER, SELFPAY ==
--- OUTSIDE RECORDS SUMMARY | 2024-10-07 18:12 | XMS_ITS | CCD ---
Author Organization [facility] Care Team Providers Care Citrus Fruit Packer Name Role Phone SELF, REFERRED Primary Care Unavailable ANJALI OCAMPOIL Referring Unavailable LUIS ALFREDONITESH HERNANDEZ Attending Unavailable LUIS ALFREDONITESH HERNANDEZ H Admitting Unavailable FARHAD, CADE Primary Care Unavailable DIAB ., CATIE Attending Unavailable DIAB ., CATIE Admitting Unavailable GRECHNY ., BALDEMAR GOLDBERG Consulting Unavailabl e JOSÉ MANUEL LAZO Consulting Unavailable FARHAD, CADE Primary Care Unavailable KARASIK ., DR VIDAL Attending Unavailabl e KARASIK ., DR VIDAL Consulting Unavailabl e KARASIK ., DR VIDAL Admitting Unavailabl e ADRIAN CASSIDY Attending Unavailable LUNA SPICER Attending Unavailable SHAHNAZ HANNAH Attending Unavailable LUNA SPICER M Referring Unavailable LUNA SPICER Attending Unavailable LUNA SPICER M Attending Unavailable KAHALEWaqas BASTOM M Attending Unavailable KAHALEWaqas BASTOM M Attending Unavailable PHAN, KARSTEN Attending Unavailable PHAN, [...] Primary Care Unavailable LIBBY PEREZ Attending Unavailable ANA LIBBY E Referring Unavailable PHAN, KARSTEN Primary Care Unavailable PHAN, KARSTEN Primary Care Unavailable GAURI NEAL Attending Unavailable GAURI NEAL Attending Unavailable GAURI NEAL Referring Unavailable PHAN, KARSTEN Primary Care Unavailable Defrance MD, Nitesh Sutherland Primary Care Provider [phone] Allergies Allergy Classification Reported Allergen(s) Allergy Type Date of Onset Reaction(s) Facility (7 sources) Latex; 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: [LATEX] Propensity to adverse reactions (disorder) 8 Rash [facility] Repository (1 source) adalimumab Drug Allergy [facility] Repository (1 source) natural latex rubber Drug allergy (disorder) [facility] Repository (6 sources) adalimumab; 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: [ADALIMUMAB] Drug Allergy 3 Swelling [facility] Repository (6 sources) oxyCODONE; 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: [OXYCODONE] Drug Allergy 3 Hives, Itching [facility] Repository Medications Current Medications Medication Drug Class(es) Dates Sig (Normalized) Sig (Original) estradiol 0.5 mg oral tablet (2 sources) Estrogen Start: 10-07-2024 End: 10-07-2025 take 1 tablet by mouth once daily estradiol (Estrace) 0.5 MG tablet Indications: Vaginal dryness Take 1 tablet (0.5 mg) by mouth Daily Take 1 tablet by mouth for 30 days 30 tablet 11 10/07/2024 10/07/2025 Active famotidine 20 mg oral tablet (2 sources) Histamine-2 Receptor Antagonist Start: 09-06-2023 take 1 tablet by mouth once daily Pepcid 20 MG tablet Take 20 mg by mouth Daily 09/06/2023 Active Multiple Vitamin (Multi Vitamin) tablet (3 sources) Multiple Vitamin (Multi Vitamin) tablet 1 (one) time each day at the same time. Active pantoprazole 40 mg delayed release oral tablet (2 sources) Proton Pump Inhibitor take 1 tablet by mouth once daily pantoprazole (ProtoNix) 40 MG EC tablet Take 40 mg by mouth Daily Active Completed/Discontinued Medications Medication Drug Class(es) Dates Sig (Normalized) Sig (Original) Cannabinoids (medical cannabis) (2 sources) End: 09-30-2024 Cannabinoids (medical cannabis) Medical Marijuana 09/30/2024 Discontinued (Other) cetirizine hydrochloride 10 mg oral tablet (2 sources) Histamine-1 Receptor Antagonist End: 09-30-2024 cetirizine (ZyrTEC) 10 MG tablet 1 (one) time each day at the same time. 09/30/2024 Discontinued (Other) Cranberry-Vitamin C-Probiotic (AZO Cranberry) 250-30 MG tablet (2 sources) End: 09-30-2024 Cranberry-Vitamin C-Probiotic (AZO Cranberry) 250-30 MG tablet as directed Orally 09/30/2024 Discontinued (Other) DULoxetine 20 mg delayed release oral capsule (2 sources) Serotonin and Norepinephrine Reuptake Inhibitor End: 09-30-2024 take 1 capsule by mouth in the morning DULoxetine (Cymbalta) [address] capsule Take 20 mg by mouth in the morning and 20 mg before bedtime. Do not crush or chew. . 09/30/2024 Discontinued (Other) folic acid 1 mg oral tablet (2 sources) End: 09-30-2024 folic acid (Folvite) 1 MG tablet 1 (one) time each day at the same time. 09/30/2024 Discontinued (Other) lurasidone hydrochloride 80 mg oral tablet (2 sources) Atypical Antipsychotic End: 09-30-2024 take 1 tablet by mouth at mealtime lurasidone (Latuda) 80 MG tablet Take 80 mg by mouth in the evening. Take with meals. 09/30/2024 Discontinued (Other) methotrexate 2.5 mg oral tablet (2 sources) Folate Analog Metabolic Inhibitor End: 09-30-2024 methotrexate 2.5 MG tablet as directed Orally 09/30/2024 Discontinued (Other) naproxen sodium 220 mg oral tablet (2 sources) Nonsteroidal Anti-inflammatory Drug End: 09-30-2024 naproxen sodium (Aleve) 220 MG tablet every 12 (twelve) hours. 09/30/2024 Discontinued (Other) Vit-Iron Carbonyl-FA (Thrivite Rx) 29-1 MG tablet (2 sources) End: 09-30-2024 Vit-Iron Carbonyl-FA (Thrivite Rx) 29-1 MG tablet 1 (one) time each day at the same time. 09/30/2024 Discontinued (Other) topiramate 25 mg oral tablet (2 sources) End: 09-30-2024 topiramate (Topamax) 25 MG tablet 1 (one) time each day at the same time. 09/30/2024 Discontinued (Other) 24 hr upadacitinib 15 mg extended release oral tablet (2 sources) End: 09-30-2024 upadacitinib ER (Rinvoq) 15 MG tablet sustained-release 24 hour 1 (one) time each day at the same time. 09/30/2024 Discontinued (Other) Problems Active Problems Problem Classification Problem Date [...] [CHEST PAIN UNSPECIFIED] Onset: 08-22-2022 Episodic Other acquired deformities (3 sources) Contracture of joint of left ankle; 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: [Contracture, left ankle] Onset: 11-20-2022 11-20-2022 Chronic Other and unspecified benign neoplasm (1 source) Polyp of colon; 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: [Polyp of colon] Onset: 11-28-2023 Episodic Other connective tissue disease (2 sources) Fibromyalgia; 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: [Fibromyalgia] Onset: 11-07-2023 Episodic Other female genital disorders (2 sources) Vaginal dryness; 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: [Other specified noninflammatory disorders of vagina] 10-07-2024 Episodic Other gastrointestinal disorders (1 source) Abdominal [...] DEPEND] Onset: 08-24-2022 Episodic Unclassified (1 source) 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 of antimetabolite agent; 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: [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 helper 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 of antimetabolite agent] Onset: 02-26-2023 [...] 07-19-2023 Episodic Other aftercare (2 sources) Other group home (current) drug therapy; 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: [Other predatory animal 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 (current) drug therapy] Onset: 02-12-2023 Episodic Other aftercare (2 sources) 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 helper 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 of systemic steroids; 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: [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 helper 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 of systemic steroids] Onset: 02-12-2023 Episodic Other connective tissue disease (2 sources) Plantar fascial fibromatosis; 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: [Plantar fascial fibromatosis] Onset: 02-26-2023 Episodic Residual codes; unclassified (2 sources) Edema, unspecified; 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: [Edema, unspecified] Onset: 05-23-2023 Episodic Unclassified (1 source) 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 helper 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 of antimetabolite agent; 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: [longterm (current) use of antimetabolite agent] Onset: 02-26-2023 Results Test Name Value Interpretation Reference Range Facility Urinalysis macro (dipstick) panel (U)on 10-07-2024 Bilirubin, UA Negative Negative - 4(70) +++ mg/dL [facility] Blood, UA Negative Negative - 50 Rojas/mcL [facility] Clarity, UA Clear [facility] Color, UA Yellow [facility] Glucose, UA Negative Negative - 1999(110) ++++ mg/dL [facility] Interpretation and review of laboratory results Normal [facility] Ketones, UA Negative Negative - 160(16) ++++ mg/dL [facility] Leukocytes, UA Negative Negative - 500+++ Gibran/mcL [facility] Nitrite, UA Negative Negative - Positive [facility] pH, UA 5.5 5 - 9 [facility] Protein, UA Negative Negative - 1999(20) ++++ mg/dL [facility] Spec Grav, UA 1.03 1 - 1.03 [facility] Urobilinogen, UA 0.2 0.2 - 12 mg/dL [facility] H PYLORI SCREENon 11-28-2023 H. pylori Org specific cx Ql (Kaylee fld) Negative Normal NEG [facility] Comment on above: Performed By: #### 4 [id number] #### [facility] ([id number]) [address] [place] [address], [address] [place] [address] Surgical Pathologyon 024 Surgical Pathology Normal [facility] Comment on above: Result Comment: [facility] [address] [place] [address] Surgical Pathology Consultation Patient Name:SONIA WAITE:1985 (Age: 37)Gender:FTaken:4Reported:12/04/2023hysician(s):Libby Perez D.O. ([phone])Copy To: Rec. #:[id number]: #[id number] Final Pathologic Diagnosis 1. Gastric antrum, biopsies: Erosive gastritis. Regeneration of gastric pits. No intestinal metaplasia, dysplasia or H. pylori organisms identified. 2. Distal esophageal biopsies: Unremarkable squamous and gastric cardiac mucosa. No active or eosinophilic esophagitis identified. No intestinal metaplasia or dysplasia identified. 3. Sigmoid colon polyps, biopsy: Hyperplastic polyps. Report Electronically Signed [facility]/12/04/2023Vance Valentino M.D. Interpretation performed at [facility], [address] [place] [address], License number: [id number]. Clinical History Epigastric pain, lower abdominal pain, diarrhea, nausea. Gross Description 1. Received in formalin labeled CRISPEN, antrum BX are two reinoso-manley, focally erythematous, friable, 0.5 cm each soft tissue strips. The specimen is entirely submitted in a single cassette. (1, ns, [id number], m8) JG 2. Received in formalin labeled CRISPEN, distal esophagus BX are three pale manley, focally erythematous, feathery, 0.3, 0.3 and 0.4 cm soft tissue bits. The specimen is entirely submitted in a single cassette. (1, ns, [id number], m8) JG 3. Received in formalin labeled CRISPEN, sigmoid colon polyp are two reinoso-manley, focally erythematous, friable, 0.2 and 0.7 cm polypoid fragments. The specimen is entirely submitted in a single cassette. (1, ns, [id number], m8) JG jmg/11/29/2023SSI Specimen(s) Received 1: Antrum biopsy 2: Distal esophageal biopsy 3: Sigmoid colon polyp x2 Fee Codes(s): 1; 51766 2; 12463 3; 26010 Orders Onlyon 11-08-2023 Orders Only [id number] Sonia Waite 1985 F Date Provider Department Center 11/08/2023 [id number] BRIONES [facility] Chris Heal Family History Problem Relation Age of Onset Lupus Mother Cirrhosis Mother Family Status - Relation Status Age at Mother Normal [facility] 36on 11-07-2023 37 Received via fax request for PA for Rinvoq. Re-prepped order to be sent to [facility] Access to initiate PA. Thank you. suresh Normal [facility] CBC WITH AUTO DIFFERENTIALon 11-07-2023 Basophils (Bld) [#/Vol] 0.07 10*3/uL Normal 0.00-0.20 [facility] Comment on above: Performed By: #### L [id number] #### [facility] (BEAKER) [address] [place] [address] Basophils/100 WBC (Bld) 0.7 % Normal 0.0-1.0 [facility] Comment on above: Performed By: #### L [id number] #### [facility] (BEAKER) [address] [place] [address] Eosinophils (Bld) [#/Vol] 0.15 10*3/uL Normal 0.00-0.50 [facility] Comment on above: Performed By: #### L [id number] #### [facility] (BEAKER) [address] [place] [address] Eosinophils/100 WBC (Bld) 1.5 % Normal 0.0-6.0 [facility] Comment on above: Performed By: #### L [id number] #### [facility] ([facility] [address] [place] [address] Erythrocyte distribution width (RBC) [Ratio] 14.5 % Normal 11.5-15.0 [facility] Comment on above: Performed By: #### L [id number] #### [facility] ([facility]) [address] [place] [address] ERYTHROCYTE MEAN CORPUSCULAR HEMOGLOBIN CONCENTRATION (G/DL) BY AUTOMATED 33.6 g/dL Normal 32.0-35.0 [facility] Comment on above: Performed By: #### L [id number] #### [facility] ([facility]) [address] [address] Hematocrit (Bld) [Volume fraction] 40.5 % Normal 36.0-48.0 [facility] Comment on above: Performed By: #### L [id number] #### [facility] ([facility]) [address] [place] [address] Hemoglobin (Bld) [Mass/Vol] 13.6 g/dL Normal 12.0-15.0 [facility] Comment on above: Performed By: #### L [id number] #### [facility] ([facility]) [address] [place] [address] Immature granulocytes (Bld) [#/Vol] 0.07 10*3/uL Normal 0.00-0.20 [facility] Comment on above: Performed By: #### L [id number] #### [facility] ([facility] [address] [place] [address] Immature granulocytes/100 WBC (Bld) 0.7 % Normal 0.0-1.0 [facility] Comment on above: Performed By: #### L [id number] #### [facility] (BEAKER) [address] [place] [address] Lymphocytes (Bld) [#/Vol] 3.29 10*3/uL Normal 1.20-4.00 [facility] Comment on above: Performed By: #### L [id number] #### [facility] ([facility]) [address] [place] [address] Lymphocytes/100 WBC (Bld) 32.4 % Normal 20.0-45.0 [facility] Comment on above: Performed By: #### L [id number] #### [facility] ([facility] [address] [place] [address] MCH (RBC) [Entitic mass] 29.4 pg Normal 27.0-33.0 [facility] Comment on above: Performed By: #### L [id number] #### [facility] ([facility] [address] [place] [address] MCV (RBC) [Entitic vol] 87.5 fL Normal 82.0-98.0 [facility] Comment on above: Performed By: #### L [id number] #### [facility] ([facility] [address] [place] [address] Monocytes (Bld) [#/Vol] 0.59 10*3/uL Normal 0.10-1.00 [facility] Comment on above: Performed By: #### L [id number] #### [facility] ([facility] [address] [place] [address] Monocytes/100 WBC (Bld) 5.8 % Normal 5.0-12.0 [facility] Comment on above: Performed By: #### L [id number] #### [facility] (BEAKER) [address] [place] [address] Neutrophils (Bld) [#/Vol] 5.98 10*3/uL Normal 1.60-7.60 [facility] Comment on above: Performed By: #### L [id number] #### [facility] ([facility]ER) [address] [place] [address] Neutrophils/100 WBC (Bld) 58.9 % Normal 40.0-72.0 [facility] Comment on above: Performed By: #### L [id number] #### [facility] ([facility]) [address] [place] [address] NRBC (PER 100 WBCS) BY AUTOMATED COUNT 0.0 % Normal 0 [facility] Comment on above: Performed By: #### L [id number] #### [facility] ([facility]) [address] [place] [address] PLATELETS (10*3/UL) IN BLOOD AUTOMATED COUNT 533 10*3/uL High 150-400 [facility] Comment on above: Performed By: #### L [id number] #### [facility] ([facility]) [address] [place] [address] RBC (Bld) [#/Vol] 4.63 10*6/uL Normal 3.80-5.00 [facility] Comment on above: Performed By: #### L [id number] #### [facility] ([facility]) [address] [place] [address] WBC (Bld) [#/Vol] 10.15 10*3/uL Normal 4.00-10.60 [facility] Comment on above: Performed By: #### L [id number] #### [facility] ([facility]) [address] [place] [address] COMPREHENSIVE METABOLIC PANE Varghese 11-07-2023 Albumin [Mass/Vol] 4.5 g/dL Normal 3.5-5.7 [facility] Comment on above: Performed By: #### L [id number] #### [facility] ([facility]) [address] [place] [address] ALP [Catalytic activity/Vol] 99 U/L Normal 34-104 [facility] Comment on above: Performed By: #### L [id number] #### [facility] ([facility]) [address] [place] [address] ALT [Catalytic activity/Vol] 58 U/L High 7-52 [facility] Comment on above: Performed By: #### L [id number] #### [facility] ([facility]) [address] [place] [address] Anion gap [Moles/Vol] 12 mmol/L Normal 7-20 [facility] Comment on above: Performed By: #### L [id number] #### [facility] ([facility]) [address] [place] [address] AST [Catalytic activity/Vol] 49 U/L High 13-39 [facility] Comment on above: Performed By: #### L [id number] #### [facility] ([facility]) [address] [place] [address] Bilirubin [Mass/Vol] 0.3 mg/dL Normal 0.3-1.0 [facility] Comment on above: Performed By: #### L [id number] #### [facility] ([facility]) [address] [place] [address] Calcium [Mass/Vol] 9.6 mg/dL Normal 8.6-10.3 [facility] Comment on above: Performed By: #### L [id number] #### [facility] ([facility]) [address] [place] [address] Chloride [Moles/Vol] 103 mmol/L Normal 98-107 [facility] Comment on above: Performed By: #### L [id number] #### [facility] ([facility]) [address] [place] [address] CO2 [Moles/Vol] 26 mmol/L Normal 21-31 [facility] Comment on above: Performed By: #### L [id number] #### [facility] ([facility] [address] [place] [address] Creatinine [Mass/Vol] 0.83 mg/dL Normal 0.60-1.20 [facility] Comment on above: Performed By: #### L [id number] #### [facility] ([facility]) [address] [place] [address] GLOMERULAR FILTRATION RATE ML/MIN/1.73 SQ M.PREDICTED 93.6 mL/min/1.73m*2 Normal >60.0 [facility] Comment on above: Result Comment: [facility]???s estimated glomerular filtration rate (eGFR) will no [...] individuals. Performed By: #### L [id number] #### [facility] ([facility]) [address] [place] [address] Glucose [Mass/Vol] 79 mg/dL Normal 70-100 [facility] Comment on above: Performed By: #### L [id number] #### [facility] ([facility]) [address] [place] [address] Potassium [Moles/Vol] 4.1 mmol/L Normal 3.5-5.1 [facility] Comment on above: Performed By: #### L [id number] #### [facility] ([facility]) [address] [place] [address] Protein [Mass/Vol] 7.9 g/dL Normal 6.0-8.3 [facility] Comment on above: Performed By: #### L [id number] #### [facility] ([facility]) [address] [place] [address] Sodium [Moles/Vol] 137 mmol/L Normal 136-145 [facility] Comment on above: Performed By: #### L [id number] #### [facility] ([facility] [address] [place] [address] Urea nitrogen [Mass/Vol] 6 mg/dL Low 7-25 [facility] Comment on above: Performed By: #### L [id number] #### [facility] ([facility]) [address] [place] [address] UREA NITROGEN/CREATININE (MASS RATIO) IN SER/PLAS 7.2 Normal [facility] Comment on above: Performed By: #### L [id number] #### [facility] ([facility]) [address] [place] [address] Follow-Upon 11-07-2023 Follow-Up [id number] Sonia Waite 1985 Date Provider Department Center 11/07/2023 LUNA LOUIE [facility] Chris Heal Family History Problem Relation Age of Onset Lupus Mother Cirrhosis Mother Family Status - Relation Status Age at Mother Level of Service:23433 UT OFFICE/OUTPATIENT ESTABLISHED MOD MDM 30 MIN Reason for Visit and Comments: Follow-up [667051] - late for 3 month follow up [facility] 29on 11-01-2023 29 Addended by: LUNA SPICER on: 11/01/2023 04:53 PM Modules accepted: Orders [facility] 36on 11-01-2023 36 TC from PT following [...] follow up 11/07/23 Please advise. Shabana Jara, JIMMIE [facility] Patient Messageon 11-01-2023 Patient Message [id number] Sonia Waite 1985 Provider Department Center 11/01/2023 LUNA LOUIE [facility] Chris Heal Family History Problem Relation Age of Onset Lupus Mother Cirrhosis Mother Family Status - Relation Status Age at Mother [facility] Telephoneon 11-01-2023 Telephone [id number] Sonia Waite 1985 Date Provider Department Center 11/01/2023 [id number] JARA [facility] Chris Heal Family History Problem Relation Age of Onset Lupus Mother Cirrhosis Mother Family Status - Relation Status Age at Mother Reason for Visit and Comments: Generalized Body Aches [835844] - pain Normal [facility] Documentationon 10-25-2023 Documentation [id number] Sonia Waite 1985 F Date Provider Department Center 10/25/202336330-[id number], KARA [facility] Chris Heal Family History Problem Relation Age of Onset Lupus Mother Cirrhosis Mother Family Status - Relation Status Age at Mother Reason for Visit and Comments: Specialty Pharmacy Note-Rinvoq Prescription [Other] Normal [facility] 36on 10-07-2023 36 Last visit: 05/23/83 Next visit: cancelled by patient for 08/29/23 CBC/CMP: 07/19/23 [facility] 36 PT calling asking fo r provider [...] PT verbalized appreciation and assistance. suresh Normal [facility] CBC AND AUTO DIFFon 07-19-19 24 ABSOLUTE BASOPHIL 0.1 X10E9/L Normal 0.0-0.2 [facility] Comment on above: Performed By: #### C BCA, CMP #### [facility] ([id number]) [address] [place] [address] 53675 ABSOLUTE NEUTROPHIL 4.6 X10E9/L Normal 1.5-6.6 [facility] Comment on above: Performed By: #### C BCA, CMP #### [facility] ([id number]) [address] [place] [address] 13560 Basophils/100 WBC (Bld) 0.9 % Normal [facility] Comment on above: Performed By: #### C BCA, CMP #### [facility] ([id number]) [address] [place] [address] 00889 Eosinophils (Bld) [#/Vol] 0.2 10*3/uL Normal 0.0-0.4 [facility] Comment on above: Performed By: #### C MIREYA, CMP #### [facility] ([id number]) [address] [place] [address] 53217 Eosinophils/100 WBC (Bld) 1.6 % Normal [facility] Comment on above: Performed By: #### C MIREYA, CMP #### [facility] ([id number]) [address] [place] [address] 44292 Erythrocyte distribution width (RBC) [Ratio] 13.9 % Normal 11.5-15.0 [facility] Comment on above: Performed By: #### C MIREYA, CMP #### [facility] ([id number]) [address] [place] [address] 69725 Hematocrit (Bld) [Volume fraction] 38.0 % Normal 35-47 [facility] Comment on above: Performed By: #### C MIREYA, CMP #### [facility] ([id number]) [address] [place] [address] 57128 Hemoglobin (Bld) [Mass/Vol] 13.0 g/dL Normal 11.7-15.5 [facility] Comment on above: Performed By: #### C MIREYA, CMP #### [facility] ([id number]) [address] [place] [address] 64241 Lymphocytes (Bld) [#/Vol] 5.0 10*3/uL High 1.0-3.5 [facility] Comment on above: Performed By: #### C MIREYA, CMP #### [facility] ([id number]) [address] [place] [address] 38316 Lymphocytes/100 WBC (Bld) 48.0 % Normal [facility] Comment on above: Performed By: #### C MIREYA, CMP #### [facility] ([id number]) [address] [place] [address] 14287 MCH (RBC) [Entitic mass] 29.4 pg Normal 27-34 [facility] Comment on above: Performed By: #### C MIREYA, CMP #### [facility] ([id number]) [address] [place] [address] 53543 MCHC (RBC) [Mass/Vol] 34.3 g/dL Normal 32-36 [facility] Comment on above: Performed By: #### C MIREYA, CMP #### [facility] ([id number]) [address] [place] [address] 48995 MCV (RBC) [Entitic vol] 86 fL Normal 80-100 [facility] Comment on above: Performed By: #### C MIREYA, CMP #### [facility] ([id number]) [address] [place] [address] 92670 Monocytes (Bld) [#/Vol] 0.6 10*3/uL Normal 0-0.9 [facility] Comment on above: Performed By: #### C MIREYA, CMP #### [facility] ([id number]) [address] [place] [address] 44649 Monocytes/100 WBC (Bld) 5.5 % Normal [facility] Comment on above: Performed By: #### C MIREYA, CMP #### [facility] ([id number]) [address] [place] [address] 66180 Neutrophils/100 WBC (Bld) 44.0 % Normal [facility] Comment on above: Performed By: #### C MIREYA, CMP #### [facility] ([id number]) [address] [place] [address] 79111 Platelet mean volume (Bld) [Entitic vol] 7.0 fL Normal 7-12 [facility] Comment on above: Performed By: #### C BCA, CMP #### [facility] ([id number]) [address] [place] [address] 66706 Platelets (Bld) [#/Vol] 559 10*3/uL High 150-450 [facility] Comment on above: Performed By: #### C BCA, CMP #### [facility] ([id number]) [address] [place] [address] 35600 RBC COUNT 4.43 X10E12/L Normal 3.80-5.20 [facility] Comment on above: Performed By: #### C BCA, CMP #### [facility] ([id number]) [address] [place] [address] 68802 WBC (Bld) [#/Vol] 10.4 10*3/uL Normal 4.0-11.0 [facility] Comment on above: Performed By: #### C BCA, CMP #### [facility] ([id number]) [address] [place] [address] 86360 COMPREHENSIVE METABOLIC PANE Varghese 07-19-2023 Albumin [Mass/Vol] 4.2 g/dL Normal 3.2-5.3 [facility] Comment on above: Performed By: #### C BCA, CMP #### [facility] ([id number]) [address] [place] [address] 79614 ALP [Catalytic activity/Vol] 92 U/L Normal 39-130 [facility] Comment on above: Performed By: #### C BCA, CMP #### [facility] ([id number]) [address] [place] [address] 77148 ALT [Catalytic activity/Vol] 57 U/L High 0-31 [facility] Comment on above: Performed By: #### C BCA, CMP #### [facility] ([id number]) [address] [place] [address] 28673 Anion gap [Moles/Vol] 9 mmol/L Normal 5-15 [facility] Comment on above: Performed By: #### C BCA, CMP #### [facility] ([id number]) [address] [place] [address] 28436 AST [Catalytic activity/Vol] 58 U/L High 0-41 [facility] Comment on above: Performed By: #### C BCA, CMP #### [facility] ([id number]) [address] [place] [address] 86618 Bilirubin [Mass/Vol] 0.1 mg/dL Low 0.3-1.2 [facility] Comment on above: Performed By: #### C BCA, CMP #### [facility] ([id number]) [address] [place] [address] 26273 Calcium [Mass/Vol] 9.4 mg/dL Normal 8.5-10.5 [facility] Comment on above: Performed By: #### C BCA, CMP #### [facility] ([id number]) [address] [place] [address] 40386 Chloride [Moles/Vol] 102 mmol/L Normal 98-109 [facility] Comment on above: Performed By: #### C BCA, CMP #### [facility] ([id number]) [address] [place] [address] 06437 CO2 [Moles/Vol] 27 mmol/L Normal 22-32 [facility] Comment on above: Performed By: #### C BCA, CMP #### [facility] ([id number]) [address] [place] [address] 98924 Creatinine [Mass/Vol] 0.85 mg/dL Normal 0.40-1.00 [facility] Comment on above: Result Comment: METH OD TRACEABLE TO IDMS STANDARD Performed By: #### C BCA, CMP #### [facility] ([id number]) [address] [place] [address] 36199 eGFR (CKD-EPI) NON-RACE DEPENDENT >90 Normal >59 [facility] Comment on above: Result Comment: Reported eGFR is based on the CKD-EPI 2020 equation that does not use a race coefficient. Performed By: #### C BCA, CMP #### [facility] ([id number]) [address] [place] [address] 29403 Glucose [Mass/Vol] 92 mg/dL Normal 65-99 [facility] Comment on above: Performed By: #### C BCA, CMP #### [facility] ([id number]) [address] [place] [address] 64129 Potassium [Moles/Vol] 3.3 mmol/L Low 3.5-5.0 [facility] Comment on above: Performed By: #### C BCA, CMP #### [facility] ([id number]) [address] [place] [address] 42868 Protein [Mass/Vol] 8.0 g/dL Normal 6.0-8.0 [facility] Comment on above: Performed By: #### C BCA, CMP #### [facility] ([id number]) [address] [place] [address] 75569 Sodium [Moles/Vol] 138 mmol/L Normal 134-146 [facility] Comment on above: Performed By: #### C BCA, CMP #### [facility] ([id number]) [address] [place] [address] 72321 Urea nitrogen [Mass/Vol] 5 mg/dL Normal 5-23 [facility] Comment on above: Performed By: #### C BCA, CMP #### [facility] ([id number]) [address] [place] [address] ABDOMEN AND PELVIS WO CON Ton [...] Wilder MD on 07/19/2023 5:05 PM Normal [facility] URN MACROSCOPIC NURon 2023 BILIRUBIN ZENOBIA Negative Normal NEG [facility] Comment on above: Performed By: #### N UM #### [facility] ([id number]) [address] [place] [address] 55305 BLOOD/HGB ZENOBIA Negative Normal NEG [facility] Comment on above: Performed By: #### N UM #### [facility] ([id number]) [address] [place] [address] 23252 GLUCOSE ZENOBIA Negative Normal NEG [facility] Comment on above: Performed By: #### N UM #### [facility] ([id number]) [address] [place] [address] 95655 KETONES ZENOBIA Negative Normal NEG [facility] Comment on above: Performed By: #### N UM #### [facility] ([id number]) [address] [place] [address] 98990 LEUKOCYTE ESTERASE ZENOBIA Negative Normal NEG [facility] Comment on above: Performed By: #### N UM #### [facility] ([id number]) [address] [place] [address] 05784 NITRITE ZENOBIA Negative Normal NEG [facility] Comment on above: Performed By: #### N UM #### [facility] ([id number]) [address] [place] [address] 01405 PH ZENOBIA 6.0 Normal 5.0-8.5 [facility] Comment on above: Performed By: #### N UM #### [facility] ([id number]) [address] [place] [address] 50496 PROTEIN ZENOBIA Negative Normal NEG [facility] Comment on above: Performed By: #### N UM #### [facility] ([id number]) [address] [place] [address] 75169 SPECIFIC GRAVITY ZENOBIA 1.010 Normal 1.003-1.035 [facility] Comment on above: Performed By: #### N UM #### [facility] ([id number]) [address] [place] [address] 14617 UROBILINOGEN ZENOBIA 0.2 eu/dL Normal <1.1 [facility] Comment on above: Performed By: #### N UM #### [facility] ([id number]) [address] [place] [address] 97844 CBC WITH AUTO DIFFERENTIALon 05-23-2023 Basophils (Bld) [#/Vol] 0.09 10*3/uL Normal 0.00-0.20 [facility] Comment on above: Performed By: #### L [id number] ####[facility] (BEAKER)[address] [place] [address] Basophils/100 WBC (Bld) 0.6 % Normal 0.0-1.0 [facility] Comment on above: Performed By: #### L [id number] ####[facility] ([facility])[address] [place] [address] Eosinophils (Bld) [#/Vol] 0.21 10*3/uL Normal 0.00-0.50 [facility] Comment on above: Performed By: #### L [id number] ####[facility] ([facility])[address] [place] [address] Eosinophils/100 WBC (Bld) 1.4 % Normal 0.0-6.0 [facility] Comment on above: Performed By: #### L [id number] ####[facility] ([facility] [place] [address] Erythrocyte distribution width (RBC) [Ratio] 13.6 % Normal 11.5-15.0 [facility] Comment on above: Performed By: #### L [id number] ####[facility] ([facility])[address] [place] [address] ERYTHROCYTE MEAN CORPUSCULAR HEMOGLOBIN CONCENTRATION (G/DL) BY AUTOMATED 33.5 g/dL Normal 32.0-35.0 [facility] Comment on above: Performed By: #### L [id number] ####[facility] ([facility])[address] [place] [address] Hematocrit (Bld) [Volume fraction] 39.4 % Normal 36.0-48.0 [facility] Comment on above: Performed By: #### L [id number] ####[facility] ([facility])[address] [place] [address] Hemoglobin (Bld) [Mass/Vol] 13.2 g/dL Normal 12.0-15.0 [facility] Comment on above: Performed By: #### L [id number] ####[facility] ([facility])[address] [place] [address] Immature granulocytes (Bld) [#/Vol] 0.08 10*3/uL Normal 0.00-0.20 [facility] Comment on above: Performed By: #### L [id number] ####[facility] ([facility])[address] [place] [address] Immature granulocytes/100 WBC (Bld) 0.5 % Normal 0.0-1.0 [facility] Comment on above: Performed By: #### L [id number] ####[facility] ([facility])[address] [place] [address] Lymphocytes (Bld) [#/Vol] 3.60 10*3/uL Normal 1.20-4.00 [facility] Comment on above: Performed By: #### L [id number] ####[facility] ([facility])[address] [place] [address] Lymphocytes/100 WBC (Bld) 23.2 % Normal 20.0-45.0 [facility] Comment on above: Performed By: #### L [id number] ####[facility] ([facility])[address] [place] [address] MCH (RBC) [Entitic mass] 29.7 pg Normal 27.0-33.0 [facility] Comment on above: Performed By: #### L [id number] ####[facility] ([facility]ER)[address] [place] [address] MCV (RBC) [Entitic vol] 88.5 fL Normal 82.0-98.0 [facility] Comment on above: Performed By: #### L [id number] ####[facility] ([facility])[address] [place] [address] Monocytes (Bld) [#/Vol] 0.98 10*3/uL Normal 0.10-1.00 [facility] Comment on above: Performed By: #### L [id number] ####[facility] ([facility])[address] [place] [address] Monocytes/100 WBC (Bld) 6.3 % Normal 5.0-12.0 [facility] Comment on above: Performed By: #### L [id number] ####[facility] ([facility])[address] [place] [address] Neutrophils (Bld) [#/Vol] 10.58 10*3/uL High 1.60-7.60 [facility] Comment on above: Performed By: #### L [id number] ####[facility] ([facility]ER)[address] [place] [address] Neutrophils/100 WBC (Bld) 68.0 % Normal 40.0-72.0 [facility] Comment on above: Performed By: #### L [id number] ####[facility] ([facility] [address] NRBC (PER 100 WBCS) BY AUTOMATED COUNT 0.0 % Normal 0 [facility] Comment on above: Performed By: #### L [id number] ####[facility] ([facility])[address] [place] [address] PLATELETS (10*3/UL) IN BLOOD AUTOMATED COUNT 562 10*3/uL High 150-400 [facility] Comment on above: Performed By: #### L [id number] ####[facility] ([facility])[address] [place] [address] RBC (Bld) [#/Vol] 4.45 10*6/uL Normal 3.80-5.00 [facility] Comment on above: Performed By: #### L [id number] ####[facility] ([facility])[address] [place] [address] WBC (Bld) [#/Vol] 15.54 10*3/uL High 4.00-10.60 [facility] Comment on above: Performed By: #### L [id number] ####[facility] ([facility] [place] [address] COMPREHENSIVE METABOLIC PANE Varghese 05-23-2023 Albumin [Mass/Vol] 4.7 g/dL Normal 3.5-5.7 [facility] Comment on above: Performed By: #### L [id number] #### [facility] ([facility] [address] [place] [address] ALP [Catalytic activity/Vol] 98 U/L Normal 34-104 [facility] Comment on above: Performed By: #### L [id number] #### [facility] ([facility] [address] [place] [address] ALT [Catalytic activity/Vol] 42 U/L Normal 7-52 [facility] Comment on above: Performed By: #### L [id number] #### [facility] ([facility]) [address] [place] [address] Anion gap [Moles/Vol] 11 mmol/L Normal 7-20 [facility] Comment on above: Performed By: #### L [id number] #### [facility] ([facility]) [address] [place] [address] AST [Catalytic activity/Vol] 29 U/L Normal 13-39 [facility] Comment on above: Performed By: #### L [id number] #### [facility] ([facility]) [address] [place] [address] Bilirubin [Mass/Vol] 0.3 mg/dL Normal 0.3-1.0 [facility] Comment on above: Performed By: #### L [id number] #### [facility] ([facility]) [address] [place] [address] Calcium [Mass/Vol] 10.3 mg/dL Normal 8.6-10.3 [facility] Comment on above: Performed By: #### L [id number] #### [facility] ([facility]) [address] [place] [address] Chloride [Moles/Vol] 100 mmol/L Normal 98-107 [facility] Comment on above: Performed By: #### L [id number] #### [facility] ([facility] [address] [place] [address] CO2 [Moles/Vol] 28 mmol/L Normal 21-31 [facility] Comment on above: Performed By: #### L [id number] #### [facility] ([facility]) [address] [place] [address] Creatinine [Mass/Vol] 0.73 mg/dL Normal 0.60-1.20 [facility] Comment on above: Performed By: #### L [id number] #### [facility] ([facility]) [address] [place] [address] GLOMERULAR FILTRATION RATE ML/MIN/1.73 SQ M.PREDICTED 109.2 mL/min/1.73m*2 Normal >60.0 [facility] Comment on above: Result Comment: [facility]???s estimated glomerular filtration rate (eGFR) will no [...] individuals. Performed By: #### L [id number] #### [facility] ([facility]) [address] [place] [address] Glucose [Mass/Vol] 83 mg/dL Normal 70-100 [facility] Comment on above: Performed By: #### L [id number] #### [facility] ([facility]) [address] [place] [address] Potassium [Moles/Vol] 3.4 mmol/L Low 3.5-5.1 [facility] Comment on above: Performed By: #### L [id number] #### [facility] ([facility]) [address] [place] [address] Protein [Mass/Vol] 7.9 g/dL Normal 6.0-8.3 [facility] Comment on above: Performed By: #### L [id number] #### [facility] ([facility] [address] [place] [address] Sodium [Moles/Vol] 136 mmol/L Normal 136-145 [facility] Comment on above: Performed By: #### L [id number] #### [facility] ([facility] [address] [place] [address] Urea nitrogen [Mass/Vol] 7 mg/dL Normal 7-25 [facility] Comment on above: Performed By: #### L [id number] #### [facility] ([facility]) [address] [place] [address] UREA NITROGEN/CREATININE (MASS RATIO) IN SER/PLAS 9.6 Normal [facility] Comment on above: Performed By: #### L [id number] #### [facility] ([facility]) [address] [place] [address] Follow-Upon 05-23-2023 Follow-Up [id number] Sonia Waite 1985 F Date Provider Department Center 05/23/2023 LUNA LOUIE [facility] Family History Problem Relation Age of Onset Lupus Mother Cirrhosis Mother Family Status - Relation Status Age at Mother Level of Service:24599 UT OFFICE/OUTPATIENT ESTABLISHED MOD MDM 30-39 MIN Reason for Visit and Comments: Follow-up [900440] Normal [facility] Orders Onlyon 05-23-2023 Orders Only [id number] Sonia Waite 1985 Provider Department Center 05/23/2023 RADHA ALONSO [facility] Chris Heal Family History Problem Relation Age of Onset Lupus Mother Cirrhosis Mother Family Status - Relation Status Age at Mother Normal [facility] URINALYSISon 05-23-2023 BILIRUBIN, TOTAL PRESENCE IN URINE Negative Normal Negative [facility] Comment on above: Order Comment: Micro scopics not performed on urines with negative chemical reactions unless requested on original order. Performed By: #### L [id number] #### [facility] ([facility]) [address] [place] [address] Clarity (U) Clear Normal Clear [facility] Comment on above: Order Comment: Micro scopics not performed on urines with negative chemical reactions unless requested on original order. Performed By: #### L [id number] #### [facility] ([facility]) [address] [place] [address] Color (U) Yellow Normal Yellow [facility] Comment on above: Order Comment: Micro scopics not performed on urines with negative chemical reactions unless requested on original order. Performed By: #### L [id number] #### [facility] ([facility]) [address] [place] [address] Glucose (U) [Mass/Vol] Negative Normal Negative [facility] Comment on above: Order Comment: Micro scopics not performed on urines with negative chemical reactions unless requested on original order. Performed By: #### L [id number] #### [facility] ([facility]) [address] [place] [address] HEMOGLOBIN PRESENCE IN URINE Negative Normal Negative [facility] Comment on above: Order Comment: Micro scopics not performed on urines with negative chemical reactions unless requested on original order. Performed By: #### L [id number] #### [facility] ([facility]) [address] [place] [address] Ketones Ql (U) Negative Normal Negative [facility] Comment on above: Order Comment: Micro scopics not performed on urines with negative chemical reactions unless requested on original order. Performed By: #### L [id number] #### [facility] ([facility] [place]) [address] [place] [address] LEUKOCYTE ESTERASE PRESENCE IN URINE BY TEST STRIP Negative Normal Negative [facility] Comment on above: Order Comment: Micro scopics not performed on urines with negative chemical reactions unless requested on original order. Performed By: #### L [id number] #### [facility] ([facility] [place]) [address] [place] [address] NITRITE PRESENCE IN URINE Negative Normal Negative [facility] Comment on above: Order Comment: Micro scopics not performed on urines with negative chemical reactions unless requested on original order. Performed By: #### L [id number] #### [facility] ([facility] [place]) [address] [place] [address] pH (U) 7.0 [pH] Normal 5.0-8.0 [facility] Comment on above: Order Comment: Micro scopics not performed on urines with negative chemical reactions unless requested on original order. Performed By: #### L [id number] #### [facility] ([facility] [place]) [address] [place], [place] [address] Protein (U) [Mass/Vol] Negative Normal Negative [facility] Comment on above: Order Comment: Micro scopics not performed on urines with negative chemical reactions unless requested on original order. Performed By: #### L [id number] #### [facility] (BEAKER) [address] [place] [address] Specific gravity (U) [Rel density] 1.004 Low 1.015-1.020 [facility] Comment on above: Order Comment: Micro scopics not performed on urines with negative chemical reactions unless requested on original order. Performed By: #### L [id number] #### [facility] (BEAKER) [address] [place] [address] 36on 04-09-2023 36 Last visit 02/26/23 Upcoming visit 05/23/23 Last cbc/cmp 02/12/23 [facility] 36on 03-18-2023 36 Last visit 02/26/23 Upcoming visit 05/23/23 Last cbc/cmp 02/12/23 [facility] Follow-Upon 02-26-2023 Follow-Up [id number] Sonia Waite 1985 F Date Provider Department Center 02/26/2023 Minnie-LUNA SPICER [facility] RHEUM Chris Heal Family History Problem Relation Age of Onset Lupus Mother Cirrhosis Mother Family Status - Relation Status Age at Mother Level of Service:97766 UT OFFICE/OUTPATIENT ESTABLISHED MOD MDM 30-39 MIN () Reason for Visit and Comments: Follow-up [[id number]] [facility] 36on 02-25-2023 36 Pt scheduled [facility] 36 Pt called to give update She states she is almost complete w/ medrol dose elian that was rx'd last week, and her pain is still the same no change Pain 7/10 per pt She would like to know what next steps will be. Please advise and I can call pt w/response [facility] 36on 02-22-2023 36 Pt notified [facility] 36 Pt is having flare-u p. She is currently unable to walk and describes pain as stabbing and pins and needles Normal [facility] Telephoneon 02-22-2023 Telephone [phone] Sonia Waite 1985 F Date Provider Department Center 02/22/2023 CLAIRE ISLAS [facility] INF Chris Heal Family History Problem Relation Age of Onset Lupus Mother Cirrhosis Mother Family Status - Relation Status Age at Mother Normal [facility] CBC WITH AUTO DIFFERENTIALon 02-12-2023 Basophils (Bld) [#/Vol] 0.06 10*3/uL Normal 0.00-0.20 [facility] Comment on above: Performed By: #### L [id number] #### [facility] ([facility]) [address] [place] [address] Basophils/100 WBC (Bld) 0.5 % Normal 0.0-1.0 [facility] Comment on above: Performed By: #### L [id number] #### [facility] ([facility] [address] [place] [address] Eosinophils (Bld) [#/Vol] 0.10 10*3/uL Normal 0.00-0.50 [facility] Comment on above: Performed By: #### L [id number] #### [facility] ([facility]) [address] [place] [address] Eosinophils/100 WBC (Bld) 0.8 % Normal 0.0-6.0 [facility] Comment on above: Performed By: #### L [id number] #### [facility] (BEAKER) [address] [place] [address] Erythrocyte distribution width (RBC) [Ratio] 15.6 % High 11.5-15.0 [facility] Comment on above: Performed By: #### L [id number] #### [facility] (BEAKER) [address] [place] [address] ERYTHROCYTE MEAN CORPUSCULAR HEMOGLOBIN CONCENTRATION (G/DL) BY AUTOMATED 32.5 g/dL Normal 32.0-35.0 [facility] Comment on above: Performed By: #### L [id number] #### [facility] (BEAKER) [address] [place] [address] Hematocrit (Bld) [Volume fraction] 38.2 % Normal 36.0-48.0 [facility] Comment on above: Performed By: #### L [id number] #### [facility] (BEAKER) [address] [place] [address] Hemoglobin (Bld) [Mass/Vol] 12.4 g/dL Normal 12.0-15.0 [facility] Comment on above: Performed By: #### L [id number] #### [facility] ([facility] [address] [place] [address] Immature granulocytes (Bld) [#/Vol] 0.07 10*3/uL Normal 0.00-0.20 [facility] Comment on above: Performed By: #### L [id number] #### [facility] ([facility]) [address] [place] [address] Immature granulocytes/100 WBC (Bld) 0.6 % Normal 0.0-1.0 [facility] Comment on above: Performed By: #### L [id number] #### [facility] ([facility]) [address] [address] Lymphocytes (Bld) [#/Vol] 2.96 10*3/uL Normal 1.20-4.00 [facility] Comment on above: Performed By: #### L [id number] #### [facility] ([facility] [address] [place] [address] Lymphocytes/100 WBC (Bld) 23.7 % Normal 20.0-45.0 [facility] Comment on above: Performed By: #### L [id number] #### [facility] ([facility] [address] [place] [address] MCH (RBC) [Entitic mass] 29.5 pg Normal 27.0-33.0 [facility] Comment on above: Performed By: #### L [id number] #### [facility] (BEAKER) [address] [place] [address] MCV (RBC) [Entitic vol] 91.0 fL Normal 82.0-98.0 [facility] Comment on above: Performed By: #### L [id number] #### [facility] ([facility]) [address] [place] [address] Monocytes (Bld) [#/Vol] 0.72 10*3/uL Normal 0.10-1.00 [facility] Comment on above: Performed By: #### L [id number] #### [facility] ([facility]) [address] [place] [address] Monocytes/100 WBC (Bld) 5.8 % Normal 5.0-12.0 [facility] Comment on above: Performed By: #### L [id number] #### [facility] ([facility]) [address] [facility] [facility] [address] Neutrophils (Bld) [#/Vol] 8.60 10*3/uL High 1.60-7.60 [facility] Comment on above: Performed By: #### L [id number] #### [facility] ([facility]) [address] [place] [address] Neutrophils/100 WBC (Bld) 68.6 % Normal 40.0-72.0 [facility] Comment on above: Performed By: #### L [id number] #### [facility] ([facility]) [address] [place] [address] NRBC (PER 100 WBCS) BY AUTOMATED COUNT 0.0 % Normal 0 [facility] Comment on above: Performed By: #### L [id number] #### [facility] ([facility]) [address] [place] [address] PLATELETS (10*3/UL) IN BLOOD AUTOMATED COUNT 515 10*3/uL High 150-400 [facility] Comment on above: Performed By: #### L [id number] #### [facility] ([facility]) [address] [place] [address] RBC (Bld) [#/Vol] 4.20 10*6/uL Normal 3.80-5.00 [facility] Comment on above: Performed By: #### L [id number] #### [facility] ([facility]) [address] [place] [address] WBC (Bld) [#/Vol] 12.51 10*3/uL High 4.00-10.60 [facility] Comment on above: Performed By: #### L [id number] #### [facility] ([facility]) [address] [place] [address] COMPREHENSIVE METABOLIC PANE Varghese 02-12-2023 Albumin [Mass/Vol] 4.3 g/dL Normal 3.5-5.7 [facility] Comment on above: Performed By: #### L [id number] ####[facility] ([facility])[address] [place] [address] ALP [Catalytic activity/Vol] 69 U/L Normal 34-104 [facility] Comment on above: Performed By: #### L [id number] ####[facility] ([facility] [place] [address] ALT [Catalytic activity/Vol] 48 U/L Normal 7-52 [facility] Comment on above: Performed By: #### L [id number] ####[facility] ([facility] [place] [address] Anion gap [Moles/Vol] 13 mmol/L Normal 7-20 [facility] Comment on above: Performed By: #### L [id number] ####[facility] ([facility])[address] [place] [address] AST [Catalytic activity/Vol] 39 U/L Normal 13-39 [facility] Comment on above: Performed By: #### L [id number] ####[facility] ([facility] [place] [address] Bilirubin [Mass/Vol] 0.3 mg/dL Normal 0.3-1.0 [facility] Comment on above: Performed By: #### L [id number] ####[facility] (BEAKER)[address] [place] [address] Calcium [Mass/Vol] 9.9 mg/dL Normal 8.6-10.3 [facility] Comment on above: Performed By: #### L [id number] ####[facility] (BEAKER)[address] [place] [address] Chloride [Moles/Vol] 103 mmol/L Normal 98-107 [facility] Comment on above: Performed By: #### L [id number] ####[facility] (BEAKER)[address] [place] [address] CO2 [Moles/Vol] 24 mmol/L Normal 21-31 [facility] Comment on above: Performed By: #### L [id number] ####[facility] (BEAKER)[address] [place] [address] Creatinine [Mass/Vol] 0.80 mg/dL Normal 0.60-1.20 [facility] Comment on above: Performed By: #### L [id number] ####[facility] ([facility])[address] [place] [address] GLOMERULAR FILTRATION RATE ML/MIN/1.73 SQ M.PREDICTED 97.9 mL/min/1.73m*2 Normal >60.0 [facility] Comment on above: Result Comment: The [facility]???s estimated glomerular filtration rate (eGFR) will no [...] of individuals. Performed By: #### L [id number] ####[facility] (BEAKER)[address] [place] [address] Glucose [Mass/Vol] 101 mg/dL High 70-100 [facility] Comment on above: Performed By: #### L [id number] ####[facility] ([facility])[address] [place] [address] Potassium [Moles/Vol] 3.5 mmol/L Normal 3.5-5.1 [facility] Comment on above: Performed By: #### L [id number] ####[facility] ([facility])[address] [place] [address] Protein [Mass/Vol] 7.2 g/dL Normal 6.0-8.3 [facility] Comment on above: Performed By: #### L [id number] ####[facility] ([facility])[address] [place] [address] Sodium [Moles/Vol] 136 mmol/L Normal 136-145 [facility] Comment on above: Performed By: #### L [id number] ####[facility] ([facility])[address] [place] [address] Urea nitrogen [Mass/Vol] 8 mg/dL Normal 7-25 [facility] Comment on above: Performed By: #### L [id number] ####[facility] ([facility])[address] [place] [address] UREA NITROGEN/CREATININE (MASS RATIO) IN SER/PLAS 10.0 Normal [facility] Comment on above: Performed By: #### L [id number] ####[facility] ([facility])[address] [place] [address] Follow-Upon 02-12-2023 Follow-Up [id number] Sonia Waite 1985 F Date Provider Department Center 02/12/2023 LUNA LOUIE [facility] Chris Heal Family History Problem Relation Age of Onset Lupus Mother Cirrhosis Mother Family Status - Relation Status Age at Mother Level of Service:49781 UT OFFICE/OUTPATIENT ESTABLISHED MOD MDM 30-39 MIN (GC) Reason for Visit and Comments: Follow-up [[id number]] - 3 month follow up Normal [facility] Follow-Upon 01-25-2023 Follow-Up [id number] Sonai Waite 1985 F Date Provider Department Center 01/25/2023 202-SHAHNAZ HANNAH [facility] SLEEP [facility] Family History Problem Relation Age of Onset Lupus Mother Cirrhosis Mother Family Status - Relation Status Age at Mother Level of Service:15575 UT OFFICE/OUTPATIENT ESTABLISHED LOW MDM 20-29 MIN Reason for Visit and Comments: Follow-up [[id number]] - 6 month follow up- PAP Normal [facility] 36on 12-11-2022 36 Please approve rx yesterday had no directions please add directions and approve rx if appropriate [facility] 12-11-2022 Refill [id number] Sonia Waite 1985 Date Provider Department Center 12/11/2022 KINJAL SIMON RHEUM Chris Heal Family History Problem Relation Age of Onset Lupus Mother Cirrhosis Mother Family Status - Relation Status Age at Mother Reason for Visit and Comments: Med Refill [[id number]] [facility] 36on 12-10-2022 36 Last visit 11/15/22 Upcoming visit 02/12/23 Last cbc/cmp 11/15/22 [facility] 12-10-2022 Refill [id number] Sonia Waite 1985 Date Provider Department Center 12/10/2022 KINJAL SIMON [facility] RHEUM Chris Heal Family History Problem Relation Age of Onset Lupus Mother Cirrhosis Mother Family Status - Relation Status Age at Mother Reason for Visit and Comments: Med Refill [[id number]] [facility] CBC WITH AUTO DIFFERENTIALon 11-15-2022 Erythrocyte distribution width (RBC) [Ratio] 13.3 % Normal 11.5-15.0 [facility] Comment on above: Performed By: #### L [id number] #### [facility] ([facility]AKER) [address] [place] [address] ERYTHROCYTE MEAN CORPUSCULAR HEMOGLOBIN CONCENTRATION (G/DL) BY AUTOMATED 32.6 g/dL Normal 32.0-35.0 [facility] Comment on above: Performed By: #### L [id number] #### [facility] ([facility]) [address] [place] [address] Hematocrit (Bld) [Volume fraction] 40.8 % Normal 36.0-48.0 [facility] Comment on above: Performed By: #### L [id number] #### [facility] ([facility]) [address] [place] [address] Hemoglobin (Bld) [Mass/Vol] 13.3 g/dL Normal 12.0-15.0 [facility] Comment on above: Performed By: #### L [id number] #### [facility] ([facility]) [address] [place] [address] MCH (RBC) [Entitic mass] 30.2 pg Normal 27.0-33.0 [facility] Comment on above: Performed By: #### L [id number] #### [facility] ([facility]) [address] [place] [address] MCV (RBC) [Entitic vol] 92.7 fL Normal 82.0-98.0 [facility] Comment on above: Performed By: #### L [id number] #### [facility] ([facility]) [address] [place] [address] NRBC (PER 100 WBCS) BY AUTOMATED COUNT 0.0 % Normal 0 [facility] Comment on above: Performed By: #### L [id number] #### [facility] ([facility]) [address] [place] [address] PLATELETS (10*3/UL) IN BLOOD AUTOMATED COUNT 526 10*3/uL High 150-400 [facility] Comment on above: Performed By: #### L [id number] #### [facility] ([facility]) [address] [place] [address] RBC (Bld) [#/Vol] 4.40 10*6/uL Normal 3.80-5.00 [facility] Comment on above: Performed By: #### L [id number] #### [facility] ([facility] [address] [place] [address] WBC (Bld) [#/Vol] 14.19 10*3/uL High 4.00-10.60 [facility] Comment on above: Performed By: #### L [id number] #### [facility] ([facility]) [address] [place] [address] COMPREHENSIVE METABOLIC PANE Varghese 11-15-2022 Albumin [Mass/Vol] 4.6 g/dL Normal 3.5-5.7 [facility] Comment on above: Performed By: #### L [id number] #### [facility] ([facility]) [address] [place] [address] ALP [Catalytic activity/Vol] 82 U/L Normal 34-104 [facility] Comment on above: Performed By: #### L [id number] #### [facility] ([facility]) [address] [place] [address] ALT [Catalytic activity/Vol] 36 U/L Normal 7-52 [facility] Comment on above: Performed By: #### L [id number] #### [facility] ([facility]) [address] [place] [address] Anion gap [Moles/Vol] 13 mmol/L Normal 7-20 [facility] Comment on above: Performed By: #### L [id number] #### [facility] ([facility]) [address] [place] [address] AST [Catalytic activity/Vol] 31 U/L Normal 13-39 [facility] Comment on above: Performed By: #### L [id number] #### [facility] ([facility]) [address] [place] [address] Bilirubin [Mass/Vol] 0.3 mg/dL Normal 0.3-1.0 [facility] Comment on above: Performed By: #### L [id number] #### [facility] ([facility]) [address] [place] [address] Calcium [Mass/Vol] 10.1 mg/dL Normal 8.6-10.3 [facility] Comment on above: Performed By: #### L [id number] #### [facility] ([facility]) [address] [place] [address] Chloride [Moles/Vol] 99 mmol/L Normal 98-107 [facility] Comment on above: Performed By: #### L [id number] #### [facility] ([facility]) [address] [place] [address] CO2 [Moles/Vol] 28 mmol/L Normal 21-31 [facility] Comment on above: Performed By: #### L [id number] #### [facility] ([facility]) [address] [place] [address] Creatinine [Mass/Vol] 0.79 mg/dL Normal 0.60-1.20 [facility] Comment on above: Performed By: #### L [id number] #### [facility] ([facility]) [address] [place] [address] GLOMERULAR FILTRATION RATE ML/MIN/1.73 SQ M.PREDICTED 100.0 mL/min/1.73m*2 Normal >60.0 [facility] Comment on above: Result Comment: The [facility]???s estimated glomerular filtration rate (eGFR) will no [...] individuals. Performed By: #### L [id number] #### [facility] ([facility]) [address] [place] [address] Glucose [Mass/Vol] 82 mg/dL Normal 70-100 [facility] Comment on above: Performed By: #### L [id number] #### [facility] ([facility] [address] [place] [address] Potassium [Moles/Vol] 3.4 mmol/L Low 3.5-5.1 [facility] Comment on above: Performed By: #### L [id number] #### [facility] ([facility]) [address] [place] [address] Protein [Mass/Vol] 8.0 g/dL Normal 6.0-8.3 [facility] Comment on above: Performed By: #### L [id number] #### [facility] ([facility]) [address] [place] [address] Sodium [Moles/Vol] 137 mmol/L Normal 136-145 [facility] Comment on above: Performed By: #### L [id number] #### [facility] ([facility]) [address] [place] [address] Urea nitrogen [Mass/Vol] 8 mg/dL Normal 7-25 [facility] Comment on above: Performed By: #### L [id number] #### [facility] ([facility]) [address] [place] [address] UREA NITROGEN/CREATININE (MASS RATIO) IN SER/PLAS 10.1 Normal [facility] Comment on above: Performed By: #### L [id number] #### [facility] ([facility] [address] [place] [address] Follow-Upon 11-15-2022 Follow-Up [id number] Sonia Waite 1985 F Date Provider Department Center 11/15/2022 LUNA LOUIE C RHEUM Chris Heal Family History Problem Relation Age of Onset Lupus Mother Cirrhosis Mother Family Status - Relation Status Age at Mother Level of Service:49867 UT OFFICE/OUTPATIENT ESTABLISHED MOD MDM 30-39 MIN (GC) Reason for Visit and Comments: Follow-up [[id number]] Normal [facility] MANUAL DIFFERENTIALon 2022 BASOPHILS (10*3/UL) IN BLOOD BY CALCULATION 0.07 10*3/uL Normal 0.00-0.20 [facility] Comment on above: Performed By: #### L [id number] ####[facility] ([facility])[address] [place] [address] BASOPHILS/100 LEUKOCYTES IN BLOOD BY AUTOMATED COUNT 0.5 % Normal 0.0-1.0 [facility] Comment on above: Performed By: #### L [id number] ####[facility] ([facility] [place] [address] EOSINOPHILS (10*3/UL) IN BLOOD BY CALCULATION 0.16 10*3/uL Normal 0.00-0.50 [facility] Comment on above: Performed By: #### L [id number] ####[facility] ([facility] [place] [address] EOSINOPHILS/100 LEUKOCYTES IN BLOOD BY AUTOMATED COUNT 1.1 % Normal 0.0-6.0 [facility] Comment on above: Performed By: #### L [id number] ####[facility] ([facility] [place])[address] [place] [address] IMMATURE GRANULOCYTES (10*3/UL) IN BLOOD BY CALCULATION 0.11 10*3/uL Normal 0.00-0.20 [facility] Comment on above: Performed By: #### L [id number] ####[facility] ([facility])[address] [place] [address] IMMATURE GRANULOCYTES/100 LEUKOCYTES IN BLOOD BY AUTOMATED COUNT 0.8 % Normal 0.0-1.0 [facility] Comment on above: Performed By: #### L [id number] ####[facility] ([facility])[address] [place] [address] LYMPHOCYTES (10*3/UL) IN BLOOD BY CALCULATION 5.31 10*3/uL High 1.20-4.00 [facility] Comment on above: Performed By: #### L [id number] ####[facility] ([facility])[address] [place] [address] LYMPHOCYTES/100 LEUKOCYTES IN BLOOD BY AUTOMATED COUNT 37.4 % Normal 20.0-45.0 [facility] Comment on above: Performed By: #### L [id number] ####[facility] ([facility])[address] [place] [address] MONOCYTES (10*3/UL) IN BLOOD BY CALCUATION 0.99 10*3/uL Normal 0.10-1.00 [facility] Comment on above: Performed By: #### L [id number] ####[facility] ([facility])[address] [place] [address] MONOCYTES/100 LEUKOCYTES IN BLOOD BY AUTOMATED COUNT 7.0 % Normal 5.0-12.0 [facility] Comment on above: Performed By: #### L [id number] ####[facility] ([facility])[address] [place] [address] NEUTROPHILS (10*3/UL) IN BLOOD BY CALCULATION 7.5 10*3/uL Normal 1.6-7.6 [facility] Comment on above: Performed By: #### L [id number] ####[facility] ([facility])[address] [place] [address] NEUTROPHILS/100 LEUKOCYTES IN BLOOD BY AUTOMATED COUNT 53.2 % Normal 40.0-72.0 [facility] Comment on above: Performed By: #### L [id number] ####[facility] ([facility])[address] [place] [address] PAP ACOG PANEL 2: 30 to 65on 10-17-2022 . . Normal [facility] Comment on above: Result Comment: Perf ormed at: WB Performed By: #### [id number] #### [facility] [address] [place] [address] Dr. Cedric Dillon Age Gdln ACOG Testing 30-65 [facility] Comment on above: Performed By: #### 4 [id number] #### [facility] [address] [place] [address] Dr. Cedric Dillon DIAGNOSIS: Comment Normal [facility] Comment on above: Result Comment: NEGA TIVE FOR INTRAEPITHELIAL LESION OR MALIGNANCY. PREDOMINANCE OF COCCOBACILLI CONSISTENT WITH SHIFT IN VAGINAL JIGNA IS PRESENT. Performed at: WB Performed By: #### [id number] #### [facility] [address] [place] [address] Dr. Cedric Dillon HPV Aptima Negative Normal Negative [facility] Comment on above: Result Comment: This nucleic acid amplification test detects fourteen high-risk HPV types (16,18,31,33,35,39,45,51,52,56,58,59,66,68) without differentiation. Performed at: =G Performed By: #### [id number] #### [facility] [address] [address] [address] Cedric Dillon HPV Genotype Reflex Comment Normal [facility] Comment on above: Result Comment: Crit eria not met, HPV Genotype not performed. Performed at: WB Performed By: #### [id number] #### [facility] [address] [place] [address] Dr. Cedric Dillon Methodology: Comment Normal [facility] Comment on above: Result Comment: This liquid based ThinPrep(R) pap test was screened with the use of an image guided system. Performed at: WB Performed By: #### [id number] #### [facility] [address] [place] [address] Dr. Cedric Dillon Note: Comment Normal [facility] Comment on above: Result Comment: The Pap smear is a screening test designed to aid in the detection of premalignant and malignant conditions of the uterine cervix. It is not a diagnostic procedure and should not be used as the sole means of detecting cervical cancer. Both false-positive and false-negative reports do occur. . Performed at: WB Performed By: #### [id number] #### [facility] [address] [place] [address] Dr. Cedric Dillon Performed by: Comment Normal [facility] Comment on above: Result Comment: Florecita Magdaleno, Benefits Representative (ASCP) Performed at: WB Performed By: #### [id number] #### [facility] [address] [place] [address] Dr. Cedric Dillon Specimen adequacy: Comment Normal [facility] Comment on above: Result Comment: Sati sfactory for evaluation. Performed at: WB Performed By: #### 4 [id number] #### [facility] [address] [place] [address] Dr. Cedric Dillon Cytology Cervical or vaginal smear or scraping studyon 10-10-2022 [facility] BNPon 08-22-2022 Natriuretic peptide B (Bld) [Mass/Vol] 8.0 pg/mL Normal <=450.0 [facility] Comment on above: Performed By: #### H STROPN, TSH, BNP, CMP #### [facility] [address] [address] [address] Cedric Dillon CBC AUTO DIFFon 08-22-2022 BASO # 0.1 103/ul Normal 0.0-0.1 [facility] Comment on above: Performed By: #### H STROPN, TSH, BNP, CMP #### [facility] [address] [place] [address] Dr. Cedric Dillon Basophils/100 WBC (Bld) 0.5 % Normal 0.2-2.0 [facility] Comment on above: Performed By: #### H STROPN, TSH, BNP, CMP #### [facility] [address] [place] [address] Dr. Cedric Dillon EO # 0.1 103/ul Normal 0.0-0.7 [facility] Comment on above: Performed By: #### H STROPN, TSH, BNP, CMP #### [facility] [address] [place] [address] Dr. Cedric Dillon Eosinophils/100 WBC (Bld) 0.8 % Critically low 0.9-7.0 [facility] Comment on above: Performed By: #### H STROPN, TSH, BNP, CMP #### [facility] [address] [place] [address] Dr. Cedric Dillon Erythrocyte distribution width (RBC) [Ratio] 14.6 % Normal 11.0-15.0 [facility] Comment on above: Performed By: #### H STROPN, TSH, BNP, CMP #### [facility] [address] [place] [address] Dr. Cedric Dillon Hematocrit (Bld) [Volume fraction] 37.7 % Normal 36.0-48.0 [facility] Comment on above: Performed By: #### H STROPN, TSH, BNP, CMP #### [facility] [address] [place] [address] Dr. Cedric Dillon Hemoglobin (Bld) [Mass/Vol] 12.9 g/dL Normal 12.0-16.0 [facility] Comment on above: Performed By: #### H STROPN, TSH, BNP, CMP #### [facility] [address] [place] [address] Dr. Cedric Dillon IG # 0.08 10e3/ul Critically high 0.00-0.03 [facility] Comment on above: Performed By: #### H STROPN, TSH, BNP, CMP #### [facility] [address] [place] [address] Dr. Cedric Dillon IG % 0.7 % Critically high 0.0-0.5 [facility] Comment on above: Performed By: #### H STROPN, TSH, BNP, CMP #### [facility] [address] [place] [address] Dr. Cedric Dillon LYMPH # 5.0 103/ul Critically high 1.2-3.8 [facility] Comment on above: Performed By: #### H STROPN, TSH, BNP, CMP #### [facility] [address] [place] [address] Dr. Cedric Dillon Lymphocytes/100 WBC (Bld) 44.7 % Normal 20.5-60.0 [facility] Comment on above: Performed By: #### H STROPN, TSH, BNP, CMP #### [facility] [address] [place] [address] Dr. Cedric Dillon MANUAL DIFF REQ NO Normal [facility] Comment on above: Performed By: #### H STROPN, TSH, BNP, CMP #### [facility] [address] [place] [address] Dr. Cedric iDllon MCH (RBC) [Entitic mass] 31.1 pg Normal 26.7-34.0 [facility] Comment on above: Performed By: #### H STROPN, TSH, BNP, CMP #### [facility] [address] [place] [address] Dr. Cedric Dillon MCHC (RBC) [Mass/Vol] 34.2 g/dL Normal 29.9-35.2 [facility] Comment on above: Performed By: #### H STROPN, TSH, BNP, CMP #### [facility] [address] [place] [address] Dr. Cedric Dillon MCV (RBC) [Entitic vol] 90.8 fL Normal 81.0-99.0 [facility] Comment on above: Performed By: #### H STROPN, TSH, BNP, CMP #### [facility] [address] [place] [address] Dr. Cedric Dillon MONO # 0.7 103/ul Normal 0.3-0.8 [facility] Comment on above: Performed By: #### H STROPN, TSH, BNP, CMP #### [facility] [address] [place] [address] Dr. Cedric Dillon Monocytes/100 WBC (Bld) 6.6 % Normal 1.7-12.0 [facility] Comment on above: Performed By: #### H STROPN, TSH, BNP, CMP #### [facility] [address] [place] [address] Dr. Cedric Dillon NEUT # 5.2 103/ul Normal 1.4-6.5 [facility] Comment on above: Performed By: #### H STROPN, TSH, BNP, CMP #### [facility] [address] [place] [address] Dr. Cderic Dillon Neutrophils/100 WBC (Bld) 46.7 % Normal 43.0-75.0 [facility] Comment on above: Performed By: #### H STROPN, TSH, BNP, CMP #### [facility] [address] [place] [address] Dr. Cedric Dillon Platelet mean volume (Bld) [Entitic vol] 8.7 fL Critically low 9.5-13.5 [facility] Comment on above: Performed By: #### H STROPN, TSH, BNP, CMP #### [facility] [address] [address] [address] Cedric Dillon PLT 542 103/ul Critically high 150-450 [facility] Comment on above: Performed By: #### H STROPN, TSH, BNP, CMP #### [facility] [address] [address] [address] Cedric Dillon RBC 4.15 106/ul Critically low 4.20-5.40 [facility] Comment on above: Performed By: #### H STROPN, TSH, BNP, CMP #### [facility] [address] [address] [address] Cedric Dillon WBC 11.2 103/ul Critically high 4.0-11.0 [facility] Comment on above: Performed By: #### H STROPN, TSH, BNP, CMP #### [facility] [address] [place] [address] Dr. Cedric Dillon D-DIMERon 08-22-2022 D-DIMER <0.19 Normal <=0.59 [facility] Comment on above: Performed By: #### P TT, DDIM, PT #### [facility] [address] [address] [address] Cedric Dillon D-DIMER COMMENTS SEE BELOW Normal [facility] Comment on above: Result Comment: Incr eases [...] By: #### P TT, DDIM, PT #### [facility] [address] [place] [address] Dr. Cedric Dillon PREG HCG QUALon 08-22-2022 , QUAL Negative Normal NEGATIVE [facility] Comment on above: Performed By: #### P REG #### [facility] [address] [place] [address] Dr. Cedric Dillon PROF 14(COMP METB)on 023 Albumin [Mass/Vol] 4.0 g/dL Normal 3.4-5.0 [facility] Comment on above: Performed By: #### H STROPN, TSH, BNP, CMP #### [facility] [address] [address] [address] Cedric Dillon Albumin/Globulin [Mass ratio] 1.1 {ratio} Normal [facility] Comment on above: Performed By: #### H STROPN, TSH, BNP, CMP #### [facility] [address] [address] [address] Cedric Dillon ALP [Catalytic activity/Vol] 86 U/L Normal 46-116 [facility] Comment on above: Performed By: #### H STROPN, TSH, BNP, CMP #### [facility] [address] [address] [address] Cedric Dillon ALT [Catalytic activity/Vol] 48 U/L Normal 14-59 [facility] Comment on above: Performed By: #### H STROPN, TSH, BNP, CMP #### [facility] [address] [address] [address] Cedric iDllon Anion gap [Moles/Vol] 13.7 mmol/L Normal [facility] Comment on above: Performed By: #### H STROPN, TSH, BNP, CMP #### [facility] [address] [address] [address] Cedric Dillon AST [Catalytic activity/Vol] 31 U/L Normal 15-37 [facility] Comment on above: Performed By: #### H STROPN, TSH, BNP, CMP #### [facility] [address] [address] [address] Cedric Dillon Bilirubin [Mass/Vol] 0.3 mg/dL Normal 0.2-1.0 [facility] Comment on above: Performed By: #### H STROPN, TSH, BNP, CMP #### [facility] [address] [address] [address] Cedric Dillon Calcium [Mass/Vol] 9.0 mg/dL Normal 8.5-10.1 [facility] Comment on above: Performed By: #### H STROPN, TSH, BNP, CMP #### [facility] [address] [address] [address] Cedric Dillon Chloride [Moles/Vol] 102 mmol/L Normal 98-107 [facility] Comment on above: Performed By: #### H STROPN, TSH, BNP, CMP #### [facility] [address] [address] [address] Cedric Dillon CO2 [Moles/Vol] 26.5 mmol/L Normal 21.0-32.0 [facility] Comment on above: Performed By: #### H STROPN, TSH, BNP, CMP #### [facility] [address] [place] [address] Dr. Cedric Dillon Creatinine [Mass/Vol] 0.72 mg/dL Normal 0.55-1.02 [facility] Comment on above: Performed By: #### H STROPN, TSH, BNP, CMP #### [facility] [address] [place] [address] Dr. Cedric Dillon EGFR-AF ZAMBIAN >60 Normal >=60 [facility] Comment on above: Performed By: #### H STROPN, TSH, BNP, CMP #### [facility] [address] [place] [address] Dr. Cedric Dillon EGFR-NON AF ZAMBIAN >60 Normal >=60 [facility] Comment on above: Performed By: #### H STROPN, TSH, BNP, CMP #### [facility] [address] [place] [address] Dr. Cedric Dillon Globulin (S) [Mass/Vol] 3.5 g/dL Normal [facility] Comment on above: Performed By: #### H STROPN, TSH, BNP, CMP #### [facility] [address] [place] [address] Dr. eCdric Dillon Glucose [Mass/Vol] 87 mg/dL Normal 74-106 [facility] Comment on above: Performed By: #### H STROPN, TSH, BNP, CMP #### [facility] [address] [place] [address] Dr. Cedric Dillon Potassium [Moles/Vol] 3.2 mmol/L Critically low 3.5-5.1 [facility] Comment on above: Performed By: #### H STROPN, TSH, BNP, CMP #### [facility] [address] [place] [address] Dr. Cedric Dillon Protein [Mass/Vol] 7.5 g/dL Normal 6.4-8.2 [facility] Comment on above: Performed By: #### H STROPN, TSH, BNP, CMP #### [facility] [address] [place] [address] Dr. Cedric Dillon Sodium [Moles/Vol] 139 mmol/L Normal 136-145 [facility] Comment on above: Performed By: #### H STROPN, TSH, BNP, CMP #### [facility] [address] [place] [address] Dr. Cedric Dillon Urea nitrogen [Mass/Vol] 5.0 mg/dL Critically low 7.0-18.0 [facility] Comment on above: Performed By: #### H STROPN, TSH, BNP, CMP #### [facility] [address] [place] [address] Dr. Cedric Dillon Urea nitrogen/Creatinine [Mass ratio] 6.9 mg/mg Normal [facility] Comment on above: Performed By: #### H STROPN, TSH, BNP, CMP #### [facility] [address] [place] [address] Dr. Cedric Dillon PROTIMEon 08-22-2022 INR Coag (PPP) [Relative time] 0.94 {INR} Normal [facility] Comment on above: Performed By: #### P TT, DDIM, PT #### [facility] [address] [place] [address] Dr. Cedric Dillon INR GUIDELINES SEE BELOW Normal [facility] Comment on above: Result Comment: VINCE RED INR: 2.0 - 3.0 CONDITIONS NOT LISTED BELOW 2.5 - 3.5 FOR PROSTHETIC HEART VALVE REPLACEMENT 2.5 - 3.5 RECURRENT THROMBOSIS Performed By: #### P TT, DDIM, PT #### [facility] [address] [place] [address] Dr. Cedric Dillon PT Coag (PPP) [Time] 10.0 s Normal 9.0-11.6 [facility] Comment on above: Performed By: #### P TT, DDIM, PT #### [facility] [address] [place] [address] Dr. Cedric Dillon PTTon 08-22-2022 aPTT Coag (Bld) [Time] 29.1 s Normal 22.3-36.2 [facility] Comment on above: Performed By: #### P TT, DDIM, PT #### [facility] [address] [place] [address] Dr. Cedric Dillon TROPONIN, HIGH SENSITIVITYon 08-22-2022 HSTROP 8.3 pg/mL Normal 4.0-51.3 [facility] Comment on above: Result Comment: CUT- OFF POINTS HAVE BEEN ESTABLISHED BASED ON THE FOURTH UNIVERSAL DEFINITIONS OF MYOCARDIAL INFARCTION. THE UPPER REFERENCE LIMIT (URL) OF TROPONIN, DEFINED THE 99TH PERCENTILE OF cTnI DISTRIBUTION IN A REFERENCE POPULATION, HAS BEEN CONFIRMED THE DECISION THRESHOLD FOR RI DIAGNOSIS. Performed By: #### H STROPN, TSH, BNP, CMP #### [facility] [address] [place] [address] Dr. Cedric Dillon TSHon 08-22-2022 TSH 0.777 uIU/mL Normal 0.358-3.740 [facility] Comment on above: Performed By: #### H STROPN, TSH, BNP, CMP #### [facility] [address] [place] [address] Dr. Cedric Dillon XR CHEST 1 Von [...] MANUEL LAZO Date: 2022-08-22 21:31 Normal [facility] CBC W/DIFFon 12-11-2021 ABS IMM GRANS 0.2 10*3/uL Normal 0.0-0.2 [facility] Comment on above: Performed By: #### 5 0103 ####[facility] [place] [address], [facility] ABS NEUTROPHILS 10.7 10*3/uL High 1.6-7.6 [facility] Comment on above: Performed By: #### 5 0103 ####[facility] [place] [address], [facility] Basophils (Bld) [#/Vol] 0.1 10*3/uL Normal 0.0-0.2 The [facility] Comment on above: Performed By: #### 5 102 ####[facility] Basophils/100 WBC (Bld) 0.8 % Normal 0.0-1.0 [facility] Comment on above: Performed By: #### 5 0103 ####[facility] [place] [address], [facility] Eosinophils (Bld) [#/Vol] 0.3 10*3/uL Normal 0.0-0.5 [facility] Comment on above: Performed By: #### 5 0103 ####[facility] [place] [address], [facility] Eosinophils/100 WBC (Bld) 1.7 % Normal 0.0-6.0 [facility] Comment on above: Performed By: #### 5 3 ####[facility] Erythrocyte distribution width (RBC) [Ratio] 15.5 % High 11.5-15.0 [facility] Comment on above: Performed By: #### 5 0103 ####[facility] Hematocrit (Bld) [Volume fraction] 40.1 % Normal 36.0-45.0 [facility] Comment on above: Performed By: #### 102 ####[facility] Hemoglobin (Bld) [Mass/Vol] 13.3 g/dL Normal 12.0-15.0 [facility] Comment on above: Performed By: #### 102 ####[address] IMMATURE GRANS 1.3 % High 0.0-1.0 The [facility] Comment on above: Performed By: #### 102 ####[address] Lymphocytes (Bld) [#/Vol] 3.4 10*3/uL Normal 1.2-4.0 The [facility] Comment on above: Performed By: #### 102 ####[place] [id number] Lymphocytes/100 WBC (Bld) 22.0 % Normal 20.0-45.0 [facility] Comment on above: Performed By: #### 102 ####[address] MCH (RBC) [Entitic mass] 29.0 pg Normal 27.0-33.0 [facility] Comment on above: Performed By: #### 102 ####[facility] [place] [address] MCHC (RBC) [Mass/Vol] 33.2 g/dL Normal 32.0-35.0 [facility] Comment on above: Performed By: #### 102 ####[facility] MCV (RBC) [Entitic vol] 87.6 fL Normal 82.0-98.0 [facility] Comment on above: Performed By: #### 102 ####[facility] [place] [address], [facility] Monocytes (Bld) [#/Vol] 0.8 10*3/uL Normal 0.1-1.0 [facility] Comment on above: Performed By: #### 102 ####[facility] MONOS 5.3 % Normal 5.0-12.0 [facility] Comment on above: Performed By: #### 102 ####[facility] Neutrophils/100 WBC (Bld) 68.9 % Normal 40.0-72.0 [facility] [facility] Comment on above: Performed By: #### 102 ####[facility] Nucleated RBC/100 WBC (Bld) [Ratio] 0 % Normal 0-0 The [facility] Comment on above: Performed By: #### 102 ####[facility] PLAT CNT 492 10*3/uL High 150-400 The [facility] Comment on above: Performed By: #### 102 ####[facility] [place] [address], [facility] RBC (Bld) [#/Vol] 4.58 10*6/uL Normal 3.80-5.00 [facility] Comment on above: Performed By: #### 102 ####[facility]3000 [facility] [place] [address], [facility] WBC (Bld) [#/Vol] 15.58 10*3/uL High 4.00-10.60 The [facility] Comment on above: Performed By: #### 5 0103 ####[facility] [facility] [place] [address], [facility] COMP METABOLIC PANELon 12-11 Albumin [Mass/Vol] 4.2 g/dL Normal 3.5-5.7 The [facility] Comment on above: Performed By: #### 0 0121 #### [facility] [address] [place] [address], [facility] ALKALINE PHOSPH 86 IU/L Normal 34-104 The [facility] Comment on above: Performed By: #### 0 0121 #### [facility] [address] [place] [address], [facility] ALT [Catalytic activity/Vol] 33 U/L Normal 7-52 The [facility] Comment on above: Performed By: #### 0 0121 #### [facility] [address] [facility] [place] [place] [address], [facility] AST [Catalytic activity/Vol] 22 U/L Normal 13-39 The [facility] Comment on above: Performed By: #### 0 0121 #### [facility] [address] [place] [address], [facility] Bilirubin [Mass/Vol] 0.3 mg/dL Normal 0.3-1.0 The [facility] Comment on above: Performed By: #### 0 0121 #### [facility] [address] [place] [address], [facility] Calcium [Mass/Vol] 9.7 mg/dL Normal 8.6-10.3 The [facility] Comment on above: Performed By: #### 0 0121 #### [facility] [address] [place] [address], [facility] Chloride [Moles/Vol] 103 mmol/L Normal 98-107 The [facility] Comment on above: Performed By: #### 0 0121 #### [facility] [address] [place] [address], [place] CO2 [Moles/Vol] 28 mmol/L Normal 21-31 [facility] Comment on above: Performed By: #### 0 0121 #### [facility] [address] [place] [address], [place] Creatinine [Mass/Vol] 0.67 mg/dL Normal 0.60-1.20 The [facility] Comment on above: Performed By: #### 0 0121 #### [facility] [address] [place] [address], [place] GFR/1.73 sq M.predicted among blacks MDRD (S/P/Bld) [Vol rate/Area] mL/min/{1.73_m2} Normal >60 The [facility] Comment on above: Performed By: #### 0 0121 #### [facility] [address] [facility] [place] [address], [place] GFR/1.73 sq M.predicted among non-blacks MDRD (S/P/Bld) [Vol rate/Area] mL/min/{1.73_m2} Normal >60 [facility] Comment on above: Performed By: #### 0 0121 #### [facility] [address] [place] [address], [place] Glucose [Mass/Vol] 114 mg/dL High 70-100 [facility] Comment on above: Performed By: #### 0 0121 #### [facility] [address] [place] [address], [place] Potassium [Moles/Vol] 4.0 mmol/L Normal 3.5-5.1 The [facility] Comment on above: Performed By: #### 0 0121 #### [facility] [address] [place] [address], [facility] Protein [Mass/Vol] 7.4 g/dL Normal 6.0-8.3 The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
== END 2024-10-07 18:06 | disposition home or self-care (01) ==
LOC: LAB 18:05
PROVIDERS: PCP Nurse Practitioner Family; Visit Provider Obstetrics & Gynecology
DX: Z01.419 Encounter for gynecological examination (general) (routine) without abnormal findings (principal)
CPT/HCPCS: 87624; 88175